=== PATIENT | male | born 1960 | race Caucasian/White ===

== ENCOUNTER 2023-01-03 01:23 | Observation (INO) | payer OTHER, SELFPAY ==
[2023-01-03] VITALS (28 sets, daily range): BP systolic 97–140; BP diastolic 52–89; PULSE 51–74; RESP 11–32; TEMP 36.3–36.6; O2SAT 92–98; BMI 33.8; BMI 34.1
--- NOTE | 2023-01-03 01:24 | ECG_ITS ---
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
--- NOTE | 2023-01-03 01:24 | ED.CHESTPAI1 ---
HPI - Chest Pain General Chief Complaint: Chest Pain Stated Complaint: chest pain Time Seen by Provider: 01/03/23 01:24 History of Present Illness HPI narrative: the patient is presenting with the two hours history of retrosternal chest pain that is not radiating associated with nausea and vomiting and dizziness, the pain was pressure like, he denies any preceding symptoms of cough or fever The pain happened while he was walking at work The patient had a coronary artery disease stenting history eight month ago in [facility] Patient brought to us by the EMS who received 2 doses of nitroglycerin as well as aspirin 324 mg pt already receiving Plavix . pt smokes less than 1 pack of cigarette per day Related Data Home Medications Medication Instructions Recorded Confirmed aspirin 81 mg tablet,delayed 81 mg PO DAILY 01/03/23 01/03/23 release atorvastatin 20 mg tablet 20 mg feeding tube DAILY 01/03/23 01/03/23 buspirone 10 mg tablet 5 mg PO TID 01/03/23 01/03/23 clopidogrel 75 mg tablet 75 mg PO DAILY 01/03/23 01/03/23 cyclobenzaprine 10 mg tablet 10 mg PO Q12H 01/03/23 01/03/23 gabapentin 100 mg capsule 100 mg PO TID 01/03/23 01/03/23 ibuprofen 800 mg tablet 800 mg PO Q8H 01/03/23 01/03/23 isosorbide mononitrate 30 mg 30 mg PO DAILY 01/03/23 01/03/23 tablet,extended release 24 hr metoprolol succinate 25 mg 25 mg PO DAILY 01/03/23 01/03/23 tablet,extended release 24 hr nitroglycerin 0.4 mg sublingual 0.4 mg sublingual PRN chest pain 01/03/23 tablet omeprazole 40 mg capsule,delayed 40 mg PO DAILY 01/03/23 01/03/23 release ranolazine 500 mg tablet,extended 500 mg PO Q12H 01/03/23 01/03/23 release,12 hr Allergies Allergy/AdvReac Type Severity Reaction Status Date / Time lidocaine Allergy Rash Verified 01/03/23 01:30 gabapentin [From Neurontin] AdvReac Nausea Verified 01/03/23 01:30 Review of Systems ROS Status of ROS 10 or more systems reviewed and unremarkable except as noted in history and below PFSH PFSH Social History Smoking status: Current every day smoker Exam Narrative Exam Narrative: Nurses notes and vital signs reviewed and patient is not hypoxic. General: Well-appearing and in no apparent distress. Skin: Warm, dry, no pallor noted. No rash. Head: Normocephalic, atraumatic. Neck: Supple, non-tender. Eye: Pupils are equal, round and EOMI. No scleral icterus. Ears, Nose, Mouth, and Throat: TM are clear, no nasal mucosal hypertrophy. Oral mucosa is moist, no posterior oropharynx erythema, uvula is mid-line Cardiovascular: Regular Rate and Rhythm without murmur, gallop or rub. Respiratory: No accessory muscle use or respiratory distress. Lungs are clear to auscultation, no wheezing, rales or rhonchi Chest Wall: no tenderness Back: No midline thoracic or lumbar vertebral tenderness. No CVA tenderness Musculoskeletal: normal ROM, no calf or popliteal tenderness, no lower extremity edema/swelling GI: Abdomen is soft, non-distended. Normal bowel sounds. No masses appreciated. No tenderness to palpation. No rebound, guarding, or rigidity noted. Neurological: A&O x4. No cranial nerve dysfunction observed. No truncal ataxia. Moves all extremities. Sensation intact. Psychiatric: Cooperative and interactive. Normal mood and affect. Constitutional Vital Signs - 24 hr 01/03/23 01:23 01/03/23 01:49 01/03/23 01:25 Temperature 97.6 F Pulse Rate 65 Pulse Rate [Monitor] 65 Respiratory Rate 16 15 Blood Pressure Blood Pressure [Right Arm] 110/69 Pulse Oximetry 96 96 95 Oxygen Delivery Method Room Air Room Air 01/03/23 01:26 01/03/23 01:27 01/03/23 01:30 Temperature Pulse Rate 67 64 60 Pulse Rate [Monitor] Respiratory Rate 18 18 11 L Blood Pressure 110/69 108/79 Blood Pressure [Right Arm] Pulse Oximetry 96 95 94 L Oxygen Delivery Method 01/03/23 02:00 01/03/23 02:30 01/03/23 02:30 Temperature Pulse Rate 63 59 L 69 Pulse Rate [Monitor] Respiratory Rate 19 18 21 Blood Pressure 121/71 H 118/61 118/61 Blood Pressure [Right Arm] Pulse Oximetry 93 L 95 96 Oxygen Delivery Method 01/03/23 03:00 Temperature Pulse Rate 65 Pulse Rate [Monitor] Respiratory Rate 16 Blood Pressure 129/64 H Blood Pressure [Right Arm] Pulse Oximetry 95 Oxygen Delivery Method Course Vital Signs Vital signs: Vital Signs Temperature 97.6 F 01/03/23 01:23 Pulse Rate 65 01/03/23 01:23 Respiratory Rate 16 01/03/23 01:23 Blood Pressure 110/69 01/03/23 01:23 Pulse Oximetry 96 01/03/23 01:23 Oxygen Delivery Method Room Air 01/03/23 01:23 Temperature 97.6 F 01/03/23 01:23 Pulse Rate 65 01/03/23 03:00 Respiratory Rate 16 01/03/23 03:00 Blood Pressure 129/64 H 01/03/23 03:00 Pulse Oximetry 95 01/03/23 03:00 Oxygen Delivery Method Room Air 01/03/23 01:49 MDM - Chest Pain MDM Narrative Medical decision making narrative: EKG shows sinus rhythm with a heart rate of sixty-six [address] elevation or depression and a repeated EKG still showing similar results CBC and chemistry showed no acute pathology and the patient troponin repeated twice did not show any elevation X-ray chest shows possible edema or bronchitis I spoke with Dr. Blair and he agreed that the patient is high risk and heart score is elevated----HEART score is 5 pt will be admitted for observation pt resolved at the moment pt will be admitted under Dr Contreras and discussed with Dr Bullock Lab Data Labs: Lab Results 01/03/23 01/03/23 Range/Units 01:30 03:04 WBC 9.7 (4.0-11.0) 10^3/uL RBC 5.28 (4.70-6.10) 10^6/uL Hgb 15.2 (14.0-18.0) g/dL Hct 44.4 (42.0-54.0) % MCV 84.1 (80.0-94.0) fL MCH 28.8 (25.9-34.0) pg MCHC 34.2 (29.9-35.2) g/dL RDW 13.4 (11.0-15.0) % Plt Count 293 (150-450) 10^3/uL MPV 9.5 (9.5-13.5) fL Neut % (Auto) 48.0 (43.0-75.0) % Lymph % (Auto) 38.5 (20.5-60.0) % [place] % (Auto) 10.7 (1.7-12.0) % Eos % (Auto) 2.1 (0.9-7.0) % Baso % (Auto) 0.5 (0.2-2.0) % Neut # (Auto) 4.7 (1.4-6.5) 10^3/uL Lymph # (Auto) 3.7 (1.2-3.8) 10^3/uL [place] # (Auto) 1.0 H (0.3-0.8) 10^3/uL Eos # (Auto) 0.2 (0.0-0.7) 10^3/uL Baso # (Auto) 0.1 (0.0-0.1) 10^3/uL Abs Immat Gran (auto) 0.02 (0.00-0.03) 10^3/uL Imm/Tot Granulo (auto) 0.2 (0.0-0.5) % PT 10.2 (9.0-11.6) sec INR 0.96 APTT 24.8 (22.3-36.2) sec Sodium 136 (136-145) mmol/L Potassium 3.9 (3.5-5.1) mmol/L Chloride 102 (98-107) mmol/L Carbon Dioxide 27.6 (21.0-32.0) mmol/L Anion Gap 10.3 BUN 14.0 (7.0-18.0) mg/dL Creatinine 1.07 (0.70-1.30) mg/dL Est GFR ( Amer) >60 (>=60) Est GFR (Non-Af Amer) >60 (>=60) BUN/Creatinine Ratio 13.1 Glucose 115 H (74-106) mg/dL Calcium 8.8 (8.5-10.1) mg/dL Total Bilirubin 0.4 (0.2-1.0) mg/dL AST 22 (15-37) U/L ALT 42 (16-63) U/L Alkaline Phosphatase 129 H (46-116) U/L Troponin I High Sens 6.8 6.5 (4.0-76.1) pg/mL Total Protein 7.3 (6.4-8.2) g/dL Albumin 3.8 (3.4-5.0) g/dL Globulin 3.5 g/dL Albumin/Globulin Ratio 1.1 Discharge Plan Discharge Chief Complaint: Chest Pain Clinical Impression: Unstable angina pectoris, Chest pain Patient Disposition: Admitted as Observation Time of Disposition Decision: 03:57 Condition: Good Additional Instructions: Admitted under Dr Contreras
[2023-01-03 01:40] LABS: Basophils Absolute Auto 0.1 10^3/uL (0.0-0.1); Basophils Percent Auto 0.5 % (0.2-2.0); Eosinophils Absolute Auto 0.2 10^3/uL (0.0-0.7); Eosinophils Percent Auto 2.1 % (0.9-7.0); Hematocrit 44.4 % (42.0-54.0); Hemoglobin 15.2 g/dL (14.0-18.0); Immature Granulocytes Abs Auto 0.02 10^3/uL (0.00-0.03); Immature Granulocytes Pct Auto 0.2 % (0.0-0.5); Lymphocytes Absolute Auto 3.7 10^3/uL (1.2-3.8); Lymphocytes Percent Auto 38.5 % (20.5-60.0); Mean Corpuscular HGB Conc 34.2 g/dL (29.9-35.2); Mean Corpuscular Hemoglobin 28.8 pg (25.9-34.0); Mean Corpuscular Volume 84.1 fL (80.0-94.0); Mean Platelet Volume 9.5 fL (9.5-13.5); Monocytes Percent Auto 10.7 % (1.7-12.0); Neutrophils Absolute Auto 4.7 10^3/uL (1.4-6.5); Platelet Count 293 10^3/uL (150-450); Red Blood Count 5.28 10^6/uL (4.70-6.10); Red Cell Distribution Width 13.4 % (11.0-15.0); White Blood Count 9.7 10^3/uL (4.0-11.0)
--- NOTE | 2023-01-03 01:40 | XR_ITS ---
The [address] [address] Patient Name: FRAN MATA MRN: [id number] date: 1960 Sex: M Assigned Patient Location: ED.MAIN Current Patient Location: ED.MAIN Accession/Order Number: [id number] Exam Date: 01/03/2023 01:40 Report Date: 01/03/2023 02:11 At the request of: CHINEDU HERNANDES Procedure: XR chest 1V EXAM: XR chest 1V HISTORY: CP COMPARISON: None. TECHNIQUE: One view of the chest was obtained. FINDINGS: An electronic loop recorder device overlies the left lung base. The cardiac silhouette is mildly enlarged. Aortic atherosclerotic disease is seen. There is mild interstitial prominence. There is left basilar atelectasis and/or scarring. There is no significant pneumothorax or pleural effusion. No acute osseous abnormality is seen. Surgical clips are seen within the right aspect of the neck. IMPRESSION: 1. Mildly enlarged cardiac silhouette with interstitial prominence that could represent edema and/or bronchitis. Electronically authenticated by: Linda SILVER Date: 01/03/2023 02:11
[2023-01-03 01:57] LABS: Alanine Aminotransferase 42 U/L (16-63); Albumin Globulin Ratio 1.1; Albumin Level 3.8 g/dL (3.4-5.0); Alkaline Phosphatase 129 U/L (46-116); Anion Gap 10.3; Aspartate Amino Transferase 22 U/L (15-37); BUN Creatinine Ratio 13.1; Bilirubin Total 0.4 mg/dL (0.2-1.0); Calcium 8.8 mg/dL (8.5-10.1); Carbon Dioxide 27.6 mmol/L (21.0-32.0); Chloride 102 mmol/L (98-107); Estimated GFR (African America >60 (>=60); Estimated GFR (Non-African Ame >60 (>=60); Globulin 3.5 g/dL; Glucose 115 mg/dL (74-106); Potassium 3.9 mmol/L (3.5-5.1); Sodium 136 mmol/L (136-145); Total Protein 7.3 g/dL (6.4-8.2); Troponin I High Sensitivity 6.8 pg/mL (4.0-76.1)
[2023-01-03 01:58] LABS: INR 0.96; Partial Thromboplastin Time 24.8 sec (22.3-36.2); Prothrombin Time 10.2 sec (9.0-11.6)
[2023-01-03] MEDS: MORPHINE SULFATE 4 MG/ML VIAL IV (02:27)
[2023-01-03] MEDS: ONDANSETRON PF 4 MG/2 ML VIAL IV (02:28)
--- NOTE | 2023-01-03 02:34 | ECG_ITS ---
The 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
[2023-01-03] MEDS: NITROGLYCERIN 0.4 MG TAB.SUBL PO (02:56)
[2023-01-03] MEDS: FAMOTIDINE/PF 20 MG/2 ML VIAL IV (02:57)
[2023-01-03 03:25] LABS: Troponin I High Sensitivity 6.5 pg/mL (4.0-76.1)
--- NOTE | 2023-01-03 05:05 | W.PM.TELEPN ---
Progress Note: Subjective Subjective Interval history: Chest pain HPI: this is a 62 yo male who presents with above complaints. Patient has a hx/o CAD, S/P [facility] Patient endorses two hours history of retrosternal chest pain that is not radiating associated with nausea and vomiting and dizziness, the pain was pressure like, he denies any preceding symptoms of cough or fever The pain happened while he was walking at work The patient had a coronary artery disease stenting history Patient brought to us by the EMS who received 2 doses of nitroglycerin as well as aspirin 324 mg pt already receiving Plavix . pt smokes less than 1 pack of cigarette per day Exam Narrative Exam Narrative: NAD, PERRLA, EOMI, MMM HEart - S1, S!. RRR Pulm - CTA B/L - no pain ABd - S/NT/ND/+BSs EXT - no C/C/Edema Meuro - CN II - XII grossly intakt ECTR - arthriar Constitutional Vital Signs - 24 hr 01/03/23 01:23 01/03/23 01:49 01/03/23 01:25 Temperature 97.6 F Pulse Rate 65 Pulse Rate [Monitor] 65 Respiratory Rate 16 15 Blood Pressure Blood Pressure [Right Arm] 110/69 Pulse Oximetry 96 96 95 Oxygen Delivery Method Room Air Room Air 01/03/23 01:26 01/03/23 01:27 01/03/23 01:30 Temperature Pulse Rate 67 64 60 Pulse Rate [Monitor] Respiratory Rate 18 18 11 L Blood Pressure 110/69 108/79 Blood Pressure [Right Arm] Pulse Oximetry 96 95 94 L Oxygen Delivery Method 01/03/23 02:00 01/03/23 02:30 01/03/23 02:30 Temperature Pulse Rate 63 59 L 69 Pulse Rate [Monitor] Respiratory Rate 19 18 21 Blood Pressure 121/71 H 118/61 118/61 Blood Pressure [Right Arm] Pulse Oximetry 93 L 95 96 Oxygen Delivery Method 01/03/23 03:00 01/03/23 03:00 01/03/23 03:15 Temperature Pulse Rate 65 62 55 L Pulse Rate [Monitor] Respiratory Rate 16 21 21 Blood Pressure 129/64 H 129/64 H 97/71 Blood Pressure [Right Arm] Pulse Oximetry 95 94 L 96 Oxygen Delivery Method 01/03/23 03:30 01/03/23 03:45 01/03/23 04:00 Temperature Pulse Rate 56 L 56 L 60 Pulse Rate [Monitor] Respiratory Rate 15 16 19 Blood Pressure 111/70 98/67 118/89 H Blood Pressure [Right Arm] Pulse Oximetry 92 L 98 Oxygen Delivery Method 01/03/23 04:13 01/03/23 04:17 01/03/23 04:20 Temperature Pulse Rate 56 L 55 L Pulse Rate [Monitor] Respiratory Rate 12 Blood Pressure 120/66 H Blood Pressure [Right Arm] Pulse Oximetry Oxygen Delivery Method 01/03/23 04:30 Temperature Pulse Rate 74 Pulse Rate [Monitor] Respiratory Rate 32 H Blood Pressure Blood Pressure [Right Arm] Pulse Oximetry Oxygen Delivery Method Progress Note: Objective Labs Labs: Short CBC 01/03/23 Range/Units 01:30 WBC 9.7 (4.0-11.0) 10^3/uL Hgb 15.2 (14.0-18.0) g/dL Hct 44.4 (42.0-54.0) % Plt Count 293 (150-450) 10^3/uL BMP 01/03/23 01:30 Sodium 136 Potassium 3.9 Chloride 102 Carbon Dioxide 27.6 BUN 14.0 Creatinine 1.07 Glucose 115 H Calcium 8.8 Liver Function 01/03/23 Range/Units 01:30 Total Bilirubin 0.4 (0.2-1.0) mg/dL AST 22 (15-37) U/L ALT 42 (16-63) U/L Alkaline Phosphatase 129 H (46-116) U/L Albumin 3.8 (3.4-5.0) g/dL Progress Note: A&P Assessment and Plan (1) Unstable angina pectoris: (2) Chest pain: Plan 1. 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 HTN - bp controlled. 3. Dyslipidemia - continue with home dose of statin 4. DVT/GI prophylaxis Telemedicine Attestation Telemedicine Attestation I conducted this encounter from [place][] via secure live, [id number] video conference with the patient, CHARGE TEST-CHARGES located at [facility] with [CP in adult]. Prior to the interview, the risks and benefits of telemedicine were discussed with the patient and verbal consent was obtained.
[2023-01-03 05:32] LABS: Basophils Percent Auto 0.4 % (0.2-2.0); Eosinophils Absolute Auto 0.2 10^3/uL (0.0-0.7); Eosinophils Percent Auto 2.5 % (0.9-7.0); Hematocrit 44.6 % (42.0-54.0); Hemoglobin 15.2 g/dL (14.0-18.0); Immature Granulocytes Abs Auto 0.03 10^3/uL (0.00-0.03); Immature Granulocytes Pct Auto 0.3 % (0.0-0.5); Lymphocytes Absolute Auto 3.7 10^3/uL (1.2-3.8); Mean Corpuscular HGB Conc 34.1 g/dL (29.9-35.2); Mean Corpuscular Hemoglobin 28.9 pg (25.9-34.0); Mean Corpuscular Volume 84.8 fL (80.0-94.0); Mean Platelet Volume 9.4 fL (9.5-13.5); Monocytes Absolute Auto 0.9 10^3/uL (0.3-0.8); Monocytes Percent Auto 9.9 % (1.7-12.0); Neutrophils Absolute Auto 4.1 10^3/uL (1.4-6.5); Neutrophils Percent Auto 45.9 % (43.0-75.0); Platelet Count 277 10^3/uL (150-450); Red Blood Count 5.26 10^6/uL (4.70-6.10); Red Cell Distribution Width 13.4 % (11.0-15.0); White Blood Count 8.9 10^3/uL (4.0-11.0)
[2023-01-03 05:44] LABS: Partial Thromboplastin Time 27.1 sec (22.3-36.2)
[2023-01-03 05:45] LABS: Cholesterol 175 mg/dL (<=200); HDL Cholesterol 35 mg/dL (40-60); Prealbumin 25.2 mg/dL (20.9-45.5); Triglycerides 150 mg/dL (<=150)
[2023-01-03 05:46] LABS: Alanine Aminotransferase 43 U/L (16-63); Albumin Globulin Ratio 1.1; Albumin Level 3.8 g/dL (3.4-5.0); Alkaline Phosphatase 128 U/L (46-116); Anion Gap 11.1; Aspartate Amino Transferase 24 U/L (15-37); BUN Creatinine Ratio 13.6; Bilirubin Total 0.5 mg/dL (0.2-1.0); Calcium 8.8 mg/dL (8.5-10.1); Chloride 101 mmol/L (98-107); Estimated GFR (African America >60 (>=60); Estimated GFR (Non-African Ame >60 (>=60); Globulin 3.4 g/dL; Glucose 152 mg/dL (74-106); Potassium 4.1 mmol/L (3.5-5.1); Sodium 136 mmol/L (136-145); Total Protein 7.2 g/dL (6.4-8.2)
[2023-01-03] MEDS: BUSPIRONE HCL 10 MG TABLET 5 MG PO ×2 (08:59→13:32)
[2023-01-03] MEDS: ASPIRIN 81 MG TABLET.DR PO (09:00)
[2023-01-03] MEDS: ISOSORBIDE MONONITRATE 30 MG TAB.ER.24H PO (09:00)
[2023-01-03] MEDS: ATORVASTATIN CALCIUM 20 MG TABLET PO (09:00)
[2023-01-03] MEDS: GABAPENTIN 100 MG CAPSULE PO ×2 (09:02→13:32)
[2023-01-03] MEDS: RANOLAZINE 500 MG TAB.ER.12H PO (09:02)
[2023-01-03] MEDS: CLOPIDOGREL BISULFATE 75 MG TABLET PO (09:02)
[2023-01-03] MEDS: CYCLOBENZAPRINE HCL 10 MG TABLET PO (09:02)
[2023-01-03] MEDS: METOPROLOL SUCCINATE 25 MG TAB.ER.24H PO (09:02)
[2023-01-03] MEDS: OMEPRAZOLE 40 MG CAPSULE.DR PO (09:03)
--- NOTE | 2023-01-03 09:15 | P.HP_ITS ---
H&P: HPI History of Present Illness Chief complaint: chest pain, UNSTABLE ANGINA PECTORIS Narrative: patient is a 62-year-old male with past medical history of coronary artery disease status post PCI and stent placement approximately eight months ago at [facility]. He also has a history of hyperlipidemia, hypertension, low back pain, GERD. He reports that he follows frequently with Dr. Zheng and had an echo approximately three months ago. Yesterday he was working out [employer] when he developed some shortness of breath and subsequent substernal chest pain nonradiating. He did feel nauseous at the time no vomiting or diarrhea. He says he started with a dry cough, he is a smoker, and his is also suffering from an upper respiratory illness. On chest x-ray findings of cardiomegaly but no acute processes. Pattient has had negative troponins ?3, blood pressure has remained stable and there has been no events on telemetry. He does report some occasional chest pain still but mostly with coughing he denies any dizziness consistent chest pain no radiation of chest pain no weakness no headaches, no fevers. Review of Systems ROS Narrative ROS: a complete review of systems were reviewed with patient and are positive as below or listed in History of Chief Complaint. General: no fever, chills, night sweats Head: no headache, trauma, visual changes, nausea or vomiting Skin: no reported rashes, itching or sores Eyes: no blurriness of vision Ears: no reported hearing loss, vertigo, earache, or tinnitus Throat: no sore throat, hoarseness, swelling of neck, or tongue pain Heart: chest pain Lungs:shortness of breath and dry cough GI: no diarrhea or vomiting/nausea Urinary: no urinary urgency, frequency or pain Neuro: no numbness or tingling HEM: no bleeding issues or bruising ENDO: no thyroid problems Psych: no anxiety or depression PFSH PFSH Social History Smoking status: Current every day smoker Do you think of yourself as: straight/heterosexual Gender Identity: male Meds Home Medications and Allergies Home Medications Medication Instructions Recorded Confirmed Type aspirin 81 mg tablet,delayed 81 mg PO DAILY 01/03/23 01/03/23 History release atorvastatin 20 mg tablet 20 mg feeding tube DAILY 01/03/23 01/03/23 History buspirone 10 mg tablet 5 mg PO TID 01/03/23 01/03/23 History clopidogrel 75 mg tablet 75 mg PO DAILY 01/03/23 01/03/23 History cyclobenzaprine 10 mg tablet 10 mg PO Q12H 01/03/23 01/03/23 History gabapentin 100 mg capsule 100 mg PO TID 01/03/23 01/03/23 History ibuprofen 800 mg tablet 800 mg PO Q8H 01/03/23 01/03/23 History isosorbide mononitrate 30 mg 30 mg PO DAILY 01/03/23 01/03/23 History tablet,extended release 24 hr metoprolol succinate 25 mg 25 mg PO DAILY 01/03/23 01/03/23 History tablet,extended release 24 hr nitroglycerin 0.4 mg sublingual 0.4 mg sublingual PRN chest pain 01/03/23 History tablet omeprazole 40 mg capsule,delayed 40 mg PO DAILY 01/03/23 01/03/23 History release ranolazine 500 mg tablet,extended 500 mg PO Q12H 01/03/23 01/03/23 History release,12 hr Allergies Allergy/AdvReac Type Severity Reaction Status Date / Time lidocaine Allergy Rash Verified 01/03/23 01:30 gabapentin [From Neurontin] AdvReac Nausea Verified 01/03/23 01:30 Exam Narrative Exam Narrative: General: Patient is alert, and oriented to person, place and time with normal affect, proper hygiene Skin: no visible rashes, or ulcers Head: atraumatic, acephalic Eyes: PERRLA, no nystagmus present, conjunctiva clear, no scleral icterus Ears: normal gross auditory acuity Nose: symmetric, no discharge, no maxillary or frontal sinus tenderness Mouth/Throat: no erythema, exudate, or tonsillar enlargement, normal dentition Neck: no masses palpated, normal thyroid, no JVD or audible carotid bruits Heart: Normal rate and rhythm, no murmurs/rubs/gallops Lungs: no audible wheezes, crackles and normal breath sounds all lung combs Abdomen: Normal audible bowel sounds, no distension, No palpable masses, no organomegaly, no rebound/guarding/ or rigidity Musculoskeletal: muscle atrophy noted, ROM is limited due to being in hospital bed, no swelling bilateral lower extremities Vascular: Normal carotid, radial, femoral, posterior tibial, and dorsalis pedis pulses Lymph: no supraclavicular, axillary, or anterior/posterior cervical adenopathy Neuro: CN II-X grossly intact, normal sensation upper and lower extremities Constitutional Vital Signs - 24 hr 01/03/23 01:23 01/03/23 01:49 01/03/23 01:25 Temperature 97.6 F Pulse Rate 65 Pulse Rate [Monitor] 65 Respiratory Rate 16 15 Blood Pressure Blood Pressure [Right Arm] 110/69 Pulse Oximetry 96 96 95 Oxygen Delivery Method Room Air Room Air 01/03/23 01:26 01/03/23 01:27 01/03/23 01:30 Temperature Pulse Rate 67 64 60 Pulse Rate [Monitor] Respiratory Rate 18 18 11 L Blood Pressure 110/69 108/79 Blood Pressure [Right Arm] Pulse Oximetry 96 95 94 L Oxygen Delivery Method 01/03/23 02:00 01/03/23 02:30 01/03/23 02:30 Temperature Pulse Rate 63 59 L 69 Pulse Rate [Monitor] Respiratory Rate 19 18 21 Blood Pressure 121/71 H 118/61 118/61 Blood Pressure [Right Arm] Pulse Oximetry 93 L 95 96 Oxygen Delivery Method 01/03/23 03:00 01/03/23 03:00 01/03/23 03:15 Temperature Pulse Rate 65 62 55 L Pulse Rate [Monitor] Respiratory Rate 16 21 21 Blood Pressure 129/64 H 129/64 H 97/71 Blood Pressure [Right Arm] Pulse Oximetry 95 94 L 96 Oxygen Delivery Method 01/03/23 03:30 01/03/23 03:45 01/03/23 04:00 Temperature Pulse Rate 56 L 56 L 60 Pulse Rate [Monitor] Respiratory Rate 15 16 19 Blood Pressure 111/70 98/67 118/89 H Blood Pressure [Right Arm] Pulse Oximetry 92 L 98 Oxygen Delivery Method 01/03/23 04:13 01/03/23 04:17 01/03/23 04:20 Temperature Pulse Rate 56 L 55 L Pulse Rate [Monitor] Respiratory Rate 12 Blood Pressure 120/66 H Blood Pressure [Right Arm] Pulse Oximetry Oxygen Delivery Method 01/03/23 04:30 01/03/23 04:48 01/03/23 04:48 Temperature 97.4 F L Pulse Rate 74 55 L Pulse Rate [Monitor] 55 L Respiratory Rate 32 H 14 Blood Pressure Blood Pressure [Right Arm] 140/78 H Pulse Oximetry 96 96 Oxygen Delivery Method Room Air Room Air 01/03/23 04:48 01/03/23 05:45 01/03/23 06:00 Temperature 97.8 F Pulse Rate 61 64 Pulse Rate [Monitor] 55 L Respiratory Rate 14 20 Blood Pressure Blood Pressure [Right Arm] 119/70 Pulse Oximetry 93 L Oxygen Delivery Method Room Air 01/03/23 08:09 01/03/23 08:55 01/03/23 09:00 Temperature Pulse Rate 66 61 Pulse Rate [Monitor] Respiratory Rate 14 Blood Pressure Blood Pressure [Right Arm] Pulse Oximetry Oxygen Delivery Method Results Labs Labs: Short CBC 01/03/23 01/03/23 Range/Units 01:30 05:11 WBC 9.7 8.9 (4.0-11.0) 10^3/uL Hgb 15.2 15.2 (14.0-18.0) g/dL Hct 44.4 44.6 (42.0-54.0) % Plt Count 293 277 (150-450) 10^3/uL BMP 01/03/23 01/03/23 01:30 05:11 Sodium 136 136 Potassium 3.9 4.1 Chloride 102 101 Carbon Dioxide 27.6 28.0 BUN 14.0 15.0 Creatinine 1.07 1.10 Glucose 115 H 152 H Calcium 8.8 8.8 Liver Function 01/03/23 01/03/23 Range/Units 01:30 05:11 Total Bilirubin 0.4 0.5 (0.2-1.0) mg/dL AST 22 24 (15-37) U/L ALT 42 43 (16-63) U/L Alkaline Phosphatase 129 H 128 H (46-116) U/L Albumin 3.8 3.8 (3.4-5.0) g/dL Assessment and Plan Assessment and Plan (1) Unstable angina pectoris: Assessment and Plan: serial cardiac enzymes have been within normal limits, patient was placed in observation on telemetry and had no events overnight. No EKG changes. Recent echocardiogram done by personal clinical systems educator so no need for repeat at this time. Patient will continue home medications of Plavix aspirin and a torn the statin and have close outpatient follow-up with his clinical systems educator. Recent PCI int ervention with stent placement approximately eight months ago at [facility]. Patient continues to smoke (2) CAD (coronary atherosclerotic disease): Assessment and Plan: continue Plavix, atorvastatin and aspirin (3) Stented coronary artery: (4) Hypertension: Assessment and Plan: blood pressure has remained stable on metoprolol, isosorbidea nd wi'll continue these (5) GERD (gastroesophageal reflux disease): Assessment and Plan: continue omeprazole (6) Tobacco abuse: Assessment and Plan: no desire to quit at this time (7) Acute bronchitis: Assessment and Plan: will place patient on a Z-Ramiro ?5 days on discharge (8) Chronic low back pain: Assessment and Plan: continue home medications of gabapentin, Flexeril Plan patient is a full code And will be placed in observation status and will be monitored on telemetry patient is not expected to stay more than two midnights Replaced on Lovenox for deep vein thrombosis prophylaxis
[2023-01-03 09:57] LABS: Thyroid Stimulating Hormone 4.856 uIU/mL (0.358-3.740); Troponin I High Sensitivity 7.7 pg/mL (4.0-76.1)
[2023-01-03 09:59] LABS: Estimated Average Glucose 131 mg/dL; Glycohemoglobin A1C 6.2 % (4.5-6.2)
--- NOTE | 2023-01-03 12:40 | CM.NOTE ---
Rounds made with Dr. Contreras. Dr. Contreras discussed diagnostic findings with Miguelangel. Verbalizes understanding. Discharge plan for today.
--- NOTE | 2023-01-03 13:22 | PM.DS1 ---
DS: Providers Provider Date of admission: 01/03/23 04:26 Primary care physician: Non-Staff Physician, Admitting clinician: Sha Briggs Sister Attending physician on admission: Kiera Contreras Consults: 01/03/23 03:46 Consult to Cardiology Routine Consulting Provider: Stefano Blair DS: Diagnosis Discharge Diagnosis (1) Acute bronchitis: Assessment and plan: will place patient on a Z-Ramiro ?5 days on discharge, I think this is the most likely culprit for patient's symptoms (2) Unstable angina pectoris: Assessment and plan: serial cardiac enzymes have been within normal limits, patient was placed in observation on telemetry and had no events overnight. No EKG changes. Recent echocardiogram done by personal manager vehicle so no need for repeat at this time. Patient will continue home medications of Plavix aspirin and a torn the statin and have close outpatient follow-up with his manager vehicle. Recent PCI intervention with stent placement approximately eight months ago at [facility]. Patient continues to smok (3) CAD (coronary atherosclerotic disease): Assessment and plan: continue Plavix, atorvastatin and aspirin (4) Stented coronary artery: (5) Hypertension: Assessment and plan: blood pressure has remained stable on metoprolol, isosorbide and will continue these (6) GERD (gastroesophageal reflux disease): Assessment and plan: continue omeprazole (7) Tobacco abuse: Assessment and plan: no desire to quit at this time (8) Chronic low back pain: Assessment and plan: resume home medications DS: Summary Hospital Course Hospital Course: serial cardiac enzymes have been within normal limits, patient was placed in observation on telemetry and had no events overnight. No EKG changes. Recent echocardiogram done by personal manager vehicle so no need for repeat at this time. Patient will continue home medications of Plavix aspirin and a torn the statin and have close outpatient follow-up with his manager vehicle. Recent PCI intervention with stent placement approximately eight months ago at [facility]. Patient continues to smoke. patient has symptoms of acute bronchitis which is most likely the cause of his symptoms. We'll treat him with five day course of Z-Ramiro and close cardiology follow-up Time Spent with Patient Time attestation: Total time spent providing and/or coordinating discharge services: Quality: Stroke Symptom Onset Unknown: No Exam Narrative Exam Narrative: no changes to examine that were listed in admission H and P dated for today Constitutional Vital Signs - 24 hr 01/03/23 01:23 01/03/23 01:49 01/03/23 01:25 Temperature 97.6 F Pulse Rate 65 Pulse Rate [Monitor] 65 Respiratory Rate 16 15 Blood Pressure Blood Pressure [Right Arm] 110/69 Pulse Oximetry 96 96 95 Oxygen Delivery Method Room Air Room Air 01/03/23 01:26 01/03/23 01:27 01/03/23 01:30 Temperature Pulse Rate 67 64 60 Pulse Rate [Monitor] Respiratory Rate 18 18 11 L Blood Pressure 110/69 108/79 Blood Pressure [Right Arm] Pulse Oximetry 96 95 94 L Oxygen Delivery Method 01/03/23 02:00 01/03/23 02:30 01/03/23 02:30 Temperature Pulse Rate 63 59 L 69 Pulse Rate [Monitor] Respiratory Rate 19 18 21 Blood Pressure 121/71 H 118/61 118/61 Blood Pressure [Right Arm] Pulse Oximetry 93 L 95 96 Oxygen Delivery Method 01/03/23 03:00 01/03/23 03:00 01/03/23 03:15 Temperature Pulse Rate 65 62 55 L Pulse Rate [Monitor] Respiratory Rate 16 21 21 Blood Pressure 129/64 H 129/64 H 97/71 Blood Pressure [Right Arm] Pulse Oximetry 95 94 L 96 Oxygen Delivery Method 01/03/23 03:30 01/03/23 03:45 01/03/23 04:00 Temperature Pulse Rate 56 L 56 L 60 Pulse Rate [Monitor] Respiratory Rate 15 16 19 Blood Pressure 111/70 98/67 118/89 H Blood Pressure [Right Arm] Pulse Oximetry 92 L 98 Oxygen Delivery Method 01/03/23 04:13 01/03/23 04:17 01/03/23 04:20 Temperature Pulse Rate 56 L 55 L Pulse Rate [Monitor] Respiratory Rate 12 Blood Pressure 120/66 H Blood Pressure [Right Arm] Pulse Oximetry Oxygen Delivery Method 01/03/23 04:30 01/03/23 04:48 01/03/23 04:48 Temperature 97.4 F L Pulse Rate 74 55 L Pulse Rate [Monitor] 55 L Respiratory Rate 32 H 14 Blood Pressure Blood Pressure [Right Arm] 140/78 H Pulse Oximetry 96 96 Oxygen Delivery Method Room Air Room Air 01/03/23 04:48 01/03/23 05:45 01/03/23 06:00 Temperature 97.8 F Pulse Rate 61 64 Pulse Rate [Monitor] 55 L Respiratory Rate 14 20 Blood Pressure Blood Pressure [Right Arm] 119/70 Pulse Oximetry 93 L Oxygen Delivery Method Room Air 01/03/23 08:09 01/03/23 08:55 01/03/23 09:00 Temperature Pulse Rate 66 61 Pulse Rate [Monitor] Respiratory Rate 14 Blood Pressure Blood Pressure [Right Arm] Pulse Oximetry Oxygen Delivery Method 01/03/23 09:56 01/03/23 11:46 01/03/23 12:14 Temperature Pulse Rate 54 L 55 L Pulse Rate [Monitor] Respiratory Rate Blood Pressure Blood Pressure [Right Arm] Pulse Oximetry 94 L Oxygen Delivery Method Room Air DS: Data Data Completed and Pending Labs on day of discharge: Labs from last 24 hours 01/03/23 01/03/23 01/03/23 09:25 05:11 03:04 WBC 8.9 RBC 5.26 Hgb 15.2 Hct 44.6 MCV 84.8 MCH 28.9 MCHC 34.1 RDW 13.4 Plt Count 277 MPV 9.4 L Neut % (Auto) 45.9 Lymph % (Auto) 41.0 Bond % (Auto) 9.9 Eos % (Auto) 2.5 Baso % (Auto) 0.4 Neut # (Auto) 4.1 Lymph # (Auto) 3.7 Bond # (Auto) 0.9 H Eos # (Auto) 0.2 Baso # (Auto) 0.0 Abs Immat Gran (auto) 0.03 Imm/Tot Granulo (auto) 0.3 PT INR APTT 27.1 Sodium 136 Potassium 4.1 Chloride 101 Carbon Dioxide 28.0 Anion Gap 11.1 BUN 15.0 Creatinine 1.10 Est GFR ( Amer) >60 Est GFR (Non-Af Amer) >60 BUN/Creatinine Ratio 13.6 Glucose 152 H Estimat Average Glucose 131 Hemoglobin A1c 6.2 Calcium 8.8 Total Bilirubin 0.5 AST 24 ALT 43 Alkaline Phosphatase 128 H Troponin I High Sens 7.7 6.5 Total Protein 7.2 Albumin 3.8 Globulin 3.4 Albumin/Globulin Ratio 1.1 Prealbumin 25.2 Triglycerides 150 Cholesterol 175 LDL Cholesterol, Calc 110.0 VLDL Cholesterol 30.0 HDL Cholesterol 35 L Cholesterol/HDL Ratio 5.0 TSH 4.856 H 01/03/23 01:30 WBC 9.7 RBC 5.28 Hgb 15.2 Hct 44.4 MCV 84.1 MCH 28.8 MCHC 34.2 RDW 13.4 Plt Count 293 MPV 9.5 Neut % (Auto) 48.0 Lymph % (Auto) 38.5 Bond % (Auto) 10.7 Eos % (Auto) 2.1 Baso % (Auto) 0.5 Neut # (Auto) 4.7 Lymph # (Auto) 3.7 Bond # (Auto) 1.0 H Eos # (Auto) 0.2 Baso # (Auto) 0.1 Abs Immat Gran (auto) 0.02 Imm/Tot Granulo (auto) 0.2 PT 10.2 INR 0.96 APTT 24.8 Sodium 136 Potassium 3.9 Chloride 102 Carbon Dioxide 27.6 Anion Gap 10.3 BUN 14.0 Creatinine 1.07 Est GFR ( Amer) >60 Est GFR (Non-Af Amer) >60 BUN/Creatinine Ratio 13.1 Glucose 115 H Estimat Average Glucose Hemoglobin A1c Calcium 8.8 Total Bilirubin 0.4 AST 22 ALT 42 Alkaline Phosphatase 129 H Troponin I High Sens 6.8 Total Protein 7.3 Albumin 3.8 Globulin 3.5 Albumin/Globulin Ratio 1.1 Prealbumin Triglycerides Cholesterol LDL Cholesterol, Calc VLDL Cholesterol HDL Cholesterol Cholesterol/HDL Ratio TSH Discharge Plan Discharge Disposition: Home, Self-Care Condition: Good Discharge Medications: New azithromycin [Zithromax Z-Ramiro] 250 mg tablet See Rx Instructions .ROUTE .COMPLEX Qty: 6 0RF Rx Instructions: For 250 mg dose pack: take 500 mg today (day 1), then 250 mg for 4 days (days 2-5) Continued aspirin 81 mg tablet,delayed release (DR/EC) 81 mg PO DAILY atorvastatin 20 mg tablet 20 mg feeding tube DAILY buspirone 10 mg tablet 5 mg PO TID clopidogrel 75 mg tablet 75 mg PO DAILY cyclobenzaprine 10 mg tablet 10 mg PO Q12H gabapentin 100 mg capsule 100 mg PO TID ibuprofen 800 mg tablet 800 mg PO Q8H isosorbide mononitrate 30 mg tablet extended release 24 hr 30 mg PO DAILY metoprolol succinate 25 mg tablet extended release 24 hr 25 mg PO DAILY nitroglycerin 0.4 mg tablet, sublingual 0.4 mg sublingual PRN (Reason: chest pain) omeprazole 40 mg capsule,delayed release(DR/EC) 40 mg PO DAILY ranolazine 500 mg tablet extended release 12 hr 500 mg PO Q12H Activity: increase activity as tolerated Activity Detail: return to work on 01/05/23 Diet: advance to your usual diet Forms: Portal Instructions Follow Up Appointments: follow up with PCP -Dr Shearer , mondayJanuary 18 at 2:15 [id number] ( was first appoinment avaliable) 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 Anne first available
--- NOTE | 2023-01-03 13:50 | SWNOTE1 ---
Pt's car is at [employer], he does not have any family friends to come get him. His is not feeling well. SW called and set up trips transportation and they will be here around 3:15-3:45. SW notified nursing.
== END 2023-01-03 14:57 | disposition home or self-care (01) ==
LOC: ER 03:58 → MS 04:28
PROVIDERS: Admitting Provider Internal Medicine; Emergency Provider Emergency Medicine; Visit Provider Family Medicine
DX: J20.9 Acute bronchitis, unspecified (principal); I25.110 Atherosclerotic heart disease of native coronary artery with unstable angina pectoris; I10 Essential (primary) hypertension; K21.9 Gastro-esophageal reflux disease without esophagitis; F17.210 Nicotine dependence, cigarettes, uncomplicated; G89.29 Other chronic pain; M54.50 Low back pain, unspecified; Z95.5 Presence of coronary angioplasty implant and graft; E78.5 Hyperlipidemia, unspecified; Z79.82 Long term (current) use of aspirin; Z79.899 Other long term (current) drug therapy; Z79.02 Long term (current) use of antithrombotics/antiplatelets
CPT/HCPCS: 36415; 71045; 80053; 80061; 83036; 84134; 84443; 84484; 85025; 85610; 85730; 93005; 96372; 96374; 96375; 99285; G0378; Q3014

== ENCOUNTER 2023-06-05 23:38 | Emergency (ER) | payer OTHER, SELFPAY ==
[2023-06-05 23:41] VITALS: BP 122/91; PULSE 54; RESP 20; TEMP 36.6; O2SAT 99; BMI 31.2
[2023-06-05 23:43] VITALS: BP 122/91; O2SAT 100
[2023-06-05 23:47] VITALS: PULSE 76; O2SAT 100
--- NOTE | 2023-06-05 23:47 | XR_ITS ---
The [address] [address] Patient Name: FRAN MATA MRN: [id number] date: 1960 Sex: M Assigned Patient Location: ER Current Patient Location: ED.MAIN Accession/Order Number: [id number] Exam Date: 06/05/2023 23:50 Report Date: 06/06/2023 00:14 At the request of: NÉSTOR GUTIÉRREZ Procedure: XR chest 1V EXAM: XR chest 1V HISTORY: SOB, cough COMPARISON: Chest x-ray 01/03/2023 TECHNIQUE: Single frontal view chest x-ray FINDINGS: Moderately enlarged cardiac silhouette. Mild bilateral infrahilar lower lung streaky opacities. No large pleural effusion, pneumothorax, or acute bony abnormality. XR/XR chest 1V IMPRESSION: Moderately enlarged cardiac silhouette. Mild bilateral infrahilar lower lung streaky opacities reflect atelectasis with crowding of pulmonary vessels versus lung infiltrates. Correlate clinically. Electronically authenticated by: KATHY COOPER Date: 06/06/2023 00:14
--- NOTE | 2023-06-05 23:47 | ECG_ITS ---
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: : 1960 Requested By: FRAN ETIENNE Order Number: [id number] Reading MD: FRAN ETIENNE Measurements Intervals [place] Rate: 77 P: 30 TN: 184 QRS: 66 QRSD: 94 T: 39 QT: 370 QTc: 401 Interpretive Statements 1100 Sinus rhythm 2440 Incomplete right bundle branch block 3114 Cannot rule out anterior myocardial infarction, age undetermined 8102 Low QRS voltage in chest leads 9150 abnormal ECG Compared to ECG 01/03/2023 02:34:56 Incomplete right bundle-branch block now present Myocardial infarct finding now present Low QRS voltage now present Indeterminate axis no longer present Electronically Signed On 06-07-2023 5:27:46 EST by FRAN ETIENNE
--- NOTE | 2023-06-05 23:48 | ED_ITS ---
HPI - SOB/Dyspnea General Chief Complaint: Shortness of Breath/Dyspnea Stated Complaint: SOB Time Seen by Provider: 06/05/23 23:42 Source: patient Mode of arrival: Wheelchair History of Present Illness HPI Narrative: 62-year-old male presents for cough and shortness of breath. This started when he was at work forty-five minutes ago. He works at a [employer] company. He hasn't had a fever and he felt well earlier in the day. He started to use inhaler and got some of it inside. Related Data Home Medications Medication Instructions Recorded Confirmed aspirin 81 mg tablet,delayed 81 mg PO DAILY 01/03/23 06/06/23 release clopidogrel 75 mg tablet 75 mg PO DAILY 01/03/23 06/06/23 cyclobenzaprine 10 mg tablet 10 mg PO TID PRN muscle spasm 01/03/23 06/06/23 nitroglycerin 0.4 mg sublingual 0.4 mg sublingual .Q5MIN PRN chest 01/03/23 06/06/23 tablet pain albuterol sulfate 90 mcg/actuation 2 puff inhalation Q6H PRN 06/06/23 06/06/23 aerosol inhaler shortness of breath or wheezing atorvastatin 80 mg tablet 80 mg PO QPM 06/06/23 06/06/23 ezetimibe 10 mg tablet 10 mg PO DAILY 06/06/23 06/06/23 gabapentin 300 mg capsule 300 mg PO BID 06/06/23 06/06/23 metoprolol tartrate 25 mg tablet 25 mg PO BID 06/06/23 06/06/23 pantoprazole 40 mg tablet,delayed 40 mg PO DAILY 06/06/23 06/06/23 release Previous Rx's Medication Instructions Recorded prednisone 10 mg tablet See Rx Instructions .Route 06/06/23 .COMPLEX #30 tabs Allergies Allergy/AdvReac Type Severity Reaction Status Date / Time lidocaine Allergy Rash Verified 01/03/23 01:30 gabapentin [From Neurontin] AdvReac Nausea Verified 01/03/23 01:30 Review of Systems ROS Narrative A ten point review of systems is negative except as noted above. [facility] Medical History (Updated 06/06/23 @ 01:50 by Enrique Pablo MD) CAD (coronary atherosclerotic disease) ?I25.10 - Atherosclerotic heart disease of [place] coronary artery without angina pectoris (ICD-10) Chronic low back pain ?M54.50 - Low back pain, unspecified (ICD-10) ?G89.29 - Other chronic pain (ICD-10) GERD (gastroesophageal reflux disease) ?K21.9 - Gastro-esophageal reflux disease without esophagitis (ICD-10) Hypertension ?I10 - Essential (primary) hypertension (ICD-10) Tobacco abuse ?Z72.0 - Tobacco use (ICD-10) Surgical History (Updated 01/07/23 @ 00:00 by ) Stented coronary artery ?Z95.5 - Presence of coronary angioplasty implant and graft (ICD-10) Social History Smoking status: Current every day smoker Do you think of yourself as: straight/heterosexual Gender Identity: male Exam Narrative Exam Narrative: Nurses note and vital signs reviewed and patient is not hypoxic. General: The patient appears well and in no apparent distress. Patient is resting comfortably on cart. Skin: Warm, dry, no pallor noted. There is no rash noted. Head: Normocephalic, atraumatic Eye: Normal conjunctiva, no drainage Ears, Nose, Mouth, and Throat: oral mucosa is moist. Nares patent. Cardiovascular: Regular Rate and Rhythm Respiratory: Patient is in no distress, no accessory muscle use, lungs are clear to auscultation, no wheezing, rales or rhonchi, good air movement present Back: non-tender GI: soft and nontender Musculoskeletal: The patient has no evidence of calf tenderness, no pitting edema, symmetrical pulses noted bilaterally Neurological: A&O, normal speech Psychiatric: Cooperative Constitutional Vital Signs, click to edit/add: Last Vital Signs Temp 97.9 F 06/05/23 23:41 Pulse 59 L 06/06/23 01:40 Resp 9 L 06/06/23 01:40 BP 137/105 H 06/06/23 01:31 Pulse Ox 95 06/06/23 01:10 O2 Del Method Room Air 06/06/23 00:18 Course Vital Signs Vital signs: Vital Signs Temperature 97.9 F 06/05/23 23:41 Pulse Rate 54 L 06/05/23 23:41 Respiratory Rate 20 06/05/23 23:41 Blood Pressure 122/91 06/05/23 23:41 Pulse Oximetry 99 06/05/23 23:41 Oxygen Delivery Method Room Air 06/05/23 23:41 Temperature 97.9 F 06/05/23 23:41 Pulse Rate 59 L 06/06/23 01:40 Respiratory Rate 9 L 06/06/23 01:40 Blood Pressure 137/105 H 06/06/23 01:31 Pulse Oximetry 95 06/06/23 01:10 Oxygen Delivery Method Room Air 06/06/23 00:18 MDM - SOB/Dyspnea MDM Narrative Medical decision making narrative: the patient's has a negative chest x-ray and is feeling improved after aerosol treatment. He is given oral prednisone and discharged home on oral prednisone. O2 sat is appropriate and his lungs are clear to auscultation. Treatment diagnosis and follow-up were discussed with the patient. Differential Diagnosis Differential diagnosis: Likely acute exacerbation of chronic obstructive airways disease, community acquired pneumonia and other (pneumothorax) Imaging Data Chest x-ray: Radiologist's impression: Procedure: XR chest 1V EXAM: XR chest 1V HISTORY: SOB, cough COMPARISON: Chest x-ray 01/03/2023 TECHNIQUE: Single frontal view chest x-ray FINDINGS: Moderately enlarged cardiac silhouette. Mild bilateral infrahilar lower lung streaky opacities. No large pleural effusion, pneumothorax, or acute bony abnormality. IMPRESSION: Moderately enlarged cardiac silhouette. Mild bilateral infrahilar lower lung streaky opacities reflect atelectasis with crowding of pulmonary vessels versus lung infiltrates. Correlate clinically. Electronically authenticated by: KATHY COOPER Date: 06/06/2023 00:14 Discharge Plan Discharge Chief Complaint: Shortness of Breath/Dyspnea Clinical Impression: COPD exacerbation Patient Disposition: Home, Self-Care Time of Disposition Decision: 01:49 Condition: Good Mode of Transportation: Private Vehicle Prescriptions / Home Meds: New prednisone 10 mg tablet See Rx Instructions .ROUTE .COMPLEX Qty: 30 0RF Rx Instructions: 4 by mouth daily for three days then 3 by mouth daily for three days then 2 by mouth daily for three days then 1 by mouth daily for three days No Action aspirin 81 mg tablet,delayed release (DR/EC) 81 mg PO DAILY clopidogrel 75 mg tablet 75 mg PO DAILY cyclobenzaprine 10 mg tablet 10 mg PO TID PRN (Reason: muscle spasm) nitroglycerin 0.4 mg tablet, sublingual 0.4 mg sublingual .Q5MIN PRN (Reason: chest pain) albuterol sulfate 90 mcg/actuation HFA aerosol inhaler 2 puff INHALATION Q6H PRN (Reason: shortness of breath or wheezing) ezetimibe 10 mg tablet 10 mg PO DAILY gabapentin 300 mg capsule 300 mg PO BID metoprolol tartrate 25 mg tablet 25 mg PO BID pantoprazole 40 mg tablet,delayed release (DR/EC) 40 mg PO DAILY atorvastatin 80 mg tablet 80 mg PO QPM Instructions: COPD (Chronic Obstructive Pulmonary Disease) (ED) Stand Alone Forms: Portal Instructions Referrals: Physician,Non-Staff, MD [Primary Care Provider] - 1 week
[2023-06-05 23:50] VITALS: PULSE 76; RESP 20
[2023-06-06] VITALS (15 sets, daily range): BP systolic 128–139; BP diastolic 70–105; PULSE 59–88; RESP 9–24; O2SAT 93–100
[2023-06-06] MEDS: ALBUTEROL SULFATE 2.5 MG/3 ML VIAL NEB IH (00:16)
[2023-06-06] MEDS: PREDNISONE 20 MG TABLET 40 MG PO (02:02)
== END 2023-06-06 02:08 | disposition home or self-care (01) ==
PROVIDERS: Emergency Provider Emergency Medicine
DX: J44.1 Chronic obstructive pulmonary disease with (acute) exacerbation (principal); I25.10 Atherosclerotic heart disease of native coronary artery without angina pectoris; K21.9 Gastro-esophageal reflux disease without esophagitis; I10 Essential (primary) hypertension; G89.29 Other chronic pain; M54.50 Low back pain, unspecified; F17.210 Nicotine dependence, cigarettes, uncomplicated; Z95.5 Presence of coronary angioplasty implant and graft; Z79.82 Long term (current) use of aspirin; Z79.899 Other long term (current) drug therapy
CPT/HCPCS: 71045; 93005; 94640; 99284

== ENCOUNTER 2023-08-08 23:40 | Emergency (ER) | payer OTHER, SELFPAY ==
[2023-08-08 23:44] VITALS: BP 160/89; PULSE 63; RESP 22; TEMP 36.6; O2SAT 98
[2023-08-08 23:47] VITALS: BP 160/89; O2SAT 96
[2023-08-08 23:50] VITALS: PULSE 63; RESP 18; O2SAT 100
--- OUTSIDE RECORDS SUMMARY | 2023-08-08 23:52 | XMS_ITS | CCD ---
Author Name Unknown Address [address] [place] [address] Organization [facility] Care Team Providers Care Fraud Investigator Name Role Phone Tish Kellogg Unavailable Unavailable Unavailable Unavailable Unavailable Kathy Castillo Unavailable Tish Kellogg Unavailable Unavailable Tish Kellogg Unavailable Kathy Castillo Unavailable Evans Olson Unavailable [phone] EVANS OLSON Unavailable Unavailable SYSTEM, PROVIDER NOT IN Unavailable Unavaila ble KATHY CASTILLO Unavailable Unavailable EtEvans lambert Primary Care Provider TISH KELLOGG Primary Care Unavailable DELMY ORELLANA Attending Unavailable TISH KELLOGG Referring Unavailable TISH KELLOGG Primary Care Unavailable TISH KELLOGG Primary Care Unavailable ETEVANS LAMBERT Primary Care Unavailable ETEVANS LAMBERT Primary Care Unavailable ETEVANS LAMBERT Primary Care Unavailable ETEVANS LAMBERT Primary Care Unavailable ETEVANS LAMBERT Primary Care Unavailable ETEVANS LAMBERT Primary Care Unavailable ETEVANS LAMBERT Primary Care Unavailable ETEVANS LAMBERT Primary Care Unavailable ETEVANS LAMBERT Primary Care Unavailable ETEVANS LAMBERT Primary Care Unavailable ETEVANS LAMBERT Primary Care Unavailable Omar Felder Admitting Unavailable Omar Felder Attending Unavailable Omar Felder Admitting Unavailable Hajjiri, Mohammad Attending Unavailable Mauro, Keyon D Admitting Unavailable Mauro, Keyon D Attending Unavailable Mauro, Keyon D Admitting Unavailable Mauro, Keyon D Attending Unavailable Mauro, Keyon D Admitting Unavailable Mauro, Keyon D Attending Unavailable Mauro, Keyon D Admitting Unavailable Mauro, Keyon D Attending Unavailable Hajjiri, Mohammad Admitting Unavailable Hajjiri, Mohammad Attending Unavailable Hajjiri, Mohammad Admitting Unavailable Hajjiri, Mohammad Attending Unavailable Hajjiri, Mohammad Admitting Unavailable Hajjiri, Mohammad Attending Unavailable Mauro, Keyon D Admitting Unavailable Mauro, Keyon D Attending Unavailable Unavailable Primary Care Provider UnavailEvans Meier Primary Care Provider EtEvans lambert Primary Care Provider EVANS OLSON Primary Care Unavailable CECE ALARCON Attending Unavailable CECE ALARCON Admitting Unavailable EVANS OLSON Primary Care Unavailable CECE ALARCON Attending Unavailable HAJJIRI, MOHAMMAD Attending Unavailable ETEVANS LAMBERT Primary Care Unavailable HAJJIRI, MOHAMMAD Attending Unavailable ETEVANS LAMBERT Primary Care Unavailable HAAnkitJIRI, MOHAMMAD Attending Unavailable ETEVANS LAMBERT Primary Care Unavailable ETEVANS LAMBERT Primary Care Unavailable HAJJIRI, MOHAMMAD Attending Unavailable ETEVANS LAMBERT Primary Care Unavailable HAJJIRI, MOHAMMAD Attending Unavailable ETEVANS LAMBERT Primary Care Unavailable HAJORGERI, MOHAMMAD Attending Unavailable ETEVANS LAMBERT Primary Care Unavailable HAJJIRI, MOHAMMAD Attending Unavailable ETEVANS LAMBERT Primary Care Unavailable HAJJIRI, MOHAMMAD Attending Unavailable HAJJIRI, MOHAMMAD Attending Unavailable ETEVANS LAMBERT Primary Care Unavailable HAJJIRI, MOHAMMAD Attending Unavailable ETEVANS LAMBERT Primary Care Unavailable Unavailable Primary Care Provider UnavailSALLY Barrios Attending Unavailable CASEY NEWSOME Primary Care Unavailable Cyn Shearer Primary Care Physician [phone] Cyn Shearer Unavailable Unavailable Unavailable JOCELYN GARZA Attending Unavailable JOCELYN GARZA Consulting Unavailable JOCELYN GARZA Admitting Unavailable ADE, KHOI Consulting Unavailable Traboulssi, Mourhaf Attending Unavailable Traboulssi, Momichaelf Attending Unavailable Traboulssi, Momichaelf Attending Unavailable Traboulssi, Lashonf Attending Unavailable Wily Diaz Attending Unavailable DiazWily zamora Attending Unavailable Wily Diaz Attending Unavailable Cristian Diazan Referring Unavailable Unavailable Primary Care Provider Derian Leon Attending Unavailable Siddhartha Leija Attending Unavailable Marc Anne Admitting Unavaila Marc Gonzalez Attending Unavaila ble Shearer Cyn Darren Referring Unavailable JAMES, ADRIAN Sloan Referring Unavailable JAMES, ADRIAN Sloan Attending Unavailable JAMES, ADRIAN Sloan Admitting Unavailable STANG, FRANKLIN Christine L Attending Unavailable STANG, FRANKLIN Christine L Admitting Unavailable NONE, XXXX Referring Unavailable Juanita SINGH Attending Unavailable Elvis Watson Attending Unavailable Marc Anne Admitting Unavaila Marc Gonzalez Referring Unavaila Marc Gonzalez Attending Unavaila ble OJUKWU, Mbanefo Admitting Unavailable OJUKWU, Mbanefo Attending Unavailable OJUKWU Mbanefo Referring Unavailable Berta PAL Attending Unavailable Braxton LOMBARDI Admitting Unavailable Traboulssi, Mourhaf Consulting Unavailable Traboulssi, Mourhaf Consulting Unavailable Traboulssi, Mourhaf Consulting Unavailable Traboulssi, Mourhaf Consulting Unavailable Traboulssi, Mourhaf Consulting Unavailable Traboulssi, Mourhaf Consulting Unavailable Traboulssi, Mourhaf Consulting Unavailable Traboulssi, Mourhaf Consulting Unavailable Traboulssi, Mourhaf Consulting Unavailable Berta PAL Attending Unavailable [place], Keyon Consulting Unavailable Roddy Chisholm Admitting Unavailable [place], Keyon Consulting Unavailable [place], Keyon Consulting Unavailable [place], Keyon Consulting Unavailable [place], Keyon Consulting Unavailable [place], Keyon Consulting Unavailable [place], Keyon Consulting Unavailable [place], Keyon Consulting Unavailable [place], Keyon Consulting Unavailable Wily Diaz Consulting Unavailable MD Wily Diaz Consulting Unavailable Diaz, Julien Consulting Unavailable Diaz, Julien Consulting Unavailable Diaz, Julien Consulting Unavailable Diaz, Julien Consulting Unavailable Diaz, Julien Consulting Unavailable Diaz, Julien Consulting Unavailable Diaz, Julien Consulting Unavailable Diaz, Julien Consulting Unavailable Marc Anne Consulting Unavaila Braxton Ellis Attending Unavailable Brxaton LOMBARDI Admitting Unavailable Marc Anne Consulting Unavaila Marc Gonzalez Consulting Unavaila ble [place], Keyon Consulting Unavailable [place], Keyon Consulting Unavailable [place], Keyon Consulting Unavailable [place], Keyon Consulting Unavailable [place], Keyon Consulting Unavailable [place], Keyon Consulting Unavailable [place], Keyon Consulting Unavailable [place], Keyon Consulting Unavailable [place], Keyon Consulting Unavailable [place], Keyon Consulting Unavailable KAE Alaa Admitting Unavailable Berta PAL Attending Unavailable [place], Keyon Consulting Unavailable [place], Keyon Consulting Unavailable [place], Keyon Consulting Unavailable [place], Keyon Consulting Unavailable [place], Keyon Consulting Unavailable [place], Keyon Consulting Unavailable [place], Keyon Consulting Unavailable [place], Keyon Consulting Unavailable Diaz, Julien Consulting Unavailable MD Wily Diaz Consulting Unavailable Diaz, Julien Consulting Unavailable Diaz, Julien Consulting Unavailable Diaz, Julien Consulting Unavailable Diaz, Julien Consulting Unavailable Diaz, Julien Consulting Unavailable Diaz, Julien Consulting Unavailable Diaz, Julien Consulting Unavailable Diaz, Julien Consulting Unavailable Woodrow Murdock S Admitting Unavailable Woodrow Murdock S Attending Unavailable Traboulssi, Mourhaf Consulting Unavailable Traboulssi, Mourhaf Consulting Unavailable Traboulssi, Mourhaf Consulting Unavailable Traboulssi, Mourhaf Consulting Unavailable Traboulssi, Mourhaf Consulting Unavailable Traboulssi, Mourhaf Consulting Unavailable Traboulssi, Mourhaf Consulting Unavailable Traboulssi, Mourhaf Consulting Unavailable Traboulssi, Mourhaf Consulting Unavailable Oliver CORONADO Consulting Unavailable Prince FREEDMAN Admitting Unavailable Ni COLEMAN Attending Unavailable Oliver CORONADO Consulting Unavailable Oliver CORONADO Consulting Unavailable Elvis Watson Attending Unavailable Kasey Christian Attending Unavailable Kasey Christian Attending Unavailable Javier ORONA Attending Unavailable Clarice Espinoza Attending Unavailable Derian Rider Attending Unavailable Allergies Allergy Classification Reported Allergen(s) Allergy Type Date of Onset Reaction(s) Facility (20 sources) OTHER; Translations: [OTHER] Propensity to adverse reactions [facility] Work Phone: (20 sources) gabapentin; Translations: [gabapentin] Drug Allergy Respiratory distress [facility] (20 sources) pregabalin; Translations: [pregabalin] Drug Allergy Tongue swelling, Swelling [facility] (20 sources) zonisamide; Translations: [zonisamide] Drug Allergy Tongue swelling, Swelling [facility] (14 sources) Bee/Wasp/Ant venom; Translations: [Bee Stings] Drug allergy Swelling (morphologic abnormality) [facility] (4 sources) Honey bee venom Propensity to adverse reactions to drug 3 Swelling [facility] Work Phone: (4 sources) Pregabalin Propensity to adverse reactions to drug 3 [facility] (4 sources) Zonisamide Propensity to adverse reactions to drug 3 [facility] Medications Current Medications Medication Drug Class(es) Dates Sig (Normalized) Sig (Original) acetaminophen 500 mg oral tablet (1 source) Start: 02-12-2023 acetaminophen (TYLENOL) tablet acetaminophen 325 mg / HYDROcodone bitartrate 5 mg oral tablet (1 source) Opioid Agonist Start: 12-31-2021 [place] 325 mg-5 mg oral tablet 1 tab(s), Oral, q6hr for pain, 12 tab(s), Refill(s) 0 Start Date: 12/31/21 Status: Ordered acetaminophen 325 mg / oxyCODONE hydrochloride 5 mg oral tablet (3 sources) Opioid Agonist Start: 11-22-2022 take 1 tablet by mouth every eight hours as needed oxyCODONE-acetamino phen (PERCOCET) 5-325 mg per tablet Take 1 Tablet by mouth every 8 hours as needed. 0 11/23/2022 Active Start: 11-22-2022 oxyCODONE-acet aminophen (Percocet) 5-325 mg per tablet Take by mouth. 0 11/22/2022 Active Albuterol (Eqv-Proventil HFA) 90 mcg/inh inhalation aerosol (3 sources) Start: 04-16-2023 take 2 puff(s) by inhalation every six hours as needed for wheezing Albuterol (Eqv-Proventil HFA) 90 mcg/inh inhalation aerosol = 2 puff(s), Inhalation, q6hr, PRN Shortness of breath or wheezing, # 18 gm, Refills(s) 0, Pharmacy: [facility] #[id number], 165.1, cm, 04/14/23 16:10:00 EDT, Height/Length Dosing, 89.5, kg, 04/14/23 16:10:00 EDT, Weight Dosing Start Date: 04/16/23 Status: Ordered apixaban 5 mg oral tablet (5 sources) Factor Xa Inhibitor Start: 04-14-2023 take 1 tablet by mouth twice daily Eliquis 5 mg oral tablet 5 mg = 1 tab(s), BID, Refills(s) 0 Start Date: 04/14/23 Status: Ordered Start: 02-17-2023 take 1 tablet by janell th twice daily Apixaban (Eliquis) 5 MG tablet Take 1 Tablet by mouth 2 times daily. 180 Tablet 3 02/17/2023 Active aspirin 81 mg delayed release oral tablet (20 sources) Nonsteroidal Anti-inflammatory Drug Start: 08-23-2019 take 1 tablet by mouth once daily aspirin 81 mg chewable tablet CHEW AND SWALLOW 1 TABLET BY MOUTH EVERY DAY 90 tablet 10 08/23/2019 Active Start: 12-19-2018 aspirin 81 mg chewable tablet Chew and Swallow 1 (one) tablet (81 mg total) daily . 90 tablet 1 01/07/2019 Active Start: 07-26-2018 take 1 tablet by janell th once daily aspirin 81 mg chewable tablet CHEW AND SWALLOW (1) TABLET BY MOUTH ONCE DAILY 30 tablet 10 07/26/2018 Active Start: 10-05-2012 take 1 tablet by janell th once daily aspirin 81 mg Oral EC Tab 81 mg = 1 tab(s), Oral, Daily, # 90 tab(s), Refills(s) 3, Pharmacy: [facility], 165, cm, 12/20/22 9:05:00 EDT, Height/Length Dosing, 90.7, kg, 12/20/22 9:05:00 EDT, Weight Dosing Start Date: 12/20/22 Status: Ordered Start: 11-07-2009 take 81 mg by mouth once daily aspirin 81 mg, Oral, Daily, Refills(s) 0 Start Date: 11/07/09 Status: Ordered atorvastatin 20 mg oral tablet (20 sources) HMG-CoA Reductase Inhibitor Start: 08-24-2022 take 1 tablet by mouth once daily atorvastatin 20 mg Tab 20 mg = 1 tab(s), Oral, Daily, # 30 tab(s), Refills(s) 0, Pharmacy: [facility] #[id number], 171, cm, 08/23/22 10:20:00 EST, Height/Length Dosing, 86, kg, 08/23/22 10:20:00 EST, Weight Dosing Start Date: 08/24/22 Status: Ordered Start: 07-07-2022 take 80 mg by mouth once daily 80 mg, Oral, DAILY, First dose on 02/12/23 at 1400, Until Discontinued Start: 07-07-2022 End: 10-20-2017 take 1 tablet by mouth at bedtime atorvastatin 80 mg Tab 80 mg = 1 tab(s), Oral, Bedtime, # 30 tab(s), Refills(s) 0, Pharmacy: [facility] #[id number], 165.1, cm, 07/06/22 8:14:00 EST, Height/Length Dosing, 89.1, kg, 07/06/22 8:14:00 EST, Weight Dosing Start Date: 07/07/22 Status: Ordered take 1 tablet by janell once daily atorvastatin (LIPITOR) 80 mg tablet Take 80 mg by mouth daily. 0 Active azithromycin 250 mg oral tablet (1 source) Macrolide Antimicrobial Start: 01-03-2023 azithromycin (ZITHROMAX) 250 MG tablet TK 2 TS PO ON DAY 1, THEN TK 1 T PO D FOR 4 DAYS 0 01/03/2023 Active blood pressure cuff (1 source) Start: 02-10-2021 blood pressure cuff blood pressure cuff, Print Requisition, Supply Start Date: 02/10/21 Status: Ordered busPIRone hydrochloride 10 mg oral tablet (3 sources) Start: 10-06-2022 End: 11-05-2022 take 5 mg by mouth three times daily busPIRone 10 mg Tab 5 mg = 0.5 tab(s), Oral, TID, X 30 day(s), # 45 tab(s), Refills(s) 0, Pharmacy: [facility] #[id number], 165, cm, 10/04/22 5:36:00 EDT, Height/Length Dosing, 87, kg, 10/04/22 5:36:00 EDT, Weight Dosing Start Date: 10/06/22 Stop Date: 11/05/22 Status: Ordered clopidogrel 75 mg oral tablet (20 sources) [id number] Platelet Inhibitor Start: 12-20-2022 take 1 tablet by mouth once daily clopidogrel 75 mg Tab 75 mg = 1 tab(s), Oral, Daily, # 90 tab(s), Refills(s) 3, Pharmacy: [facility], 165, cm, 12/20/22 9:05:00 EDT, Height/Length Dosing, 90.7, kg, 12/20/22 9:05:00 EDT, Weight Dosing Start Date: 12/20/22 Status: Ordered Start: 01-28-2021 take 1 tablet by janell th once daily clopidogrel 75 mg Tab 75 mg = 1 tab(s), Oral, Daily, Refills(s) 0 Start Date: 01/28/21 Status: Ordered Start: 08-23-2019 take 1 tablet by janell th once daily clopidogreL (PLAVIX) 75 mg tablet TAKE (1) TABLET BY MOUTH DAILY 90 tablet 10 08/23/2019 Active Start: 09-12-2017 End: 02-05-2019 take 1 tablet by mouth once daily clopidogrel (PLAVIX) 75 mg tablet Take 1 (one) tablet (75 mg total) by mouth daily . 90 tablet 1 01/07/2019 Active cyclobenzaprine hydrochloride 10 mg oral tablet (20 sources) Muscle Relaxant Start: 04-14-2023 take 1 tablet by mouth three times daily cyclobenzaprine 10 mg Tab 10 mg = 1 tab(s), Oral, TID, Refills(s) 0 Start Date: 04/14/23 Status: Ordered Start: 07-06-2022 End: 02-20-2023 cyclobenzaprine (FLEXERIL) 1 0 MG tablet Take by mouth. 0 07/06/2022 02/20/2023 Active 1 ml enoxaparin sodium 100 mg/ml prefilled syringe (1 source) Low Molecular Weight Heparin Start: 02-13-2023 enoxaparin (LOVENOX) 100 MG/ML injection 90 mg ezetimibe 10 mg oral tablet (20 sources) Dietary Cholesterol Absorption Inhibitor Start: 04-14-2023 take 1 tablet by mouth once daily ezetimibe 10 mg Tab 10 mg = 1 tab(s), Oral, Daily, Refills(s) 0 Start Date: 04/14/23 Status: Ordered End: 02-05-2019 take 4 tablets by mouth once daily ezetimibe (ZETIA) 10 mg tablet Take 40 mg by mouth daily . 0 02/05/2019 Discontinued fenofibrate 54 mg oral tablet (20 sources) Peroxisome Proliferator Receptor alpha Agonist Start: 08-23-2019 take 1 tablet by mouth once daily at mealtime fenofibrate (TRICOR) 54 MG tablet TAKE (1) TABLET BY MOUTH DAILY WITH FOOD 90 tablet 10 08/23/2019 Active Start: 12-19-2018 take 1 tablet by janell th once daily at mealtime fenofibrate (TRICOR) 54 MG tablet Take 1 (one) tablet (54 mg total) by mouth daily Give with food . 90 tablet 1 01/07/2019 Active Start: 07-26-2018 take 1 tablet by janell th once daily fenofibrate (TRICOR) 54 MG tablet TAKE (1) TABLET BY MOUTH ONCE DAILY 30 tablet 10 07/26/2018 Active Start: 11-15-2017 fenofibrate (T RICOR) 54 MG tablet Start: 09-12-2017 End: 10-20-2017 take 1 tablet by mouth once daily at mealtime fenofibrate (TRICOR) 54 MG tablet Take 1 (one) tablet (54 mg total) by mouth daily Give with food. 90 tablet 1 09/12/2017 10/20/2017 Discontinued take 1 tablet by janell th once daily at mealtime fenofibrate (TRICOR) 54 MG tablet Take 54 mg by mouth daily Give with food . Active gabapentin 300 mg oral capsule (9 sources) Anti-epileptic Agent Start: 04-14-2023 gabapenti n 300 mg Cap 300 mg = 1 cap(s), Refills(s) 0 Start Date: 04/14/23 Status: Ordered Start: 02-12-2023 take 300 mg by mouth twice daily 300 mg, Oral, 2 TIMES DAILY, First dose on 02/12/23 at 1400, Until Discontinued Start: 12-07-2022 take 1 capsule by [facility] three times daily gabapentin (NEURONTIN) 100 MG capsule Take 100 mg by mouth 3 times daily. 0 12/07/2022 Active take 1 capsule by mo [facility] three times daily gabapentin (NEURONTIN) 300 MG capsule Take 300 mg by mouth 3 times daily. 0 Active 24 hr isosorbide mononitrate 30 mg extended release oral tablet (17 sources) Nitrate Vasodilator Start: 09-25-2022 take 1 tablet by mouth once daily in the morning isosorbide mononitrate 30 mg ER Tab 30 mg = 1 tab(s), Oral, qAM, # 30 tab(s), Refills(s) 0, Pharmacy: [facility] #[id number], 165, cm, 12/20/22 9:05:00 EDT, Height/Length Dosing, 90.7, kg, 12/20/22 9:05:00 EDT, Weight Dosing Start Date: 12/20/22 Status: Ordered lidocaine 0.05 mg/mg medicated patch (5 sources) Antiarrhythmic, Amide Local Anesthetic Start: 02-12-2023 lidocaine (LIDODERM) 5 % patch Start: 12-31-2021 lidocaine (LID ODERM) 5 % patch Apply topically. 0 12/31/2021 Active Start: 06-02-2020 End: 07-02-2020 apply 1 dose transdermal route once daily, then apply 1 dose transdermal route every twelve hours lidocaine (LIDODERM) 5 % patch Place 1 (one) patch on the skin daily Remove & Discard patch within 12 hours or as directed by MD . 30 patch 0 06/02/2020 07/02/2020 Active melatonin 3 mg oral tablet (1 source) Start: 02-16-2023 melatonin tabl et 24 hr metoprolol succinate 25 mg extended release oral tablet (20 sources) beta-Adrenergic María Elena Start: 12-20-2022 take 1 tablet by mouth once daily metoprolol 25 mg ER Tab 25 mg = 1 tab(s), Oral, Daily, # 90 tab(s), Refills(s) 3, Pharmacy: [facility], 165, cm, 12/20/22 9:05:00 EDT, Height/Length Dosing, 90.7, kg, 12/20/22 9:05:00 EDT, Weight Dosing Start Date: 12/20/22 Status: Ordered Start: 08-24-2022 End: 09-24-2022 take 25 mg by mouth once daily 25 mg, Oral, DAILY, Fir st dose on 02/12/23 at 1400, Until Discontinued Metoprolol Succi artemio 25 MG CS24 Take by mouth daily. 0 Active {14 (24 HR Nicotine 0.292 MG/HR Transdermal Patch) / 14 (24 HR Nicotine 0.583 MG/HR Transdermal Patch) / 28 (24 HR Nicotine 0.875 MG/HR Transdermal Patch) } Pack (15 sources) Cholinergic Nicotinic Agonist Start: 04-16-2023 nicotine 21 mg-14 mg -7 mg transdermal film, extended release See Instructions, 1 kit(s), Refill(s) 0, 1 patch(es) TransDermal Daily, [facility] #[id number], 165.1, cm, 04/14/23 16:10:00 EDT, Height/Length Dosing, 89.5, kg, 04/14/23 16:10:00 EDT, Weight Dosing Start Date: 04/16/23 Status: Ordered Start: 02-12-2023 nicotine (AUNDREA DERM CQ) 21 mg/24HR patch Start: 07-07-2022 nicotine (AUNDREA DERM CQ) 14 mg/24HR patch Place on the skin. 0 07/07/2022 Active Start: 07-07-2022 nicotine 14 mg /24 hr Transderm ER Film 1 patch(es), TransDermal, Daily, 30 EA, Refill(s) 0, [facility] #[id number], 165.1, cm, 07/06/22 8:14:00 EST, Height/Length Dosing, 89.1, kg, 07/06/22 8:14:00 EST, Weight Dosing Start Date: 07/07/22 Status: Ordered nitroglycerin 0.4 mg sublingual tablet (20 sources) Nitrate Vasodilator Start: 08-24-2022 nitroglyce rin 0.4 mg sublingual Tab 0.4 mg = 1 tab(s), SubLingual, q5min, PRN for chest pain, If chest pain not relieved after 3 doses, seek immediate medical attention, # 100 tab(s), Refills(s) 0, Pharmacy: [facility] #[id number], 171, cm, 08/23/22 10:20:00 EST, Height/Length Dosing, 86, kg, 08/23/22 10:20:00 EST, Weight Dosing Start Date: 08/24/22 Status: Ordered omeprazole 40 mg delayed release oral capsule (20 sources) Proton Pump Inhibitor Start: 12-20-2022 omeprazole (PRILOSEC ) 40 MG capsule Start: 01-28-2021 take 40 mg by mouth once daily omeprazole 40 mg, Oral, Daily, Refills(s) 0 Start Date: 01/28/21 Status: Ordered Start: 10-05-2012 take 1 capsule by mo ut twice daily before mealtime omeprazole (PRILOSEC) 40 MG capsule TAKE 1 (ONE) CAPSULE (40 MG TOTAL) BY MOUTH 2 (TWO) TIMES A DAY BEFORE MEALS . 180 capsule 10 04/25/2019 Active take 1 capsule by mo uth once daily Omeprazole 40 MG Oral Capsule Delayed Release TAKE 1 CAPSULE Daily Quantity: 90 Refills: 3 Ordered: 06-Sep-2022 DO Active take 1 capsule by mo uth once daily omeprazole (PRILOSEC) 20 MG capsule Take 20 mg by mouth daily . 0 Active take 1 capsule by mo uth twice daily omeprazole (PRILOSEC) 20 MG capsule Take 20 mg by mouth 2 (two) times a day. Active 2 ml ondansetron 2 mg/ml injection (1 source) Serotonin-3 Receptor Antagonist Start: 02-12-2023 ondansetron (ZOFRAN) 4 MG/2ML injection oxyCODONE hydrochloride 5 mg oral tablet (2 sources) Opioid Agonist Start: 02-12-2023 oxyCODONE immediate release tablet pantoprazole 40 mg delayed release oral tablet (18 sources) Proton Pump Inhibitor Start: 10-06-2022 take 1 tablet by mouth once daily Pantoprazole [address] Tab 40 mg = 1 tab(s), Oral, Daily, # 90 tab(s), Refills(s) 5, Pharmacy: [facility] #[id number], 165, cm, 01/18/23 10:51:00 EDT, Height/Length Dosing, 91.9, kg, 01/18/23 10:51:00 EDT, Weight Dosing Start Date: 01/18/23 Status: Ordered take 1 tablet by mouth twice messi ly pantoprazole (PROTONIX) 40 MG tablet Take 40 mg by mouth 2 times daily. 0 Active pravastatin sodium 20 mg oral tablet (20 sources) HMG-CoA Reductase Inhibitor Start: 08-10-2022 take 1 tablet by mouth once daily pravastatin 20 mg Tab 20 mg = 1 tab(s), Oral, Daily, Refills(s) 0 Start Date: 08/10/22 Status: Ordered Start: 01-28-2021 take 1 tablet by janell th once daily pravastatin 20 mg Tab 20 mg = 1 tab(s), Oral, Daily, Refills(s) 0 Start Date: 01/28/21 Status: Ordered Start: 06-15-2018 take 1 tablet by janell th once daily pravastatin (PRAVACHOL) 80 MG tablet Take 1 (one) tablet (80 mg total) by mouth daily . 90 tablet 1 06/15/2018 Active Start: 03-15-2018 take 1 tablet by janell th once daily pravastatin (PRAVACHOL) 80 MG tablet Take 1 (one) tablet (80 mg total) by mouth daily. 90 tablet 1 03/15/2018 Active Start: 12-12-2017 take 1 tablet by janell th once daily pravastatin (PRAVACHOL) 80 MG tablet Take 1 (one) tablet (80 mg total) by mouth daily. 90 tablet 1 12/12/2017 Active Start: 10-05-2012 take 1 tablet by janell th once daily pravastatin (PRAVACHOL) 40 MG tablet TAKE ONE (1) TABLET BY MOUTH EVERY DAY 90 tablet 10 07/11/2019 Active predniSONE 50 mg oral tablet (1 source) Start: 06-07-2023 End: 06-12-2023 take 1 tablet by mouth once daily predniSONE 50 mg Tab 50 mg = 1 tab(s), Oral, Daily, X 5 day(s), # 5 tab(s), Refills(s) 0, Pharmacy: [facility] #[id number], 165.1, cm, 06/07/23 12:41:00 EST, Height/Length Dosing, 91.5, kg, 06/07/23 12:41:00 EST, Weight Dosing Start Date: 06/07/23 Stop Date: 06/12/23 Status: Ordered 12 hr ranolazine 500 mg extended release oral tablet (18 sources) Anti-angin al Start: 12-20-2022 take 1 tablet by mouth every twelve hours ranolazine (Ranexa) 500 MG 12 hour tablet Take 500 mg by mouth. 0 12/20/2022 Active Start: 12-20-2022 take 1 tablet by janell twice daily Ranexa 500 mg Tab-ER 500 mg = 1 tab(s), Oral, BID, # 60 tab(s), Refills(s) 0, Pharmacy: [facility] #[id number], 165, cm, 12/20/22 9:05:00 EDT, Height/Length Dosing, 90.7, kg, 12/20/22 9:05:00 EDT, Weight Dosing Start Date: 12/20/22 Status: Ordered Start: 09-28-2022 take 2 tablets by mo [facility] every twelve hours ranolazine (RANEXA) 500 MG 12 hour tablet Take 1,000 mg by mouth. 0 09/28/2022 Active Start: 09-28-2022 take 1 tablet by janell twice daily Ranexa 1000 mg oral tablet, extended release 1,000 mg = 1 tab(s), Oral, BID, # 60 tab(s), Refills(s) 0, Pharmacy: [facility] #[id number], 165.1, cm, 09/28/22 16:41:00 EDT, Height/Length Dosing, 87, kg, 09/28/22 16:41:00 EDT, Weight Dosing Start Date: 09/28/22 Status: Ordered simethicone 80 mg chewable tablet (1 source) Start: 02-12-2023 simethicone (G -X) 80 MG chewable tablet varenicline (5 sources) Partial Cholinergic Nicotinic Agonist VARENICLINE TARTRATE ORAL Take by mouth. 0 Active Chantix TABS KEYSHA E DIRECTED PER PACKAGE INSTRUCTIONS. Quantity: 0 Refills: 0 Ordered: 06-Sep-2022 DO Active Ventolin HFA 90 mcg/inh Aerosol-Adpt (1 source) Start: 06-07-2023 take 1 puff(s) by inhalation every six hours for wheezing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 Interpretive Data: 1 5 days - 4 weeks 1 - 5 months 6 -11 months 1 5 years 6 10 years 11 -17 years Mean: 11.2 (9.5 12.6) Mean: 11.0 (9.7 12.8) Mean: 11.0 (9.8 13.0) Mean: 11.3 (9.9 13.4) Mean: 11.7 (10.0 14.6) Mean: 11.8 (10.0 - 14.1) Pediatric Reference ranges were obtained from a study by [employer]. prepared from 1437 samples obtained at 7 different centers using the same coagulation reagent and instrumentation as [facility]. Currently there are no coagulation studies available worldwide for children to 14 days, and no normal ranges. Consent for Treatmenton 05-18 Consent for Treatment [id number]#1 .00TIFF Normal [facility] Discharge Instructionson Discharge Instructions [id number]# 1.00TIFF Normal [facility] ED Clinical Summaryon 2022 ED Clinical Summary Normal [facility] ED Note-Physicianon 06-07-20 23 ED Note-Physician Normal [facility] Comment on above: Result Comment: Elec tronically Signed By: Morgan Tamez PA-C\.br\Date and Time Signed: 06/07/23 14:46 EST\.br\Electronically Co-Signed By: Kaesy Christian M.D..br\Date and Time Co-Signed: 06/07/23 15:52 EST ED Patient Education Noteon 06-07-2023 ED Patient Education Note Normal [facility] ED Patient Summaryon 023 ED Patient Summary Normal [facility] Event Monitoron 06-07-2023 Event Monitor Normal [facility] Comment on above: Result Comment: Elec tronically Signed By: IVONNE REBOLLEDO, Oliver Pham\.br\Date and Time Signed: 06/07/23 13:31 EST HEMATOLOGYOrdered By: SYSTEM SYSTEM on 06-07-2023 Basophils/100 WBC (Bld) 0.6 % Normal 0.0 - 2.0 % [facility] HemeAutoSS Basophils/Leukocytes Auto (Bld) [Pure # fraction] 0.1 E9/L Normal 0.0 - 0.2 E9/L [facility] HemeAutoSS Eosinophils/100 WBC (Bld) 0.7 % Normal 0.0 - 8.0 % [facility] HemeAutoSS Eosinophils/Leukocytes Auto (Bld) [Pure # fraction] 0.1 E9/L Normal 0.0 - 0.5 E9/L [facility] HemeAutoSS Lymphocytes/100 WBC (Bld) 28.4 % Normal 14.0 - 50.0 % [facility] HemeAutoSS Lymphocytes/Leukocytes Auto (Bld) [Pure # fraction] 3.7 E9/L Normal 1.0 - 4.0 E9/L [facility] HemeAutoSS Monocytes/100 WBC (Bld) 7.4 % Normal 4.0 - 14.0 % [facility] HemeAutoSS Monocytes/Leukocytes Auto (Bld) [Pure # fraction] 1.0 E9/L Normal 0.2 - 1.0 E9/L [facility] HemeAutoSS Neutrophils/100 WBC (Bld) 62.9 % Normal 36.0 - 75.0 % [facility] HemeAutoSS Neutrophils/Leukocytes Auto (Bld) [Pure # fraction] 8.1 E9/L High 2.0 - 7.5 E9/L [facility] HemeAutoSS HEMATOLOGYOrdered By: Jose Gastelum on 06-07-2023 Erythrocyte distribution width (RBC) [Ratio] 14.5 % High 10.9 - 14.2 % [facility] HemeAutoSS Hematocrit (Bld) [Volume fraction] 43.0 % Normal 37.7 - 49.0 % [facility] HemeAutoSS Hemoglobin (Bld) [Mass/Vol] 14.7 g/dL Normal 13.5 - 17.5 gm/dL [facility] HemeAutoSS MCH (RBC) [Entitic mass] 28.5 pg Normal 27.0 - 34.0 pg [facility] HemeAutoSS MCHC (RBC) [Mass/Vol] 34.2 g/dL Normal 31.4 - 36.0 gm/dL [facility] HemeAutoSS MCV (RBC) [Entitic vol] 83.5 fL Normal 80.0 - 100.0 fL [facility] HemeAutoSS Platelet mean volume (Bld) [Entitic vol] 7.7 fL Normal 6.4 - 10.8 fL [facility] HemeAutoSS Platelets (Bld) [#/Vol] 266.0 E9/L Normal 150. 0 - 500.0 E9/L [facility] HemeAutoSS RBC (Bld) [#/Vol] 5.1 E12/L Normal 4.3 - 5.9 E12/L [facility] HemeAutoSS WBC corrected for nucl RBC Auto (Bld) [#/Vol] 12.9 E9/L High 4.0 - 11.0 E9/L [facility] HemeAutoSS Monitor Recordon 06-07-2023 Monitor Record [id number]# 1.00TIFF Normal [facility] PT & PTTon 06-07-2023 aPTT Coag (PPP) [Time] 32.2 second(s) Normal 25.1-36.[address] [facility] Comment on above: Order Comment: XRAY currently in Pt's room taking images. Will check back momentarily, [id number] 06/07/2023 12:55:28 EST Result Comment: Para meter 15 days - 4 weeks 1 - 5 months 6 - 11 months 1 - 5 years 6 - 10 years 11 - 17 years PTT Mean: 35.4 (27.6-45.6) Mean: 33.5 (24.8-40.7) Mean: 32.4 (25.1-40.7) Mean: 31.6 (24.0-39.2) Mean: 31.6 (26.9-38.7) Mean: 31.0 (24.6-38.4) Pediatric Reference ranges were obtained from a study by Ronn Boucher et al. prepared from 1437 samples obtained at 7 different centers using the same coagulation reagent and instrumentation as [facility]. Currently there are no coagulation studies available worldwide for children to 14 days, and no normal ranges. Heparin therapeutic range (represented by Anti-Factor Xa activity of 0.2 - 0.4 U/mL) corresponds to PTT of 56.6 - 109.0 sec. Performed By: #### 2 754076, 6464131, 1138764, 98283350, 41632535, 18006405, 80509448 ####[facility] [address] [place] [address] INR Coag (PPP) [Relative time] 1.2 {INR} Invalid Interpretation Code [facility] Comment on above: Order Comment: XRAY currently in Pt's room taking images. Will check back momentarily, [id number] 06/07/2023 12:55:28 EST Result Comment: INR results are specifically intended to assess patients stabilized on long-term Anticoagulation therapy suggested INR?s ?Less Intensive Anticoagulation? 2.0 ? 3.0Conventional Range 3.0 ? 4.5 Performed By: #### 2 659195, 8555255, 1346170, 28878187, 08108597, 60648825, 35233398 ####[facility] [address] [place] [address] PT Coag (PPP) [Time] 14.0 second(s) High 9.4-12.[address] [facility] Comment on above: Order Comment: XRAY currently in Pt's room taking images. Will check back momentarily, [id number] 06/07/2023 12:55:28 EST Result Comment: 15 d ays - 4 weeks 1 - 5 months 6 -11 months 1 ? 5 years 6 ? 10 years 11 -17 years Mean: 11.2 (9.5 ? 12.6) Mean: 11.0 (9.7 ? 12.8) Mean: 11.0 (9.8 ? 13.0) Mean: 11.3 (9.9 ? 13.4) Mean: 11.7 (10.0 ? 14.6) Mean: 11.8 (10.0 - 14.1) Pediatric Reference ranges were obtained from a study by Ronn Boucher et al. prepared from 1437 samples obtained at 7 different centers using the same coagulation reagent and instrumentation as [facility]. Currently there are no coagulation studies available worldwide for children to 14 days, and no normal ranges. Performed By: #### 2 411185, 8227357, 8284958, 45921237, 60170484, 53232060, 02715934 ####[facility] [address] [place] [address] Prescriptions/Work Noteson 1 08-07-2022 Prescriptions/Work Notes [id number]# 1.00TIFF Normal [facility] Troponin 0 Hr.on 06-07-2023 Troponin I.cardiac [Mass/Vol] 13.10 pg/mL Low 15.90-38.[address] [facility] Comment on above: Order Comment: XRAY currently in Pt's room taking images. Will check back momentarily, [id number] 06/07/2023 12:55:28 EST Result Comment: The 95% CI (Confidence Interval) PPV (Positive Predictive Value) for myocardial infarction in females is 38 pg/mL, in males 51 pg/mL. The results should be used in conjunction with clinical conditions of myocardial infarction.(Access High Sensitivity Troponin I Instructions For Use, [employer], February 2018) Performed By: #### 2 206911, 7511409, 3348205, 13337709, 96615682, 76660579, 23538637 ####[facility] [address] [place] [address] XR Chest Single Viewon 06-07 XR Chest Single View Normal [facility] eGFRon 06-07-2023 GFR/1.73 sq M.predicted among non-blacks MDRD (S/P/Bld) [Vol rate/Area] 101 mL/min/1.73 m2 Normal >=[address] [facility] Comment on above: Order Comment: Order added by Discern Expert. Result Comment: Travel Director andrea kidney disease could be indicated at eGFR's of less than 60 mL/min/1.73m2. Kidney failure is indicated at less than 15 mL/min/1.73m2. Performed By: #### 2 759798, 8426964, 3041045, 62025106, 06047429, 17536406, 94178449 ####[facility] [address] [place] [address] Discharge Instructionson Discharge Instructions [id number]#1 .00TIFF Normal [facility] ED Note-Physicianon 05-06-20 ED Note-Physician Normal [facility] Comment on above: Result Comment: Elec tronically Signed By: Andi Payne PA-C\.br\Date and Time Signed: 05/05/23 20:46 EDT\.br\Electronically Co-Signed By: Kasey Christian M.D.\.br\Date and Time Co-Signed: 05/06/23 19:03 EDT Prescriptions/Work Noteson 1 Prescriptions/Work Notes [id number]#1 .00TIFF Normal [facility] Auto Diffon 05-05-2023 Basophils/100 WBC (Bld) 1.3 % Normal 0.0-2.0 [facility] Comment on above: Order Comment: Order Added by Discern Expert. Performed By: #### 2 237529, 58559567, 29768116, 28899638, 7581096, 0672198 ####[facility] [address] [place] [address] Basophils/Leukocytes Auto (Bld) [Pure # fraction] 0.1 E9/L Normal 0.0-0.[address] [facility] Comment on above: Order Comment: Order Added by Discern Expert. Performed By: #### 2 494199, 49172781, 24024993, 26303066, 8096530, 7745693 ####[facility] [address] [place] [address] Eosinophils/100 WBC (Bld) 2.6 % Normal 0.0-8.[address] [facility] Comment on above: Order Comment: Order Added by Discern Expert. Performed By: #### 2 253473, 75348186, 61131632, 98771585, 8592791, 5262540 ####[facility] [address] [place] [address] Eosinophils/Leukocytes Auto (Bld) [Pure # fraction] 0.2 E9/L Normal 0.0-0.[address] [facility] Comment on above: Order Comment: Order Added by Discern Expert. Performed By: #### 2 931449, 43484867, 37124939, 75472374, 2726349, 4589968 ####[facility] [address] [place] [address] Lymphocytes/100 WBC (Bld) 51.7 % High 14.0-50.[address] [facility] Comment on above: Order Comment: Order Added by Discern Expert. Performed By: #### 2 956090, 82577411, 56336368, 90941536, 5676622, 1398554 ####[address] [place] [address] Lymphocytes/Leukocytes Auto (Bld) [Pure # fraction] 4.9 E9/L High 1.0-4.[address] [facility] Comment on above: Order Comment: Order Added by Discern Expert. Performed By: #### 2 886929, 89138562, 74488024, 16490477, 8446225, 6794124 ####[address] [address] Monocytes/100 WBC (Bld) 11.0 % Normal 4.0-14.0 [facility] Comment on above: Order Comment: Order Added by Discern Expert. Performed By: #### 2 443202, 37813184, 76017462, 31042216, 3728913, 7483162 ####[address] [place] [address] Monocytes/Leukocytes Auto (Bld) [Pure # fraction] 1.0 E9/L Normal 0.2-1.[address] [facility] Comment on above: Order Comment: Order Added by Discern Expert. Performed By: #### 2 783338, 57305376, 79223297, 35932298, 8765127, 5308060 ####[address] [place] [address] Neutrophils/100 WBC (Bld) 33.4 % Low 36.0-75.[address] [facility] Comment on above: Order Comment: Order Added by Discern Expert. Performed By: #### 2 892574, 22678119, 01254423, 21030224, 4801165, 6676601 ####[facility] [address] [place] [address] Neutrophils/Leukocytes Auto (Bld) [Pure # fraction] 3.2 E9/L Normal 2.0-7.[address] [facility] Comment on above: Order Comment: Order Added by Discern Expert. Performed By: #### 2 958875, 42417249, 55636280, 12623937, 1412031, 1626397 ####[facility] [address] [place] [address] BMPon 05-05-2023 Creatinine [Mass/Vol] 0.9 mg/dL Normal 0.5-1.3 [facility] Comment on above: Performed By: #### 2 404588, 72760500, 01545336, 71448244, 2709359, 1505418 ####[facility] [address] [place] [address] Urea nitrogen [Mass/Vol] 19 mg/dL Normal 5-[address] [facility] Comment on above: Performed By: #### 2 537753, 70733634, 23560333, 53320507, 6669543, 3422419 ####[facility] [address] [place] [address] Urea nitrogen/Creatinine [Mass ratio] 21 No Units High - [facility] Comment on above: Performed By: #### 2 989127, 83519370, 23516807, 82990046, 5754145, 3353869 ####[facility] [address] [place] [address] Anion gap [Moles/Vol] 8 mmol/L Normal 6-16 [facility] Comment on above: Performed By: #### 2 437103, 01375285, 03969153, 57391423, 2514711, 0436635 ####[facility] [address] [place] [address] Calcium [Mass/Vol] 9.2 mg/dL Normal 8.9-11.[address] [facility] Comment on above: Performed By: #### 2 545121, 78900917, 02707077, 75177277, 2814739, 2002818 ####[facility] [address] [place] [address] Chloride [Moles/Vol] 105 mmol/L Normal 101-111 [facility] Comment on above: Performed By: #### 2 114720, 26510876, 76752261, 80342807, 3683316, 0542423 ####[facility] [address] [place] [address] CO2 [Moles/Vol] 26 mmol/L Normal 21-31 [facility] Comment on above: Performed By: #### 2 603861, 41497165, 66958337, 90563732, 8385279, 7457298 ####[facility] [address] [place] [address] Glucose [Mass/Vol] 145 mg/dL Normal 55-[address] [facility] Comment on above: Result Comment: If t his glucose result represents a fasting glucose, interpretation should refer to the following reference range: 55-99 mg/dL Performed By: #### 2 445234, 78034992, 09161335, 37928247, 7862570, 7667801 ####[facility] [address] [place] [address] Potassium [Moles/Vol] 3.9 mmol/L Normal 3.5-5.3 [facility] Comment on above: Performed By: #### 2 817527, 35133286, 73779867, 71299175, 9180511, 8237248 ####[facility] [address] [place] [address] Sodium [Moles/Vol] 135 mmol/L Normal 135-[address] [facility] Comment on above: Performed By: #### 2 067447, 64024062, 74771131, 72306971, 1188594, 5399808 ####[facility] [address] [place] [address] CBC w/ Auto Diffon 3 Erythrocyte distribution width (RBC) [Ratio] 14.7 % High 10.9-14.[address] [facility] Comment on above: Performed By: #### 2 773944, 19506933, 87468345, 13212128, 9190204, 1151039 ####[facility] [address] [place] [address] Hematocrit (Bld) [Volume fraction] 42.3 % Normal 37.7-49.[address] [facility] Comment on above: Performed By: #### 2 318539, 22676348, 61240497, 92516836, 6962095, 3864829 ####[facility] [address] [place] [address] Hemoglobin (Bld) [Mass/Vol] 14.5 g/dL Normal 13.5-17.[address] [facility] Comment on above: Performed By: #### 2 170624, 56830746, 07204675, 13845999, 2935285, 7031047 ####[facility] [address] [place] [address] MCH (RBC) [Entitic mass] 28.9 pg Normal 27.0-34.[address] [facility] Comment on above: Performed By: #### 2 739420, 10204830, 13129130, 52053004, 6571238, 8361524 ####[facility] [address] [place] [address] MCHC (RBC) [Mass/Vol] 34.2 g/dL Normal 31.4-36.0 [facility] Comment on above: Performed By: #### 2 805712, 67574442, 88251880, 38436689, 8214633, 2348279 ####[facility] [address] [place] [address] MCV (RBC) [Entitic vol] 84.7 fL Normal 80.0-100.0 [facility] Comment on above: Performed By: #### 2 577346, 39379485, 06664041, 13165842, 1133274, 6998688 ####[facility] [address] [place] [address] Platelet mean volume (Bld) [Entitic vol] 7.6 fL Normal 6.4-10.[address] [facility] Comment on above: Performed By: #### 2 980811, 89935976, 75232855, 18671609, 5313328, 3177234 ####[facility] [address] [place] [address] Platelets (Bld) [#/Vol] 295.0 E9/L Normal 150.0-500.[address] [facility] Comment on above: Performed By: #### 2 151852, 89408152, 11508780, 41281593, 5532614, 4464636 ####[facility] [address] [place] [address] RBC (Bld) [#/Vol] 5.0 E12/L Normal 4.3-5.[address] [facility] Comment on above: Performed By: #### 2 292159, 33112657, 15956174, 38996773, 7008463, 4332668 ####[facility] [address] [place] [address] WBC corrected for nucl RBC Auto (Bld) [#/Vol] 9.5 E9/L Normal 4.0-11.0 [facility] Comment on above: Performed By: #### 2 096624, 12222856, 09550373, 04630256, 5813067, 5179921 ####[facility] [address] [place] [address] CHEMISTRYOrdered By: SYSTEM SYSTEM on 05-05-2023 Troponin I.cardiac [Mass/Vol] 4.90 pg/mL Low 15.90 - 38.40 pg/mL [facility] Remisol Comment on above: Interpretive Data: T he 95% CI (Confidence Interval) PPV (Positive Predictive Value) for myocardial infarction in females is 38 pg/mL, in males 51 pg/mL. The results should be used in conjunction with clinical conditions of myocardial infarction. (Access High Sensitivity Troponin I Instructions For Use, [employer], February 2018) Anion gap [Moles/Vol] 8 mmol/L Normal 6 - 16 mEq/L [facility] Remisol Calcium [Mass/Vol] 9.2 mg/dL Normal 8.9 - 11. 1 mg/dL [facility] Remisol Chloride [Moles/Vol] 105 mmol/L Normal 101 - 1 11 mmol/L [facility] Remisol CO2 [Moles/Vol] 26 mmol/L Normal 21 - 31 mmol/L [facility] Remisol Creatinine [Mass/Vol] 0.9 mg/dL Normal 0.5 - 1.3 mg/dL [facility] Remisol GFR/1.73 sq M.predicted among non-blacks MDRD (S/P/Bld) [Vol rate/Area] 97 mL/min/1.73 m2 Normal >=59mL/min/ 1.73 m2 [facility] Chem S Comment on above: Interpretive Data: C hronic kidney disease could be indicated at eGFR's of less than 60 mL/min/1.73m2. Kidney failure is indicated at less than 15 mL/min/1.73m2. Glucose [Mass/Vol] 145 mg/dL Normal 55 - 199 mg/dL [facility] Remisol Comment on above: Interpretive Data: I f this glucose result represents a fasting glucose, interpretation should refer to the following reference range: 55-99 mg/dL Potassium [Moles/Vol] 3.9 mmol/L Normal 3.5 - 5.3 mmol/L [facility] Remisol Sodium [Moles/Vol] 135 mmol/L Normal 135 - 145 mmol/L [facility] Remisol Troponin I.cardiac [Mass/Vol] 4.70 pg/mL Low 15.90 - 38.40 pg/mL [facility] Remisol Comment on above: Interpretive Data: T he 95% CI (Confidence Interval) PPV (Positive Predictive Value) for myocardial infarction in females is 38 pg/mL, in males 51 pg/mL. The results should be used in conjunction with clinical conditions of myocardial infarction. (Access High Sensitivity Troponin I Instructions For Use, [employer], February 2018) Urea nitrogen [Mass/Vol] 19 mg/dL Normal 5 - 21 mg/dL [facility] Remisol Urea nitrogen/Creatinine [Mass ratio] 21 mg/mg High 10 - 20 [facility] Remisol COAGULATIONOrdered By: Allyson Nicole on 05-05-2023 aPTT Coag (PPP) [Time] 34.5 s Normal 25.1 - 36.5 second(s) [facility] Auto Coag Comment on above: Interpretive Data: P arameter 15 days - 4 weeks 1 - 5 months 6 - 11 months 1 - 5 years 6 - 10 years 11 - 17 years PTT Mean: 35.4 (27.6-45.6) Mean: 33.5 (24.8-40.7) Mean: 32.4 (25.1-40.7) Mean: 31.6 (24.0-39.2) Mean: 31.6 (26.9-38.7) Mean: 31.0 (24.6-38.4) Pediatric Reference ranges were obtained from a study by Ronn Boucher et al. prepared from 1437 samples obtained at 7 different centers using the same coagulation reagent and instrumentation as [facility]. Currently there are no coagulation studies available worldwide for children to 14 days, and no normal ranges. Heparin therapeutic range (represented by Anti-Factor Xa activity of 0.2 - 0.4 U/mL) corresponds to PTT of 56.6 - 109.0 sec. INR Coag (PPP) [Relative time] 1.2 {INR} Invalid Interpretation Code [facility] Auto Coag Comment on above: Interpretive Data: I NR results are specifically intended to assess patients stabilized on long-term Anticoagulation therapy suggested INR s Less Intensive Anticoagulation 2.0 3.0 Conventional Range 3.0 4.5 PT Coag (PPP) [Time] 13.3 s High 9.4 - 1 2.5 second(s) [facility] Auto Coag Comment on above: Interpretive Data: 1 5 days - 4 weeks 1 - 5 months 6 -11 months 1-5 years 6-10 years 11 -17 years Mean: 11.2 (9.5-12.6) Mean: 11.0 (9.7-12.8) Mean: 11.0 (9.8-13.0) Mean: 11.3 (9.9-13.4) Mean: 11.7 (10.0-14.6) Mean: 11.8 (10.0 - 14.1) Pediatric Reference ranges were obtained from a study by Ronn Boucher et al. prepared from 1437 samples obtained at 7 different centers using the same coagulation reagent and instrumentation as [facility]. Currently there are no coagulation studies available worldwide for children to 14 days, and no normal ranges. Consent for Treatmenton 04-17 Consent for Treatment [id number]#1 .00TIFF Normal [facility] ED Clinical Summaryon 2022 ED Clinical Summary Normal [facility]son [facility] ED Patient Education Noteon 05-05-2023 ED Patient Education Note Normal [facility] ED Patient Summaryon 023 ED Patient Summary Normal [facility] HEMATOLOGYOrdered By: SYSTEM SYSTEM on 05-05-2023 Basophils/100 WBC (Bld) 1.3 % Normal 0.0 - 2.0 % [facility] Basophils/Leukocytes Auto (Bld) [Pure # fraction] 0.1 E9/L Normal 0.0 - 0.2 E9/L [facility] Eosinophils/100 WBC (Bld) 2.6 % Normal 0.0 - 8.0 % [facility] Eosinophils/Leukocytes Auto (Bld) [Pure # fraction] 0.2 E9/L Normal 0.0 - 0.5 E9/L [facility] Lymphocytes/100 WBC (Bld) 51.7 % High 14.0 - 50.0 % [facility] Lymphocytes/Leukocytes Auto (Bld) [Pure # fraction] 4.9 E9/L High 1.0 - 4.0 E9/L [facility] Monocytes/100 WBC (Bld) 11.0 % Normal 4.0 - 14.0 % [facility] Monocytes/Leukocytes Auto (Bld) [Pure # fraction] 1.0 E9/L Normal 0.2 - 1.0 E9/L [facility] Neutrophils/100 WBC (Bld) 33.4 % Low 36.0 - 75.0 % [facility] Neutrophils/Leukocytes Auto (Bld) [Pure # fraction] 3.2 E9/L Normal 2.0 - 7.5 E9/L [facility] HEMATOLOGYOrdered By: Yesy Brice on 05-05-2023 Erythrocyte distribution width (RBC) [Ratio] 14.7 % High 10.9 - 14.2 % [facility] Hematocrit (Bld) [Volume fraction] 42.3 % Normal 37.7 - 49.0 % [facility] Hemoglobin (Bld) [Mass/Vol] 14.5 g/dL Normal 13.5 - 17.5 gm/dL [facility] MCH (RBC) [Entitic mass] 28.9 pg Normal 27.0 - 34.0 pg [facility] MCHC (RBC) [Mass/Vol] 34.2 g/dL Normal 31.4 - 36.0 gm/dL [facility] MCV (RBC) [Entitic vol] 84.7 fL Normal 80.0 - 100.0 fL [facility] Platelet mean volume (Bld) [Entitic vol] 7.6 fL Normal 6.4 - 10.8 fL [facility] Platelets (Bld) [#/Vol] 295.0 E9/L Normal 150. 0 - 500.0 E9/L [facility] RBC (Bld) [#/Vol] 5.0 E12/L Normal 4.3 - 5.9 E12/L [facility] WBC corrected for nucl RBC Auto (Bld) [#/Vol] 9.5 E9/L Normal 4.0 - 11.0 E9/L [facility] HemeAutoSS Insurance Correspondenceon Insurance Correspondence [id number]# 1.00TIFF Normal [facility] Monitor Recordon 05-05-2023 Monitor Record [id number]# 1.00TIFF Normal [facility] Monitor Record [id number]# 1.00TIFF Normal [facility] PT & PTTon 05-05-2023 aPTT Coag (PPP) [Time] 34.5 second(s) Normal 25.1-36.[address] [facility] Comment on above: Result Comment: Para meter 15 days - 4 weeks 1 - 5 months 6 - 11 months 1 - 5 years 6 - 10 years 11 - 17 years PTT Mean: 35.4 (27.6-45.6) Mean: 33.5 (24.8-40.7) Mean: 32.4 (25.1-40.7) Mean: 31.6 (24.0-39.2) Mean: 31.6 (26.9-38.7) Mean: 31.0 (24.6-38.4) Pediatric Reference ranges were obtained from a study by Ronn Boucher et al. prepared from 1437 samples obtained at 7 different centers using the same coagulation reagent and instrumentation as [facility]. Currently there are no coagulation studies available worldwide for children to 14 days, and no normal ranges. Heparin therapeutic range (represented by Anti-Factor Xa activity of 0.2 - 0.4 U/mL) corresponds to PTT of 56.6 - 109.0 sec. Performed By: #### 2 [id number], [id number], [id number], 72088839, 8070053, [id number] ####[facility] [address] [place] [address] INR Coag (PPP) [Relative time] 1.2 {INR} Invalid Interpretation Code [facility] Comment on above: Result Comment: INR results are specifically intended to assess patients stabilized on long-term Anticoagulation therapy suggested INR?s ?Less Intensive Anticoagulation? 2.0 ? 3.0Conventional Range 3.0 ? 4.5 Performed By: #### 2 836101, [id number], 25602221, 93477916, 9168653, 6153229 ####[facility] [address] [place] [address] PT Coag (PPP) [Time] 13.3 second(s) High 9.4-12.[address] [facility] Comment on above: Result Comment: 15 d ays - 4 weeks 1 - 5 months 6 -11 months 1-5 years 6-10 years 11 -17 years Mean: 11.2 (9.5-12.6) Mean: 11.0 (9.7-12.8) Mean: 11.0 (9.8-13.0) Mean: 11.3 (9.9-13.4) Mean: 11.7 (10.0-14.6) Mean: 11.8 (10.0 - 14.1) Pediatric Reference ranges were obtained from a study by Ronn Boucher et al. prepared from 1437 samples obtained at 7 different centers using the same coagulation reagent and instrumentation as [facility]. Currently there are no coagulation studies available worldwide for children to 14 days, and no normal ranges. Performed By: #### 2 913656, [id number], 45169998, 58196477, 3912801, 2747643 ####[facility] [address] [place] [address] Troponin 0 Hr.on 05-05-2023 Troponin I.cardiac [Mass/Vol] 4.70 pg/mL Low 15.90-38.[address] [facility] Comment on above: Result Comment: The 95% CI (Confidence Interval) PPV (Positive Predictive Value) for myocardial infarction in females is 38 pg/mL, in males 51 pg/mL. The results should be used in conjunction with clinical conditions of myocardial infarction.([employer] High Sensitivity Troponin I Instructions For Use, [employer], February 2018) Performed By: #### 2 730720, 85935905, 21537736, 44115707, 4405484, 5252215 ####[facility] [address] [place] [address] Troponin 3 Hr.on 05-05-2023 Troponin I.cardiac [Mass/Vol] 4.90 pg/mL Low 15.90-38.[address] [facility] Comment on above: Result Comment: The 95% CI (Confidence Interval) PPV (Positive Predictive Value) for myocardial infarction in females is 38 pg/mL, in males 51 pg/mL. The results should be used in conjunction with clinical conditions of myocardial infarction.(Access High Sensitivity Troponin I Instructions For Use, [employer], February 2018) Performed By: #### 1 [id number] ####[facility] [address] [place] [address] XR Chest Single Viewon 05-05 XR Chest Single View Normal [facility] eGFRon 05-05-2023 GFR/1.73 sq M.predicted among non-blacks MDRD (S/P/Bld) [Vol rate/Area] 97 mL/min/1.73 m2 Normal >=[address] [facility] Comment on above: Order Comment: Order added by Discern Expert. Result Comment: Travel Director andrea kidney disease could be indicated at eGFR's of less than 60 mL/min/1.73m2. Kidney failure is indicated at less than 15 mL/min/1.73m2. Performed By: #### 2 889478, 81320496, 10645524, 28113855, 7577554, 4915133 ####[facility] [address] [place] [address] Consent for Treatmenton 04-16 Consent for Treatment [id number]#1 .00TIFF Normal [facility] Discharge Documentationon Discharge Documentation [id number]# 1.00CD:[address] [facility] Inpatient Clinical Summaryon 04-16-2023 Inpatient Clinical Summary Normal [facility] Inpatient Patient Summaryon 04-16-2023 Inpatient Patient Summary Normal [facility] Inpatient Patient Summary Normal [facility] Monitor Recordon 04-16-2023 Monitor Record [id number]# 1.00CD:[address] [facility] Progress Note-Physicianon Progress Note-Physician Normal [facility] Comment on above: Result Comment: Elec tronically Signed By: Oliver CORONADO MD\.br\Date and Time Signed: 04/16/23 09:04 EDT Progress Note-Physician Normal [facility] Comment on above: Result Comment: Elec tronically Signed By: Mckayla WOODALL\.br\Date and Time Signed: 04/15/23 09:40 EDT\.br\Electronically Co-Signed By: Prince FREEDMAN MD\.br\Date and Time Co-Signed: 04/16/23 07:02 EDT BMPon 04-15-2023 Anion gap [Moles/Vol] 10 mmol/L Normal 6-16 [facility] Comment on above: Performed By: #### 2 696009, 96782212, 16086508, [id number] ####[facility] [address] [facility] [place] [address] Calcium [Mass/Vol] 8.8 mg/dL Low 8.9-11.[address] [facility] Comment on above: Performed By: #### 2 913021, 84920043, 94124343, 819048350 ####[facility] [address] [place] [address] Chloride [Moles/Vol] 108 mmol/L Normal 101-111 [facility] Comment on above: Performed By: #### 2 877432, 27466895, 02829598, 592875012 ####[facility] [address] [facility] [place] [address] CO2 [Moles/Vol] 24 mmol/L Normal 21-31 [facility] Comment on above: Performed By: #### 2 446157, 19514290, 89279744, 062622862 ####[facility] [address] [facility] [place] [address] Creatinine [Mass/Vol] 0.9 mg/dL Normal 0.5-1.3 [facility] Comment on above: Performed By: #### 2 977517, 53822370, 39382602, 500212520 ####[facility] [address] [place] [address] Glucose [Mass/Vol] 135 mg/dL Normal 55-[address] [facility] Comment on above: Result Comment: If t his glucose result represents a fasting glucose, interpretation should refer to the following reference range: 55-99 mg/dL Performed By: #### 2 839053, 76712691, 62964856, 041381386 ####[facility] [address] [facility] [place] [address] Potassium [Moles/Vol] 4.1 mmol/L Normal 3.5-5.3 [facility] Comment on above: Performed By: #### 2 201330, 40404121, 44315552, 246631142 ####[facility] [address] [place] [address] Sodium [Moles/Vol] 138 mmol/L Normal 135-[address] [facility] Comment on above: Performed By: #### 2 403223, 56704576, 15103787, 643694346 ####[facility] [address] [place] [address] Urea nitrogen [Mass/Vol] 15 mg/dL Normal 5-[address] [facility] Comment on above: Performed By: #### 2 298502, 59529112, 50940487, 039980211 ####[address] [place] [address] Urea nitrogen/Creatinine [Mass ratio] 17 No Units Normal 10-[address] [facility] Comment on above: Performed By: #### 2 698110, 23990083, 56332128, 908298009 ####[address] [address] COVID-19 (MC)on 04-15-2023 Performing Instrument FT Domo [address] [facility] Comment on above: Performed By: #### 1 [id number], [id number] ####[address] [place] [address] SARS-CoV-2 (COVID-19) RNA OXANA+probe Ql (Resp) Not detected Normal Not Detected [facility] Comment on above: Result Comment: This test result should be correlated with clinical presentations and medical history by a healthcare provider to determine its clinical significance.This assay was performed by a reverse transcriptase real-time polymerase chain reaction (rt PCR) method on the [employer] system. This test has been authorized only for the detection of nucleic acid from SARS-CoV-2, not for any other viruses or pathogens. This test has not been FDA cleared or approved. This test has been authorized by FDA under an Emergency Use Authorization (EUA). This test is only authorized for the duration of time the declaration on that circumstances exist justifying the authorization emergency use of in vitro diagnostic tests for detection and/or diagnosis of COVID-19 infection under section 564 (b) (1) of the Act, 21 U.S.C. 360 bbb-3 (b) (1), unless authorization is terminated or revoked sooner. Performed By: #### 1 [id number], [id number] ####[facility] [address] [place] [address] SARS-CoV-2 (COVID-19) RNA OXANA+probe Ql (Unsp spec) Pass Normal Pass [facility] Comment on above: Performed By: #### 1 [id number], [id number] ####[facility] [address] [place] [address] Specimen source Nom (Unsp spec) Nasal Normal [facility] Comment on above: Performed By: #### 1 [id number], [id number] ####[facility] [address] [place] [address] CTA Cheston 04-15-2023 CTA Chest Normal [facility] Consultation Noteon 04-15-20 Consultation Note Normal [facility] Comment on above: Result Comment: Elec tronically Signed By: IVONNE REBOLLEDO, Oliver Pham\.br\Date and Time Signed: 04/15/23 10:30 EDT Interdisciplinary Note - Kendrick e Manageron 04-15-2023 Interdisciplinary Note - Night Clerk Auditor Normal [facility] Comment on above: Result Comment: Elec tronically Signed By: Gordo DIAZ, Jyotsna\.br\Date and Time Signed: 04/15/23 14:22 EDT Interdisciplinary Note - Maurisio n 04-15-2023 Interdisciplinary Note - OT 04/15/23: Critical D-Dimer and hold eval today. Will attempt again tomorrow. Normal [facility] Interdisciplinary Note - PTo n 04-15-2023 Interdisciplinary Note - PT Pt is independent with bed mobility, transfers and amb without devices- no LOB No PT needs- safe for DC once medically stable Normal [facility] Lipid Panelon 04-15-2023 Cholesterol [Mass/Vol] 142 mg/dL Normal 120-200 [facility] Comment on above: Performed By: #### 2 083418 ####[facility] [address] [place] [address] Cholesterol in HDL [Mass/Vol] 31 mg/dL Invalid Interpretation Code [facility] Comment on above: Result Comment: HDL > or equal to 60 mg/dL: Low cardiovascular riskHDL < 40 mg/dL : High cardiovascular risk Performed By: #### 2 418853 ####[facility] [address] [place] [address] Cholesterol in LDL [Mass/Vol] 95 mg/dL Normal <=[address] [facility] Comment on above: Performed By: #### 2 768163 ####[facility] [address] [place] [address] Cholesterol in VLDL [Mass/Vol] 14 mg/dL Normal 7-[address] [facility] Comment on above: Performed By: #### 2 930837 ####[facility] [address] [place] [address] Triglyceride [Mass/Vol] 70 mg/dL Normal <=149 [facility] Comment on above: Performed By: #### 2 580461 ####[facility] [address] [facility] [place] [address] Monitor Recordon 04-15-2023 Monitor Record [id number]# 1.00CD:[address] [facility] Monitor Record [id number]# 1.00CD:[address] [facility] Progress Note-Nurseon 2022 Progress Note-Nurse This nurse [facility] but it did not go through. 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 Normal [facility] Respiratory Panel by PCRon 0 04-15-2023 Adenovirus DNA OXANA+non-probe Ql (Nph) Not detected Normal [facility] Comment on above: Result Comment: Test ing was performed using nucleic acid amplification including Influenza A, Influenza A H1, Influenza A H3, Influenza B, RSV A, RSV B, Adenovirus, Human Metapneumovirus, Parainfluenza 1,2,3, and 4, Rhinovirus, Bordetella parapertussis/bronchiseptica, Bordetella holmesii, and Bordetella pertussis. Performed By: #### 1 [id number], [id number] ####[facility] [address] [facility] [place] [address] B. parapertussis DNA OXANA+probe Ql (Upper resp) Not detected Normal Not Detected [facility] Comment on above: Performed By: #### 1 [id number], [id number] ####[address] [facility] [place] [address] B. pertussis DNA OXANA+probe Ql (Upper resp) Not detected Normal Not Detected [facility] Comment on above: Performed By: #### 1 [id number], [id number] ####[address] [facility] [place] [address] FLUAV H1 RNA OXANA+non-probe Ql (Nph) Not detected Normal [facility] Comment on above: Performed By: #### 1 [id number], [id number] ####[address] [facility] [place] [address] FLUAV H3 RNA OXANA+non-probe Ql (Nph) Not detected Normal [facility] Comment on above: Performed By: #### 1 [id number], [id number] ####[address] [facility] [place] [address] FLUAV RNA OXANA+non-probe Ql (Nph) Not detected Normal [facility] Comment on above: Performed By: #### 1 765291355, [id number] ####[facility] [address] [facility] [place] [address] FLUBV RNA OXANA+non-probe Ql (Nph) Not detected Normal [facility] Comment on above: Performed By: #### 1 775773058, [id number] ####[facility] [address] [facility] [place] [address] Human Metapneumovirus Not detected Normal [facility] Comment on above: Result Comment: This test result should be correlated with clinical presentations and medical history by a healthcare provider to determine its clinical significance. Performed By: #### 1 [id number], [id number] ####[address] [facility] [place] [address] Parainfluenza virus 1 RNA OXANA+non-probe Ql (Nph) Not detected Normal [facility] Comment on above: Performed By: #### 1 [id number], [id number] ####[address] [facility] [place] [address] Parainfluenza virus 2 RNA OXANA+non-probe Ql (Nph) Not detected Normal [facility] Comment on above: Performed By: #### 1 370453943, [id number] ####[address] [place] [address] Parainfluenza virus 3 RNA OXANA+non-probe Ql (Nph) Not detected Normal [facility] Comment on above: Performed By: #### 1 839959703, [id number] ####[address] [facility] [place] [address] Parainfluenza virus 4 RNA OXANA+non-probe Ql (Nph) Not detected Normal [facility] Comment on above: Performed By: #### 1 [id number], [id number] ####[address] [facility] [place] [address] Resp Panel Intrl QC Pass Normal [facility] Comment on above: Performed By: #### 1 [id number], [id number] ####[address] [facility] [place] [address] Rhinovirus+Enterovirus RNA OXANA+non-probe Ql (Nph) Not detected Normal [facility] Comment on above: Performed By: #### 1 [id number], [id number] ####[facility] [address] [facility] [place] [address] RSV RNA OXANA+non-probe Ql (Nph) Not detected Normal [facility] Comment on above: Performed By: #### 1 338572699, [id number] ####[facility] [address] [place] [address] TSH With T4fr Reflexon 04-15 TSH Qn 2.12 m[IU]/L Normal 0.34-5.[address] [facility] Comment on above: Performed By: #### 2 047240, 69219773, 45363378, 121006122 ####[facility] [address] [place] [address] Troponin 6 Hr.on 04-15-2023 Troponin I.cardiac [Mass/Vol] 4.20 pg/mL Low 15.90-38.[address] [facility] Comment on above: Result Comment: The 95% CI (Confidence Interval) PPV (Positive Predictive Value) for myocardial infarction in females is 38 pg/mL, in males 51 pg/mL. The results should be used in conjunction with clinical conditions of myocardial infarction.([employer] High Sensitivity Troponin I Instructions For Use, [employer], February 2018) Performed By: #### 1 [id number] ####[facility] [address] [place] [address] Troponin 9 Hr.on 04-15-2023 Troponin I.cardiac [Mass/Vol] 4.20 pg/mL Low 15.90-38.[address] [facility] Comment on above: Result Comment: The 95% CI (Confidence Interval) PPV (Positive Predictive Value) for myocardial infarction in females is 38 pg/mL, in males 51 pg/mL. The results should be used in conjunction with clinical conditions of myocardial infarction.([employer] High Sensitivity Troponin I Instructions For Use, [employer], February 2018) Performed By: #### 1 [id number] ####[address] [place] [address] U Drug Screenon 04-15-2023 Barbiturates Screen Ql (U) Positive Abnormal Negative [facility] Comment on above: Result Comment: Crit ical Result verified by repeat analysis\No confirmation requested by Physican\Unconfirmed by alternate method\Critical Result UD_BARB:POS Called to JAMIL BAEZ AT 3S by JESSICA BUTTERFIELD And Read Back For Confirmation at: 04/15/2023 12:19:07Negative Cutoff: <200 ng/mL Performed By: #### 2 [id number] ####[facility] [address] [place] [address] Tetrahydrocannabinol Screen method >50 ng/mL Ql (U) Positive Abnormal Negative [facility] Comment on above: Result Comment: Crit ical Result verified by repeat analysis\No confirmation requested by Physican\Unconfirmed by alternate method\Critical Result UD_THC:POS Called to JAMIL BAEZ AT 3S by JESSICA BUTTERFIELD And Read Back For Confirmation at: 04/15/2023 12:19:07Negative Cutoff: <50 ng/mL Performed By: #### 2 439556 ####[facility] [address] [place] [address] Amphetamines Screen method >1000 ng/mL Ql (U) Negative Normal Negative [facility] Comment on above: Result Comment: Nega tive Cutoff: <1000 ng/mL Performed By: #### 2 260598 ####[address] [place] [address] Benzodiazepines Ql (U) Negative Normal Negative [facility] Comment on above: Result Comment: Nega tive Cutoff: <200 ng/mL Performed By: #### 2 565040 ####[address] [place] [address] Cocaine Ql (U) Negative Normal Negative [facility] Comment on above: Result Comment: Nega tive Cutoff: <300 ng/mL Performed By: #### 2 749481 ####[facility] [address] [place] [address] Opiates Screen Ql (U) Negative Normal Negative [facility] Comment on above: Result Comment: Nega tive Cutoff: <300 ng/mL Performed By: #### 2 469540 ####[address] [place] [address] Phencyclidine Screen method >25 ng/mL Ql (U) Negative Normal Negative [facility] Comment on above: Result Comment: Nega tive Cutoff: <25 ng/mLThese drug screen results are to be used for medical (i.e., treatment) purposes only. Unconfirmed drug screening results must not be used for non-medical purposes (e.g., employment testing, legal testing). Performed By: #### 2 130566 ####[facility] [address] [place] [address] UA With Cult Reflexon 2022 Bilirubin Ql (U) Negative Normal Negative [facility] Comment on above: Performed By: #### 1 [id number] ####[address] [address] Clarity (U) CLEAR Normal Clear [facility] Comment on above: Performed By: #### 1 [id number] ####[address] [address] Color (U) STRAW Abnormal Yellow [facility] Comment on above: Performed By: #### 1 [id number] ####[address] [address] Epithelial cells.squamous LM.HPF (Urine sed) [#/Area] 0-2 Normal 0-2 [facility] Comment on above: Performed By: #### 1 [id number] ####[address] [address] Glucose Test strip (U) [Mass/Vol] Negative Normal Negative [facility] Comment on above: Performed By: #### 1 [id number] ####[address] [address] Hemoglobin Ql (U) Negative Normal Negative [facility] Comment on above: Performed By: #### 1 [id number] ####[address] [place] [address] Ketones (U) [Mass/Vol] Negative Normal Negative Fi [facility] Comment on above: Performed By: #### 1 [id number] ####[address] [place] [address] Orlinda.plasma/Orlinda. RBC (Bld) [Mass ratio] 0-3 Normal 0-3 [facility] Comment on above: Performed By: #### 1 [id number] ####[address] [address] Nitrite Ql (U) Negative Normal Negative [facility] Comment on above: Performed By: #### 1 7923680 ####[address] [address] pH (U) 6.0 [pH] Invalid Interpretation Code 5.0-9.[address] [facility] Comment on above: Performed By: #### 1 7735191 ####[address] [address] Protein (U) [Mass/Vol] Negative Normal Negative [facility] Comment on above: Performed By: #### 1 0592359 ####[address] [address] Specific gravity (U) [Rel density] <=1.005 Invalid Interpretation Code 1.005-1.[address] [facility] Comment on above: Performed By: #### 1 6363872 ####[address] [address] Type of Urine collection method Clean Catch Normal [facility] Comment on above: Performed By: #### 1 5593971 ####[address] [address] Urobilinogen Qn (U) 1.0 {Emily'U}/dL Normal 0.0-1.[address] [facility] Comment on above: Performed By: #### 1 4061035 ####[address] [address] WBC Auto Ql (U) Negative Normal Negative [facility] Comment on above: Performed By: #### 1 3304789 ####[address] [address] WBC LM.HPF (Urine sed) [#/Area] 0-5 Normal 0-[address] [facility] Comment on above: Performed By: #### 1 7206743 ####[address] [address] Vitamin D 25 Hydroxyon 04-15 25-hydroxyvitamin D3 [Mass/Vol] 27.5 ng/mL Low 30.0-100.[address] [facility] Comment on above: Result Comment: Vit trent D deficiency has been defined as a level of serum 25-OH vitamin D less than 20 ng/mL (1,2) by the [place] of [employer] and an Endocrine Society practice guideline. The Endocrine Society further defined vitamin D insufficiency as a level between 21 and 29 ng/mL (2). 1. IOM ([place] of [employer]). 2010. Dietary reference intakes for calcium and D. [place]: The National Academies Press. 2. Lili MF, Paulette NC, Dominique MORIN, et al. Evaluation, treatment, and prevention of vitamin D deficiency: an Endocrine Society clinical practice guideline. JCEM. 2010; 96 (7):1911-30. Performed By: #### 2 125608, 95320369, 56407160, [id number] ####[facility] [address] [place] [address] eGFRon 04-15-2023 GFR/1.73 sq M.predicted among non-blacks MDRD (S/P/Bld) [Vol rate/Area] 97 mL/min/1.73 m2 Normal >=[address] [facility] Comment on above: Order Comment: Order added by Discern Expert. Result Comment: Travel Director andrea kidney disease could be indicated at eGFR's of less than 60 mL/min/1.73m2. Kidney failure is indicated at less than 15 mL/min/1.73m2. Performed By: #### 2 819496, 85219125, 02366146, [id number] ####[facility] [address] [place] [address] Auto Diffon 04-14-2023 Basophils/100 WBC (Bld) 0.9 % Normal 0.0-2.0 [facility] Comment on above: Order Comment: Order Added by Discern Expert. Performed By: #### 1 7941446, 4513596, 87410954, 9859488, 9195141, 24408052, 7264151, 2046793, 1170356, 2698254 ####[facility] [address] [place] [address] Basophils/Leukocytes Auto (Bld) [Pure # fraction] 0.1 E9/L Normal 0.0-0.[address] [facility] Comment on above: Order Comment: Order Added by Discern Expert. Performed By: #### 1 2194054, 8350544, 99055219, 9934544, 6301759, 07024756, 4205368, 2045235, 6878105, 6403701 ####[facility] [address] [place] [address] Eosinophils/100 WBC (Bld) 2.6 % Normal 0.0-8.[address] [facility] Comment on above: Order Comment: Order Added by Discern Expert. Performed By: #### 1 8075714, 8806288, 41816731, 6180519, 5497261, 86915585, 5225361, 2598658, 8342276, 7097861 ####[address] [place] [address] Eosinophils/Leukocytes Auto (Bld) [Pure # fraction] 0.3 E9/L Normal 0.0-0.[address] [facility] Comment on above: Order Comment: Order Added by Discern Expert. Performed By: #### 1 6868978, 4222159, 39848369, 0761251, 5392108, 68360000, 4329512, 5225334, 4922497, 5216214 ####[facility] [address] [place] [address] Lymphocytes/100 WBC (Bld) 32.9 % Normal 14.0-50.[address] [facility] Comment on above: Order Comment: Order Added by Discern Expert. Performed By: #### 1 1697096, 9370759, 99415942, 2184227, 4839806, 07015821, 8044542, 5981566, 7532639, 3475096 ####[facility] [address] [place] [address] Lymphocytes/Leukocytes Auto (Bld) [Pure # fraction] 3.2 E9/L Normal 1.0-4.[address] [facility] Comment on above: Order Comment: Order Added by Discern Expert. Performed By: #### 1 9060553, 2222159, 82257559, 4548647, 2006020, 33109231, 3173645, 0554862, 8866771, 3324198 ####[facility] [address] [place] [address] Monocytes/100 WBC (Bld) 8.6 % Normal 4.0-14.0 [facility] Comment on above: Order Comment: Order Added by Discern Expert. Performed By: #### 1 3362914, 5284464, 35943408, 8774647, 2737864, 79316943, 4251030, 8447738, 1693658, 1772074 ####[address] [address] Monocytes/Leukocytes Auto (Bld) [Pure # fraction] 0.9 E9/L Normal 0.2-1.[address] [facility] Comment on above: Order Comment: Order Added by Mekhi Expert. Performed By: #### 1 9749366, 8033502, 36781852, 6040095, 9403052, 59914530, 2820747, 6201932, 0246211, 6287936 ####[facility] [address] [place] [address] Neutrophils/100 WBC (Bld) 55.0 % Normal 36.0-75.[address] [facility] Comment on above: Order Comment: Order Added by Discern Expert. Performed By: #### 1 8581501, 2308827, 17327228, 2466625, 7797250, 50638959, 2497387, 1929926, 8627546, 2791453 ####[address] [place] [address] Neutrophils/Leukocytes Auto (Bld) [Pure # fraction] 5.4 E9/L Normal 2.0-7.[address] [facility] Comment on above: Order Comment: Order Added by Discern Expert. Performed By: #### 1 9018607, 3386373, 99108568, 3921934, 0104194, 51325156, 1177990, 6932713, 2503904, 4544962 ####[facility] [address] [place] [address] BMPon 04-14-2023 Creatinine [Mass/Vol] 0.9 mg/dL Normal 0.5-1.3 [facility] Comment on above: Performed By: #### 1 7447919, 3754720, 04271631, 8076608, 9938364, 29263205, 6294189, 0917699, 7037125, 4998444 ####[facility] [address] [place] [address] Urea nitrogen [Mass/Vol] 11 mg/dL Normal 5-[address] [facility] Comment on above: Performed By: #### 1 1049050, 6336343, 47260652, 9331964, 2074631, 38357084, 3279206, 6520162, 2243935, 4094092 ####[facility] [address] [place] [address] Urea nitrogen/Creatinine [Mass ratio] 12 No Units Normal 10-[address] [facility] Comment on above: Performed By: #### 1 2831834, 1837280, 26664521, 6074386, 3502534, 13033473, 4830909, 8204278, 5218563, 1267849 ####[facility] [address] [place] [address] Anion gap [Moles/Vol] 10 mmol/L Normal 6-16 [facility] Comment on above: Performed By: #### 1 3727123, 1324628, 44053032, 1603065, 8224332, 68183833, 9241657, 3044987, 8594763, 9680161 ####[facility] [address] [place] [address] Calcium [Mass/Vol] 9.2 mg/dL Normal 8.9-11.[address] [facility] Comment on above: Performed By: #### 1 4845493, 6759861, 40673239, 3400086, 7948943, 87618180, 8105446, 8355375, 3413400, 3071233 ####[facility] [address] [place] [address] Chloride [Moles/Vol] 111 mmol/L Normal 101-111 [facility] Comment on above: Performed By: #### 1 6910353, 6130062, 31321235, 4994528, 9248138, 55867506, 6815404, 6517374, 6331450, 6848816 ####[facility] [address] [place] [address] CO2 [Moles/Vol] 22 mmol/L Normal 21-31 [facility] Comment on above: Performed By: #### 1 9961966, 0144909, 18618071, 6290473, 8224287, 40297920, 8097821, 3400725, 1461768, 1794679 ####[facility] [address] [place] [address] Glucose [Mass/Vol] 133 mg/dL Normal 55-[address] [facility] Comment on above: Result Comment: If t his glucose result represents a fasting glucose, interpretation should refer to the following reference range: 55-99 mg/dL Performed By: #### 1 1432316, 5894947, 24329932, 2565230, 1355027, 32572373, 1867927, 3104841, 2378287, 6099250 ####[facility] [address] [place] [address] Potassium [Moles/Vol] 4.1 mmol/L Normal 3.5-5.3 [facility] Comment on above: Performed By: #### 1 3422935, 3240219, 65560861, 0413461, 3054087, 40033310, 9422279, 9274591, 2541848, 2847527 ####[facility] [address] [place] [address] Sodium [Moles/Vol] 139 mmol/L Normal 135-[address] [facility] Comment on above: Performed By: #### 1 4021305, 0660120, 26143590, 0894069, 6917848, 72860658, 1325052, 8565577, 3423795, 0091491 ####[facility] [address] [place] [address] CBC w/ Auto Diffon Erythrocyte distribution width (RBC) [Ratio] 14.5 % High 10.9-14.[address] [facility] Comment on above: Performed By: #### 1 6151058, 5848475, 78742392, 6494914, 6394337, 83242049, 2052650, 3738157, 0669903, 7639680 ####[address] [place] [address] Hematocrit (Bld) [Volume fraction] 42.1 % Normal 37.7-49.[address] [facility] Comment on above: Performed By: #### 1 9961870, 6949802, 97173233, 0571158, 3387043, 14188932, 9772816, 7984476, 9596874, 8705525 ####[address] [place] [address] Hemoglobin (Bld) [Mass/Vol] 14.6 g/dL Normal 13.5-17.[address] [facility] Comment on above: Performed By: #### 1 3843199, 9101726, 14964868, 0324735, 9618750, 30574310, 7387127, 8856731, 1194984, 2613098 ####[facility] [address] [place] [address] MCH (RBC) [Entitic mass] 29.3 pg Normal 27.0-34.[address] [facility] Comment on above: Performed By: #### 1 0220181, 2387366, 03922074, 2486069, 6805326, 84565804, 4355712, 2188958, 1631604, 8971242 ####[address] [address] MCHC (RBC) [Mass/Vol] 34.7 g/dL Normal 31.4-36.0 [facility] Comment on above: Performed By: #### 1 3092097, 3610580, 17328467, 4089644, 5369150, 40278960, 2683909, 3114708, 8688656, 4466893 ####[facility] [address] [place] [address] MCV (RBC) [Entitic vol] 84.4 fL Normal 80.0-100.0 [facility] Comment on above: Performed By: #### 1 8544033, 8890398, 83285482, 7418290, 0320120, 39571802, 1260853, 2250809, 1631069, 8952815 ####[facility] [address] [place] [address] Platelet mean volume (Bld) [Entitic vol] 7.4 fL Normal 6.4-10.[address] [facility] Comment on above: Performed By: #### 1 8571549, 8795643, 94636200, 0236307, 1672081, 72585089, 8832984, 1037728, 4041960, 9561989 ####[facility] [address] [place] [address] Platelets (Bld) [#/Vol] 297.0 E9/L Normal 150.0-500.[address] [facility] Comment on above: Performed By: #### 1 2780871, 8797598, 13425533, 6420498, 7136059, 66794644, 0567048, 5959384, 0376850, 4502333 ####[facility] [address] [place] [address] RBC (Bld) [#/Vol] 5.0 E12/L Normal 4.3-5.[address] [facility] Comment on above: Performed By: #### 1 2217775, 0381746, 18290592, 1057286, 2197982, 71017820, 9213822, 3981906, 1309296, 5821856 ####[facility] [address] [place] [address] WBC corrected for nucl RBC Auto (Bld) [#/Vol] 9.9 E9/L Normal 4.0-11.0 [facility] Comment on above: Performed By: #### 1 9907667, 3492040, 96921114, 0779521, 0304708, 17757127, 4629530, 4697441, 4304678, 1055589 ####[facility] [address] [place] [address] CT Head or Brain w/o Contras ton 04-14-2023 CT Head or Brain w/o Contrast Normal [facility] Consent for Treatmenton 03-18 Consent for Treatment [id number]#1 .00CD:[address] [facility] D-Dimeron 04-14-2023 Fibrin D-dimer FEU (PPP) [Mass/Vol] 670 [id number] Abnormal 215-[address] [facility] Comment on above: Result Comment: Resu lts Called To Morgan BELLA By DOTTIE And Read Back For Confirmation On 04/14/2023 18:54:48 EDTResults Verified By Repeat AnalysisThis assay is intended for use as an aid in the diagnosis of DVT or PE. These conditions cannot be excluded with certainty solely on the basis of a D-dimer concentration being within the reference rangeThis D-Dimer assay may be used in conjunction with a non-high clinical pretest probability assessment to exclude deep-vein thrombosis(DVT). For exclusion of venous thrombosis or pulmonary embolism the analyte D-Dimer should not be used as an aid in patients with:Therapeutic dose anticoagulant therapy for >24 hoursFibrinolytic therapy within previous 7 daysTrauma or surgery within previous 4 weeksDisseminated malignaciesAortic aneurysmSepsis, severe infections, pneumonia, severe skin infectionsLiver cirrhosisPregnancy Performed By: #### 1 3828557, 8377975, 27342998, 4815916, 2729345, 11161970, 6730676, 6260086, 2723257, 8724773 ####[facility] [address] [place] [address] ED Clinical Summaryon 2022 ED Clinical Summary Normal [facility] ED Note-Physicianon 04-14-20 ED Note-Physician Normal [facility] Comment on above: Result Comment: Elec tronically Signed By: Morgan Tamez PA-C\.br\Date and Time Signed: 04/14/23 17:23 EDT\.br\Electronically Co-Signed By: Kasey Christian M.D.\.br\Date and Time Co-Signed: 04/14/23 18:41 EDT ED Patient Education Noteon 04-14-2023 ED Patient Education Note Normal [facility] ED Patient Summaryon 023 ED Patient Summary Normal [facility] Folateon 04-14-2023 Folate [Mass/Vol] 9.4 ng/mL Normal >=6.[address] [facility] Comment on above: Performed By: #### 1 3870561, 1878451, 68671155, 1347194, 5611813, 37123511, 9263977, 6937564, 8261237, 7813951 ####[facility] [address] [place] [address] Influenza A&B Agon Influenzae A Ag Negative Normal Negative [facility] Comment on above: Performed By: #### 1 2152714, [id number] ####[facility] [address] [place] [address] Influenzae B Ag Negative Normal Negative [facility] Comment on above: Result Comment: Test sensitivity and specificity vary for age group, specimen type, antigen types, and prevalence of disease. Test results must be evaluated in conjunction with other clinical data available to the physician. Individuals who received nasally administered Influenza A vaccine may have positive test results up to 3 days after vaccination. Performed By: #### 1 3905481, [id number] ####[facility] [address] [place] [address] MRI Brain w/o Contraston MRI Brain w/o Contrast Normal Fi [facility] Monitor Recordon 04-14-2023 Monitor Record [id number]# 1.00CD:[address] [facility] PT & PTTon 04-14-2023 aPTT Coag (PPP) [Time] 30.9 second(s) Normal 25.1-36.[address] [facility] Comment on above: Result Comment: Para meter 15 days - 4 weeks 1 - 5 months 6 - 11 months 1 - 5 years 6 - 10 years 11 - 17 years PTT Mean: 35.4 (27.6-45.6) Mean: 33.5 (24.8-40.7) Mean: 32.4 (25.1-40.7) Mean: 31.6 (24.0-39.2) Mean: 31.6 (26.9-38.7) Mean: 31.0 (24.6-38.4) Pediatric Reference ranges were obtained from a study by Ronn Boucher et al. prepared from 1437 samples obtained at 7 different centers using the same coagulation reagent and instrumentation as [facility]. Currently there are no coagulation studies available worldwide for children to 14 days, and no normal ranges. Heparin therapeutic range (represented by Anti-Factor Xa activity of 0.2 - 0.4 U/mL) corresponds to PTT of 56.6 - 109.0 sec. Performed By: #### 1 6128193, 1436717, 61392713, 4044329, 1470552, 17531993, 3516810, 6905077, 8454761, 6913628 ####[facility] [address] [place] [address] INR Coag (PPP) [Relative time] 1.4 {INR} Invalid Interpretation Code [facility] Comment on above: Result Comment: INR results are specifically intended to assess patients stabilized on long-term Anticoagulation therapy suggested INR?s ?Less Intensive Anticoagulation? 2.0 ? 3.0Conventional Range 3.0 ? 4.5 Performed By: #### 1 7746262, 6615444, 73031997, 7933602, 4136318, 01492911, 7395582, 3830259, 5361028, 4281960 ####[address] [place] [address] PT Coag (PPP) [Time] 15.2 second(s) High 9.4-12.[address] [facility] Comment on above: Result Comment: 15 d ays - 4 weeks 1 - 5 months 6 -11 months 1 ? 5 years 6 ? 10 years 11 -17 years Mean: 11.2 (9.5 ? 12.6) Mean: 11.0 (9.7 ? 12.8) Mean: 11.0 (9.8 ? 13.0) Mean: 11.3 (9.9 ? 13.4) Mean: 11.7 (10.0 ? 14.6) Mean: 11.8 (10.0 - 14.1) Pediatric Reference ranges were obtained from a study by [employer] al. prepared from 1437 samples obtained at 7 different centers using the same coagulation reagent and instrumentation as [facility]. Currently there are no coagulation studies available worldwide for children to 14 days, and no normal ranges. Performed By: #### 1 7207078, 7239275, 54885627, 7967198, 4539651, 93248657, 6442476, 1233398, 4641350, 1583041 ####[address] [address] Progress Note-Nurseon 2022 Progress Note-Nurse Normal [facility] RAD - MRI Screening Formon 0 04-14-2023 RAD - MRI Screening Form [id number] #1.00CD:[address] [facility] Rapid COVID Antigen ([facility])on 04-14-2023 Rapid COV Int NEG Ctl Pass Normal [facility] Comment on above: Performed By: #### 1 0316799, [id number] ####[address] [address] Rapid COV Int POS Ctl Pass Normal [facility] Comment on above: Performed By: #### 1 5312497, [id number] ####[address] [address] SARS-CoV+SARS-CoV-2 (COVID-19) Ag IA.rapid Ql (Resp) Not detected Normal Not Detected [facility] Comment on above: Result Comment: The [employer]? System for Rapid Detection of SARS-CoV-2 is a chromatographic digital immunoassay intended for the direct and qualitative detection of SARS-CoV-2 nucleocapsid antigens in nasal swabs from individuals who are suspected of COVID-19 by their healthcare provider within the first five days of the onset of symptoms. Negative results should be treated as presumptive, do not rule out SARS-CoV-2 infection and should not be used as the sole basis for treatment or patient management decisions, including infection control decisions. Negative results should be considered in the context of a patient?s recent exposures, history and the presence of clinical signs and symptoms consistent with COVID-19, and confirmed with a molecular assay, if necessary, for patient management. For in vitro diagnostic use. In the [facility], only for use under an Emergency Use Authorization. In the [place], this test has not been FDA cleared or approved; this test has been authorized by FDA under an EUA for use by authorized laboratories; use by laboratories certified under the CLIA, 42 U.S.C. ?263a, that meet requirements to perform moderate, high, or waived complexity tests and at the Point of Care (POC), i.e., in patient care settings operating under a CLIA Certificate of Waiver, Certificate of Compliance, or Certificate of Accreditation.This test has been authorized only for the detection of proteins from SARS-CoV-2, not for any other viruses or pathogens; and, in the [facility], this test is only authorized for the duration of the declaration that circumstances exist justifying the authorization of emergency use of in vitro diagnostics for detection and/or diagnosis of the virus that causes COVID-19 under Section 564(b)(1) of the Act, 21 U.S.C. ? 360bbb-3(b)(1), unless the authorization is terminated or revoked sooner. Performed By: #### 1 2071085, [id number] ####[facility] [address] [place] [address] TSHon 04-14-2023 TSH Qn 3.88 m[IU]/L Normal 0.34-5.[address] [facility] Comment on above: Performed By: #### 1 1381889, 4279954, 51128611, 8547775, 5206592, 98943615, 4591735, 5150964, 4352823, 2783405 ####[facility] [address] [place] [address] Troponin 0 Hr.on 04-14-2023 Troponin I.cardiac [Mass/Vol] 3.90 pg/mL Low 15.90-38.[address] [facility] Comment on above: Result Comment: The 95% CI (Confidence Interval) PPV (Positive Predictive Value) for myocardial infarction in females is 38 pg/mL, in males 51 pg/mL. The results should be used in conjunction with clinical conditions of myocardial infarction.([employer] High Sensitivity Troponin I Instructions For Use, [employer], February 2018) Performed By: #### 1 3150315, 3488135, 89510524, 5034662, 0755792, 74432939, 9163459, 5230181, 7216528, 3714880 ####[facility] [address] [place], [place] [address] Troponin 3 Hr.on 04-14-2023 Troponin I.cardiac [Mass/Vol] 3.50 pg/mL Low 15.90-38.[address] [facility] Comment on above: Result Comment: The 95% CI (Confidence Interval) PPV (Positive Predictive Value) for myocardial infarction in females is 38 pg/mL, in males 51 pg/mL. The results should be used in conjunction with clinical conditions of myocardial infarction.([employer] High Sensitivity Troponin I Instructions For Use, [employer], February 2018) Performed By: #### 1 [id number] ####[facility] [address] [place] [address] Vit B12on 04-14-2023 Cobalamin (Vitamin B12) [Mass/Vol] 494 pg/mL Normal 50-[address] [facility] Comment on above: Performed By: #### 1 [id number], 6116956, 38602790, 9900795, 8100254, 37264754, 5718878, 1460227, 1027178, 9209290 ####[facility] [address] [place] [address] XR Chest Single Viewon 04-14 XR Chest Single View Normal [facility] eGFRon 04-14-2023 GFR/1.73 sq M.predicted among non-blacks MDRD (S/P/Bld) [Vol rate/Area] 97 mL/min/1.73 m2 Normal >=[address] [facility] Comment on above: Order Comment: Order added by Discern Expert. Result Comment: Travel Director andrea kidney disease could be indicated at eGFR's of less than 60 mL/min/1.73m2. Kidney failure is indicated at less than 15 mL/min/1.73m2. Performed By: #### 1 [id number], 5916988, 10281702, 9746954, 0741777, 06890824, 9504747, 5227886, 4760605, 3114138 ####[facility] [address] [place] [address] Discharge Instructionson Discharge Instructions [id number]# 1.00CD:[address] [facility] ED Clinical Summaryon 2022 ED Clinical Summary Normal [facility] ED Note-Nursingon 03-17-2023 ED Note-Nursing pt given d/c instructions and educated on importance of follow up. pt verbalized understanding of instructions and readiness for d/c. pt walked self ambulatory to waiting room in stable condition to wait for his ride Normal [facility] ED Note-Physicianon 03-17-20 ED Note-Physician Normal [facility] Comment on above: Result Comment: Elec tronically Signed By: Valery Jones PA-C\.br\Date and Time Signed: 03/16/23 23:28 EDT\.br\Electronically Co-Signed By: Derian Rider DO\.br\Date and Time Co-Signed: 03/17/23 21:57 EDT ED Patient Education Noteon 03-17-2023 ED Patient Education Note Normal [facility] ED Patient Summaryon 023 ED Patient Summary Normal [facility] Monitor Recordon 03-17-2023 Monitor Record [id number]# 1.00CD:[address] [facility] Prescriptions/Work Noteson 0 03-17-2023 Prescriptions/Work Notes [id number]# 1.00CD:[address] [facility] Troponin 3 Hr.on 03-17-2023 Troponin I.cardiac [Mass/Vol] 3.90 pg/mL Low 15.90-38.[address] [facility] Comment on above: Result Comment: The 95% CI (Confidence Interval) PPV (Positive Predictive Value) for myocardial infarction in females is 38 pg/mL, in males 51 pg/mL. The results should be used in conjunction with clinical conditions of myocardial infarction.([employer] High Sensitivity Troponin I Instructions For Use, [employer], February 2018) Performed By: #### 1 [id number] ####[facility] [address] [place] [address] XR Chest Single Viewon 03-17 XR Chest Single View Normal [facility] Auto Diffon 03-16-2023 Basophils/100 WBC (Bld) 0.5 % Normal 0.0-2.0 [facility] Comment on above: Order Comment: Order Added by Discern Expert. Performed By: #### 2 273442, 6917669, 02789401, 7634517, 53433811, 20977176 ####[facility] [address] [place] [address] Basophils/Leukocytes Auto (Bld) [Pure # fraction] 0.1 E9/L Normal 0.0-0.[address] [facility] Comment on above: Order Comment: Order Added by Discern Expert. Performed By: #### 2 870500, 1019800, 50770722, 6563131, 70997704, 06264038 ####[facility] [address] [place] [address] Eosinophils/100 WBC (Bld) 1.2 % Normal 0.0-8.[address] [facility] Comment on above: Order Comment: Order Added by Discern Expert. Performed By: #### 2 999321, 1125869, 64190613, 7970076, 12487608, 61038524 ####[address] [place] [address] Eosinophils/Leukocytes Auto (Bld) [Pure # fraction] 0.2 E9/L Normal 0.0-0.[address] [facility] Comment on above: Order Comment: Order Added by Discern Expert. Performed By: #### 2 656502, 0633258, 87209576, 8748202, 85869369, 85718651 ####[address] [address] Lymphocytes/100 WBC (Bld) 29.1 % Normal 14.0-50.[address] [facility] Comment on above: Order Comment: Order Added by Discern Expert. Performed By: #### 2 203477, 3257439, 94707862, 1283257, 19200991, 54915462 ####[address] [address] Lymphocytes/Leukocytes Auto (Bld) [Pure # fraction] 3.7 E9/L Normal 1.0-4.[address] [facility] Comment on above: Order Comment: Order Added by Discern Expert. Performed By: #### 2 163822, 4451712, 42249144, 0978587, 71795578, 85718906 ####[address] [place] [address] Monocytes/100 WBC (Bld) 8.1 % Normal 4.0-14.0 [facility] Comment on above: Order Comment: Order Added by Discern Expert. Performed By: #### 2 407169, 7496767, 32986937, 7933890, 31352498, 70591931 ####[address] [place] [address] Monocytes/Leukocytes Auto (Bld) [Pure # fraction] 1.0 E9/L Normal 0.2-1.[address] [facility] Comment on above: Order Comment: Order Added by Discern Expert. Performed By: #### 2 521899, 6045809, 18518885, 4737609, 97856915, 80214649 ####[facility] [address] [place] [address] Neutrophils/100 WBC (Bld) 61.1 % Normal 36.0-75.[address] [facility] Comment on above: Order Comment: Order Added by Discern Expert. Performed By: #### 2 498089, 3843447, 35221248, 8341616, 06450879, 34625370 ####[facility] [address] [place] [address] Neutrophils/Leukocytes Auto (Bld) [Pure # fraction] 7.7 E9/L High 2.0-7.[address] [facility] Comment on above: Order Comment: Order Added by Discern Expert. Performed By: #### 2 377457, 2412425, 01167590, 2213530, 61059715, 89736436 ####[facility] [address] [place] [address] BMPon 03-16-2023 Creatinine [Mass/Vol] 1.1 mg/dL Normal 0.5-1.3 [facility] Comment on above: Performed By: #### 2 397399, 9150707, 41697658, 8418797, 84568612, 71330110 ####[facility] [address] [place] [address] Urea nitrogen [Mass/Vol] 19 mg/dL Normal 5-[address] [facility] Comment on above: Performed By: #### 2 460999, 2559966, 03147494, 6238098, 20310629, 09897186 ####[facility] [address] [place] [address] Urea nitrogen/Creatinine [Mass ratio] 17 No Units Normal 10-[address] [facility] Comment on above: Performed By: #### 2 907789, 8016879, 92244363, 7055993, 28815476, 33739187 ####[facility] [address] [place] [address] Anion gap [Moles/Vol] 10 mmol/L Normal 6-16 [facility] Comment on above: Performed By: #### 2 328767, 3169504, 77331756, 6189017, 03300474, 19641664 ####[facility] [address] [place] [address] Calcium [Mass/Vol] 9.0 mg/dL Normal 8.9-11.[address] [facility] Comment on above: Performed By: #### 2 090173, 8242079, 70121218, 6257026, 98612337, 83597330 ####[facility] [address] [place] [address] Chloride [Moles/Vol] 107 mmol/L Normal 101-111 [facility] Comment on above: Performed By: #### 2 392542, 2296949, 83851784, 8744258, 00324284, 08094745 ####[facility] [address] [facility] [place] [address] CO2 [Moles/Vol] 26 mmol/L Normal 21-31 [facility] Comment on above: Performed By: #### 2 645976, 2014881, 21808167, 4129343, 99268198, 73001308 ####[facility] [address] [place] [address] Glucose [Mass/Vol] 122 mg/dL Normal 55-[address] [facility] Comment on above: Result Comment: If t his glucose result represents a fasting glucose, interpretation should refer to the following reference range: 55-99 mg/dL Performed By: #### 2 762946, 6099151, 76808266, 1291017, 84906280, 62923224 ####[facility] [address] [place] [address] Potassium [Moles/Vol] 3.8 mmol/L Normal 3.5-5.3 [facility] Comment on above: Performed By: #### 2 940950, 9227674, 41436064, 8637744, 29054854, 93034811 ####[facility] [address] [place] [address] Sodium [Moles/Vol] 139 mmol/L Normal 135-[address] [facility] Comment on above: Performed By: #### 2 753558, 3371530, 97320757, 0295882, 49601911, 76393786 ####[facility] [address] [place] [address] CBC w/ Auto Diffon 3 Erythrocyte distribution width (RBC) [Ratio] 13.9 % Normal 10.9-14.[address] [facility] Comment on above: Performed By: #### 2 454774, 9153057, 97814120, 1077073, 13218996, 78607214 ####[facility] [address] [place] [address] Hematocrit (Bld) [Volume fraction] 43.2 % Normal 37.7-49.[address] [facility] Comment on above: Performed By: #### 2 447315, 0323517, 40723821, 2893618, 03195260, 53295834 ####[facility] [address] [place] [address] Hemoglobin (Bld) [Mass/Vol] 14.9 g/dL Normal 13.5-17.[address] [facility] Comment on above: Performed By: #### 2 313308, 5974161, 87864319, 8079179, 23425737, 83078137 ####[facility] [address] [place] [address] MCH (RBC) [Entitic mass] 28.9 pg Normal 27.0-34.[address] [facility] Comment on above: Performed By: #### 2 600808, 3216581, 98486910, 2301871, 30477630, 77695997 ####[facility] [address] [place] [address] MCHC (RBC) [Mass/Vol] 34.6 g/dL Normal 31.4-36.0 [facility] Comment on above: Performed By: #### 2 158648, 6843799, 78315711, 4592383, 16042799, 63901635 ####[address] [place] [address] MCV (RBC) [Entitic vol] 83.6 fL Normal 80.0-100.0 [facility] Comment on above: Performed By: #### 2 770634, 5064319, 52089147, 0594100, 10343113, 02042246 ####[address] [address] Platelet mean volume (Bld) [Entitic vol] 8.7 fL Normal 6.4-10.[address] [facility] Comment on above: Performed By: #### 2 144564, 5104611, 93908105, 2264574, 95947492, 80107972 ####[address] [address] Platelets (Bld) [#/Vol] 254.0 E9/L Normal 150.0-500.[address] [facility] Comment on above: Performed By: #### 2 455657, 0412081, 74281348, 9444247, 42620356, 31748654 ####[address] [address] RBC (Bld) [#/Vol] 5.2 E12/L Normal 4.3-5.[address] [facility] Comment on above: Performed By: #### 2 112645, 4657698, 14082927, 5343856, 02097864, 07195554 ####[address] [place] [address] WBC corrected for nucl RBC Auto (Bld) [#/Vol] 12.6 E9/L High 4.0-11.0 [facility] Comment on above: Performed By: #### 2 230068, 4733538, 16813780, 2960783, 65176904, 81435006 ####[address] [place] [address] CHEMISTRYOrdered By: SYSTEM SYSTEM on 03-16-2023 Troponin I.cardiac [Mass/Vol] 3.90 pg/mL Low 15.90 - 38.40 pg/mL [facility] Anion gap [Moles/Vol] 10 mmol/L Normal 6 - 16 mEq/L [facility] Calcium [Mass/Vol] 9.0 mg/dL Normal 8.9 - 11. 1 mg/dL [facility] Chloride [Moles/Vol] 107 mmol/L Normal 101 - 1 11 mmol/L [facility] CO2 [Moles/Vol] 26 mmol/L Normal 21 - 31 mmol/L [facility] Creatinine [Mass/Vol] 1.1 mg/dL Normal 0.5 - 1.3 mg/dL [facility] GFR/1.73 sq M.predicted among non-blacks MDRD (S/P/Bld) [Vol rate/Area] 76 mL/min/1.73 m2 Normal >=59mL/min/ 1.73 m2 [facility] Chem S Glucose [Mass/Vol] 122 mg/dL Normal 55 - 199 mg/dL [facility] Potassium [Moles/Vol] 3.8 mmol/L Normal 3.5 - 5.3 mmol/L [facility] Sodium [Moles/Vol] 139 mmol/L Normal 135 - 145 mmol/L [facility] Troponin I.cardiac [Mass/Vol] 4.40 pg/mL Low 15.90 - 38.40 pg/mL [facility] Urea nitrogen [Mass/Vol] 19 mg/dL Normal 5 - 21 mg/dL [facility] Urea nitrogen/Creatinine [Mass ratio] 17 mg/mg Normal 10 - 20 [facility] COAGULATIONOrdered By: Bessy Carrizales on 03-16-2023 aPTT Coag (PPP) [Time] 28.8 s Normal 25.1 - 36.5 second(s) [facility] Auto Coag INR Coag (PPP) [Relative time] 1.0 {INR} Invalid Interpretation Code [facility] Auto Coag PT Coag (PPP) [Time] 11.3 s Normal 9.4 - 1 2.5 second(s) [facility] Auto Coag Consent for Treatmenton 02-16 Consent for Treatment [id number]#1. 00CD:[address] [facility] ED Note-Nursingon 03-16-2023 ED Note-Nursing Normal [facility] HEMATOLOGYOrdered By: SYSTEM SYSTEM on 03-16-2023 Basophils/100 WBC (Bld) 0.5 % Normal 0.0 - 2.0 % [facility] HemeAutoSS Basophils/Leukocytes Auto (Bld) [Pure # fraction] 0.1 E9/L Normal 0.0 - 0.2 E9/L [facility] HemeAutoSS Eosinophils/100 WBC (Bld) 1.2 % Normal 0.0 - 8.0 % [facility] HemeAutoSS Eosinophils/Leukocytes Auto (Bld) [Pure # fraction] 0.2 E9/L Normal 0.0 - 0.5 E9/L [facility] HemeAutoSS Lymphocytes/100 WBC (Bld) 29.1 % Normal 14.0 - 50.0 % [facility] HemeAutoSS Lymphocytes/Leukocytes Auto (Bld) [Pure # fraction] 3.7 E9/L Normal 1.0 - 4.0 E9/L [facility] HemeAutoSS Monocytes/100 WBC (Bld) 8.1 % Normal 4.0 - 14.0 % [facility] HemeAutoSS Monocytes/Leukocytes Auto (Bld) [Pure # fraction] 1.0 E9/L Normal 0.2 - 1.0 E9/L [facility] HemeAutoSS Neutrophils/100 WBC (Bld) 61.1 % Normal 36.0 - 75.0 % [facility] HemeAutoSS Neutrophils/Leukocytes Auto (Bld) [Pure # fraction] 7.7 E9/L High 2.0 - 7.5 E9/L [facility] HemeAutoSS HEMATOLOGYOrdered By: Gianna Lan on 03-16-2023 Erythrocyte distribution width (RBC) [Ratio] 13.9 % Normal 10.9 - 14.2 % [facility] HemeAutoSS Hematocrit (Bld) [Volume fraction] 43.2 % Normal 37.7 - 49.0 % [facility] HemeAutoSS Hemoglobin (Bld) [Mass/Vol] 14.9 g/dL Normal 13.5 - 17.5 gm/dL [facility] HemeAutoSS MCH (RBC) [Entitic mass] 28.9 pg Normal 27.0 - 34.0 pg [facility] HemeAutoSS MCHC (RBC) [Mass/Vol] 34.6 g/dL Normal 31.4 - 36.0 gm/dL [facility] HemeAutoSS MCV (RBC) [Entitic vol] 83.6 fL Normal 80.0 - 100.0 fL [facility] HemeAutoSS Platelet mean volume (Bld) [Entitic vol] 8.7 fL Normal 6.4 - 10.8 fL [facility] HemeAutoSS Platelets (Bld) [#/Vol] 254.0 E9/L Normal 150. 0 - 500.0 E9/L [facility] HemeAutoSS RBC (Bld) [#/Vol] 5.2 E12/L Normal 4.3 - 5.9 E12/L [facility] HemeAutoSS WBC corrected for nucl RBC Auto (Bld) [#/Vol] 12.6 E9/L High 4.0 - 11.0 E9/L [facility] HemeAutoSS PT & PTTon 03-16-2023 aPTT Coag (PPP) [Time] 28.8 second(s) Normal 25.1-36.[address] [facility] Comment on above: Result Comment: Para meter 15 days - 4 weeks 1 - 5 months 6 - 11 months 1 - 5 years 6 - 10 years 11 - 17 years PTT Mean: 35.4 (27.6-45.6) Mean: 33.5 (24.8-40.7) Mean: 32.4 (25.1-40.7) Mean: 31.6 (24.0-39.2) Mean: 31.6 (26.9-38.7) Mean: 31.0 (24.6-38.4) Pediatric Reference ranges were obtained from a study by Ronn Boucher et al. prepared from 1437 samples obtained at 7 different centers using the same coagulation reagent and instrumentation as [facility]. Currently there are no coagulation studies available worldwide for children to 14 days, and no normal ranges. Heparin therapeutic range (represented by Anti-Factor Xa activity of 0.2 - 0.4 U/mL) corresponds to PTT of 56.6 - 109.0 sec. Performed By: #### 2 220758, 9132317, 15364205, 5115332, 51331516, 36802074 ####[facility] [address] [place] [address] INR Coag (PPP) [Relative time] 1.0 {INR} Invalid Interpretation Code [facility] Comment on above: Result Comment: INR results are specifically intended to assess patients stabilized on long-term Anticoagulation therapy suggested INR?s ?Less Intensive Anticoagulation? 2.0 ? 3.0Conventional Range 3.0 ? 4.5 Performed By: #### 2 412511, 7747329, 34487232, 3469099, 15965382, 61996223 ####[facility] [address] [place] [address] PT Coag (PPP) [Time] 11.3 second(s) Normal 9.4-12.[address] [facility] Comment on above: Result Comment: 15 d ays - 4 weeks 1 - 5 months 6 -11 months 1-5 years 6-10 years 11 -17 years Mean: 11.2 (9.5-12.6) Mean: 11.0 (9.7-12.8) Mean: 11.0 (9.8-13.0) Mean: 11.3 (9.9-13.4) Mean: 11.7 (10.0-14.6) Mean: 11.8 (10.0 - 14.1) Pediatric Reference ranges were obtained from a study by Ronn Boucher et al. prepared from 1437 samples obtained at 7 different centers using the same coagulation reagent and instrumentation as [facility]. Currently there are no coagulation studies available worldwide for children to 14 days, and no normal ranges. Performed By: #### 2 456129, 5122103, 85494094, 1656707, 26724694, 98776521 ####[facility] [address] [place] [address] Pre-Arrival Noteon Pre-Arrival Note Normal [facility] Troponin 0 Hr.on 03-16-2023 Troponin I.cardiac [Mass/Vol] 4.40 pg/mL Low 15.90-38.[address] [facility] Comment on above: Result Comment: The 95% CI (Confidence Interval) PPV (Positive Predictive Value) for myocardial infarction in females is 38 pg/mL, in males 51 pg/mL. The results should be used in conjunction with clinical conditions of myocardial infarction.([employer] High Sensitivity Troponin I Instructions For Use, Mariaelena [place], February 2018) Performed By: #### 2 961778, 9374027, 21624819, 6889943, 42796829, 82508866 ####[facility] [address] [place] [address] eGFRon 03-16-2023 GFR/1.73 sq M.predicted among non-blacks MDRD (S/P/Bld) [Vol rate/Area] 76 mL/min/1.73 m2 Normal >=[address] [facility] Comment on above: Order Comment: Order added by Discern Expert. Result Comment: Travel Director andrea kidney disease could be indicated at eGFR's of less than 60 mL/min/1.73m2. Kidney failure is indicated at less than 15 mL/min/1.73m2. Performed By: #### 2 500383, 4688691, 94924313, 5820075, 06268670, 95228254 ####[facility] [address] [place] [address] B TYPE NATRIURETIC PEPTIDEon 02-15-2023 Interpretation and review of laboratory results Normal [facility] Natriuretic peptide B (Bld) [Mass/Vol] 88.0 pg/mL NINF - 100.0 pg/mL [facility] Basic metabolic 2000 panelon 02-15-2023 Anion gap [Moles/Vol] 11 mmol/L 10 - 20 Met [facility] Calcium [Mass/Vol] 8.3 mg/dL Low 8.4 - 10. 4 mg/dL [facility] Chloride [Moles/Vol] 105 mmol/L 97 - 11 1 mmol/L [facility] CO2 [Moles/Vol] 26 mmol/L 21 - 30 mmol/L [facility] Creatinine [Mass/Vol] 0.96 mg/dL 0.80 - 1.30 mg/dL [facility] GFR/1.73 sq M.predicted MDRD (S/P/Bld) [Vol rate/Area] 90 mL/min/{1.73_m2} - PINF [facility] Comment on above: 2020 CKD EPI Equatio n using Creatinine without Race Comment: Estimated glomerular filtration rate (eGFR) is calculated without a race coefficient. Values should be interpreted in the context of the patient's full clinical presentation. Reference: 1. Chuy C, Ernie M, Dinorah ROBINS, et al.. A Unifying Approach for GFR Estimation: Recommendations of the NKF-ASN Task Force on Reassessing the Inclusion of Race in Diagnosing Kidney Disease. [place] Journal of Kidney Diseases 2021;79(2):268-88.e1. 2. N Engl J Med 1 Vol. 385 Issue 19 Pages 6018-9130 Glucose [Mass/Vol] 115 mg/dL 80 - 116 mg/dL [facility] Interpretation and review of laboratory results Abnormal [facility] Potassium [Moles/Vol] 4.5 mmol/L 3.3 - 5.3 mmol/L [facility] Sodium [Moles/Vol] 137 mmol/L 135 - 148 mmol/L [facility] Urea nitrogen [Mass/Vol] 15 mg/dL 8 - 22 mg/dL [facility] CBC WITH DIFFERENTIALon 08-0 Basophils (Bld) [#/Vol] 0.05 10*3/uL 0.00 - 0.20 K/uL [facility] Basophils/100 WBC (Bld) 0.6 % NINF - 1.9 % [facility] Eosinophils (Bld) [#/Vol] 0.16 10*3/uL 0.00 - 0.70 K/uL [facility] Eosinophils/100 WBC (Bld) 1.8 % 0.1 - 4.0 % [facility] Erythrocyte distribution width (RBC) [Ratio] 13.8 % 11.5 - 14.5 % [facility] Hematocrit (Bld) [Volume fraction] 36.1 % Low 41.0 - 53.0 % [facility] Hemoglobin (Bld) [Mass/Vol] 12.2 g/dL Low 13.9 - 16.3 g/dL [facility] Interpretation and review of laboratory results Abnormal [facility] Lymphocytes (Bld) [#/Vol] 2.60 10*3/uL 1.00 - 4.80 K/uL [facility] Lymphocytes/100 WBC (Bld) 28.1 % 24.0 - 44.0 % [facility] MCH (RBC) [Entitic mass] 28.8 pg 26.0 - 34.0 pg [facility] MCHC (RBC) [Mass/Vol] 33.7 g/dL 32.0 - 35.9 g/dL [facility] MCV (RBC) [Entitic vol] 86 fL 80 - 100 fL [facility] Monocyte distribution width Auto (Bld) [Entitic vol] [facility] Monocytes (Bld) [#/Vol] 0.88 10*3/uL 0.20 - 1.00 K/uL [facility] Monocytes/100 WBC (Bld) 9.5 % 2.0 - 11.0 % [facility] Neutrophils (Bld) [#/Vol] 5.56 10*3/uL 1.50 - 8.00 K/uL [facility] Neutrophils/100 WBC (Bld) 60.1 % 31.0 - 76.0 % [facility] Platelet mean volume (Bld) [Entitic vol] 7.7 fL 7.5 - 11.2 fL [facility] Platelets (Bld) [#/Vol] 273 10*3/uL 150 - 400 K/uL [facility] RBC (Bld) [#/Vol] 4.22 10*6/uL Low [facility] WBC (Bld) [#/Vol] 9.2 10*3/uL 4.5 - 11.5 K/uL [facility] EKG 12 LEAD - PERFORMon 08-0 Diagnosis Sinus bradycardia Incomplete right bundle branch block Borderline When compared with ECG of 13-FEB-2023 02:26, [place] interval has decreased Confirmed by MOLLY GAINES ([id number]) on 02/15/2023 10:39:01 AM [facility] P wave Atrium by EKG 54 BPM [facility] P wave axis 19 degrees [facility] P-R Interval 176 ms [facility] Q-T interval 442 ms [facility] Q-T interval corrected 419 ms [facility] QRS axis -11 degrees [facility] QRS duration 104 ms [facility] T wave axis 27 degrees [facility] Diagnosis Sinus bradycardia Nonspecific T wave abnormality When compared with ECG of 15-FEB-2023 06:42, (unconfirmed) No significant change was found Confirmed by Daniel MURRAY KATHLEEN ([id number]) on 02/15/2023 9:34:25 AM [facility] P wave At[facility] by EKG 57 BPM [facility] P wave axis 19 degrees [facility] P-R Interval 182 ms [facility] Q-T interval 448 ms [facility] Q-T interval corrected 436 ms [facility] QRS axis -6 degrees [facility] QRS duration 102 ms [facility] T wave axis 29 degrees [facility] HIGH SENSITIVITY TROPONIN Io n 02-15-2023 Troponin I.cardiac DL <= 0.01 ng/mL [Mass/Vol] 8 ng/L NINF - 15 ng/L [facility] Troponin I.cardiac DL <= 0.0 1 ng/mL [Mass/Vol]on 02-15-2023 Interpretation and review of laboratory results Normal [facility] High Sensitivity Cardiac Troponin I (hsTnI) assay has replaced the conventional troponin assay at [facility]. All results are reported in whole numbers representing ng/L. Repeat test times for ruling out acute coronary syndrome (ACS) are every 2 hours instead of every 6-8 hours. [id number] conventional troponin (I-stat) will remain available in the [facility] ED results obtained by different labs or methods are not comparable. Elevated troponin can result from acute myocardial infarction (coronary etiology) or myocardial injury (non-coronary etiology) always consider both. For ruling out acute coronary syndrome (ACS), lab values are always used in conjunction with clinical risk assessment (e.g., HEART score). Interpreting initial value in ruling out ACS Less than 5 ng/L below lower limit of quantification essentially rules out ACS if chest pain began more than 3 hours prior to test and assessed risk is low 5 - 49 ng/L indeterminate consider repeat value in 2 hours depending on risk assessment 50 ng/L or greater concern for ACS or myocardial injury Interpreting repeated values in ruling out ACS. Always compare to initial value obtained: Increase of less than 5 ng/L essentially rules out ACS if chest pain began more than 3 hours prior to initial test and assessed risk is low Increase of 5 - 19 ng/L indeterminate consider another repeat value in 2 hours depending on risk assessment Increase of 20 ng/L or greater Concern for ACS or myocardial injury Any absolute value of 50 ng/L or greater concern for ACS or myocardial injury Intermediate hsTnI values DO NOT mandate admission to a cardiology or telemetry unit. They need to be interpreted within the clinical context using provider judgement. When using hsTnI to calculate the HEART score, use the 99 % Upper Reference Limit of 15 ng/L as the normal limit (i.e. <=15 ng/L = 0 points, 16-45 ng/L = 1 points, >45 ng/L = 2 points). [facility] XR Chest Single viewon 02-15 EXAMINATION: XR CHES T AP OR PA 1 VIEW 02/15/2023 06:56 AM CLINICAL HISTORY: Chest pain ASSOCIATED DIAGNOSIS: Chest pain ORDERING PROVIDER: ANDRAE MORENO TECHNOLOGISTS NOTE: COMPARISON: CTA CHEST PULMONARY EMBOLISM W/ CTA 02/13/2023, 11:45 AM FINDINGS: Limitations: Limited clinical history regarding patient's medical status limits image interpretation and learning. Lines, tubes, and devices: Anterior chest lane loop monitor projects over the left lower mid lung zone. Lungs and pleura: Again there is some thickening in the minor fissure as well as some streaks of atelectasis bilaterally. Azygos lobe Cardiomediastinal silhouette: Cardiac silhouette appears at least upper limits of normal in size. Musculoskeletal: Limited visualization. IMPRESSION: Streaks of atelectasis. Some thickening in the minor fissure which may represent some residual fluid. MACRO: None RADIOLOGY Faraz Mccoy MD - 02/15/2023 EXAMINATION: XR CHEST AP OR PA 1 VIEW 02/15/2023 06:56 AM CLINICAL HISTORY: Chest pain ASSOCIATED DIAGNOSIS: Chest pain ORDERING PROVIDER: ANDRAE MORENO TECHNOLOGISTS NOTE: COMPARISON: CTA CHEST PULMONARY EMBOLISM W/ CTA 02/13/2023, 11:45 AM FINDINGS: Limitations: Limited clinical history regarding patient's medical status limits image interpretation and learning. Lines, tubes, and devices: Anterior chest lane loop monitor projects over the left lower mid lung zone. Lungs and pleura: Again there is some thickening in the minor fissure as well as some streaks of atelectasis bilaterally. Azygos lobe Cardiomediastinal silhouette: Cardiac silhouette appears at least upper limits of normal in size. Musculoskeletal: Limited visualization. IMPRESSION: Streaks of atelectasis. Some thickening in the minor fissure which may represent some residual fluid. MACRO: None [facility] Radiology Study observation (narrative) [facility] XR Chest Single viewOrdered By: Faraz Mccoy on 02-15-2023 [facility] Work Phone: Basic metabolic 2000 panelon 02-14-2023 Anion gap [Moles/Vol] 11 mmol/L 10 - 20 [facility] Calcium [Mass/Vol] 8.5 mg/dL 8.4 - 10. 4 mg/dL [facility] Chloride [Moles/Vol] 104 mmol/L 97 - 11 1 mmol/L [facility] CO2 [Moles/Vol] 25 mmol/L 21 - 30 mmol/L [facility] Creatinine [Mass/Vol] 0.90 mg/dL 0.80 - 1.30 mg/dL [facility] GFR/1.73 sq M.predicted MDRD (S/P/Bld) [Vol rate/Area] 97 mL/min/{1.73_m2} - PINF [facility] Comment on above: 2020 CKD EPI Equatio n using Creatinine without Race Comment: Estimated glomerular filtration rate (eGFR) is calculated without a race coefficient. Values should be interpreted in the context of the patient's full clinical presentation. Reference: 1. Chuy C, Ernie M, Dinorah DC, et al.. A Unifying Approach for GFR Estimation: Recommendations of the NKF-ASN Task Force on Reassessing the Inclusion of Race in Diagnosing Kidney Disease. [place] Journal of Kidney Diseases 202;79(2):268-88.e1. 2. N Engl J Med 2020 Vol. 385 Issue 19 Pages 8122-6225 Glucose [Mass/Vol] 111 mg/dL 80 - 116 mg/dL [facility] Potassium [Moles/Vol] 4.3 mmol/L 3.3 - 5.3 mmol/L [facility] Sodium [Moles/Vol] 136 mmol/L 135 - 148 mmol/L [facility] Urea nitrogen [Mass/Vol] 12 mg/dL 8 - 22 mg/dL [facility] CBC WITH DIFFERENTIALon Basophils (Bld) [#/Vol] 0.07 10*3/uL 0.00 - 0.20 K/uL [facility] Basophils/100 WBC (Bld) 0.7 % NINF - 1.9 % [facility] Eosinophils (Bld) [#/Vol] 0.18 10*3/uL 0.00 - 0.70 K/uL [facility] Eosinophils/100 WBC (Bld) 1.7 % 0.1 - 4.0 % [facility] Erythrocyte distribution width (RBC) [Ratio] 13.8 % 11.5 - 14.5 % [facility] Hematocrit (Bld) [Volume fraction] 37.8 % Low 41.0 - 53.0 % [facility] Hemoglobin (Bld) [Mass/Vol] 12.9 g/dL Low 13.9 - 16.3 g/dL [facility] Interpretation and review of laboratory results Abnormal [facility] Lymphocytes (Bld) [#/Vol] 3.54 10*3/uL 1.00 - 4.80 K/uL [facility] Lymphocytes/100 WBC (Bld) 33.5 % 24.0 - 44.0 % [facility] MCH (RBC) [Entitic mass] 28.9 pg 26.0 - 34.0 pg [facility] MCHC (RBC) [Mass/Vol] 34.1 g/dL 32.0 - 35.9 g/dL [facility] MCV (RBC) [Entitic vol] 85 fL 80 - 100 fL [facility] Monocyte distribution width Auto (Bld) [Entitic vol] [facility] Monocytes (Bld) [#/Vol] 1.13 10*3/uL High 0.20 - 1.00 K/uL [facility] Monocytes/100 WBC (Bld) 10.7 % 2.0 - 11.0 % [facility] Neutrophils (Bld) [#/Vol] 5.65 10*3/uL 1.50 - 8.00 K/uL [facility] Neutrophils/100 WBC (Bld) 53.4 % 31.0 - 76.0 % [facility] Platelet mean volume (Bld) [Entitic vol] 7.8 fL 7.5 - 11.2 fL [facility] Platelets (Bld) [#/Vol] 274 10*3/uL 150 - 400 K/uL [facility] RBC (Bld) [#/Vol] 4.45 10*6/uL Low [facility] WBC (Bld) [#/Vol] 10.6 10*3/uL 4.5 - 11.5 K/uL [facility] HIGH SENSITIVITY TROPONIN Io n 02-14-2023 Troponin I.cardiac DL <= 0.01 ng/mL [Mass/Vol] ng/L NINF - 15 ng/L [facility] Lipid 1996 panelon 3 Cholesterol [Mass/Vol] 128 mg/dL NINF - 200 mg/dL [facility] Cholesterol in HDL [Mass/Vol] 30 mg/dL Low 44 - PINF mg/dL [facility] Cholesterol in LDL [Mass/Vol] 76 mg/dL NINF - 111 mg/dL [facility] Cholesterol in LDL/Cholesterol in HDL [Mass ratio] 2.53 {ratio} NINF - 3.57 [facility] Cholesterol non HDL [Mass/Vol] 98 mg/dL NINF - 130 mg/dL [facility] Cholesterol.total/Carolann sterol in HDL [Mass ratio] 4.27 {ratio} NINF - 5.00 [facility] Interpretation and review of laboratory results Abnormal [facility] Triglyceride [Mass/Vol] 172 mg/dL High NINF - 151 mg/dL [facility] MAGNESIUMon 02-14-2023 Magnesium [Mass/Vol] 2.0 mg/dL 1.6 - 2 .8 mg/dL [facility] No Panel Informationon 02-14 Interpretation and review of laboratory results Normal [facility] Troponin I.cardiac DL <= 0.0 1 ng/mL [Mass/Vol]on 02-14-2023 Interpretation and review of laboratory results Normal [facility] High Sensitivity Cardiac Troponin I (hsTnI) assay has replaced the conventional troponin assay at [facility]. All results are reported in whole numbers representing ng/L. Repeat test times for ruling out acute coronary syndrome (ACS) are every 2 hours instead of every 6-8 hours. [id number] conventional troponin (I-stat) will remain available in the [facility] [place] [facility] results obtained by different labs or methods are not comparable. Elevated troponin can result from acute myocardial infarction (coronary etiology) or myocardial injury (non-coronary etiology) always consider both. For ruling out acute coronary syndrome (ACS), lab values are always used in conjunction with clinical risk assessment (e.g., HEART score). Interpreting initial value in ruling out ACS Less than 5 ng/L below lower limit of quantification essentially rules out ACS if chest pain began more than 3 hours prior to test and assessed risk is low 5 - 49 ng/L indeterminate consider repeat value in 2 hours depending on risk assessment 50 ng/L or greater concern for ACS or myocardial injury Interpreting repeated values in ruling out ACS. Always compare to initial value obtained: Increase of less than 5 ng/L essentially rules out ACS if chest pain began more than 3 hours prior to initial test and assessed risk is low Increase of 5 - 19 ng/L indeterminate consider another repeat value in 2 hours depending on risk assessment Increase of 20 ng/L or greater Concern for ACS or myocardial injury Any absolute value of 50 ng/L or greater concern for ACS or myocardial injury Intermediate hsTnI values DO NOT mandate admission to a cardiology or telemetry unit. They need to be interpreted within the clinical context using provider judgement. When using hsTnI to calculate the HEART score, use the 99 % Upper Reference Limit of 15 ng/L as the normal limit (i.e. <=15 ng/L = 0 points, 16-45 ng/L = 1 points, >45 ng/L = 2 points). [facility] Basic metabolic 2000 panelOr dered By: Edith Negro on 02-13-2023 Anion gap [Moles/Vol] 11 mmol/L 10 - 20 [facility] Calcium [Mass/Vol] 8.4 mg/dL 8.4 - 10. 4 mg/dL [facility] Chloride [Moles/Vol] 104 mmol/L 97 - 11 1 mmol/L [facility] CO2 [Moles/Vol] 24 mmol/L 21 - 30 mmol/L [facility] Creatinine [Mass/Vol] 0.83 mg/dL 0.80 - 1.30 mg/dL [facility] GFR/1.73 sq M.predicted MDRD (S/P/Bld) [Vol rate/Area] 100 mL/min/{1.73_m2} [facility] Comment on above: 2020 CKD EPI Equatio n using Creatinine without Race Comment: Estimated glomerular filtration rate (eGFR) is calculated without a race coefficient. Values should be interpreted in the context of the patient's full clinical presentation. Reference: 1. Chuy Sloan, Ernie M, Dinorah ROBINS, et al.. A Unifying Approach for GFR Estimation: Recommendations of the NKF-ASN Task Force on Reassessing the Inclusion of Race in Diagnosing Kidney Disease. [place] Journal of Kidney Diseases 2021;79(2):268-88.e1. 2. N Engl J Med 2020 Vol. 385 Issue 19 Pages 6506-3437 Glucose [Mass/Vol] 164 mg/dL High 80 - 116 mg/dL [facility] Interpretation and review of laboratory results Abnormal [facility] Potassium [Moles/Vol] 4.0 mmol/L 3.3 - 5.3 mmol/L [facility] Sodium [Moles/Vol] 135 mmol/L 135 - 148 mmol/L [facility] Urea nitrogen [Mass/Vol] 16 mg/dL 8 - 22 mg/dL [facility] CBC panel Auto (Bld)on 02-13 Erythrocyte distribution width (RBC) [Ratio] 13.6 % 11.5 - 14.5 % [facility] Hematocrit (Bld) [Volume fraction] 39.0 % Low 41.0 - 53.0 % [facility] Hemoglobin (Bld) [Mass/Vol] 13.1 g/dL Low 13.9 - 16.3 g/dL [facility] Interpretation and review of laboratory results Abnormal [facility] MCH (RBC) [Entitic mass] 29.0 pg 26.0 - 34.0 pg [facility] MCHC (RBC) [Mass/Vol] 33.7 g/dL 32.0 - 35.9 g/dL [facility] MCV (RBC) [Entitic vol] 86 fL 80 - 100 fL [facility] Platelet mean volume (Bld) [Entitic vol] 7.6 fL 7.5 - 11.2 fL [facility] Platelets (Bld) [#/Vol] 239 10*3/uL 150 - 400 K/uL [facility] RBC (Bld) [#/Vol] 4.52 10*6/uL [facility] WBC (Bld) [#/Vol] 13.6 10*3/uL High 4.5 - 11.5 K/uL [facility] CT Abdomen and Pelvis W cont rast Nancy 02-13-2023 CT DLP 833.91 (mGy.cm) [facility],PreMonitori n g ,Monitoring,PE,ABD PEL WITH,ABD PEL WITH,ABD PEL WITH [facility] CTDI VOL 0.03 (mGy),0.77 (mGy),0.77 (mGy),4.11 (mGy),7.95 (mGy),10.09 (mGy),6.80 (mGy) [facility] PHANTOM TYPE IEC Body Dosimetry Phantom,IEC Body Dosimetry Phantom,IEC Body Dosimetry Phantom,IEC Body Dosimetry Phantom,IEC Body Dosimetry Phantom,IEC Body Dosimetry Phantom,IEC Body Dosimetry Phantom [facility] EXAMINATION: CT ABDOMEN/PELVIS W/ CONTRAST 02/13/2023 11:42 AM CLINICAL HISTORY: f/u on perirenal hematoma ([facility] CT with 1 cm band decreased attenuation post upper pole right kidney) ASSOCIATED DIAGNOSIS: f/u on perirenal hematoma ([facility] CT with 1 cm band decreased attenuation post upper pole right kidney) ORDERING PROVIDER: SEN JOHNS TECHNOLOGISTS NOTE: One bolus of 100 cc omni 350 for both scans COMPARISON: None TECHNIQUE: Contiguous axial images were obtained through the abdomen and pelvis from the level of the diaphragmatic domes through the pubic symphysis following bolus administration of intravenous contrast. MPR sagittal and coronal reconstructions were obtained from the axial data. Before infusion of intravenous contrast, radiology personnel investigated the possibility of an allergic history and of any history of reaction to iodinated contrast material. Contrast Protocol: Omnipaque 350 [>or =100lb] 100 ml [<100 lb] 1 ml per 1 lb. INTRA-PROCEDURE MEDS: iohexol (OMNIPAQUE) 350 MG/ML injection 100 mL Route: Intravenous Push iohexol (OMNIPAQUE) 300 MG/ML injection 30 mL Route: Oral FINDINGS: Included images of the lower thorax: Please refer to the CT PE findings for further details. Hepatobiliary: Unremarkable liver without biliary dilation. Pancreas: Unremarkable Spleen: Unremarkable Adrenal Glands: Unremarkable Kidneys, ureters, and bladder: Wispy stranding is seen along the superolateral aspect of the right kidney with a measuring Hounsfield unit of 1 and along the posterior inferior aspect of the left kidney with a measuring Hounsfield unit of -5. This perinephric stranding could be related to sequela of chronic medical renal disease. Superimposed acute infectious/inflammato ry process is also in the differential diagnosis. This can be further evaluated with lab values and urine analysis. Otherwise, no CT evidence of retroperitoneal or perirenal hematoma. Nonobstructive stone in the midpole of the right kidney measuring 5 mm. No evidence of retroperitoneal lymphadenopathy. The bladder appears unremarkable. 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 The dissection is extending up to the mid SMA, best seen on the axial imaging. (Series 5, Image 53). Mild calcified plaque is seen in the infrarenal abdominal aorta and aortoiliac branches. GI tract: No evidence of obstruction. The appendix is within normal limits. Mild left hemicolonic diverticula. Extensive amount of stool burden. Peritoneum and retroperitoneum: No free fluid or free air. Lymph Nodes: No abdominal or pelvic lymphadenopathy. Prostate and seminal vesicles: Unremarkable Visualized musculoskeletal structures: No acute fracture or destructive osseous lesion. IMPRESSION: 1. 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 This is better evaluated on the axial imaging. 2. No CT evidence of abdominal aortic aneurysm or dissection. 3. Wispy stranding along the superolateral aspect of the right kidney and posterior inferior aspect of the left kidney. These are probably related to perinephric stranding, probably represents chronic medical renal disease. Superimposed acute infectious/inflammato ry process is difficult to evaluate in this study. If indicated, this can be further evaluated with lab values and urine analysis. 4. Mild left hemicolonic diverticula. Nonobstructive right nephrolithiasis. MACRO: None RADIOLOGY Naomi Villa MD - 02/13/2023 EXAMINATION: CT ABDOMEN/PELVIS W/ CONTRAST 02/13/2023 11:42 AM CLINICAL HISTORY: f/u on perirenal hematoma ([facility] CT with 1 cm band decreased attenuation post upper pole right kidney) ASSOCIATED DIAGNOSIS: f/u on perirenal hematoma ([facility] CT with 1 cm band decreased attenuation post upper pole right kidney) ORDERING PROVIDER: SEN JOHNS TECHNOLOGISTS NOTE: One bolus of 100 cc omni 350 for both scans COMPARISON: None TECHNIQUE: Contiguous axial images were obtained through the abdomen and pelvis from the level of the diaphragmatic domes through the pubic symphysis following bolus administration of intravenous contrast. MPR sagittal and coronal reconstructions were obtained from the axial data. Before infusion of intravenous contrast, radiology personnel investigated the possibility of an allergic history and of any history of reaction to iodinated contrast material. Contrast Protocol: Omnipaque 350 [>or =100lb] 100 ml [<100 lb] 1 ml per 1 lb. INTRA-PROCEDURE MEDS: iohexol (OMNIPAQUE) 350 MG/ML injection 100 mL Route: Intravenous Push iohexol (OMNIPAQUE) 300 MG/ML injection 30 mL Route: Oral FINDINGS: Included images of the lower thorax: Please refer to the CT PE findings for further details. Hepatobiliary: Unremarkable liver without biliary dilation. Pancreas: Unremarkable Spleen: Unremarkable Adrenal Glands: Unremarkable Kidneys, ureters, and bladder: Wispy stranding is seen along the superolateral aspect of the right kidney with a measuring Hounsfield unit of 1 and along the posterior inferior aspect of the left kidney with a measuring Hounsfield unit of -5. This perinephric stranding could be related to sequela of chronic medical renal disease. Superimposed acute infectious/inflammato ry process is also in the differential diagnosis. This can be further evaluated with lab values and urine analysis. Otherwise, no CT evidence of retroperitoneal or perirenal hematoma. Nonobstructive stone in the midpole of the right kidney measuring 5 mm. No evidence of retroperitoneal lymphadenopathy. The bladder appears unremarkable. 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 The dissection is extending up to the mid SMA, best seen on the axial imaging. (Series 5, Image 53). Mild calcified plaque is seen in the infrarenal abdominal aorta and aortoiliac branches. GI tract: No evidence of obstruction. The appendix is within normal limits. Mild left hemicolonic diverticula. Extensive amount of stool burden. Peritoneum and retroperitoneum: No free fluid or free air. Lymph Nodes: No abdominal or pelvic lymphadenopathy. Prostate and seminal vesicles: Unremarkable Visualized musculoskeletal structures: No acute fracture or destructive osseous lesion. IMPRESSION: 1. 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 This is better evaluated on the axial imaging. 2. No CT evidence of abdominal aortic aneurysm or dissection. 3. Wispy stranding along the superolateral aspect of the right kidney and posterior inferior aspect of the left kidney. These are probably related to perinephric stranding, probably represents chronic medical renal disease. Superimposed acute infectious/inflammato ry process is difficult to evaluate in this study. If indicated, this can be further evaluated with lab values and urine analysis. 4. Mild left hemicolonic diverticula. Nonobstructive right nephrolithiasis. MACRO: None [facility] CTA Pulmonary arteries for p ulmonary embolus W contrast IVOrdered By: Naomi Villa on 02-13-2023 CT DLP 833.91 (mGy.cm) [facility] Work Phone: CT Series Topogram,PreMonitori n g ,Monitoring,PE,ABD PEL WITH,ABD PEL WITH,ABD PEL WITH [facility] Work Phone: CTDI VOL 0.03 (mGy),0.77 (mGy),0.77 (mGy),4.11 (mGy),7.95 (mGy),10.09 (mGy),6.80 (mGy) [facility] Work Phone: PHANTOM TYPE IEC Body Dosimetry Phantom,IEC Body Dosimetry Phantom,IEC Body Dosimetry Phantom,IEC Body Dosimetry Phantom,IEC Body Dosimetry Phantom,IEC Body Dosimetry Phantom,IEC Body Dosimetry Phantom [facility] Work Phone: [facility] Work Phone: CTA Pulmonary arteries for p ulmonary embolus W contrast Nancy 02-13-2023 EXAMINATION: CTA CHEST PULMONARY EMBOLISM W/ CTA 02/13/2023 11:42 AM CLINICAL HISTORY: Pulmonary embolism suspected; pleuritic chest pain ASSOCIATED DIAGNOSIS: Pulmonary embolism suspected pleuritic chest pain ORDERING PROVIDER: SEN JOHNS TECHNOLOGISTS NOTE: One bolus of 100 cc omni 350 for both scans COMPARISON: None TECHNIQUE: Axial images of the chest were obtained from above the lung apices through the level of the adrenal glands during the bolus administration of intravenous contrast. Multiplanar and 3D maximum intensity projection reformulation's were created from the raw CT data which were interpreted in conjunction with the axial images to render the findings listed below. Before infusion of intravenous contrast, radiology personnel investigated the possibility of an allergic history and of any history of reaction to iodinated contrast material. Contrast Protocol: Omnipaque 350 [>or =100lb] 100 ml [<100 lb] 1 ml per 1 lb. INTRA-PROCEDURE MEDS: iohexol (OMNIPAQUE) 350 MG/ML injection 100 mL Route: Intravenous Push FINDINGS: Exam Quality: Overall exam quality is poor. Pulmonary arterial enhancement is suboptimal, the breath hold is adequate, and there are significant artifacts impacting image quality. Pulmonary Arteries: Although the study is suboptimal to evaluate for pulmonary embolism, there is acute subocclusive filling defect in the right lower lobe, left lower lobe segmental pulmonary arteries (Series 1, Image 163) . There is no associated right heart strain. The main pulmonary artery is within normal limits. Cardiovasculature: Trace pericardial effusion anteriorly. Mediastinum/Pericardi um: Reflux of contrast in the distal esophagus is suggestive of reflux esophagitis. Suspect a small hiatal hernia. There is a loop recorder device overlying the left anterior chest wall. Pleura: Small right, trace left-sided pleural effusion. Central Airways: Widely patent. Bronchial wall thickening is seen in the bilateral lower lobes. Lungs: Focal areas of patchy consolidative opacities are seen in the inferior lingular segment, right lower lobe. There is also superimposed subpleural groundglass opacities in the bilateral lower lobes. Patchy consolidative opacity in the posterior segment of the right upper lobe is also. Background emphysema. Incidental findings of azygous fissure. Nodules: 6 mm flat nodule along the minor fissure is suggestive of an intrapulmonary lymph node (Series 1, Image 147). No other suspicious pulmonary nodule is evident within the limitation of the study. Lymph Nodes: There is a few shotty mediastinal and hilar lymph nodes. The sales representative leather goods right hilar lymph node measures 13 x 13 mm. The index infracarinal lymph node measures 12 x 9 mm. The index left hilar lymph node measures 12 x 12 mm. These are likely reactive in nature. Visualized musculoskeletal structures: No acute fracture or destructive osseous lesion is identified. Included images of the upper abdomen: Unremarkable IMPRESSION: 1. Acute subocclusive pulmonary emboli in the bilateral lower lobe segmental pulmonary arteries. No associated right heart strain. 2. Small right, trace left-sided pleural effusion. 3. Multifocal areas of patchy consolidative opacities superimposed with subpleural groundglass opacities. Differential diagnoses include atelectasis versus multifocal pneumonia and less likely to be pulmonary infarct. 4. Shotty mediastinal and hilar lymph nodes, likely reactive in nature. MACRO: Notification of the critical finding of acute pulmonary embolism was initiated at 12:40 PM EDT on 02/13/2023. Naomi Villa successfully contacted SEN JOHNS at 12:40 PM EDT on 02/13/2023, via telephone, who acknowledged the critical finding with read back verification. (-CF-) RADIOLOGY Naomi Villa MD - 02/13/2023 EXAMINATION: CTA CHEST PULMONARY EMBOLISM W/ CTA 02/13/2023 11:42 AM CLINICAL HISTORY: Pulmonary embolism suspected; pleuritic chest pain ASSOCIATED DIAGNOSIS: Pulmonary embolism suspected pleuritic chest pain ORDERING PROVIDER: SEN JOHNS TECHNOLOGISTS NOTE: One bolus of 100 cc omni 350 for both scans COMPARISON: None TECHNIQUE: Axial images of the chest were obtained from above the lung apices through the level of the adrenal glands during the bolus administration of intravenous contrast. Multiplanar and 3D maximum intensity projection reformulation's were created from the raw CT data which were interpreted in conjunction with the axial images to render the findings listed below. Before infusion of intravenous contrast, radiology personnel investigated the possibility of an allergic history and of any history of reaction to iodinated contrast material. Contrast Protocol: Omnipaque 350 [>or =100lb] 100 ml [<100 lb] 1 ml per 1 lb. INTRA-PROCEDURE MEDS: iohexol (OMNIPAQUE) 350 MG/ML injection 100 mL Route: Intravenous Push FINDINGS: Exam Quality: Overall exam quality is poor. Pulmonary arterial enhancement is suboptimal, the breath hold is adequate, and there are significant artifacts impacting image quality. Pulmonary Arteries: Although the study is suboptimal to evaluate for pulmonary embolism, there is acute subocclusive filling defect in the right lower lobe, left lower lobe segmental pulmonary arteries (Series 1, Image 163) . There is no associated right heart strain. The main pulmonary artery is within normal limits. Cardiovasculature: Trace pericardial effusion anteriorly. Mediastinum/Pericardi um: Reflux of contrast in the distal esophagus is suggestive of reflux esophagitis. Suspect a small hiatal hernia. There is a loop recorder device overlying the left anterior chest wall. Pleura: Small right, trace left-sided pleural effusion. Central Airways: Widely patent. Bronchial wall thickening is seen in the bilateral lower lobes. Lungs: Focal areas of patchy consolidative opacities are seen in the inferior lingular segment, right lower lobe. There is also superimposed subpleural groundglass opacities in the bilateral lower lobes. Patchy consolidative opacity in the posterior segment of the right upper lobe is also. Background emphysema. Incidental findings of azygous fissure. Nodules: 6 mm flat nodule along the minor fissure is suggestive of an intrapulmonary lymph node (Series 1, Image 147). No other suspicious pulmonary nodule is evident within the limitation of the study. Lymph Nodes: There is a few shotty mediastinal and hilar lymph nodes. The sales representative leather goods right hilar lymph node measures 13 x 13 mm. The index infracarinal lymph node measures 12 x 9 mm. The index left hilar lymph node measures 12 x 12 mm. These are likely reactive in nature. Visualized musculoskeletal structures: No acute fracture or destructive osseous lesion is identified. Included images of the upper abdomen: Unremarkable IMPRESSION: 1. Acute subocclusive pulmonary emboli in the bilateral lower lobe segmental pulmonary arteries. No associated right heart strain. 2. Small right, trace left-sided pleural effusion. 3. Multifocal areas of patchy consolidative opacities superimposed with subpleural groundglass opacities. Differential diagnoses include atelectasis versus multifocal pneumonia and less likely to be pulmonary infarct. 4. Shotty mediastinal and hilar lymph nodes, likely reactive in nature. MACRO: Notification of the critical finding of acute pulmonary embolism was initiated at 12:40 PM EDT on 02/13/2023. Naomi Villa successfully contacted SEN JOHNS at 12:40 PM EDT on 02/13/2023, via telephone, who acknowledged the critical finding with read back verification. (-CF-) [facility] Diabetes tracking panelOrder ed By: Smita Hinojosa on 02-13-2023 Average glucose Estimated from glycated hemoglobin (Bld) [Mass/Vol] 126 mg/dL [facility] HbA1c (Bld) [Mass fraction] 6.0 % High 4.0 - 5.6 % [facility] Interpretation and review of laboratory results Abnormal [facility] EKG 12 LEAD - PERFORMon 01-16 Diagnosis Sinus rhythm with 1s t degree A-V block Incomplete right bundle branch block Borderline No previous ECGs available Confirmed by MOLLY GAINES ([id number]) on 02/13/2023 3:53:26 PM [facility] P wave Atrium by EKG 63 BPM Metr [facility] P wave axis 9 degrees [facility] P-R Interval 212 ms [facility] Q-T interval 412 ms [facility] Q-T interval corrected 421 ms [facility] 0 degrees [facility] QRS duration 106 ms [facility] T wave axis 14 degrees [facility] Diagnosis Sinus rhythm with 1s t degree A-V block Incomplete right bundle branch block Nonspecific T wave abnormality When compared with ECG of 13-FEB-2023 02:26, (unconfirmed) No significant change was found Confirmed by Daniel MURRAY KATHLEEN ([id number]) on 02/13/2023 11:27:35 AM [facility] P wave At[facility] by EKG 60 BPM Metr [facility]al P wave axis 16 degrees [facility] P-R Interval 214 ms [facility] Q-T interval 418 ms [facility] Q-T interval corrected 418 ms [facility] QRS axis -3 degrees [facility] QRS duration 106 ms [facility] T wave axis 15 degrees [facility] HIV 1 and 2 Ab and HIV 1 p24 Ag panel IAon 02-13-2023 HIV 1+2 Ab+HIV1 p24 Ag IA Ql Non-Reactive Non-Reactiv e [facility] Comment on above: No laboratory eviden ce for HIV Infection. Negative result does not rule out acute HIV infection. If acute HIV infection is suspected, recommend ordering an HIV-1 RNA quanitification test. Interpretation and review of laboratory results Normal [facility] HIV Information: [facility] Rev. code 3701.243(E): This information has been disclosed to you from confidential records protected from disclosure by state law. You shall make no further disclosure of this information without the specific, written, and informed release of the individual to whom it pertains, or as otherwise permitted by state law. A general authorization for the release of medical or other information is not sufficient for the purpose of the release of HIV test results or diagnoses. [facility] No Panel Informationon 02-13 Radiology Study observation (narrative) [facility] URINALYSIS WITH REFLEX CULTU RE PERFORMABLEOrdered By: Delaney Mccloud on 02-13-2023 Appearance (U) Clear Clear [facility] Bilirubin Ql (U) Negative Negative [facility] Color (U) Yellow Colorless [facility] Glucose Auto test strip (U) [Mass/Vol] 70 mg/dL Abnormal Negative [facility] Hemoglobin Ql (U) Negative Negative [facility] Interpretation and review of laboratory results Abnormal [facility] Ketones Ql (U) Negative Negative mg/dL [facility] Leukocyte esterase Test strip Ql (U) Negative Negative [facility] Nitrite Ql (U) Negative Negative [facility] pH (U) 6.0 [pH] 5.0 - 8.0 [facility] Protein (U) [Mass/Vol] 20 mg/dL Negative [facility] Specific gravity (U) [Rel density] 1.015 NINF - 1.030 [facility] Urobilinogen Qn (U) 2.0 mg/dL Abnormal Negative [facility] A negative leukocyte esterase AND negative nitrite test or absence of pyuria (urine WBC count <= 5-10) make a UTI (urinary tract infection) very unlikely in a non-neutropenic adult (<=5% likelihood in many studies). A positive leukocyte esterase, nitrite and/or pyuria is a nonspecific result. This can be seen in conditions other than a UTI e.g. asymptomatic bacteriuria, gynecologic infections, sexually transmitted infections, and noninfectious conditions (positive predictive value for UTI around 50%) [facility] Basic metabolic 2000 panelon 02-12-2023 Anion gap [Moles/Vol] 15 mmol/L 10 - 20 Met [facility] Calcium [Mass/Vol] 8.3 mg/dL Low 8.4 - 10. 4 mg/dL [facility] Chloride [Moles/Vol] 104 mmol/L 97 - 11 1 mmol/L [facility] CO2 [Moles/Vol] 21 mmol/L 21 - 30 mmol/L [facility] Creatinine [Mass/Vol] 0.91 mg/dL 0.80 - 1.30 mg/dL [facility] GFR/1.73 sq M.predicted MDRD (S/P/Bld) [Vol rate/Area] 96 mL/min/{1.73_m2} - [facility] Comment on above: 2020 CKD EPI Equatio n using Creatinine without Race Comment: Estimated glomerular filtration rate (eGFR) is calculated without a race coefficient. Values should be interpreted in the context of the patient's full clinical presentation. Reference: 1. Chuy Sloan, Ernie M, Dinorah DC, et al.. A Unifying Approach for GFR Estimation: Recommendations of the NKF-ASN Task Force on Reassessing the Inclusion of Race in Diagnosing Kidney Disease. Vietnamese Journal of Kidney Diseases 202;79(2):268-88.e1. 2. N Engl J Med 1 Vol. 385 Issue 19 Pages 7547-8915 Glucose [Mass/Vol] 139 mg/dL High 80 - 116 mg/dL [facility] Interpretation and review of laboratory results Abnormal [facility] Potassium [Moles/Vol] 5.8 mmol/L High 3.3 - 5.3 mmol/L [facility] Comment on above: Hemolysis present Sodium [Moles/Vol] 134 mmol/L Low 135 - 148 mmol/L [facility] Urea nitrogen [Mass/Vol] 15 mg/dL 8 - 22 mg/dL [facility] CBC panel Auto (Bld)on 02-12 Erythrocyte distribution width (RBC) [Ratio] 13.4 % 11.5 - 14.5 % [facility] Hematocrit (Bld) [Volume fraction] 38.6 % Low 41.0 - 53.0 % [facility] Hemoglobin (Bld) [Mass/Vol] 12.9 g/dL Low 13.9 - 16.3 g/dL [facility] Interpretation and review of laboratory results Abnormal [facility] MCH (RBC) [Entitic mass] 28.6 pg 26.0 - 34.0 pg [facility] MCHC (RBC) [Mass/Vol] 33.5 g/dL 32.0 - 35.9 g/dL [facility] MCV (RBC) [Entitic vol] 86 fL 80 - 100 fL [facility] Platelet mean volume (Bld) [Entitic vol] 7.8 fL 7.5 - 11.2 fL [facility] Platelets (Bld) [#/Vol] 233 10*3/uL 150 - 400 K/uL [facility] RBC (Bld) [#/Vol] 4.51 10*6/uL [facility] WBC (Bld) [#/Vol] 12.5 10*3/uL High 4.5 - 11.5 K/uL [facility] ED Clinical Summaryon 2022 ED Clinical Summary Normal [facility] ED Note-Physicianon 02-13-20 ED Note-Physician Normal [facility] Comment on above: Result Comment: Elec tronically Signed By: Gino Sanchez, Kasey Lawrence.br\Date and Time Signed: 02/12/23 12:03 EDT ED Patient Education Noteon 02-12-2023 ED Patient Education Note Normal [facility] ED Patient Summaryon 023 ED Patient Summary Normal [facility] HEMATOLOGYOrdered By: Salvatore Childress on 02-12-2023 Hematocrit (Bld) [Volume fraction] 39.9 % Normal 37.7 - 49.0 % [facility] HemeAutoSS Hemoglobin (Bld) [Mass/Vol] 13.8 g/dL Normal 13.5 - 17.5 gm/dL [facility] HemeAutoSS HEPATIC FUNCTION PANELon Albumin [Mass/Vol] 3.9 g/dL 3.4 - 5.1 g/dL [facility] ALP [Catalytic activity/Vol] 117 U/L [facility] ALT [Catalytic activity/Vol] 21 U/L [facility] AST [Catalytic activity/Vol] 36 U/L [facility] Comment on above: Hemolysis present Bilirubin [Mass/Vol] 0.9 mg/dL 0.1 - 1 .5 mg/dL [facility] Bilirubin.direct [Mass/Vol] 0.10 mg/dL 0.10 - 0.30 mg/dL [facility] Interpretation and review of laboratory results Normal [facility] Protein [Mass/Vol] 6.2 g/dL 5.7 - 8.1 g/dL [facility] Hct & Hgbon 02-12-2023 Hematocrit (Bld) [Volume fraction] 39.9 % Normal 37.7-49.[address] [facility] Comment on above: Performed By: #### 1 [id number] ####[facility] [address] [place] [address] Hemoglobin (Bld) [Mass/Vol] 13.8 g/dL Normal 13.5-17.[address] [facility] Comment on above: Performed By: #### 1 [id number] ####[facility] [address] [place] [address] No Panel Informationon 02-12 [facility] Progress Note-Nurseon 2022 Progress Note-Nurse Pt assessment the same as yesterday Normal [facility] Transfer Documentson 023 Transfer Documents [id number] 1.00CD:[address] [facility] Auto DiffOrdered By: SYSTEM SYSTEM on 02-11-2023 Basophils/100 WBC (Bld) 0.5 % Normal 0.0-2.0 F [facility] Comment on above: Order Comment: Order Added by Discern Expert. Performed By: #### 2 225898, 9127632, 48430536, 9870338, 8106314, 9067679 ####[address] [address] Basophils/Leukocytes Auto (Bld) [Pure # fraction] 0.1 E9/L Normal 0.0-0.2 [facility]eAutoSS Comment on above: Order Comment: Order Added by Discern Expert. Performed By: #### 2 514423, 0829171, 21911397, 7818967, 5502450, 8558649 ####[address] [address] Eosinophils/100 WBC (Bld) 1.0 % Normal 0.0-8.0 [facility] HemeAutoSS Comment on above: Order Comment: Order Added by Discern Expert. Performed By: #### 2 515504, 3355369, 49296954, 8117448, 5326372, 7378485 ####[address] [address] Eosinophils/Leukocytes Auto (Bld) [Pure # fraction] 0.1 E9/L Normal 0.0-0.5 [facility] Comment on above: Order Comment: Order Added by Discern Expert. Performed By: #### 2 047198, 5088411, 94022787, 6018954, 4390612, 2620500 ####[address] [address] Lymphocytes/100 WBC (Bld) 26.4 % Normal 14.0-50.0 [facility]eAuto[facility] Comment on above: Order Comment: Order Added by Discern Expert. Performed By: #### 2 428394, 5981286, 77209386, 9289068, 7556506, 5145961 ####[place] [address] [address] Lymphocytes/Leukocytes Auto (Bld) [Pure # fraction] 3.4 E9/L Normal 1.0-4.0 FT HemeAutoSS Comment on above: Order Comment: Order Added by Discern Expert. Performed By: #### 2 875109, 8351775, 16309396, 6323086, 3739495, 9337824 ####[place] [address] [address] Monocytes/100 WBC (Bld) 8.5 % Normal 4.0-14.0 [facility]eAuto[facility] Comment on above: Order Comment: Order Added by Discern Expert. Performed By: #### 2 187551, 6056802, 41848062, 9435443, 4012916, 8939388 ####[address] [address] Monocytes/Leukocytes Auto (Bld) [Pure # fraction] 1.1 E9/L High 0.2-1.0 FT HemeAutoSS Comment on above: Order Comment: Order Added by Discern Expert. Performed By: #### 2 168630, 0139663, 22932142, 3887875, 3736284, 7143536 ####[address] [address] Neutrophils/100 WBC (Bld) 63.6 % Normal 36.0-75.0 [facility] HemeAutoSS Comment on above: Order Comment: Order Added by Discern Expert. Performed By: #### 2 155026, 5248007, 12205914, 8807043, 2487525, 2690341 ####[address] [address] Neutrophils/Leukocytes Auto (Bld) [Pure # fraction] 8.3 E9/L High 2.0-7.5 [facility] HemeAutoSS Comment on above: Order Comment: Order Added by Discern Expert. Performed By: #### 2 465824, 8025872, 31965951, 2821035, 2966543, 2245810 ####[address] [place] [address] BMPOrdered By: SYSTEM SYSTEM on 02-11-2023 Creatinine [Mass/Vol] 0.9 mg/dL Normal 0.5-1.3 [facility] C Remisol Comment on above: Performed By: #### 2 331892, 6655967, 11337997, 9261524, 0850941, 9305578 ####[facility] [address] [place] [address] Urea nitrogen [Mass/Vol] 18 mg/dL Normal 5-21 [facility] Rem[facility] Comment on above: Performed By: #### 2 782878, 3073286, 53801951, 8934022, 8505940, 9013929 ####[address] [address] Anion gap [Moles/Vol] 14 mmol/L Normal 6-16 [facility] Rem[facility] Comment on above: Performed By: #### 2 260550, 8541837, 15208619, 1129129, 8431509, 7596872 ####[address] [address] Calcium [Mass/Vol] 8.8 mg/dL Low 8.9-11.1 [facility] R emisol Comment on above: Performed By: #### 2 156192, 7401796, 98696409, 2528094, 0172593, 6802099 ####[address] [address] Chloride [Moles/Vol] 105 mmol/L Normal 101-111 [facility] Rem[facility] Comment on above: Performed By: #### 2 150410, 9359845, 32063172, 4383813, 7230972, 9419177 ####[address] [address] CO2 [Moles/Vol] 22 mmol/L Normal 21-31 FT Niko steven Comment on above: Performed By: #### 2 367050, 8043739, 26800405, 6960497, 9340352, 3914918 ####[address] [place] [address] Glucose [Mass/Vol] 160 mg/dL Normal 55-199 [facility] R emisol Comment on above: Result Comment: If t his glucose result represents a fasting glucose, interpretation should refer to the following reference range: 55-99 mg/dL Performed By: #### 2 910767, 0727997, 90530353, 9277439, 4366252, 0833278 ####[facility] [address] [place] [address] Potassium [Moles/Vol] 3.8 mmol/L Normal 3.5-5.3 [facility] C Remisol Comment on above: Performed By: #### 2 794622, 3463864, 02413467, 0924530, 7612426, 7751569 ####[facility] [address] [place] [address] Sodium [Moles/Vol] 137 mmol/L Normal 135-145 [facility] R emisol Comment on above: Performed By: #### 2 982569, 7991444, 96260066, 5370150, 3646549, 9387185 ####[facility] [address] [place] [address] BMPon 02-11-2023 Urea nitrogen/Creatinine [Mass ratio] 20 No Units Normal 10-[address] [facility] Comment on above: Performed By: #### 2 565505, 4937530, 66923770, 1884434, 4882123, 3208499 ####[facility] [address] [place] [address] CBC w/ Auto DiffOrdered By: Yesy Brice on 02-11-2023 Erythrocyte distribution width (RBC) [Ratio] 13.8 % Normal 10.9-14.2 [facility] HemeAutoSS Comment on above: Performed By: #### 2 751944, 9722190, 27023865, 3654520, 5151114, 7112513 ####[facility] [address] [place] [address] Hematocrit (Bld) [Volume fraction] 42.3 % Normal 37.7-49.0 [facility] HemeAutoSS Comment on above: Performed By: #### 2 571163, 9217934, 89136578, 3250784, 2888733, 2876749 ####[place] [address] [address] Hemoglobin (Bld) [Mass/Vol] 14.4 g/dL Normal 13.5-17.5 [facility] HemeAutoSS Comment on above: Performed By: #### 2 936290, 2797604, 60193233, 7456441, 2974404, 6842541 ####[place] [address] [address] MCH (RBC) [Entitic mass] 28.7 pg Normal 27.0-34.0 [facility] HemeAutoSS Comment on above: Performed By: #### 2 988952, 7258124, 40236817, 5400630, 9737574, 5112053 ####[place] [address] [address] MCHC (RBC) [Mass/Vol] 34.0 g/dL Normal 31.4-36.0 [facility] HemeAutoSS Comment on above: Performed By: #### 2 090324, 8428044, 70478121, 4390792, 1084886, 3391155 ####[place] [address] [address] MCV (RBC) [Entitic vol] 84.4 fL Normal 80.0-100.0 F [facility]Auto[facility] Comment on above: Performed By: #### 2 463914, 6008279, 53611945, 7338197, 6000762, 0651063 ####[place] [address] [address] Platelet mean volume (Bld) [Entitic vol] 8.1 fL Normal 6.4-10.8 [facility] HemeAutoSS Comment on above: Performed By: #### 2 322039, 1801112, 49605023, 1436012, 9467827, 9230233 ####[place] [address] [address] Platelets (Bld) [#/Vol] 283.0 E9/L Normal 150.0-500.0 [facility]Auto[facility] Comment on above: Performed By: #### 2 465127, 1108738, 65109878, 5363464, 7877613, 4158676 ####[facility] [address] [place] [address] RBC (Bld) [#/Vol] 5.0 E12/L Normal 4.3-5.9 [facility]Auto[facility] Comment on above: Performed By: #### 2 427706, 7919575, 46918491, 2371747, 9223952, 5084914 ####[facility] [address] [place] [address] WBC corrected for nucl RBC Auto (Bld) [#/Vol] 13.1 E9/L High 4.0-11.0 [facility] Comment on above: Performed By: #### 2 644943, 2884084, 98284430, 6370259, 2085114, 9009406 ####[facility] [address] [place] [address] CHEMISTRYOrdered By: SYSTEM SYSTEM on 02-11-2023 Albumin/Globulin [Mass ratio] 1.4 {ratio} Normal 1.1 - 2.2 [facility] Remisol ALP [Catalytic activity/Vol] 108 [iU]/d High 21 - 98 Int._Unit/L [facility] Remisol ALT No additional P-5'-P [Catalytic activity/Vol] 29 [iU]/d Normal 6 - 46 Int._Unit/L [facility] Remisol AST [Catalytic activity/Vol] 24 [iU]/d Normal 5 - 43 Int._Unit/L [facility] Remisol Bilirubin.indirect [Mass or moles/Vol] Unable to Calculate mg/dL Invalid Interpretation Code 0.1 - 0.9 mg/dL [facility] Remisol Urea nitrogen/Creatinine [Mass ratio] 20 mg/mg Normal 10 - [address] [facility] [address] Abdomen/Pelvis w/o Contra ston 02-11-2023 CT Abdomen/Pelvis w/o Contrast Normal [facility] Consent for Treatmenton 01-15 Consent for Treatment [id number] .[id number]:[address] [facility] HEMATOLOGYOrdered By: Yesy Brice on 02-11-2023 Hematocrit (Bld) [Volume fraction] 39.5 % Normal 37.7 - 49.0 % [facility] HemeAutoSS Hemoglobin (Bld) [Mass/Vol] 13.5 g/dL Normal 13.5 - 17.5 gm/dL [facility] HemeAutoSS Hct & Hgbon 02-11-2023 Hematocrit (Bld) [Volume fraction] 39.5 % Normal 37.7-49.[address] [facility] Comment on above: Performed By: #### 1 [id number] ####[facility] [address] [place] [address] Hemoglobin (Bld) [Mass/Vol] 13.5 g/dL Normal 13.5-17.[address] [facility] Comment on above: Performed By: #### 1 5689330 ####[facility] [address] [place] [address] Hep Func Panelon 02-11-2023 Bilirubin.indirect [Mass or moles/Vol] UTC Abnormal 0.1-0.[address] [facility] Comment on above: Result Comment: Resu lt verified by Discern Rule. Performed result UTC (Unable to Calculate) was sent as an Alpha code due the inability to calculate a valid numeric value. Performed By: #### 2 111729, 3716243, 13712685, 2216639, 0253907, 1261368 ####[facility] [address] [place] [address] Albumin/Globulin (S) [Mass conc ratio] 1.4 Normal 1.1-2.[address] [facility] Comment on above: Performed By: #### 2 736958, 0385744, 76538182, 7390402, 1775149, 2099192 ####[facility] [address] [place] [address] ALP [Catalytic activity/Vol] 108 Int._Unit/L High - [facility] Comment on above: Performed By: #### 2 207644, 6212023, 16026858, 2759151, 4625235, 0023165 ####[facility] [address] [place] [address] ALT No additional P-5'-P [Catalytic activity/Vol] 29 Int._Unit/L Normal 6-[address] [facility] Comment on above: Performed By: #### 2 278955, 0361550, 92269822, 0651572, 6598052, 3988325 ####[address] [place] [address] AST [Catalytic activity/Vol] 24 Int._Unit/L Normal 5-[address] [facility] Comment on above: Performed By: #### 2 874783, 9149085, 00366259, 7177267, 6120064, 7059243 ####[address] [address] Hep Func PanelOrdered By: [employer]maker [employer] SYSTEM on 02-11-2023 Albumin [Mass/Vol] 4.0 g/dL Normal 3.3-5.0 FT R emisol Comment on above: Performed By: #### 2 615767, 9601624, 15654440, 1380644, 6255113, 9761963 ####[address] [place] [address] Bilirubin [Mass/Vol] 0.7 mg/dL Normal 0.0-1.1 [facility] Comment on above: Performed By: #### 2 770377, 7346143, 54630979, 2765344, 2991655, 5685989 ####[facility] [address] [place] [address] Globulin (S) [Mass/Vol] 2.9 g/dL Normal 1.4-4.0 [facility] Comment on above: Performed By: #### 2 561056, 7775241, 35060142, 0209453, 8714526, 9192880 ####[address] [place] [address] Protein [Mass/Vol] 6.9 g/dL Normal 6.0-7.8 [facility] R emisol Comment on above: Performed By: #### 2 518360, 1972722, 39121283, 6826543, 1689142, 8384723 ####[facility] [address] [place] [address] Bilirubin.direct [Mass/Vol] mg/dL Normal 0.1-0.4 [facility] Remisol Comment on above: Performed By: #### 2 748134, 7475680, 61650217, 8132150, 8303355, 6089042 ####[facility] [address] [place] [address] Lipase LevelOrdered By: SYST EM SYSTEM on 02-11-2023 Lipase [Catalytic activity/Vol] 31 U/L Normal 13-58 [facility] Remisol Comment on above: Performed By: #### 2 478543, 9237955, 35263868, 5794597, 2469392, 7814830 ####[address] [address] UA With Cult Reflexon 2022 Bilirubin Ql (U) Negative Normal Negative [facility] Comment on above: Performed By: #### 1 8410259 ####[address] [address] Clarity (U) CLEAR Normal Clear [facility] Comment on above: Performed By: #### 1 5431397 ####[address] [address] Color (U) YELLOW Normal Yellow [facility] Comment on above: Performed By: #### 1 6893438 ####[address] [address] Epithelial cells.squamous LM.HPF (Urine sed) [#/Area] 0-2 Normal 0-2 [facility] Comment on above: Performed By: #### 1 8422923 ####[address] [address] Glucose Test strip (U) [Mass/Vol] TRACE Abnormal Negative [facility] Comment on above: Performed By: #### 1 9710058 ####[facility] [address] [place] [address] Hemoglobin Ql (U) Negative Normal Negative [facility] Comment on above: Performed By: #### 1 0082736 ####[address] [place] [address] Ketones (U) [Mass/Vol] Negative Normal Negative [facility] Comment on above: Performed By: #### 1 5267221 ####[address] [address] Orlinda.plasma/[place]. RBC (Bld) [Mass ratio] 0-3 Normal 0-3 [facility] Comment on above: Performed By: #### 1 2353249 ####[address] [address] Mucus Ql (Urine sed) 2+ Normal [facility] Comment on above: Performed By: #### 1 8494129 ####[address] [place] [address] Nitrite Ql (U) Negative Normal Negative [facility] Comment on above: Performed By: #### 1 2437711 ####[address] [address] pH (U) 5.5 [pH] Invalid Interpretation Code 5.0-9.[address] [facility] Comment on above: Performed By: #### 1 9269387 ####[address] [place] [address] Protein (U) [Mass/Vol] Negative Normal Negative [facility] Comment on above: Performed By: #### 1 7623075 ####[address] [address] Specific gravity (U) [Rel density] 1.025 Invalid Interpretation Code 1.005-1.[address] [facility] Comment on above: Performed By: #### 1 7404661 ####[address] [place] [address] Type of Urine collection method Clean Catch Normal [facility] Comment on above: Performed By: #### 1 7915101 ####[address] [address] Urobilinogen Qn (U) 1.0 {Emily'U}/dL Normal 0.0-1.[address] [facility] Comment on above: Performed By: #### 1 0572512 ####[address] [address] WBC Auto Ql (U) Negative Normal Negative [facility] Comment on above: Performed By: #### 1 7292217 ####[address] [address] WBC LM.HPF (Urine sed) [#/Area] 0-5 Normal 0-[address] [facility] Comment on above: Performed By: #### 1 9420987 ####[address] [address] URINALYSISOrdered By: Marlene Solorzano on 02-11-2023 Bilirubin Ql (U) Negative (02/11/23 7:30 PM) Normal Negative [facility] UA Auto SS Clarity (U) Clear (02/11/23 7:30 PM) Normal Clear [facility] UA Auto SS Color (U) Yellow (02/11/23 7:30 PM) Normal Yellow [facility] UA Auto SS Epithelial cells.squamous LM.HPF (Urine sed) [#/Area] 0-2 /HPF Normal 0-2/HPF [facility] UA Aut o SS Glucose Test strip (U) [Mass/Vol] Trace *ABN* (02/11/23 7:30 PM) Invalid Interpretation Code Negative [facility] UA Auto SS Hemoglobin Ql (U) Negative (02/11/23 7:30 PM) Normal Negative [facility] UA Auto SS Ketones (U) [Mass/Vol] Negative (02/11/23 7:30 PM) Normal Negative [facility] UA Auto SS Orlinda.plasma/[place]. RBC (Bld) [Mass ratio] 0-3 /HPF Normal 0-3/HPF [facility] UA A uto SS Mucus Ql (Urine sed) 2+ (02/11/23 7:30 PM) Normal [facility] UA Auto SS Nitrite Ql (U) Negative (02/11/23 7:30 PM) Normal Negative FT UA Auto SS pH (U) 5.5 *NA* (02/11/23 7:30 PM) Invalid Interpretation Code 5.0 - 9.0 [facility] UA Auto SS Protein (U) [Mass/Vol] Negative (02/11/23 7:30 PM) Normal Negative [facility] UA Auto SS Specific gravity (U) [Rel density] 1.025 *NA* (02/11/23 7:30 PM) Invalid Interpretation Code 1.005 - 1.030 [facility] UA Auto SS UA Spec Desc Clean Catch (02/11/23 7:30 PM) Normal [facility] UA Auto SS Urobilinogen Qn (U) 1.4441758 {Emily'U}/dL Normal 0.0 - 1.0 EU/dL [facility] UA Auto SS WBC Auto Ql (U) Negative (02/11/23 7:30 PM) Normal Negative [facility] UA Auto SS WBC LM.HPF (Urine sed) [#/Area] 0-5 /HPF Normal 0-5/HPF [facility] UA Auto SS eGFROrdered By: SYSTEM [employer]STE [employer] on 02-11-2023 GFR/1.73 sq M.predicted among non-blacks MDRD (S/P/Bld) [Vol rate/Area] 97 mL/min/1.73 m2 Normal >=59 [facility] Chem S Comment on above: Order Comment: Order added by Discern Expert. Result Comment: Travel Director andrea kidney disease could be indicated at eGFR's of less than 60 mL/min/1.73m2. Kidney failure is indicated at less than 15 mL/min/1.73m2. Performed By: #### 2 403457, 7888368, 01953139, 7331279, 0556878, 9101036 ####[facility] [address] [place] [address] Gastroenterology Office/Clin ic Noteon 01-21-2023 Gastroenterology Office/Clinic Note Normal [facility] Comment on above: Result Comment: Elec tronically Signed By: Melvi Andrade\.br\Date and Time Signed: 01/18/23 12:20 EDT\.br\Electronically Co-Signed By: Melvi Andrade\.br\Date and Time Co-Signed: 01/20/23 12:29 EDT\.br\Electronically Co-Signed By: Juanita SINGH MD\.br\Date and Time Co-Signed: 01/21/23 12:41 EDT Heart and Vascular Office/Cl inic Noteon 12-21-2022 Heart and Vascular Office/Clinic Note Normal [facility] Comment on above: Result Comment: Elec tronically Signed By: Christine RANGEL CNP\.br\Date and Time Signed: 12/21/22 12:52 EDT Ambulatory Visit Summaryon 0 12-20-2022 Ambulatory Visit Summary [facility] Consent for Treatmenton Consent for Treatment [id number]#1 .00CD:127 [facility] Patient Education - Texton 12-20-2022 Patient Education - Text [facility] Physician Orderon 12-20-2022 Physician Order [id number]#1 .00CD:127 [facility] NM Myocardial Spect Rest/Str ess 1 Dayon 11-28-2022 NM Myocardial Spect Rest/Stress 1 Day [facility] Discharge Instructionson Discharge Instructions [id number]#1 .00CD:127 Normal [facility] LE Arterial Duplex Limite d Righton 11-23-2022 US LE Arterial Duplex Limited Right [facility] Consent for Treatmenton Consent for Treatment [id number]#1 .00CD:127 [facility] ED Clinical Summaryon 2022 ED Clinical Summary Normal [facility] ED Note-Physicianon 11-23-19 ED Note-Physician [facility] Comment on above: Result Comment: Elec tronically Signed By: Elvis Watson DO\.br\Date and Time Signed: 11/22/22 21:50 EDT ED Patient Education Noteon 11-22-2022 ED Patient Education Note Normal [facility] ED Patient Summaryon 023 ED Patient Summary Normal [facility] Coding Summary.on 11-18-2022 Coding Summary. Normal [facility] Coding Summary. Normal [facility] Consent for Procedure/Surger yon 11-16-2022 Consent for Procedure/Surgery [id number]# 1.00CD:[address] [facility] Cardiovascular Reporton Cardiovascular Report [id number]# 1.00CD:127 [facility] Consent for Treatmenton Consent for Treatment [id number]#1 .00CD:127 [facility] Inpatient Clinical Summaryon 11-15-2022 Inpatient Clinical Summary Normal [facility] Inpatient Patient Summaryon 11-15-2022 Inpatient Patient Summary Normal [facility] Operative Reporton Operative Report Normal [facility] Comment on above: Result Comment: Elec tronically Signed By: Marc Anne MD\.br\Date and Time Signed: 11/15/22 08:40 EDT Patient Education - Texton 0 11-15-2022 Patient Education - Text [facility] Progress Note-Physicianon Progress Note-Physician [facility] Comment on above: Result Comment: Elec tronically Signed By: Marc Anne MD\.br\Date and Time Signed: 11/15/22 08:01 EDT EMS Documentationon 11-15-19 EMS Documentation [facility] Outside Recordson 11-14-2022 Outside Records [id number]# 1.00CD:127 [facility] Outside Records [id number]# 1.00CD:127 [facility] Physician Orderon 11-11-2022 Physician Order [id number]# 1.00CD:127 [facility] Heart and Vascular Office/Cl inic Noteon 11-05-2022 Heart and Vascular Office/Clinic Note [facility] Comment on above: Result Comment: Elec tronically Signed By: Omid REBOLLEDO, Marc Fowler\.br\Date and Time Signed: 11/05/22 21:38 EDT\.br\Electronically Co-Signed By: Audrey Arboleda\.br\Date and Time Co-Signed: 11/03/22 17:18 EDT Pre-Certification Formon Pre-Certification Form [id number]#1 .00CD:127 [facility] Consent for Treatmenton 10-16 Consent for Treatment [id number]#1 .00CD:127 [facility] Consenton 10-28-2022 Consent [id number]#1 .00CD:127 [facility] Referrals Officeon Referrals Office [id number]# 1.00CD:127 [facility] Registrationon 10-28-2022 Registration [id number]# 1.00CD:127 [facility] Coding Summary.on 10-25-2022 Coding Summary. Normal [facility] EMS Documentationon 10-25-19 EMS Documentation [facility] Insurance Correspondenceon 0 10-24-2022 Insurance Correspondence [id number]# 1.00CD:127 [facility] Auto Diffon 10-22-2022 Basophils/100 WBC (Bld) 1.3 % Normal 0.0-2.0 [facility] Comment on above: Order Comment: Order Added by Discern Expert. Performed By: #### 2 090855, 4667974, 98137861, 88607210, 19101668, 1900091 ####[address] [address] Basophils/Leukocytes Auto (Bld) [Pure # fraction] 0.1 E9/L Normal 0.0-0.[address] [facility] Comment on above: Order Comment: Order Added by Discern Expert. Performed By: #### 2 017388, 9317455, 73099413, 05540728, 13683857, 9006262 ####[address] [address] Eosinophils/100 WBC (Bld) 2.7 % Normal 0.0-8.[address] [facility] Comment on above: Order Comment: Order Added by Discern Expert. Performed By: #### 2 055528, 1295182, 89420319, 08636338, 17921880, 0623755 ####[address] [address] Eosinophils/Leukocytes Auto (Bld) [Pure # fraction] 0.2 E9/L Normal 0.0-0.[address] [facility] Comment on above: Order Comment: Order Added by Discern Expert. Performed By: #### 2 647902, 9948710, 21222964, 19286340, 11700736, 5973474 ####[address] [address] Lymphocytes/100 WBC (Bld) 40.3 % Normal 14.0-50.[address] [facility] Comment on above: Order Comment: Order Added by Discern Expert. Performed By: #### 2 649928, 6126625, 44237390, 94155298, 86669652, 5441833 ####[address] [address] Lymphocytes/Leukocytes Auto (Bld) [Pure # fraction] 3.6 E9/L Normal 1.0-4.[address] [facility] Comment on above: Order Comment: Order Added by Discern Expert. Performed By: #### 2 183413, 3762830, 68567063, 54747616, 27991941, 7574386 ####[address] [place] [address] Monocytes/100 WBC (Bld) 11.2 % Normal 4.0-14.0 [facility] Comment on above: Order Comment: Order Added by Discern Expert. Performed By: #### 2 667837, 2242147, 57774332, 89052223, 68835440, 0344478 ####[address] [place] [address] Monocytes/Leukocytes Auto (Bld) [Pure # fraction] 1.0 E9/L Normal 0.2-1.[address] [facility] Comment on above: Order Comment: Order Added by Discern Expert. Performed By: #### 2 927564, 6548839, 59584286, 01422452, 17670772, 1391881 ####[address] [address] Neutrophils/100 WBC (Bld) 44.5 % Normal 36.0-75.[address] [facility] Comment on above: Order Comment: Order Added by Discern Expert. Performed By: #### 2 768971, 7113594, 60380115, 57362159, 64889628, 2050312 ####[address] [address] Neutrophils/Leukocytes Auto (Bld) [Pure # fraction] 4.0 E9/L Normal 2.0-7.[address] [facility] Comment on above: Order Comment: Order Added by Discern Expert. Performed By: #### 2 381982, 6920887, 70549921, 88327083, 47416586, 0670088 ####[address] [address] BMPon 10-22-2022 Anion gap [Moles/Vol] 13 mmol/L Normal 6-16 [facility] Comment on above: Performed By: #### 2 254588, 3392839, 69032643, 85168594, 03871785, 9570448 ####[facility] [address] [place] [address] Calcium [Mass/Vol] 8.5 mg/dL Low 8.9-11.[address] [facility] Comment on above: Performed By: #### 2 169808, 4710433, 46888490, 63143645, 90408747, 0880223 ####[facility] [address] [place] [address] Chloride [Moles/Vol] 105 mmol/L Normal 101-111 [facility] Comment on above: Performed By: #### 2 062509, 9292573, 84109451, 53657074, 95804334, 9598304 ####[facility] [address] [facility] [place] [address] CO2 [Moles/Vol] 22 mmol/L Normal 21-31 [facility] Comment on above: Performed By: #### 2 266230, 4592166, 14168677, 84626545, 03240004, 9048840 ####[facility] [address] [facility] [place] [address] Glucose [Mass/Vol] 138 mg/dL Normal 55-[address] [facility] Comment on above: Result Comment: If t his glucose result represents a fasting glucose, interpretation should refer to the following reference range: 55-99 mg/dL Performed By: #### 2 283661, 2710519, 31685675, 07721650, 79556399, 3013943 ####[facility] [address] [place] [address] Potassium [Moles/Vol] 3.9 mmol/L Normal 3.5-5.3 [facility] Comment on above: Performed By: #### 2 346294, 8047327, 06370683, 16770378, 84986634, 9920498 ####[facility] [address] [place] [address] Sodium [Moles/Vol] 136 mmol/L Normal 135-[address] [facility] Comment on above: Performed By: #### 2 618941, 7066576, 37816901, 85988075, 57401238, 1726911 ####[facility] [address] [place] [address] Creatinine [Mass/Vol] 1.0 mg/dL Normal 0.5-1.3 [facility] Comment on above: Performed By: #### 2 768345, 9672542, 46790899, 85860802, 82656468, 7874928 ####[facility] [address] [place] [address] Urea nitrogen [Mass/Vol] 17 mg/dL Normal 5-[address] [facility] Comment on above: Performed By: #### 2 251848, 4709282, 44389471, 20052767, 32320544, 2900141 ####[facility] [address] [place] [address] Urea nitrogen/Creatinine [Mass ratio] 17 No Units Normal 10-[address] [facility] Comment on above: Performed By: #### 2 409079, 6849894, 74117468, 65696383, 23667715, 3709342 ####[address] [address] CBC w/ Auto Diffon 3 Erythrocyte distribution width (RBC) [Ratio] 13.8 % Normal 10.9-14.[address] [facility] Comment on above: Performed By: #### 2 506075, 8670085, 81612210, 94783294, 35714786, 9908179 ####[facility] [address] [place] [address] Hematocrit (Bld) [Volume fraction] 40.9 % Normal 37.7-49.[address] [facility] Comment on above: Performed By: #### 2 248395, 2153518, 90335495, 88859118, 48357332, 2223678 ####[address] [place] [address] Hemoglobin (Bld) [Mass/Vol] 13.8 g/dL Normal 13.5-17.[address] [facility] Comment on above: Performed By: #### 2 558859, 3085179, 65343420, 36905262, 73825227, 8527021 ####[facility] [address] [place] [address] MCH (RBC) [Entitic mass] 28.1 pg Normal 27.0-34.[address] [facility] Comment on above: Performed By: #### 2 505354, 7778391, 88290401, 31793038, 05550586, 4593357 ####[facility] [address] [place] [address] MCHC (RBC) [Mass/Vol] 33.6 g/dL Normal 31.4-36.0 [facility] Comment on above: Performed By: #### 2 872084, 3270953, 06847484, 04358642, 85503383, 8027958 ####[address] [address] MCV (RBC) [Entitic vol] 83.6 fL Normal 80.0-100.0 [facility] Comment on above: Performed By: #### 2 005372, 2244822, 00437002, 29511765, 43486442, 7089865 ####[address] [address] Platelet mean volume (Bld) [Entitic vol] 7.6 fL Normal 6.4-10.[address] [facility] Comment on above: Performed By: #### 2 395285, 7917990, 83362333, 00779934, 95662259, 0517051 ####[address] [place] [address] Platelets (Bld) [#/Vol] 267.0 E9/L Normal 150.0-500.[address] [facility] Comment on above: Performed By: #### 2 520561, 5330079, 21060949, 23706331, 83413691, 0589890 ####[facility] [address] [place] [address] RBC (Bld) [#/Vol] 4.9 E12/L Normal 4.3-5.[address] [facility] Comment on above: Performed By: #### 2 935586, 8888426, 67160298, 23865307, 21254974, 9949317 ####[facility] [address] [place] [address] WBC corrected for nucl RBC Auto (Bld) [#/Vol] 9.0 E9/L Normal 4.0-11.0 [facility] Comment on above: Performed By: #### 2 077924, 2845393, 31031853, 47882284, 66647494, 1484055 ####[facility] [address] [place] [address] CHEMISTRYOrdered By: SYSTEM SYSTEM on 10-22-2022 Troponin I.cardiac [Mass/Vol] 4.70 pg/mL Low 15.90 - 38.40 pg/mL [facility] Remisol Consent for Treatmenton Consent for Treatment [id number]#1 .00CD:[address] [facility] Discharge Instructionson Discharge Instructions [id number]# 1.00CD:[address] [facility] ED Clinical Summaryon 2022 ED Clinical Summary Normal [facility] ED Note-Physicianon 10-23-19 ED Note-Physician Normal [facility] Comment on above: Result Comment: Elec tronically Signed By: Elvis Watson DO\.br\Date and Time Signed: 10/22/22 01:49 EDT ED Patient Education Noteon 10-22-2022 ED Patient Education Note Normal [facility] ED Patient Summaryon 023 ED Patient Summary Normal [facility] EMS Documentationon 10-23-19 EMS Documentation Normal [facility] PT & PTTon 10-22-2022 aPTT Coag (PPP) [Time] 27.7 second(s) Normal 25.1-36.[address] [facility] Comment on above: Result Comment: Para meter 15 days - 4 weeks 1 - 5 months 6 - 11 months 1 - 5 years 6 - 10 years 11 - 17 years PTT Mean: 35.4 (27.6-45.6) Mean: 33.5 (24.8-40.7) Mean: 32.4 (25.1-40.7) Mean: 31.6 (24.0-39.2) Mean: 31.6 (26.9-38.7) Mean: 31.0 (24.6-38.4) Pediatric Reference ranges were obtained from a study by [employer]. prepared from 1437 samples obtained at 7 different centers using the same coagulation reagent and instrumentation as [facility]. Currently there are no coagulation studies available worldwide for children to 14 days, and no normal ranges. Heparin therapeutic range (represented by Anti-Factor Xa activity of 0.2 - 0.4 U/mL) corresponds to PTT of 56.6 - 109.0 sec. Performed By: #### 2 209896, 6159511, 84418500, 27511785, 74766483, 4563080 ####[facility] [address] [place] [address] INR Coag (PPP) [Relative time] 1.0 {INR} Invalid Interpretation Code [facility] Comment on above: Result Comment: INR results are specifically intended to assess patients stabilized on long-term Anticoagulation therapy suggested INR?s ?Less Intensive Anticoagulation? 2.0 ? 3.0Conventional Range 3.0 ? 4.5 Performed By: #### 2 035679, 4693304, 52342789, 27902070, 04794095, 5531025 ####[facility] [address] [place] [address] PT Coag (PPP) [Time] 11.3 second(s) Normal 9.4-12.[address] [facility] Comment on above: Result Comment: 15 d ays - 4 weeks 1 - 5 months 6 -11 months 1 ? 5 years 6 ? 10 years 11 -17 years Mean: 11.2 (9.5 ? 12.6) Mean: 11.0 (9.7 ? 12.8) Mean: 11.0 (9.8 ? 13.0) Mean: 11.3 (9.9 ? 13.4) Mean: 11.7 (10.0 ? 14.6) Mean: 11.8 (10.0 - 14.1) Pediatric Reference ranges were obtained from a study by Ronn Boucher et al. prepared from 1437 samples obtained at 7 different centers using the same coagulation reagent and instrumentation as [facility]. Currently there are no coagulation studies available worldwide for children to 14 days, and no normal ranges. Performed By: #### 2 536109, 8424316, 38605695, 63113017, 77380568, 5085098 ####[facility] [address] [place] [address] Troponin 0 Hr.on 10-22-2022 Troponin I.cardiac [Mass/Vol] 4.80 pg/mL Low 15.90-38.[address] [facility] Comment on above: Result Comment: The 95% CI (Confidence Interval) PPV (Positive Predictive Value) for myocardial infarction in females is 38 pg/mL, in males 51 pg/mL. The results should be used in conjunction with clinical conditions of myocardial infarction.(Access High Sensitivity Troponin I Instructions For Use, [employer], February 2018) Performed By: #### 2 841474, 8558787, 04864859, 04490645, 74390934, 4707541 ####[facility] [address] [place] [address] Troponin 3 Hr.on 10-22-2022 Troponin I.cardiac [Mass/Vol] 4.70 pg/mL Low 15.90-38.[address] [facility] [facility] [facility] Comment on above: Result Comment: The 95% CI (Confidence Interval) PPV (Positive Predictive Value) for myocardial infarction in females is 38 pg/mL, in males 51 pg/mL. The results should be used in conjunction with clinical conditions of myocardial infarction.(Access High Sensitivity Troponin I Instructions For Use, [employer], February 2018) Performed By: #### 1 [id number] ####[facility] [address] [place] [address] XR Chest Single Viewon 10-22 XR Chest Single View Normal [facility] eGFRon 10-22-2022 GFR/1.73 sq M.predicted among blacks MDRD (S/P/Bld) [Vol rate/Area] mL/min/{1.73_m2} Normal >=[address] [facility] Comment on above: Order Comment: Order added by Discern Expert. Result Comment: eGFR is race adjusted. AA=. Performed By: #### 2 046936, 0434917, [id number], 50425469, 52896331, 0550626 ####[facility] [address] [place] [address] GFR/1.73 sq M.predicted among non-blacks MDRD (S/P/Bld) [Vol rate/Area] mL/min/{1.73_m2} Normal >=[address] [facility] Comment on above: Order Comment: Order added by Discern Expert. Result Comment: Travel Director andrea kidney disease could be indicated at eGFR's of less than 60 mL/min/1.73m2. Kidney failure is indicated at less than 15 mL/min/1.73m2. Performed By: #### 2 765954, 4001519, 86220538, 76595134, 97110018, 7878508 ####[facility] [address] [place] [address] CHEMISTRYOrdered By: SYSTEM SYSTEM on 10-21-2022 Anion gap [Moles/Vol] 13 mmol/L Normal 6 - 16 mEq/L [facility] Calcium [Mass/Vol] 8.5 mg/dL Low 8.9 - 11. 1 mg/dL [facility] Chloride [Moles/Vol] 105 mmol/L Normal 101 - 1 11 mmol/L [facility] CO2 [Moles/Vol] 22 mmol/L Normal 21 - 31 mmol/L [facility] Creatinine [Mass/Vol] 1.0 mg/dL Normal 0.5 - 1.3 mg/dL [facility] GFR/1.73 sq M.predicted among blacks MDRD (S/P/Bld) [Vol rate/Area] mL/min/1.73 m2 Normal >=59mL/min/ 1.73 m2 [facility] Chem S GFR/1.73 sq M.predicted among non-blacks MDRD (S/P/Bld) [Vol rate/Area] mL/min/1.73 m2 Normal >=59mL/min/ 1.73 m2 [facility] Chem S Glucose [Mass/Vol] 138 mg/dL Normal 55 - 199 mg/dL [facility] Potassium [Moles/Vol] 3.9 mmol/L Normal 3.5 - 5.3 mmol/L [facility] Sodium [Moles/Vol] 136 mmol/L Normal 135 - 145 mmol/L [facility] Troponin I.cardiac [Mass/Vol] 4.80 pg/mL Low 15.90 - 38.40 pg/mL [facility] Urea nitrogen [Mass/Vol] 17 mg/dL Normal 5 - 21 mg/dL [facility] Urea nitrogen/Creatinine [Mass ratio] 17 mg/mg Normal 10 - 20 [facility] COAGULATIONOrdered By: Rell Dumont on 10-21-2022 aPTT Coag (PPP) [Time] 27.7 s Normal 25.1 - 36.5 second(s) [facility] Auto Coag INR Coag (PPP) [Relative time] 1.0 {INR} Invalid Interpretation Code [facility] Auto Coag PT Coag (PPP) [Time] 11.3 s Normal 9.4 - 1 2.5 second(s) [facility] Auto Coag HEMATOLOGYOrdered By: SYSTEM SYSTEM on 10-21-2022 Basophils/100 WBC (Bld) 1.3 % Normal 0.0 - 2.0 % [facility] HemeAutoSS Basophils/Leukocytes Auto (Bld) [Pure # fraction] 0.1 E9/L Normal 0.0 - 0.2 E9/L [facility] HemeAutoSS Eosinophils/100 WBC (Bld) 2.7 % Normal 0.0 - 8.0 % [facility] HemeAutoSS Eosinophils/Leukocytes Auto (Bld) [Pure # fraction] 0.2 E9/L Normal 0.0 - 0.5 E9/L [facility] HemeAutoSS Lymphocytes/100 WBC (Bld) 40.3 % Normal 14.0 - 50.0 % [facility] HemeAutoSS Lymphocytes/Leukocytes Auto (Bld) [Pure # fraction] 3.6 E9/L Normal 1.0 - 4.0 E9/L [facility] HemeAutoSS Monocytes/100 WBC (Bld) 11.2 % Normal 4.0 - 14.0 % [facility] HemeAutoSS Monocytes/Leukocytes Auto (Bld) [Pure # fraction] 1.0 E9/L Normal 0.2 - 1.0 E9/L [facility] HemeAutoSS Neutrophils/100 WBC (Bld) 44.5 % Normal 36.0 - 75.0 % [facility] HemeAutoSS Neutrophils/Leukocytes Auto (Bld) [Pure # fraction] 4.0 E9/L Normal 2.0 - 7.5 E9/L [facility] HemeAutoSS HEMATOLOGYOrdered By: Salvatore Childress on 10-21-2022 Erythrocyte distribution width (RBC) [Ratio] 13.8 % Normal 10.9 - 14.2 % [facility] HemeAutoSS Hematocrit (Bld) [Volume fraction] 40.9 % Normal 37.7 - 49.0 % [facility] HemeAutoSS Hemoglobin (Bld) [Mass/Vol] 13.8 g/dL Normal 13.5 - 17.5 gm/dL [facility] HemeAutoSS MCH (RBC) [Entitic mass] 28.1 pg Normal 27.0 - 34.0 pg [facility] HemeAutoSS MCHC (RBC) [Mass/Vol] 33.6 g/dL Normal 31.4 - 36.0 gm/dL [facility] HemeAutoSS MCV (RBC) [Entitic vol] 83.6 fL Normal 80.0 - 100.0 fL [facility] HemeAutoSS Platelet mean volume (Bld) [Entitic vol] 7.6 fL Normal 6.4 - 10.8 fL [facility] HemeAutoSS Platelets (Bld) [#/Vol] 267.0 E9/L Normal 150. 0 - 500.0 E9/L [facility] HemeAutoSS RBC (Bld) [#/Vol] 4.9 E12/L Normal 4.3 - 5.9 E12/L [facility] HemeAutoSS WBC corrected for nucl RBC Auto (Bld) [#/Vol] 9.0 E9/L Normal 4.0 - 11.0 E9/L [facility] HemeAutoSS EMS Documentationon 10-19-19 EMS Documentation Normal [facility] Pre-Certification Formon 03- 27-2023 Pre-Certification Form [id number]#1. 00CD:[address] [facility] Coding Summary.on 10-07-2022 Coding Summary. Normal [facility] Discharge Instructionson Discharge Instructions [id number]# 1.00CD:[address] [facility] EMS Documentationon 10-08-19 EMS Documentation Normal [facility] Stress EKG Tracingson 2022 Stress EKG Tracings [id number]#1 .00CD:[address] [facility] CHEMISTRYOrdered By: SYSTEM SYSTEM on 10-06-2022 Anion gap [Moles/Vol] 10 mmol/L Normal 6 - 16 mEq/L [facility] Chloride [Moles/Vol] 105 mmol/L Normal 101 - 1 11 mmol/L [facility] Remisol CO2 [Moles/Vol] 25 mmol/L Normal 21 - 31 mmol/L [facility] Potassium [Moles/Vol] 4.3 mmol/L Normal 3.5 - 5.3 mmol/L [facility] Remisol Sodium [Moles/Vol] 136 mmol/L Normal 135 - 145 mmol/L [facility] TSH Qn 1.49 m[IU]/L Normal 0.34 - 5.60 mcIU/mL [facility] Discharge Note-Nursingon Discharge Note-Nursing Normal [facility] EMS Documentationon 10-07-19 EMS Documentation Normal [facility] Inpatient Clinical Summaryon 10-06-2022 Inpatient Clinical Summary Normal [facility] Inpatient Patient Summaryon 10-06-2022 Inpatient Patient Summary Normal [facility] Lyteson 10-06-2022 Anion gap [Moles/Vol] 10 mmol/L Normal 6-16 [facility] Comment on above: Performed By: #### 2 997502, 2923997 ####[facility] [address] [place] [address] Chloride [Moles/Vol] 105 mmol/L Normal 101-111 [facility] Comment on above: Performed By: #### 2 743335, 7565291 ####[facility] [address] [place] [address] CO2 [Moles/Vol] 25 mmol/L Normal 21-31 [facility] Comment on above: Performed By: #### 2 821091, 1424462 ####[facility] [address] [place] [address] Potassium [Moles/Vol] 4.3 mmol/L Normal 3.5-5.3 [facility] Comment on above: Performed By: #### 2 056937, 6351812 ####[facility] [address] [place] [address] Sodium [Moles/Vol] 136 mmol/L Normal 135-[address] [facility] Comment on above: Performed By: #### 2 139877, 1457686 ####[facility] [address] [place] [address] Monitor Recordon 10-06-2022 Monitor Record [id number]#1 .00CD:[address] [facility] Monitor Record [id number]#1 .00CD:[address] [facility] No Panel Informationon 10-06 Normal -[facility] DO Work Phone: Progress Note-Physicianon Progress Note-Physician Normal [facility] Comment on above: Result Comment: Elec tronically Signed By: Emily REBOLLEDO, Wily\.br\Date and Time Signed: 10/06/22 14:34 EDT TSHon 10-06-2022 TSH Qn 1.49 m[IU]/L Normal 0.34-5.[address] [facility] Comment on above: Performed By: #### 2 357079, 1243347 ####[facility] [address] [place] [address] UA With Cult Reflexon 2022 Bilirubin Ql (U) Negative Normal Negative [facility] Comment on above: Performed By: #### 1 1358001 ####[facility] [address] [place] [address] Clarity (U) CLEAR Normal Clear [facility] Comment on above: Performed By: #### 1 1828358 ####[facility] [address] [place] [address] Color (U) YELLOW Normal Yellow [facility] Comment on above: Performed By: #### 1 2315297 ####[facility] [address] [facility] [place] [address] Epithelial cells.squamous LM.HPF (Urine sed) [#/Area] 0-2 Normal 0-2 [facility] Comment on above: Performed By: #### 1 5135471 ####[facility] [address] [place] [address] Glucose Test strip (U) [Mass/Vol] Negative Normal Negative [facility] Comment on above: Performed By: #### 1 8249462 ####[facility] [address] [facility] [place] [address] Hemoglobin Ql (U) Negative Normal Negative [facility] Comment on above: Performed By: #### 1 0415269 ####[facility] [address] [place] [address] Ketones (U) [Mass/Vol] Negative Normal Negative Fi [facility] Comment on above: Performed By: #### 1 8370460 ####[facility] [address] [place] [address] Orlinda.plasma/Orlinda. RBC (Bld) [Mass ratio] 0-3 Normal 0-3 [facility] Comment on above: Performed By: #### 1 9260715 ####[facility] [address] [facility] [place] [address] Nitrite Ql (U) Negative Normal Negative [facility] Comment on above: Performed By: #### 1 1446452 ####[facility] [address] [place] [address] pH (U) 6.5 [pH] Invalid Interpretation Code 5.0-9.[address] [facility] Comment on above: Performed By: #### 1 9353646 ####[address] [address] Protein (U) [Mass/Vol] Negative Normal Negative [facility] Comment on above: Performed By: #### 1 5767685 ####[address] [address] Specific gravity (U) [Rel density] 1.015 Invalid Interpretation Code 1.005-1.[address] [facility] Comment on above: Performed By: #### 1 9600197 ####[place] [address] Type of Urine collection method Clean Catch Normal [facility] Comment on above: Performed By: #### 1 9421223 ####[address] [address] Urobilinogen Qn (U) 0.2 {Emily'U}/dL Normal 0.0-1.[address] [facility] Comment on above: Performed By: #### 1 5932335 ####[address] [address] WBC Auto Ql (U) Negative Normal Negative [facility] Comment on above: Performed By: #### 1 0125405 ####[address] [address] WBC LM.HPF (Urine sed) [#/Area] 0-5 Normal 0-[address] [facility] Comment on above: Performed By: #### 1 1450294 ####[address] [address] URINALYSISOrdered By: Elva Calvillo on 10-06-2022 Bilirubin Ql (U) Negative (10/06/22 2:52 PM) Normal Negative [facility] UA Auto SS Clarity (U) Clear (10/06/22 2:52 PM) Normal Clear [facility] UA Auto SS Color (U) Yellow (10/06/22 2:52 PM) Normal Yellow [facility] UA Auto SS Epithelial cells.squamous LM.HPF (Urine sed) [#/Area] 0-2 /HPF Normal 0-2/HPF [facility] UA Aut o SS Glucose Test strip (U) [Mass/Vol] Negative (10/06/22 2:52 PM) Normal Negative [facility] UA Auto SS Hemoglobin Ql (U) Negative (10/06/22 2:52 PM) Normal Negative [facility] UA Auto SS Ketones (U) [Mass/Vol] Negative (10/06/22 2:52 PM) Normal Negative [facility] UA Auto SS Orlinda.plasma/Orlinda. RBC (Bld) [Mass ratio] 0-3 /HPF Normal 0-3/HPF [facility] UA A uto SS Nitrite Ql (U) Negative (10/06/22 2:52 PM) Normal Negative [facility] UA Auto SS pH (U) 6.5 *NA* (10/06/22 2:52 PM) Invalid Interpretation Code 5.0 - 9.0 [facility] UA Auto SS Protein (U) [Mass/Vol] Negative (10/06/22 2:52 PM) Normal Negative [facility] UA Auto SS Specific gravity (U) [Rel density] 1.015 *NA* (10/06/22 2:52 PM) Invalid Interpretation Code 1.005 - 1.030 [facility] UA Auto SS UA Spec Desc Clean Catch (10/06/22 2:52 PM) Normal [facility] UA Auto SS Urobilinogen Qn (U) 0.3480782 {Emily'U}/dL Normal 0.0 - 1.0 EU/dL [facility] UA Auto SS WBC Auto Ql (U) Negative (10/06/22 2:52 PM) Normal Negative [facility] UA Auto SS WBC LM.HPF (Urine sed) [#/Area] 0-5 /HPF Normal 0-5/HPF [facility] UA Auto SS CTA Cheston 10-05-2022 CTA Chest Normal [facility] Consultation Noteon 10-06-19 Consultation Note Normal [facility] Comment on above: Result Comment: Elec tronically Signed By: Emily REBOLLEDO, Wily\.br\Date and Time Signed: 10/05/22 15:32 EDT Consultation Note Normal [facility] Comment on above: Result Comment: Elec tronically Signed By: Lester DIAZ, Nataliya Saldivar\.br\Date and Time Signed: 10/05/22 07:20 EDT\.br\Electronically Co-Signed By: Mohamud Ramirez DO\.br\Date and Time Co-Signed: 10/05/22 10:05 EDT EMS Documentationon 10-06-19 EMS Documentation Normal [facility] Echo Transthoracic Completeo n 10-05-2022 Echo Transthoracic Complete Normal [facility] Insurance Correspondenceon 0 10-05-2022 Insurance Correspondence [id number] .00CD:[address] [facility] Interdisciplinary Note - Kendrick e Manageron 10-05-2022 Interdisciplinary Note - Night Clerk Auditor Normal [facility] Comment on above: Result Comment: Elec tronically Signed By: Yesy Masters\.br\Date and Time Signed: 10/05/22 09:11 EDT Monitor Recordon 10-05-2022 Monitor Record [id number]#1 .00CD:[address] [facility] Monitor Record [id number]#1 .00CD:[address] [facility] Progress Note-Physicianon Progress Note-Physician Normal [facility] Comment on above: Result Comment: Elec tronically Signed By: Arielle HILLMAN\.br\Date and Time Signed: 10/05/22 14:42 EDT\.br\Electronically Co-Signed By: Phan REBOLLEDO, Roddy\.br\Date and Time Co-Signed: 10/05/22 19:44 EDT Auto Diffon 10-04-2022 Basophils/100 WBC (Bld) 0.6 % Normal 0.0-2.0 [facility] Comment on above: Order Comment: Order Added by Discern Expert. Performed By: #### 2 283732, 5033180, 2307302, 27619650, 36859716, 26878082 ####[facility] [address] [place] [address] Basophils/Leukocytes Auto (Bld) [Pure # fraction] 0.1 E9/L Normal 0.0-0.[address] [facility] Comment on above: Order Comment: Order Added by Discern Expert. Performed By: #### 2 563424, 2048003, 8384055, 85788636, 65270672, 65169691 ####[facility] [address] [place] [address] Eosinophils/100 WBC (Bld) 2.3 % Normal 0.0-8.[address] [facility] Comment on above: Order Comment: Order Added by Discern Expert. Performed By: #### 2 348886, 3889501, 5600342, 99393945, 49964440, 34095943 ####[place] [address] [place] [address] Eosinophils/Leukocytes Auto (Bld) [Pure # fraction] 0.2 E9/L Normal 0.0-0.[address] [facility] Comment on above: Order Comment: Order Added by Discern Expert. Performed By: #### 2 748365, 7680526, 3171384, 97015418, 27215281, 59907304 ####[place] [place] [address] Lymphocytes/100 WBC (Bld) 29.0 % Normal 14.0-50.[address] [facility] Comment on above: Order Comment: Order Added by Discern Expert. Performed By: #### 2 392651, 2868974, 4941137, 37941212, 33300724, 83548776 ####[place] [address] [place] [address] Lymphocytes/Leukocytes Auto (Bld) [Pure # fraction] 2.7 E9/L Normal 1.0-4.[address] [facility] Comment on above: Order Comment: Order Added by Mekhi Expert. Performed By: #### 2 491496, 2226493, 6494328, 23755955, 31200443, 92151789 ####[place] [place] [address] Monocytes/100 WBC (Bld) 11.0 % Normal 4.0-14.0 [facility] Comment on above: Order Comment: Order Added by Discern Expert. Performed By: #### 2 125646, 0079381, 9744569, 84761767, 48448515, 40873081 ####[facility] [address] [place] [address] Monocytes/Leukocytes Auto (Bld) [Pure # fraction] 1.0 E9/L Normal 0.2-1.[address] [facility] Comment on above: Order Comment: Order Added by Discern Expert. Performed By: #### 2 904717, 1536627, 0924945, 88849397, 04950863, 95721720 ####[facility] [address] [place] [address] Neutrophils/100 WBC (Bld) 57.1 % Normal 36.0-75.[address] [facility] Comment on above: Order Comment: Order Added by Discern Expert. Performed By: #### 2 243984, 3275452, 3064284, 03469283, 15553273, 62640492 ####[facility] [address] [place] [address] Neutrophils/Leukocytes Auto (Bld) [Pure # fraction] 5.2 E9/L Normal 2.0-7.[address] [facility] Comment on above: Order Comment: Order Added by Discern Expert. Performed By: #### 2 266569, 2803118, 9874185, 40336351, 51022007, 87999863 ####[facility] [address] [place] [address] BMPon 10-04-2022 Creatinine [Mass/Vol] 1.0 mg/dL Normal 0.5-1.3 [facility] Comment on above: Performed By: #### 2 370446, 6835341, 6982659, 60767010, 98982948, 65084220 ####[facility] [address] [place] [address] Urea nitrogen [Mass/Vol] 19 mg/dL Normal 5-[address] [facility] Comment on above: Performed By: #### 2 876377, 4268050, 4608380, 48860090, 88045599, 28675316 ####[facility] [address] [place] [address] Urea nitrogen/Creatinine [Mass ratio] 19 No Units Normal 10-[address] [facility] Comment on above: Performed By: #### 2 409512, 6674285, 0924577, 11188954, 68251681, 29394399 ####[facility] [address] [place] [address] Anion gap [Moles/Vol] 9 mmol/L Normal 6-16 [facility] Comment on above: Performed By: #### 2 553221, 9365550, 2328081, 09410025, 27440915, 06377682 ####[facility] [address] [place] [address] Calcium [Mass/Vol] 8.6 mg/dL Low 8.9-11.[address] [facility] Comment on above: Performed By: #### 2 414935, 7943994, 1522633, 19589624, 66975097, 34688794 ####[facility] [address] [place] [address] Chloride [Moles/Vol] 105 mmol/L Normal 101-111 [facility] Comment on above: Performed By: #### 2 465247, 7385988, 0450863, 20606635, 24909621, 66326218 ####[facility] [address] [place] [address] CO2 [Moles/Vol] 26 mmol/L Normal 21-31 [facility] Comment on above: Performed By: #### 2 810384, 5868193, 9880723, 83517523, 37060994, 26778952 ####[facility] [address] [place] [address] Glucose [Mass/Vol] 115 mg/dL Normal 55-[address] [facility] Comment on above: Result Comment: If t his glucose result represents a fasting glucose, interpretation should refer to the following reference range: 55-99 mg/dL Performed By: #### 2 248642, 6725505, 3464851, 34565395, 52740947, 82564547 ####[facility] [address] [place] [address] Potassium [Moles/Vol] 3.9 mmol/L Normal 3.5-5.3 [facility] Comment on above: Performed By: #### 2 726080, 1992818, 8123242, 87102572, 62605605, 67556571 ####[place] [place] [address] Sodium [Moles/Vol] 136 mmol/L Normal 135-[address] [facility] Comment on above: Performed By: #### 2 040648, 3079768, 5778988, 34553701, 26698900, 81080470 ####[address] [address] CBC w/ Auto Diffon 3 Erythrocyte distribution width (RBC) [Ratio] 14.0 % Normal 10.9-14.[address] [facility] Comment on above: Performed By: #### 2 135723, 9979647, 9363221, 72025124, 47482879, 35829340 ####[place] [place] [address] Hematocrit (Bld) [Volume fraction] 42.1 % Normal 37.7-49.[address] [facility] Comment on above: Performed By: #### 2 904171, 7085817, 2885137, 43878677, 96588907, 79543668 ####[facility] [address] [place] [address] Hemoglobin (Bld) [Mass/Vol] 14.3 g/dL Normal 13.5-17.[address] [facility] Comment on above: Performed By: #### 2 523323, 1958297, 6810844, 08743561, 52087623, 39815562 ####[facility] [address] [place] [address] MCH (RBC) [Entitic mass] 28.2 pg Normal 27.0-34.[address] [facility] Comment on above: Performed By: #### 2 771782, 4234639, 5954951, 17144762, 96105815, 00189433 ####[facility] [address] [place] [address] MCHC (RBC) [Mass/Vol] 33.9 g/dL Normal 31.4-36.0 [facility] Comment on above: Performed By: #### 2 985815, 9197384, 7793756, 25867378, 12772089, 45161564 ####[place] [place] [address] MCV (RBC) [Entitic vol] 83.1 fL Normal 80.0-100.0 [facility] Comment on above: Performed By: #### 2 759494, 3511335, 9059144, 69091902, 12844603, 11990124 ####[facility] [address] [place] [address] Platelet mean volume (Bld) [Entitic vol] 7.4 fL Normal 6.4-10.[address] [facility] Comment on above: Performed By: #### 2 786371, 2251628, 5637364, 01198462, 44325739, 18564538 ####[facility] [address] [place] [address] Platelets (Bld) [#/Vol] 294.0 E9/L Normal 150.0-500.[address] [facility] Comment on above: Performed By: #### 2 190817, 9552536, 7759966, 84264739, 32661976, 29539410 ####[facility] [address] [place] [address] RBC (Bld) [#/Vol] 5.1 E12/L Normal 4.3-5.[address] [facility] Comment on above: Performed By: #### 2 079015, 6110634, 5878058, 26126872, 87435832, 35853867 ####[facility] [address] [place] [address] WBC corrected for nucl RBC Auto (Bld) [#/Vol] 9.2 E9/L Normal 4.0-11.0 [facility] Comment on above: Performed By: #### 2 561782, 5338125, 3609015, 49064353, 01226473, 82751179 ####[facility] [address] [place] [address] CHEMISTRYOrdered By: SYSTEM SYSTEM on 10-04-2022 Troponin I.cardiac [Mass/Vol] 4.80 pg/mL Low 15.90 - 38.40 pg/mL [facility] Troponin I.cardiac [Mass/Vol] 4.60 pg/mL Low 15.90 - 38.40 pg/mL [facility] Remisol Troponin I.cardiac [Mass/Vol] 5.10 pg/mL Low 15.90 - 38.40 pg/mL [facility] Remisol Anion gap [Moles/Vol] 9 mmol/L Normal 6 - 16 mEq/L [facility] Remisol Calcium [Mass/Vol] 8.6 mg/dL Low 8.9 - 11. 1 mg/dL [facility] Remisol Chloride [Moles/Vol] 105 mmol/L Normal 101 - 1 11 mmol/L [facility] CO2 [Moles/Vol] 26 mmol/L Normal 21 - 31 mmol/L [facility] Creatinine [Mass/Vol] 1.0 mg/dL Normal 0.5 - 1.3 mg/dL [facility] GFR/1.73 sq M.predicted among blacks MDRD (S/P/Bld) [Vol rate/Area] mL/min/1.73 m2 Normal >=59mL/min/ 1.73 m2 [facility] Chem S GFR/1.73 sq M.predicted among non-blacks MDRD (S/P/Bld) [Vol rate/Area] mL/min/1.73 m2 Normal >=59mL/min/ 1.73 m2 [facility] Chem S Glucose [Mass/Vol] 115 mg/dL Normal 55 - 199 mg/dL [facility] Potassium [Moles/Vol] 3.9 mmol/L Normal 3.5 - 5.3 mmol/L [facility] Sodium [Moles/Vol] 136 mmol/L Normal 135 - 145 mmol/L [facility] Urea nitrogen [Mass/Vol] 19 mg/dL Normal 5 - 21 mg/dL [facility] Urea nitrogen/Creatinine [Mass ratio] 19 mg/mg Normal 10 - 20 [facility] COAGULATIONOrdered By: Shruthi Finley on 10-04-2022 aPTT Coag (PPP) [Time] 29.7 s Normal 25.1 - 36.5 second(s) [facility] Auto Coag INR Coag (PPP) [Relative time] 1.0 {INR} Invalid Interpretation Code [facility] Auto Coag PT Coag (PPP) [Time] 11.0 s Normal 9.4 - 1 2.5 second(s) [facility] Auto Coag CT HEAD WO CONon 10-04-2022 CT HEAD WO CON EXAMINATION: CT HEAD WO CON HISTORY: Headache COMPARISON: 05/15/2017 TECHNIQUE: CT examination of the head without IV contrast. Dose reduction techniques were achieved by using automated exposure control and/or adjustment of mA and/or kV according to patient size and/or use of iterative reconstruction technique. FINDINGS: No acute intracranial hemorrhage. No acute loss of fournier/white differentiation. There are a few chronic areas of encephalomalacia in the frontal lobes bilaterally, right parietal lobe and the right occipital lobe. A small chronic lacunar infarctions present in the right basal ganglia. The ventricles and sulci are normal in appearance. The osseous structures are unremarkable. No soft tissue abnormality identified. The paranasal sinuses and mastoid air cells are clear. IMPRESSION: 1. No acute intracranial abnormality. 2. Small multifocal chronic areas of infarction. Electronically authenticated by: KHOI BOOKER Date: 2022-10-04 08:23 Normal [facility] Consent for Treatmenton 09-15 Consent for Treatment [id number]# 1.00CD:[address] [facility] ED Clinical Summaryon 2022 ED Clinical Summary Normal [facility] ED Note-Physicianon 10-05-19 23 ED Note-Physician Normal [facility] Comment on above: Result Comment: Elec tronically Signed By: Jocelyn Garza DO\.milena\Date and Time Signed: 10/04/22 10:27 EDT ED Patient Education Noteon 10-04-2022 ED Patient Education Note Normal [facility] ED Patient Summaryon 023 ED Patient Summary Normal [facility] Education Videoon inexio Education Video Yes Patient Avoiding Infections in the Hospital Normal [facility] HEMATOLOGYOrdered By: SYSTEM SYSTEM on 10-04-2022 Basophils/100 WBC (Bld) 0.6 % Normal 0.0 - 2.0 % [facility]eAutoSS Basophils/Leukocytes Auto (Bld) [Pure # fraction] 0.1 E9/L Normal 0.0 - 0.2 E9/L [facility]eAutoSS Eosinophils/100 WBC (Bld) 2.3 % Normal 0.0 - 8.0 % [facility]eAutoSS Eosinophils/Leukocytes Auto (Bld) [Pure # fraction] 0.2 E9/L Normal 0.0 - 0.5 E9/L [facility]eAutoSS Lymphocytes/100 WBC (Bld) 29.0 % Normal 14.0 - 50.0 % [facility]eAutoSS Lymphocytes/Leukocytes Auto (Bld) [Pure # fraction] 2.7 E9/L Normal 1.0 - 4.0 E9/L [facility]eAutoSS Monocytes/100 WBC (Bld) 11.0 % Normal 4.0 - 14.0 % [facility]eAutoSS Monocytes/Leukocytes Auto (Bld) [Pure # fraction] 1.0 E9/L Normal 0.2 - 1.0 E9/L [facility]eAutoSS Neutrophils/100 WBC (Bld) 57.1 % Normal 36.0 - 75.0 % [facility]eAutoSS Neutrophils/Leukocytes Auto (Bld) [Pure # fraction] 5.2 E9/L Normal 2.0 - 7.5 E9/L [facility] HEMATOLOGYOrdered By: Salvatore Childress on 10-04-2022 Erythrocyte distribution width (RBC) [Ratio] 14.0 % Normal 10.9 - 14.2 % [facility]eAuto[facility] Hematocrit (Bld) [Volume fraction] 42.1 % Normal 37.7 - 49.0 % [facility]eAuto[facility] Hemoglobin (Bld) [Mass/Vol] 14.3 g/dL Normal 13.5 - 17.5 gm/dL [facility]eAuto[facility] MCH (RBC) [Entitic mass] 28.2 pg Normal 27.0 - 34.0 pg [facility]Auto[facility] MCHC (RBC) [Mass/Vol] 33.9 g/dL Normal 31.4 - 36.0 gm/dL [facility]eAuto[facility] MCV (RBC) [Entitic vol] 83.1 fL Normal 80.0 - 100.0 fL [facility]eAuto[facility] Platelet mean volume (Bld) [Entitic vol] 7.4 fL Normal 6.4 - 10.8 fL [facility]eAutoSS Platelets (Bld) [#/Vol] 294.0 E9/L Normal 150. 0 - 500.0 E9/L [facility]Auto[facility] RBC (Bld) [#/Vol] 5.1 E12/L Normal 4.3 - 5.9 E12/L [facility] WBC corrected for nucl RBC Auto (Bld) [#/Vol] 9.2 E9/L Normal 4.0 - 11.0 E9/L [facility] Interdisciplinary Note - Soc ial Workeron 10-04-2022 Interdisciplinary Note - Museum Preparator Normal [facility] MRI Brain w/o Contraston MRI Brain w/o Contrast Normal [facility] Monitor Recordon 10-04-2022 Monitor Record [id number]#1 .00CD:[address] [facility] Monitor Record [id number]# 1.00CD:[address] [facility] Monitor Record [id number]# 1.00CD:[address] [facility] Monitor Record [id number]# 1.00CD:[address] [facility] Monitor Record [id number]# 1.00CD:[address] [facility] PT & PTTon 10-04-2022 aPTT Coag (PPP) [Time] 29.7 second(s) Normal 25.1-36.[address] [facility] Comment on above: Result Comment: Para meter 15 days - 4 weeks 1 - 5 months 6 - 11 months 1 - 5 years 6 - 10 years 11 - 17 years PTT Mean: 35.4 (27.6-45.6) Mean: 33.5 (24.8-40.7) Mean: 32.4 (25.1-40.7) Mean: 31.6 (24.0-39.2) Mean: 31.6 (26.9-38.7) Mean: 31.0 (24.6-38.4) Pediatric Reference ranges were obtained from a study by [employer]. prepared from 1437 samples obtained at 7 different centers using the same coagulation reagent and instrumentation as [facility]. Currently there are no coagulation studies available worldwide for children to 14 days, and no normal ranges. Heparin therapeutic range (represented by Anti-Factor Xa activity of 0.2 - 0.4 U/mL) corresponds to PTT of 56.6 - 109.0 sec. Performed By: #### 2 613920, 3748741, 1753673, 00466473, 78625299, 71202212 ####[facility] [address] [place] [address] INR Coag (PPP) [Relative time] 1.0 {INR} Invalid Interpretation Code [facility] Comment on above: Result Comment: INR results are specifically intended to assess patients stabilized on long-term Anticoagulation therapy suggested INR?s ?Less Intensive Anticoagulation? 2.0 ? 3.0Conventional Range 3.0 ? 4.5 Performed By: #### 2 203805, 0020281, 3194545, 25168261, 76406542, 35220432 ####[facility] [address] [place] [address] PT Coag (PPP) [Time] 11.0 second(s) Normal 9.4-12.[address] [facility] Comment on above: Result Comment: 15 d ays - 4 weeks 1 - 5 months 6 -11 months 1-5 years 6-10 years 11 -17 years Mean: 11.2 (9.5-12.6) Mean: 11.0 (9.7-12.8) Mean: 11.0 (9.8-13.0) Mean: 11.3 (9.9-13.4) Mean: 11.7 (10.0-14.6) Mean: 11.8 (10.0 - 14.1) Pediatric Reference ranges were obtained from a study by Ronn Boucher et al. prepared from 1437 samples obtained at 7 different centers using the same coagulation reagent and instrumentation as [facility]. Currently there are no coagulation studies available worldwide for children to 14 days, and no normal ranges. Performed By: #### 2 279578, 5064021, 9873569, 14700238, 21939632, 37460947 ####[facility] [address] [place] [address] Pre-Arrival Noteon Pre-Arrival Note Normal [facility] Progress Note-Nurseon 2022 Progress Note-Nurse patient taken by EMS to CT at [place] at this time Normal [facility] RAD - MRI Screening Formon 0 10-04-2022 RAD - MRI Screening Form [id number]# 1.00CD:[address] [facility] RAD - Preliminary Cat Scan R eporton 10-04-2022 RAD - Preliminary Cat Scan Report [id number]# 1.00CD:[address] [facility] Troponin 0 Hr.on 10-04-2022 Troponin I.cardiac [Mass/Vol] 5.10 pg/mL Low 15.90-38.[address] [facility] Comment on above: Result Comment: The 95% CI (Confidence Interval) PPV (Positive Predictive Value) for myocardial infarction in females is 38 pg/mL, in males 51 pg/mL. The results should be used in conjunction with clinical conditions of myocardial infarction.(Access High Sensitivity Troponin I Instructions For Use, Mariaelena Elizabeth, February 2018) Performed By: #### 2 470905, 8472710, 5038791, 03914339, 18314520, 61245522 ####[facility] [address] [place] [address] Troponin 3 Hr.on 10-04-2022 Troponin I.cardiac [Mass/Vol] 5.10 pg/mL Low 15.90-38.[address] [facility] Comment on above: Order Comment: pt is in sed[place] for ct Result Comment: The 95% CI (Confidence Interval) PPV (Positive Predictive Value) for myocardial infarction in females is 38 pg/mL, in males 51 pg/mL. The results should be used in conjunction with clinical conditions of myocardial infarction.(Access High Sensitivity Troponin I Instructions For Use, [employer], February 2018) Performed By: #### 1 [id number] ####[facility] [address] [place] [address] Troponin 6 Hr.on 10-04-2022 Troponin I.cardiac [Mass/Vol] 4.60 pg/mL Low 15.90-38.[address] [facility] Comment on above: Result Comment: The 95% CI (Confidence Interval) PPV (Positive Predictive Value) for myocardial infarction in females is 38 pg/mL, in males 51 pg/mL. The results should be used in conjunction with clinical conditions of myocardial infarction.(Access High Sensitivity Troponin I Instructions For Use, [employer], February 2018) Performed By: #### 1 [id number] ####[facility] [address] [place] [address] Troponin 9 Hr.on 10-04-2022 Troponin I.cardiac [Mass/Vol] 4.80 pg/mL Low 15.90-38.[address] [facility] Comment on above: Result Comment: The 95% CI (Confidence Interval) PPV (Positive Predictive Value) for myocardial infarction in females is 38 pg/mL, in males 51 pg/mL. The results should be used in conjunction with clinical conditions of myocardial infarction.(Access High Sensitivity Troponin I Instructions For Use, [employer], February 2018) Performed By: #### 1 [id number] ####[facility] [address] [place] [address] XR Chest Single Viewon 10-04 XR Chest Single View Normal [facility] eGFRon 10-04-2022 GFR/1.73 sq M.predicted among blacks MDRD (S/P/Bld) [Vol rate/Area] mL/min/{1.73_m2} Normal >=[address] [facility] Comment on above: Order Comment: Order added by Discern Expert. Result Comment: eGFR is race adjusted. AA=. Performed By: #### 2 321308, 2549732, 3047158, 82980432, 29392389, 10454070 ####[facility] [address] [place] [address] GFR/1.73 sq M.predicted among non-blacks MDRD (S/P/Bld) [Vol rate/Area] mL/min/{1.73_m2} Normal >=[address] [facility] Comment on above: Order Comment: Order added by Discern Expert. Result Comment: Travel Director andrea kidney disease could be indicated at eGFR's of less than 60 mL/min/1.73m2. Kidney failure is indicated at less than 15 mL/min/1.73m2. Performed By: #### 2 123075, 8237525, 7359413, 66958779, 79738343, 77634058 ####[facility] [address] [place] [address] Coding Summary.on 09-30-2022 Coding Summary. Normal [facility] Discharge Instructionson Discharge Instructions [id number]# 1.00CD:[address] [facility] ED Note-Physicianon 09-30-19 ED Note-Physician [facility] Comment on above: Result Comment: Elec tronically Signed By: Derian Rider DO\.br\Date and Time Signed: 09/28/22 22:03 EDT Prescriptions/Work Noteson 0 09-29-2022 Prescriptions/Work Notes [id number]# 1.00CD:127 [facility] Auto Diffon 09-28-2022 Basophils/100 WBC (Bld) 0.6 % Normal 0.0-2.0 [facility] Comment on above: Order Comment: Order Added by Discern Expert. Performed By: #### 2 174927, 6336164, 13660215, 3517594, 86232008, 81186280 ####[address] [place] [address] Basophils/Leukocytes Auto (Bld) [Pure # fraction] 0.1 E9/L Normal 0.0-0.[address] [facility] Comment on above: Order Comment: Order Added by Discern Expert. Performed By: #### 2 521637, 8470917, 38363093, 6247881, 30469111, 67582718 ####[address] [place] [address] Eosinophils/100 WBC (Bld) 1.2 % Normal 0.0-8.[address] [facility] Comment on above: Order Comment: Order Added by Mekhi Expert. Performed By: #### 2 569096, 9354543, 17747960, 0219846, 84617613, 48522722 ####[address] [address] Eosinophils/Leukocytes Auto (Bld) [Pure # fraction] 0.1 E9/L Normal 0.0-0.[address] [facility] Comment on above: Order Comment: Order Added by Mekhi Expert. Performed By: #### 2 226785, 8118184, 14330063, 2647010, 44874442, 90709727 ####[address] [address] Lymphocytes/100 WBC (Bld) 26.9 % Normal 14.0-50.[address] [facility] Comment on above: Order Comment: Order Added by Mekhi Expert. Performed By: #### 2 337512, 5806430, 91379282, 2831734, 10702320, 46480206 ####[address] [place] [address] Lymphocytes/Leukocytes Auto (Bld) [Pure # fraction] 3.2 E9/L Normal 1.0-4.[address] [facility] Comment on above: Order Comment: Order Added by Discern Expert. Performed By: #### 2 499002, 8319763, 60365699, 1972510, 66846334, 23236542 ####[facility] [address] [place] [address] Monocytes/100 WBC (Bld) 11.2 % Normal 4.0-14.0 [facility] Comment on above: Order Comment: Order Added by Discern Expert. Performed By: #### 2 396121, 4091632, 78630454, 2052302, 40727768, 26447728 ####[facility] [address] [place] [address] Monocytes/Leukocytes Auto (Bld) [Pure # fraction] 1.3 E9/L High 0.2-1.[address] [facility] Comment on above: Order Comment: Order Added by Mekhi Expert. Performed By: #### 2 851476, 0481726, 82004728, 6119073, 21498116, 57662737 ####[facility] [address] [place] [address] Neutrophils/100 WBC (Bld) 60.1 % Normal 36.0-75.[address] [facility] Comment on above: Order Comment: Order Added by Mekhi Expert. Performed By: #### 2 719878, 8700318, 74530060, 4128948, 70848171, 21387966 ####[address] [place] [address] Neutrophils/Leukocytes Auto (Bld) [Pure # fraction] 7.1 E9/L Normal 2.0-7.[address] [facility] Comment on above: Order Comment: Order Added by Mekhi Expert. Performed By: #### 2 569195, 2341162, 72305585, 2378255, 93379648, 81825925 ####[facility] [address] [place] [address] BMPon 09-28-2022 Creatinine [Mass/Vol] 0.9 mg/dL Normal 0.5-1.3 [facility] Comment on above: Performed By: #### 2 692098, 1039309, 09973255, 6002507, 24724682, 19659675 ####[facility] [address] [place] [address] Urea nitrogen [Mass/Vol] 16 mg/dL Normal 5-[address] [facility] Comment on above: Performed By: #### 2 942413, 0789588, 42055951, 4190652, 47483670, 85624338 ####[facility] [address] [place] [address] Urea nitrogen/Creatinine [Mass ratio] 18 No Units Normal 10-[address] [facility] Comment on above: Performed By: #### 2 042297, 8298385, 79769878, 4156962, 05850429, 69253849 ####[facility] [address] [place] [address] Anion gap [Moles/Vol] 12 mmol/L Normal 6-16 [facility] Comment on above: Performed By: #### 2 168650, 6252155, 44912213, 1182339, 53737008, 82196950 ####[facility] [address] [place] [address] Calcium [Mass/Vol] 9.2 mg/dL Normal 8.9-11.[address] [facility] Comment on above: Performed By: #### 2 451646, 7042019, 28517890, 4008098, 15343617, 82164489 ####[facility] [address] [place] [address] Chloride [Moles/Vol] 101 mmol/L Normal 101-111 [facility] Comment on above: Performed By: #### 2 790369, 2670185, 76662545, 4611113, 40163337, 29602445 ####[facility] [address] [place] [address] CO2 [Moles/Vol] 25 mmol/L Normal 21-31 [facility] Comment on above: Performed By: #### 2 094354, 8916012, 31572958, 0623404, 36357803, 01754543 ####[facility] [address] [place] [address] Glucose [Mass/Vol] 119 mg/dL Normal 55-[address] [facility] Comment on above: Result Comment: If t his glucose result represents a fasting glucose, interpretation should refer to the following reference range: 55-99 mg/dL Performed By: #### 2 744751, 6606692, 19015147, 1388650, 57906731, 88972990 ####[facility] [address] [place] [address] Potassium [Moles/Vol] 4.1 mmol/L Normal 3.5-5.3 [facility] Comment on above: Performed By: #### 2 945892, 4597725, 71450211, 2285426, 45809452, 20761478 ####[facility] [address] [place] [address] Sodium [Moles/Vol] 134 mmol/L Low 135-[address] [facility] Comment on above: Performed By: #### 2 164284, 2207688, 93495852, 8840413, 59615880, 72564775 ####[facility] [address] [place] [address] CBC w/ Auto Diffon Erythrocyte distribution width (RBC) [Ratio] 13.9 % Normal 10.9-14.[address] [facility] Comment on above: Performed By: #### 2 278486, 2499728, 43345399, 2068595, 45452891, 50265773 ####[address] [place] [address] Hematocrit (Bld) [Volume fraction] 41.1 % Normal 37.7-49.[address] [facility] Comment on above: Performed By: #### 2 302776, 2682942, 28615474, 8537058, 92894940, 43376504 ####[facility] [address] [place] [address] Hemoglobin (Bld) [Mass/Vol] 13.7 g/dL Normal 13.5-17.[address] [facility] Comment on above: Performed By: #### 2 786819, 2201166, 72038850, 7530614, 78511862, 73991266 ####[address] [address] MCH (RBC) [Entitic mass] 28.1 pg Normal 27.0-34.[address] [facility] Comment on above: Performed By: #### 2 686730, 6756946, 67903572, 8452310, 34678339, 61734288 ####[address] MCHC (RBC) [Mass/Vol] 33.3 g/dL Normal 31.4-36.0 [facility] Comment on above: Performed By: #### 2 372650, 3607591, 04339894, 7943773, 85139071, 48726881 ####[address] [address] MCV (RBC) [Entitic vol] 84.2 fL Normal 80.0-100.0 [facility] Comment on above: Performed By: #### 2 449946, 7472728, 29074776, 7257785, 64919301, 26798843 ####[address] [address] Platelet mean volume (Bld) [Entitic vol] 7.5 fL Normal 6.4-10.[address] [facility] Comment on above: Performed By: #### 2 759119, 1174171, 79918310, 9753630, 67887318, 86214869 ####[address] [address] Platelets (Bld) [#/Vol] 283.0 E9/L Normal 150.0-500.[address] [facility] Comment on above: Performed By: #### 2 784925, 6466305, 07835676, 1920130, 04272590, 38333961 ####[facility] [address] [place] [address] RBC (Bld) [#/Vol] 4.9 E12/L Normal 4.3-5.[address] [facility] Comment on above: Performed By: #### 2 881147, 8291018, 72495221, 7617108, 96212773, 53538736 ####[facility] [address] [place] [address] WBC corrected for nucl RBC Auto (Bld) [#/Vol] 11.8 E9/L High 4.0-11.0 [facility] Comment on above: Performed By: #### 2 217810, 4988115, 16140940, 1537547, 19253680, 04517834 ####[facility] [address] [place] [address] CHEMISTRYOrdered By: SYSTEM SYSTEM on 09-28-2022 Anion gap [Moles/Vol] 12 mmol/L Normal 6 - 16 mEq/L [facility] Remisol Calcium [Mass/Vol] 9.2 mg/dL Normal 8.9 - 11. 1 mg/dL [facility] Chloride [Moles/Vol] 101 mmol/L Normal 101 - 1 11 mmol/L [facility] CO2 [Moles/Vol] 25 mmol/L Normal 21 - 31 mmol/L [facility] Creatinine [Mass/Vol] 0.9 mg/dL Normal 0.5 - 1.3 mg/dL [facility] Remisol GFR/1.73 sq M.predicted among blacks MDRD (S/P/Bld) [Vol rate/Area] mL/min/1.73 m2 Normal >=59mL/min/ 1.73 m2 [facility] Chem S GFR/1.73 sq M.predicted among non-blacks MDRD (S/P/Bld) [Vol rate/Area] mL/min/1.73 m2 Normal >=59mL/min/ 1.73 m2 [facility] Chem S Glucose [Mass/Vol] 119 mg/dL Normal 55 - 199 mg/dL [facility] Potassium [Moles/Vol] 4.1 mmol/L Normal 3.5 - 5.3 mmol/L [facility] Sodium [Moles/Vol] 134 mmol/L Low 135 - 145 mmol/L [facility] Troponin I.cardiac [Mass/Vol] 5.50 pg/mL Low 15.90 - 38.40 pg/mL [facility] Urea nitrogen [Mass/Vol] 16 mg/dL Normal 5 - 21 mg/dL [facility] Urea nitrogen/Creatinine [Mass ratio] 18 mg/mg Normal 10 - 20 [facility] COAGULATIONOrdered By: Trena Calvillo on 09-28-2022 aPTT Coag (PPP) [Time] 28.6 s Normal 25.1 - 36.5 second(s) [facility] Auto Coag INR Coag (PPP) [Relative time] 1.0 {INR} Invalid Interpretation Code [facility] Auto Coag PT Coag (PPP) [Time] 11.2 s Normal 9.4 - 1 2.5 second(s) [facility] Auto Coag Consent for Treatmenton 09-14 Consent for Treatment [id number]#1 .00CD:[address] [facility] ED Clinical Summaryon 2022 ED Clinical Summary Normal [facility] ED Patient Education Noteon 09-28-2022 ED Patient Education Note Normal [facility] ED Patient Summaryon 023 ED Patient Summary Normal [facility] HEMATOLOGYOrdered By: SYSTEM SYSTEM on 09-28-2022 Basophils/100 WBC (Bld) 0.6 % Normal 0.0 - 2.0 % [facility]eAutoSS Basophils/Leukocytes Auto (Bld) [Pure # fraction] 0.1 E9/L Normal 0.0 - 0.2 E9/L [facility]eAuto[facility] Eosinophils/100 WBC (Bld) 1.2 % Normal 0.0 - 8.0 % [facility]eAutoSS Eosinophils/Leukocytes Auto (Bld) [Pure # fraction] 0.1 E9/L Normal 0.0 - 0.5 E9/L [facility]eAuto[facility] Lymphocytes/100 WBC (Bld) 26.9 % Normal 14.0 - 50.0 % [facility]eAutoSS Lymphocytes/Leukocytes Auto (Bld) [Pure # fraction] 3.2 E9/L Normal 1.0 - 4.0 E9/L [facility]eAutoSS Monocytes/100 WBC (Bld) 11.2 % Normal 4.0 - 14.0 % [facility]eAutoSS Monocytes/Leukocytes Auto (Bld) [Pure # fraction] 1.3 E9/L High 0.2 - 1.0 E9/L [facility]Auto[facility] Neutrophils/100 WBC (Bld) 60.1 % Normal 36.0 - 75.0 % [facility]eAutoSS Neutrophils/Leukocytes Auto (Bld) [Pure # fraction] 7.1 E9/L Normal 2.0 - 7.5 E9/L [facility] HEMATOLOGYOrdered By: Gianna Lan on 09-28-2022 Erythrocyte distribution width (RBC) [Ratio] 13.9 % Normal 10.9 - 14.2 % [facility] HemeAutoSS Hematocrit (Bld) [Volume fraction] 41.1 % Normal 37.7 - 49.0 % [facility]eAutoSS Hemoglobin (Bld) [Mass/Vol] 13.7 g/dL Normal 13.5 - 17.5 gm/dL [facility] MCH (RBC) [Entitic mass] 28.1 pg Normal 27.0 - 34.0 pg [facility] MCHC (RBC) [Mass/Vol] 33.3 g/dL Normal 31.4 - 36.0 gm/dL [facility] MCV (RBC) [Entitic vol] 84.2 fL Normal 80.0 - 100.0 fL [facility] Platelet mean volume (Bld) [Entitic vol] 7.5 fL Normal 6.4 - 10.8 fL [facility] Platelets (Bld) [#/Vol] 283.0 E9/L Normal 150. 0 - 500.0 E9/L [facility] RBC (Bld) [#/Vol] 4.9 E12/L Normal 4.3 - 5.9 E12/L [facility] WBC corrected for nucl RBC Auto (Bld) [#/Vol] 11.8 E9/L High 4.0 - 11.0 E9/L [facility] PT & PTTon 09-28-2022 aPTT Coag (PPP) [Time] 28.6 second(s) Normal 25.1-36.[address] [facility] Comment on above: Result Comment: Para meter 15 days - 4 weeks 1 - 5 months 6 - 11 months 1 - 5 years 6 - 10 years 11 - 17 years PTT Mean: 35.4 (27.6-45.6) Mean: 33.5 (24.8-40.7) Mean: 32.4 (25.1-40.7) Mean: 31.6 (24.0-39.2) Mean: 31.6 (26.9-38.7) Mean: 31.0 (24.6-38.4) Pediatric Reference ranges were obtained from a study by Ronn Boucher et al. prepared from 1437 samples obtained at 7 different centers using the same coagulation reagent and instrumentation as [facility]. Currently there are no coagulation studies available worldwide for children to 14 days, and no normal ranges. Heparin therapeutic range (represented by Anti-Factor Xa activity of 0.2 - 0.4 U/mL) corresponds to PTT of 56.6 - 109.0 sec. Performed By: #### 2 486998, 1478159, 17935115, 4701475, 87687461, 78176169 ####[facility] [address] [place] [address] INR Coag (PPP) [Relative time] 1.0 {INR} Invalid Interpretation Code [facility] Comment on above: Result Comment: INR results are specifically intended to assess patients stabilized on long-term Anticoagulation therapy suggested INR?s ?Less Intensive Anticoagulation? 2.0 ? 3.0Conventional Range 3.0 ? 4.5 Performed By: #### 2 905466, 5692386, 96818736, 4559344, 53640023, 89568707 ####[facility] [address] [place] [address] PT Coag (PPP) [Time] 11.2 second(s) Normal 9.4-12.[address] [facility] Comment on above: Result Comment: 15 d ays - 4 weeks 1 - 5 months 6 -11 months 1-5 years 6-10 years 11 -17 years Mean: 11.2 (9.5-12.6) Mean: 11.0 (9.7-12.8) Mean: 11.0 (9.8-13.0) Mean: 11.3 (9.9-13.4) Mean: 11.7 (10.0-14.6) Mean: 11.8 (10.0 - 14.1) Pediatric Reference ranges were obtained from a study by Ronn Boucher et al. prepared from 1437 samples obtained at 7 different centers using the same coagulation reagent and instrumentation as [facility]. Currently there are no coagulation studies available worldwide for children to 14 days, and no normal ranges. Performed By: #### 2 163838, 3596836, 95921042, 7502327, 32229335, 75488442 ####[facility] [address] [place] [address] Troponin 0 Hr.on 09-28-2022 Troponin I.cardiac [Mass/Vol] 5.50 pg/mL Low 15.90-38.[address] [facility] Comment on above: Result Comment: The 95% CI (Confidence Interval) PPV (Positive Predictive Value) for myocardial infarction in females is 38 pg/mL, in males 51 pg/mL. The results should be used in conjunction with clinical conditions of myocardial infarction.(Access High Sensitivity Troponin I Instructions For Use, Mariaelena CoolaData, February 2018) Performed By: #### 2 147326, 1323075, 79554057, 7402852, 64911180, 74616983 ####[facility] [address] [place] [address] XR Chest Single Viewon 09-28 XR Chest Single View Normal [facility] eGFRon 09-28-2022 GFR/1.73 sq M.predicted among blacks MDRD (S/P/Bld) [Vol rate/Area] mL/min/{1.73_m2} Normal >=[address] [facility] Comment on above: Order Comment: Order added by Discern Expert. Result Comment: eGFR is race adjusted. AA=. Performed By: #### 2 829923, 0924714, 57721409, 4635316, 16757272, 98433740 ####[facility] [address] [place] [address] GFR/1.73 sq M.predicted among non-blacks MDRD (S/P/Bld) [Vol rate/Area] mL/min/{1.73_m2} Normal >=[address] [facility] Comment on above: Order Comment: Order added by Discern Expert. Result Comment: Travel Director andrea kidney disease could be indicated at eGFR's of less than 60 mL/min/1.73m2. Kidney failure is indicated at less than 15 mL/min/1.73m2. Performed By: #### 2 838515, 0330285, 11947599, 4006051, 42970035, 91607820 ####[facility] [address] [place] [address] Interdisciplinary Note - Soc ial Workeron 09-27-2022 Interdisciplinary Note - Museum Preparator This SW made a tc to patient and spoke to him about upcoming insurance changes. SW informed him of the need to contact S prior to 10/15/2022 to ensure they he has continued coverage due to changes in the Medicaid programs. Normal [facility] Coding Summary.on 09-26-2022 Coding Summary. Normal [facility] Discharge Instructionson Discharge Instructions [id number]# 1.00CD:[address] [facility] EMS Documentationon 09-27-19 EMS Documentation Normal [facility] EMS Documentation Normal [facility] CHEMISTRYOrdered By: SYSTEM SYSTEM on 09-25-2022 Cholesterol [Mass/Vol] 120 mg/dL Normal 120 - 200 mg/dL [facility] Cholesterol in HDL [Mass/Vol] 34 mg/dL Invalid Interpretation Code [facility] Cholesterol in LDL [Mass/Vol] 65 mg/dL Normal <=129mg/dL [facility] Cholesterol in VLDL [Mass/Vol] 26 mg/dL Normal 7 - 40 mg/dL [facility] Triglyceride [Mass/Vol] 131 mg/dL Normal <=149mg/dL [facility] Inpatient Patient Summaryon 09-25-2022 Inpatient Patient Summary Normal [facility] Interdisciplinary Note - Kendrick e Manageron 09-25-2022 Interdisciplinary Note - Night Clerk Auditor Normal [facility] Comment on above: Result Comment: Elec tronically Signed By: Yesy Masters\Date and Time Signed: 09/25/22 12:25 EDT Lipid Panelon 09-25-2022 Cholesterol [Mass/Vol] 120 mg/dL Normal 120-200 Fi [facility] Comment on above: Performed By: #### 2 312270 ####[facility] [address] [place] [address] Cholesterol in HDL [Mass/Vol] 34 mg/dL Invalid Interpretation Code [facility] Comment on above: Result Comment: HDL > or equal to 60 mg/dL: Low cardiovascular riskHDL < 40 mg/dL : High cardiovascular risk Performed By: #### 2 894451 ####[facility] [address] [place] [address] Cholesterol in LDL [Mass/Vol] 65 mg/dL Normal <=[address] [facility] Comment on above: Performed By: #### 2 733350 ####[facility] [address] [place] [address] Cholesterol in VLDL [Mass/Vol] 26 mg/dL Normal 7-[address] [facility] Comment on above: Performed By: #### 2 547794 ####[facility] [address] [place] [address] Triglyceride [Mass/Vol] 131 mg/dL Normal <=149 [facility] Comment on above: Performed By: #### 2 016577 ####[facility] [address] [place] [address] Monitor Recordon 09-25-2022 Monitor Record [id number]#1 .00CD:[address] [facility] Auto Diffon 09-24-2022 Basophils/100 WBC (Bld) 0.4 % Normal 0.0-2.0 [facility] Comment on above: Order Comment: Order Added by Discern Expert. Performed By: #### 2 928491, 5982302, 94382997, 8567013, 29203457, 1613134, 5959738, 61541939 ####[address] [place] [address] Basophils/Leukocytes Auto (Bld) [Pure # fraction] 0.0 E9/L Normal 0.0-0.[address] [facility] Comment on above: Order Comment: Order Added by Discern Expert. Performed By: #### 2 282574, 1276073, 00178320, 8696644, 56322606, 3983870, 8167262, 70689797 ####[address] [place] [address] Eosinophils/100 WBC (Bld) 1.9 % Normal 0.0-8.[address] [facility] Comment on above: Order Comment: Order Added by Discern Expert. Performed By: #### 2 802281, 9356256, 08712339, 6576636, 40351439, 7090504, 6013988, 43557441 ####[address] [address] Eosinophils/Leukocytes Auto (Bld) [Pure # fraction] 0.2 E9/L Normal 0.0-0.[address] [facility] Comment on above: Order Comment: Order Added by Discern Expert. Performed By: #### 2 037939, 7188192, 77552852, 9355940, 01614757, 2299064, 5560127, 30690253 ####[address] [place] [address] Lymphocytes/100 WBC (Bld) 32.7 % Normal 14.0-50.[address] [facility] Comment on above: Order Comment: Order Added by Discern Expert. Performed By: #### 2 108462, 8672728, 27728987, 7665013, 82363463, 0865677, 6727077, 88489371 ####[address] [place] [address] Lymphocytes/Leukocytes Auto (Bld) [Pure # fraction] 2.9 E9/L Normal 1.0-4.[address] [facility] Comment on above: Order Comment: Order Added by Discern Expert. Performed By: #### 2 282921, 5310613, 71901386, 8283498, 40458415, 8460503, 6062776, 03310130 ####[address] [place] [address] Monocytes/100 WBC (Bld) 9.0 % Normal 4.0-14.0 [facility] Comment on above: Order Comment: Order Added by Discern Expert. Performed By: #### 2 384141, 9490073, 40160866, 9628018, 28893614, 0219109, 7474191, 40527434 ####[address] [place] [address] Monocytes/Leukocytes Auto (Bld) [Pure # fraction] 0.8 E9/L Normal 0.2-1.[address] [facility] Comment on above: Order Comment: Order Added by Mekhi Expert. Performed By: #### 2 560184, 4446978, 62833996, 0478697, 03253052, 6352064, 7303828, 49004644 ####[address] [place] [address] Neutrophils/100 WBC (Bld) 56.0 % Normal 36.0-75.[address] [facility] Comment on above: Order Comment: Order Added by Mekhi Expert. Performed By: #### 2 096270, 8458666, 58616753, 2135083, 90446223, 2718537, 3206616, 89524976 ####[facility] [address] [place] [address] Neutrophils/Leukocytes Auto (Bld) [Pure # fraction] 4.9 E9/L Normal 2.0-7.[address] [facility] Comment on above: Order Comment: Order Added by Mekhi Expert. Performed By: #### 2 760519, 6661124, 82618408, 4499336, 67897280, 6501083, 9932351, 22205833 ####[address] [place] [address] BMPon 09-24-2022 Creatinine [Mass/Vol] 1.0 mg/dL Normal 0.5-1.3 [facility] Comment on above: Performed By: #### 2 554730, 3542790, 73337359, 2011494, 77001714, 9063022, 5498480, 97613612 ####[facility] [address] [place] [address] Urea nitrogen [Mass/Vol] 10 mg/dL Normal 5-[address] [facility] Comment on above: Performed By: #### 2 467033, 8179857, 22772528, 0739100, 35029024, 3442499, 1610313, 71906993 ####[facility] [address] [place] [address] Urea nitrogen/Creatinine [Mass ratio] 10 No Units Normal 10-[address] [facility] Comment on above: Performed By: #### 2 322051, 1580747, 29554490, 5065468, 41807570, 0671701, 4252875, 51219765 ####[facility] [address] [place] [address] Anion gap [Moles/Vol] 11 mmol/L Normal 6-16 [facility] Comment on above: Performed By: #### 2 234120, 9497133, 85341333, 2342258, 41911117, 6097483, 4687464, 44716800 ####[facility] [address] [place] [address] Calcium [Mass/Vol] 8.8 mg/dL Low 8.9-11.[address] [facility] Comment on above: Performed By: #### 2 107686, 4388688, 18622500, 9750150, 27020927, 2318630, 0967556, 69645640 ####[facility] [address] [place] [address] Chloride [Moles/Vol] 103 mmol/L Normal 101-111 [facility] Comment on above: Performed By: #### 2 382329, 5580656, 95861730, 2603000, 33177113, 0422557, 4264892, 78304778 ####[facility] [address] [place] [address] CO2 [Moles/Vol] 27 mmol/L Normal 21-31 [facility] Comment on above: Performed By: #### 2 693953, 8562359, 12366648, 6139830, 55701228, 0114691, 0964474, 11840985 ####[facility] [address] [place] [address] Glucose [Mass/Vol] 148 mg/dL Normal 55-[address] [facility] Comment on above: Result Comment: If t his glucose result represents a fasting glucose, interpretation should refer to the following reference range: 55-99 mg/dL Performed By: #### 2 364919, 0086402, 33936271, 8058102, 98510413, 8729219, 1376694, 90593286 ####[facility] [address] [place] [address] Potassium [Moles/Vol] 4.0 mmol/L Normal 3.5-5.3 [facility] Comment on above: Performed By: #### 2 240057, 6476829, 69142334, 9786873, 79065817, 4408088, 9182543, 28021738 ####[facility] [address] [place] [address] Sodium [Moles/Vol] 137 mmol/L Normal 135-[address] [facility] Comment on above: Performed By: #### 2 547179, 7775206, 35236113, 5294234, 63808039, 1649665, 1196988, 29963405 ####[facility] [address] [place] [address] CBC w/ Auto Diffon 3 Erythrocyte distribution width (RBC) [Ratio] 13.9 % Normal 10.9-14.[address] [facility] Comment on above: Performed By: #### 2 514348, 2976155, 17925354, 5698115, 69698284, 4046857, 1448083, 05970352 ####[facility] [address] [place] [address] Hematocrit (Bld) [Volume fraction] 44.3 % Normal 37.7-49.[address] [facility] Comment on above: Performed By: #### 2 578621, 5189735, 07907498, 4641848, 45080583, 8231013, 3804101, 82431856 ####[facility] [address] [place] [address] Hemoglobin (Bld) [Mass/Vol] 15.4 g/dL Normal 13.5-17.[address] [facility] Comment on above: Performed By: #### 2 189432, 8912672, 59146683, 6369073, 86564822, 0334322, 4126771, 14299091 ####[facility] [address] [place] [address] MCH (RBC) [Entitic mass] 28.4 pg Normal 27.0-34.[address] [facility] Comment on above: Performed By: #### 2 877911, 5264987, 02250367, 0164642, 92008352, 6523952, 3970564, 21154931 ####[facility] [address] [place] [address] MCHC (RBC) [Mass/Vol] 34.7 g/dL Normal 31.4-36.0 [facility] Comment on above: Performed By: #### 2 204713, 9141804, 22850860, 6491306, 73889065, 3010597, 8371326, 68655243 ####[address] [place] [address] MCV (RBC) [Entitic vol] 81.9 fL Normal 80.0-100.0 [facility] Comment on above: Performed By: #### 2 354463, 5005289, 40772967, 0363579, 31094374, 7710766, 9998935, 52295348 ####[facility] [address] [place] [address] Platelet mean volume (Bld) [Entitic vol] 7.8 fL Normal 6.4-10.[address] [facility] Comment on above: Performed By: #### 2 715353, 5119668, 58615105, 5236876, 13965695, 4667593, 6018582, 66850742 ####[address] [place] [address] Platelets (Bld) [#/Vol] 304.0 E9/L Normal 150.0-500.[address] [facility] Comment on above: Performed By: #### 2 621466, 3363955, 44647993, 0299299, 46374069, 0055546, 4084830, 84763013 ####[address] [address] RBC (Bld) [#/Vol] 5.4 E12/L Normal 4.3-5.[address] [facility] Comment on above: Performed By: #### 2 366825, 1405966, 73748937, 0456563, 86374722, 5517242, 5671441, 94282289 ####[address] [address] WBC corrected for nucl RBC Auto (Bld) [#/Vol] 8.8 E9/L Normal 4.0-11.0 [facility] Comment on above: Performed By: #### 2 477365, 5353363, 28229169, 1171505, 88335012, 1013042, 5316060, 17683293 ####[address] [address] CHEMISTRYOrdered By: SYSTEM SYSTEM on 09-24-2022 Troponin I.cardiac [Mass/Vol] 5.20 pg/mL Low 15.90 - 38.40 pg/mL [facility] Remisol Troponin I.cardiac [Mass/Vol] 4.60 pg/mL Low 15.90 - 38.40 pg/mL [facility] Troponin I.cardiac [Mass/Vol] 5.70 pg/mL Low 15.90 - 38.40 pg/mL [facility] Albumin [Mass/Vol] 4.1 g/dL Normal 3.3 - 5.0 gm/dL [facility] Albumin/Globulin [Mass ratio] 1.5 {ratio} Normal 1.1 - 2.2 [facility] ALP [Catalytic activity/Vol] 88 [iU]/d Normal 21 - 98 Int._Unit/L [facility] ALT No additional P-5'-P [Catalytic activity/Vol] 28 [iU]/d Normal 6 - 46 Int._Unit/L [facility] Anion gap [Moles/Vol] 11 mmol/L Normal 6 - 16 mEq/L [facility] AST [Catalytic activity/Vol] 26 [iU]/d Normal 5 - 43 Int._Unit/L [facility] Bilirubin [Mass/Vol] 0.4 mg/dL Normal 0.0 - 1 .1 mg/dL [facility] Bilirubin.direct [Mass/Vol] mg/dL Normal 0.1 - 0.4 mg/dL [facility] Bilirubin.indirect [Mass or moles/Vol] Unable to Calculate mg/dL Invalid Interpretation Code 0.1 - 0.9 mg/dL [facility] Calcium [Mass/Vol] 8.8 mg/dL Low 8.9 - 11. 1 mg/dL [facility] Chloride [Moles/Vol] 103 mmol/L Normal 101 - 1 11 mmol/L [facility] CO2 [Moles/Vol] 27 mmol/L Normal 21 - 31 mmol/L [facility] Creatinine [Mass/Vol] 1.0 mg/dL Normal 0.5 - 1.3 mg/dL [facility] GFR/1.73 sq M.predicted among blacks MDRD (S/P/Bld) [Vol rate/Area] mL/min/1.73 m2 Normal >=59mL/min/ 1.73 m2 FT Chem S GFR/1.73 sq M.predicted among non-blacks MDRD (S/P/Bld) [Vol rate/Area] mL/min/1.73 m2 Normal >=59mL/min/ 1.73 m2 [facility] Chem S Globulin (S) [Mass/Vol] 2.8 g/dL Normal 1.4 - 4.0 gm/dL [facility] Remisol Glucose [Mass/Vol] 148 mg/dL Normal 55 - 199 mg/dL [facility] Remisol Magnesium [Mass/Vol] 1.9 mg/dL Normal 1.3 - 2 .4 mg/dL [facility] Remisol Potassium [Moles/Vol] 4.0 mmol/L Normal 3.5 - 5.3 mmol/L [facility] Remisol Protein [Mass/Vol] 6.9 g/dL Normal 6.0 - 7.8 gm/dL [facility] Remisol Sodium [Moles/Vol] 137 mmol/L Normal 135 - 145 mmol/L [facility] Remisol Urea nitrogen [Mass/Vol] 10 mg/dL Normal 5 - 21 mg/dL [facility] Remisol Urea nitrogen/Creatinine [Mass ratio] 10 mg/mg Normal 10 - 20 [facility] Remisol CHEMISTRYOrdered By: Lab ROP User on 09-24-2022 Glucose [Mass/Vol] 131 mg/dL High 55 - 99 mg/dL [facility] POC Subsection Comment on above: Result Comment: Akbar HALL POC Device SN [id number] Invalid Interpretation Code [facility] POC Subsection POC User ID [id number] Invalid Interpretation Code [facility] POC Subsection POC Username CHARLOTTE ARTHUR Invalid Interpretation Code [facility] POC Subsection COAGULATIONOrdered By: Salvatore Childress on 09-24-2022 aPTT Coag (PPP) [Time] 30.2 s Normal 25.1 - 36.5 second(s) [facility] Auto Coag INR Coag (PPP) [Relative time] 1.0 {INR} Invalid Interpretation Code [facility] Auto Coag PT Coag (PPP) [Time] 10.9 s Normal 9.4 - 1 2.5 second(s) [facility] Auto Coag Capillary Glucose POCon 09-14 Glucose [Mass/Vol] 131 mg/dL High 55-[address] [facility] Comment on above: Result Comment: Akbar HALL Performed By: #### 2 [id number] ####[facility] [address] [place] [address] Consent for Treatmenton 09-14 Consent for Treatment [id number]#1 .00CD:[address] [facility] Consultation Noteon 09-25-19 Consultation Note Normal [facility] Comment on above: Result Comment: Elec tronically Signed By: Yeni Lux MD\.br\Date and Time Signed: 09/24/22 14:24 EST ED Clinical Summaryon 2022 ED Clinical Summary Normal [facility] ED Note-Nursingon 09-24-2022 ED Note-Nursing Squad has given half liter NSS - ED Doc informed, will hold the fluid for now Normal [facility] ED Note-Physicianon 09-25-19 ED Note-Physician Normal [facility] Comment on above: Result Comment: Elec tronically Signed By: Clarice Espinoza DO\.br\Date and Time Signed: 09/24/22 06:16 EST ED Patient Education Noteon 09-24-2022 ED Patient Education Note Normal [facility] ED Patient Summaryon 023 ED Patient Summary Normal [facility] EMS Documentationon 09-25-19 EMS Documentation [id number]# 1.00CD:[address] [facility] HEMATOLOGYOrdered By: SYSTEM SYSTEM on 09-24-2022 Basophils/100 WBC (Bld) 0.4 % Normal 0.0 - 2.0 % [facility] Basophils/Leukocytes Auto (Bld) [Pure # fraction] 0.0 E9/L Normal 0.0 - 0.2 E9/L [facility] Eosinophils/100 WBC (Bld) 1.9 % Normal 0.0 - 8.0 % [facility] Eosinophils/Leukocytes Auto (Bld) [Pure # fraction] 0.2 E9/L Normal 0.0 - 0.5 E9/L [facility] Lymphocytes/100 WBC (Bld) 32.7 % Normal 14.0 - 50.0 % [facility] Lymphocytes/Leukocytes Auto (Bld) [Pure # fraction] 2.9 E9/L Normal 1.0 - 4.0 E9/L [facility] Monocytes/100 WBC (Bld) 9.0 % Normal 4.0 - 14.0 % [facility] Monocytes/Leukocytes Auto (Bld) [Pure # fraction] 0.8 E9/L Normal 0.2 - 1.0 E9/L [facility] Neutrophils/100 WBC (Bld) 56.0 % Normal 36.0 - 75.0 % [facility] Neutrophils/Leukocytes Auto (Bld) [Pure # fraction] 4.9 E9/L Normal 2.0 - 7.5 E9/L [facility] HEMATOLOGYOrdered By: Salvatore Childress on 09-24-2022 Erythrocyte distribution width (RBC) [Ratio] 13.9 % Normal 10.9 - 14.2 % [facility]SS Hematocrit (Bld) [Volume fraction] 44.3 % Normal 37.7 - 49.0 % [facility] Hemoglobin (Bld) [Mass/Vol] 15.4 g/dL Normal 13.5 - 17.5 gm/dL [facility] MCH (RBC) [Entitic mass] 28.4 pg Normal 27.0 - 34.0 pg [facility] MCHC (RBC) [Mass/Vol] 34.7 g/dL Normal 31.4 - 36.0 gm/dL [facility] MCV (RBC) [Entitic vol] 81.9 fL Normal 80.0 - 100.0 fL [facility] Platelet mean volume (Bld) [Entitic vol] 7.8 fL Normal 6.4 - 10.8 fL [facility] Platelets (Bld) [#/Vol] 304.0 E9/L Normal 150. 0 - 500.0 E9/L [facility] RBC (Bld) [#/Vol] 5.4 E12/L Normal 4.3 - 5.9 E12/L [facility] WBC corrected for nucl RBC Auto (Bld) [#/Vol] 8.8 E9/L Normal 4.0 - 11.0 E9/L [facility]eAuto[facility] Hep Func Panelon 09-24-2022 Bilirubin.indirect [Mass or moles/Vol] UTC Abnormal 0.1-0.[address] [facility] Comment on above: Result Comment: Resu lt verified by Discern Rule. Performed result UTC (Unable to Calculate) was sent as an Alpha code due the inability to calculate a valid numeric value. Performed By: #### 2 828256, 2462860, 39849818, 8317408, 53823469, 6832031, 1512769, 16221808 ####[facility] [address] [place] [address] Albumin [Mass/Vol] 4.1 g/dL Normal 3.3-5.[address] [facility] Comment on above: Performed By: #### 2 440370, 2452410, 61946653, 4060219, 68718132, 8831037, 2556201, [id number] ####[address] [place] [address] Albumin/Globulin (S) [Mass conc ratio] 1.5 Normal 1.1-2.[address] [facility] Comment on above: Performed By: #### 2 720095, 7353835, 19820817, 1163242, 48350301, 7096428, 3034932, 41976988 ####[facility] [address] [place] [address] ALP [Catalytic activity/Vol] 88 Int._Unit/L Normal 21-[address] [facility] Comment on above: Performed By: #### 2 680161, 4742002, 24106942, 7965781, 79296397, 6543084, 4432395, 31304028 ####[facility] [address] [place] [address] ALT No additional P-5'-P [Catalytic activity/Vol] 28 Int._Unit/L Normal 6-[address] [facility] Comment on above: Performed By: #### 2 015430, 5530162, 74758745, 9028095, 39173564, 2586821, 0212207, 42406576 ####[facility] [address] [place] [address] AST [Catalytic activity/Vol] 26 Int._Unit/L Normal 5-[address] [facility] Comment on above: Performed By: #### 2 855021, 5072221, 02089841, 4001826, 02750825, 8566338, 4145702, 88899443 ####[facility] [address] [place] [address] Bilirubin [Mass/Vol] 0.4 mg/dL Normal 0.0-1.1 Fish er [facility] Comment on above: Performed By: #### 2 060212, 9305076, 11471525, 9592851, 35023455, 0702107, 6077890, 10471561 ####[facility] [address] [place] [address] Bilirubin.direct [Mass/Vol] mg/dL Normal 0.1-0.[address] [facility] Comment on above: Performed By: #### 2 799189, 7413802, 95830300, 6599243, 72916190, 5612213, 1145139, 07759185 ####[address] [address] Globulin (S) [Mass/Vol] 2.8 g/dL Normal 1.4-4.0 [facility] Comment on above: Performed By: #### 2 598078, 2403713, 29431972, 1518181, 15292567, 2750248, 9355885, 66191650 ####[address] [place] [address] Protein [Mass/Vol] 6.9 g/dL Normal 6.0-7.[address] [facility] Comment on above: Performed By: #### 2 140768, 0130201, 58951205, 5519856, 85747027, 6817112, 6133435, 69477469 ####[address] [place] [address] Insurance Correspondence Off iceon 09-24-2022 Insurance Correspondence Office [id number]# 1.00CD:[address] [facility] Magnesiumon 09-24-2022 Magnesium [Mass/Vol] 1.9 mg/dL Normal 1.3-2.4 [facility] Comment on above: Performed By: #### 2 305628, 1184186, 35043478, 7170841, 17381486, 2333669, 4183276, 05439808 ####[facility] [address] [place] [address] Monitor Recordon 09-24-2022 Monitor Record [id number]#1 .00CD:[address] [facility] Monitor Record [id number]#1 .00CD:[address] [facility] Monitor Record [id number]# 1.00CD:[address] [facility] PT & PTTon 09-24-2022 aPTT Coag (PPP) [Time] 30.2 second(s) Normal 25.1-36.[address] [facility] Comment on above: Result Comment: Para meter 15 days - 4 weeks 1 - 5 months 6 - 11 months 1 - 5 years 6 - 10 years 11 - 17 years PTT Mean: 35.4 (27.6-45.6) Mean: 33.5 (24.8-40.7) Mean: 32.4 (25.1-40.7) Mean: 31.6 (24.0-39.2) Mean: 31.6 (26.9-38.7) Mean: 31.0 (24.6-38.4) Pediatric Reference ranges were obtained from a study by Ronn Boucher et al. prepared from 1437 samples obtained at 7 different centers using the same coagulation reagent and instrumentation as [facility]. Currently there are no coagulation studies available worldwide for children to 14 days, and no normal ranges. Heparin therapeutic range (represented by Anti-Factor Xa activity of 0.2 - 0.4 U/mL) corresponds to PTT of 56.6 - 109.0 sec. Performed By: #### 2 865428, 9726988, 52061272, 2930472, 52478234, 0166817, 6140886, 44061474 ####[facility] [address] [place] [address] INR Coag (PPP) [Relative time] 1.0 {INR} Invalid Interpretation Code [facility] Comment on above: Result Comment: INR results are specifically intended to assess patients stabilized on long-term Anticoagulation therapy suggested INR?s ?Less Intensive Anticoagulation? 2.0 ? 3.0Conventional Range 3.0 ? 4.5 Performed By: #### 2 707641, 9828226, 87663927, 0961395, 21446888, 4338195, 7322188, 26607614 ####[facility] [address] [place] [address] PT Coag (PPP) [Time] 10.9 second(s) Normal 9.4-12.[address] [facility] Comment on above: Result Comment: 15 d ays - 4 weeks 1 - 5 months 6 -11 months 1-5 years 6-10 years 11 -17 years Mean: 11.2 (9.5-12.6) Mean: 11.0 (9.7-12.8) Mean: 11.0 (9.8-13.0) Mean: 11.3 (9.9-13.4) Mean: 11.7 (10.0-14.6) Mean: 11.8 (10.0 - 14.1) Pediatric Reference ranges were obtained from a study by Ronn Boucher et al. prepared from 1437 samples obtained at 7 different centers using the same coagulation reagent and instrumentation as [facility]. Currently there are no coagulation studies available worldwide for children to 14 days, and no normal ranges. Performed By: #### 2 365118, 5777988, 85753839, 6198400, 54035039, 9268384, 4031316, 05596272 ####[facility] [address] [place] [address] Troponin 0 Hr.on 09-24-2022 Troponin I.cardiac [Mass/Vol] 5.60 pg/mL Low 15.90-38.[address] [facility] Comment on above: Result Comment: The 95% CI (Confidence Interval) PPV (Positive Predictive Value) for myocardial infarction in females is 38 pg/mL, in males 51 pg/mL. The results should be used in conjunction with clinical conditions of myocardial infarction.(Access High Sensitivity Troponin I Instructions For Use, Impossible SoftwareFebruary 2018) Performed By: #### 2 815980, 2036569, 25515385, 8918367, 61491976, 7969256, 3337097, 94951183 ####[facility] [address] [place] [address] Troponin 3 Hr.on 09-24-2022 Troponin I.cardiac [Mass/Vol] 5.70 pg/mL Low 15.90-38.[address] [facility] Comment on above: Result Comment: The 95% CI (Confidence Interval) PPV (Positive Predictive Value) for myocardial infarction in females is 38 pg/mL, in males 51 pg/mL. The results should be used in conjunction with clinical conditions of myocardial infarction.(Access High Sensitivity Troponin I Instructions For Use, [employer], February 2018) Performed By: #### 1 1597182 ####[facility] [address] [place] [address] Troponin 6 Hr.on 09-24-2022 Troponin I.cardiac [Mass/Vol] 4.60 pg/mL Low 15.90-38.[address] [facility] Comment on above: Result Comment: The 95% CI (Confidence Interval) PPV (Positive Predictive Value) for myocardial infarction in females is 38 pg/mL, in males 51 pg/mL. The results should be used in conjunction with clinical conditions of myocardial infarction.(Access High Sensitivity Troponin I Instructions For Use, Impossible SoftwareFebruary 2018) Performed By: #### 1 2665595 ####[facility] [address] [place] [address] Troponin 9 Hr.on 09-24-2022 Troponin I.cardiac [Mass/Vol] 5.20 pg/mL Low 15.90-38.[address] [facility] Comment on above: Result Comment: The 95% CI (Confidence Interval) PPV (Positive Predictive Value) for myocardial infarction in females is 38 pg/mL, in males 51 pg/mL. The results should be used in conjunction with clinical conditions of myocardial infarction.(Access High Sensitivity Troponin I Instructions For Use, Impossible SoftwareFebruary 2018) Performed By: #### 1 [id number] ####[facility] [address] [place] [address] XR Chest Single Viewon 09-24 XR Chest Single View Normal [facility] eGFRon 09-24-2022 GFR/1.73 sq M.predicted among blacks MDRD (S/P/Bld) [Vol rate/Area] mL/min/{1.73_m2} Normal >=[address] [facility] Comment on above: Order Comment: Order added by Discern Expert. Result Comment: eGFR is race adjusted. AA=. Performed By: #### 2 763219, 5806254, 98541462, 5961450, 32965448, 5344447, 7037564, 58093993 ####[facility] [address] [place] [address] GFR/1.73 sq M.predicted among non-blacks MDRD (S/P/Bld) [Vol rate/Area] mL/min/{1.73_m2} Normal >=[address] [facility] Comment on above: Order Comment: Order added by Discern Expert. Result Comment: Travel Director andrea kidney disease could be indicated at eGFR's of less than 60 mL/min/1.73m2. Kidney failure is indicated at less than 15 mL/min/1.73m2. Performed By: #### 2 984900, 0250134, 90464053, 9651239, 68723630, 2174905, 7022263, 02075382 ####[facility] [place] [address] Pre-Certification Formon Pre-Certification Form [id number]#1 .00CD:[address] [facility] NM Myocardial Spect Part 2on 09-19-2022 NM Myocardial Spect Part [address] [facility] EMS Documentationon 09-12-19 23 EMS Documentation Normal [facility] Pre-Certification Formon Pre-Certification Form [id number]#1 .00CD:[address] [facility] Stress EKG Tracingson 2022 Stress EKG Tracings [id number]# 1.00CD:[address] [facility] Office Visit (Cardiology)on 09-06-2022 Follow-up visit Diagnoses/Problems Assessed S/P PTCA (percutaneous transluminal coronary angioplasty) (V45.82) (Z98.61) LAD August 2022 [facility] Encounter for postoperative carotid endarterectomy surveillance (V58.73) (Z48.812) Dyslipidemia (272.4) (E78.5) CAD (coronary artery disease) (414.00) (I25.10) TIA (transient ischemic attack) (435.9) (G45.9) Current smoker (305.1) (F17.200) 6-7 cigs daily Class 1 obesity with body mass index (BMI) of 32.0 to 32.9 in adult (278.00,V85.32) (E66.9,Z68.32) Orders CAD (coronary artery disease) Renew: Aspirin EC 81 MG Oral Tablet Delayed Release; TAKE 1 TABLET DAILY Renew: Metoprolol Succinate ER 25 MG Oral Tablet Extended Release 24 Hour; TAKE 1 TABLET DAILY CAD (coronary artery disease), Dyslipidemia Renew: Atorvastatin Calcium 20 MG Oral Tablet; TAKE 1 TABLET DAILY ALT - Alanine Aminotransferase, Serum; Status:Active - Retrospective Authorization; Requested for:05Dec2022; AST; Status:Active - Retrospective Authorization; Requested for:05Dec2022; Lipid Panel; Status:Active - Retrospective Authorization; Requested for:05Dec2022; CAD (coronary artery disease), S/P PTCA (percutaneous transluminal coronary angioplasty) Renew: Clopidogrel Bisulfate 75 MG Oral Tablet (Plavix); TAKE 1 TABLET DAILY Basic Metabolic Panel; Status:Active - Retrospective Authorization; Requested for:05Dec2022; Complete Blood Count; Status:Active - Retrospective Authorization; Requested for:05Dec2022; Class 1 obesity with body mass index (BMI) of 32.0 to 32.9 in adult Healthy Weight Tips; Status:Complete - Retrospective Authorization; Done: 06Sep2022 Some eating tips that can help you lose weight.; Status:Complete - Retrospective Authorization; Done: 06Sep2022 SocHx: Current smoker You need to stop smoking. Though it is not easy, more than half of all adult smokers have quit. We encourage you to write down all the reasons you should quit smoking and set a quit date for yourself. Ask us how we can help. You may also call 0-370-NDFB-NOW for free resources and assistance.; Status:Complete - Retrospective Authorization; Done: [id number] Tobacco Use Screening; Status:Complete; Done: [id number] Patient Instructions Please bring all medicines, vitamins, and herbal supplements with you when you come to the office. Prescriptions will not be filled unless you are compliant with your follow up appointments or have a follow up appointment scheduled as per instruction of your physician. Refills should be requested at the time of your visit. Lab-3 months Same medications. Follow up in 4 months Chief Complaint FRAN MEANS is being seen for follow-up of a hospitalization for. 61-year-old white male who was recently admitted to [facility] for chest pain. I saw the patient in consultation and underwent Lexiscan perfusion study which was abnormal and subsequently had readmission before his invasive work-up for recurrent chest pain. He was then taken to the cardiac catheterization lab and was found to have 95% proximal anterior descending artery stenosis requiring placement of a stent. His ejection fraction was normal. Patient is nondiabetic but has long time history of tobacco abuse. He is trying to quit smoking by going on [facility]. He had remote history of right carotid endarterectomy surgery in [place]. He does not have COPD or diabetes and he has no hypertension. 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 He is back to work. He has followed with neurology for cerebrovascular disease with Dr. Washington. The patient reported symptoms of atypical chest pain which I do not believe is ischemic in nature. He does have nitroglycerin sublingual to be used as needed and education how to use the medicine was provided today. Apart from obesity his physical examination was unremarkable. His medical therapy was reviewed with him and the recent events were discussed at length with the patient. Assessment/recommenda tions: 1?single-vessel coronary disease involving the anterior descending artery status post PCI August 2022 at [facility] with drug-eluting stent. He will remain on dual antiplatelet therapy for at least 1 year. Aggressive risk factors modification was discussed with the patient with emphasis on tobacco cessation and control of hyperlipidemia. 2?tobacco abuse, was educated on the need for tobacco cessation and fortunately he is not utilizing Chantix. 3?hyperlipidemia, we will continue atorvastatin follow lipid profile with goal LDL less than 70 mg/dL 4?carotid disease status post right carotid endarterectomy surgery in the remote past. No indication of recurrent disease. Vascular protection measures were discussed with the patient. 5?obesity, encouraged the patient to stay physically active and try to lose weight. Active Problems Problems Current smoker (305.1) (F17.200) 6-7 cigs daily Surgical History Problems History of Cardiac catheterization History of Cardiac catheterization with sten (more content not included)... Normal [employer] Tobacco Screening.on 023 Adult depression screening assessment No [facility] [employer] 600 DO Work Phone: Fall risk assessment a) No falls within the last year [facility] [employer] 600 DO Work Phone: Tobacco use status [facility] a) Yes [facility] [employer] 600 DO Work Phone: Tobacco Screening. Yes [facility] [employer] 600 DO Work Phone: Coding Summary.on 08-31-2022 Coding Summary. Normal [facility] Coding Summary.on 08-30-2022 Coding Summary. Normal [facility] Coding Summary. Normal [facility] EMS Documentationon 08-30-19 EMS Documentation Normal [facility] Discharge Instructionson Discharge Instructions [id number]# 1.00CD:[address] [facility] ED Clinical Summaryon 2022 ED Clinical Summary Normal [facility] ED Note-Physicianon 08-29-19 ED Note-Physician Normal [facility] Comment on above: Result Comment: Elec tronically Signed By: Clarice Espinoza DO\Date and Time Signed: 08/29/22 01:10 EST ED Patient Education Noteon 08-29-2022 ED Patient Education Note Normal [facility] ED Patient Summaryon 023 ED Patient Summary Normal [facility] Troponin 3 Hr.on 08-29-2022 Troponin I.cardiac [Mass/Vol] 11.30 pg/mL Low 15.90-38.[address] [facility] Comment on above: Result Comment: The 95% CI (Confidence Interval) PPV (Positive Predictive Value) for myocardial infarction in females is 38 pg/mL, in males 51 pg/mL. The results should be used in conjunction with clinical conditions of myocardial infarction.(Access High Sensitivity Troponin I Instructions For Use, [employer], February 2018) Performed By: #### 1 [id number] ####[facility] [address] [place] [address] XR Chest Single Viewon 08-29 XR Chest Single View Normal [facility] Auto Diffon 08-28-2022 Basophils/100 WBC (Bld) 1.3 % Normal 0.0-2.0 [facility] Comment on above: Order Comment: Order Added by Discern Expert. Performed By: #### 2 421032, 8522986, 42004985, 3277137, 4998386, 70215411, 35961249, 79510160 ####[facility] [address] [place] [address] Basophils/Leukocytes Auto (Bld) [Pure # fraction] 0.2 E9/L Normal 0.0-0.[address] [facility] Comment on above: Order Comment: Order Added by Discern Expert. Performed By: #### 2 428417, 5165405, 33122885, 8758539, 2226580, 61164655, 04274678, 28873191 ####[facility] [address] [place] [address] Eosinophils/100 WBC (Bld) 2.1 % Normal 0.0-8.[address] [facility] Comment on above: Order Comment: Order Added by Discern Expert. Performed By: #### 2 049692, 6574255, 70059640, 8227081, 2093663, 88558463, 30427827, 47273312 ####[facility] [address] [place] [address] Eosinophils/Leukocytes Auto (Bld) [Pure # fraction] 0.2 E9/L Normal 0.0-0.[address] [facility] Comment on above: Order Comment: Order Added by Discern Expert. Performed By: #### 2 657617, 1101195, 19845156, 9453605, 5690265, 04840789, 54812171, 13385814 ####[facility] [address] [place] [address] Lymphocytes/100 WBC (Bld) 35.5 % Normal 14.0-50.[address] [facility] Comment on above: Order Comment: Order Added by Discern Expert. Performed By: #### 2 825283, 8841297, 39473551, 1778227, 4764010, 56567919, 30870993, 58100508 ####[address] [place] [address] Lymphocytes/Leukocytes Auto (Bld) [Pure # fraction] 4.1 E9/L High 1.0-4.[address] [facility] Comment on above: Order Comment: Order Added by Discern Expert. Performed By: #### 2 961069, 2730198, 10244842, 7991722, 6490482, 68433244, 13078405, 17770382 ####[facility] [address] [place] [address] Monocytes/100 WBC (Bld) 8.5 % Normal 4.0-14.0 [facility] Comment on above: Order Comment: Order Added by Discern Expert. Performed By: #### 2 558072, 9171616, 94244030, 2936725, 1614945, 05511093, 52962858, 65212072 ####[address] [place] [address] Monocytes/Leukocytes Auto (Bld) [Pure # fraction] 1.0 E9/L Normal 0.2-1.[address] [facility] Comment on above: Order Comment: Order Added by Discern Expert. Performed By: #### 2 455735, 6915304, 14611285, 8384483, 5068460, 07231709, 27468535, 56428448 ####[facility] [address] [place] [address] Neutrophils/100 WBC (Bld) 52.6 % Normal 36.0-75.[address] [facility] Comment on above: Order Comment: Order Added by Discern Expert. Performed By: #### 2 425705, 5783532, 42792929, 8947433, 9677837, 78173831, 79873617, 60044342 ####[facility] [address] [place] [address] Neutrophils/Leukocytes Auto (Bld) [Pure # fraction] 6.1 E9/L Normal 2.0-7.[address] [facility] Comment on above: Order Comment: Order Added by Discern Expert. Performed By: #### 2 985024, 2333661, 26034438, 3650922, 8051934, 84138141, 90520354, 76513533 ####[facility] [address] [place] [address] BMPon 08-28-2022 Creatinine [Mass/Vol] 1.2 mg/dL Normal 0.5-1.3 [facility] Comment on above: Performed By: #### 2 233579, 9254550, 75913949, 8968616, 5784555, 69455083, 35374240, 44178311 ####[facility] [address] [place] [address] Urea nitrogen [Mass/Vol] 16 mg/dL Normal 5-[address] [facility] Comment on above: Performed By: #### 2 363266, 9342421, 77812948, 4664190, 9129008, 61878722, 38414023, 71097788 ####[facility] [address] [place] [address] Urea nitrogen/Creatinine [Mass ratio] 13 No Units Normal 10-[address] [facility] Comment on above: Performed By: #### 2 510912, 9326419, 26740345, 6611797, 6006986, 26130408, 27354524, 78417317 ####[facility] [address] [place] [address] Anion gap [Moles/Vol] 12 mmol/L Normal 6-16 [facility] Comment on above: Performed By: #### 2 115548, 7461935, 24460841, 6192003, 2522083, 11394646, 58853508, 85157847 ####[facility] [address] [place] [address] Calcium [Mass/Vol] 8.6 mg/dL Low 8.9-11.[address] [facility] Comment on above: Performed By: #### 2 632112, 7488149, 61283003, 9473720, 6445754, 67688026, 95643575, 78130730 ####[facility] [address] [place] [address] Chloride [Moles/Vol] 104 mmol/L Normal 101-111 [facility] Comment on above: Performed By: #### 2 296085, 9455347, 54721116, 7796941, 3876053, 78500669, 61447275, 69557368 ####[facility] [address] [place] [address] CO2 [Moles/Vol] 24 mmol/L Normal 21-31 [facility] Comment on above: Performed By: #### 2 450067, 4963647, 90181996, 5143788, 1379098, 40201638, 20098116, 81453606 ####[facility] [address] [place] [address] Glucose [Mass/Vol] 131 mg/dL Normal 55-[address] [facility] Comment on above: Result Comment: If t his glucose result represents a fasting glucose, interpretation should refer to the following reference range: 55-99 mg/dL Performed By: #### 2 668241, 4383114, 86623939, 9163842, 3110818, 09536132, 83745530, 46505655 ####[facility] [address] [place] [address] Potassium [Moles/Vol] 3.9 mmol/L Normal 3.5-5.3 [facility] Comment on above: Performed By: #### 2 730796, 3480584, 83370113, 5105793, 4534072, 50076004, 02829847, 32290907 ####[address] [place] [address] Sodium [Moles/Vol] 136 mmol/L Normal 135-[address] [facility] Comment on above: Performed By: #### 2 172217, 1488873, 31955937, 4690277, 4056577, 52248060, 55435258, 80136059 ####[address] [place] [address] BNPon 08-28-2022 Int Ctr BNP Pass Normal [facility] Comment on above: Performed By: #### 2 707188, 7507610, 30529978, 7744043, 5782282, 13656256, 63210576, 30236010 ####[address] [place] [address] Natriuretic peptide B (Bld) [Mass/Vol] 15 pg/mL Normal 5-[address] [facility] Comment on above: Performed By: #### 2 944965, 0250895, 26416055, 8877438, 5365126, 78823920, 55262396, 22861918 ####[facility] [address] [place] [address] CBC w/ Auto Diffon 3 Erythrocyte distribution width (RBC) [Ratio] 13.5 % Normal 10.9-14.[address] [facility] Comment on above: Performed By: #### 2 379225, 3926040, 76728392, 0822703, 1655671, 87906406, 25245493, 67874745 ####[address] [place] [address] Hematocrit (Bld) [Volume fraction] 42.3 % Normal 37.7-49.[address] [facility] Comment on above: Performed By: #### 2 546699, 9175632, 50273456, 0892522, 1315903, 09473183, 55836898, 47290560 ####[facility] [address] [place] [address] Hemoglobin (Bld) [Mass/Vol] 14.5 g/dL Normal 13.5-17.[address] [facility] Comment on above: Performed By: #### 2 713731, 0085582, 28644953, 8432997, 0099840, 44364647, 52806830, 03287418 ####[address] [address] MCH (RBC) [Entitic mass] 28.3 pg Normal 27.0-34.[address] [facility] Comment on above: Performed By: #### 2 068312, 5001391, 85757243, 8109495, 8842202, 12887118, 32995140, 67844084 ####[address] [address] MCHC (RBC) [Mass/Vol] 34.2 g/dL Normal 31.4-36.0 [facility] Comment on above: Performed By: #### 2 320662, 5191809, 98751614, 2221498, 4252861, 20307042, 89000849, 27036672 ####[address] [place] [address] MCV (RBC) [Entitic vol] 82.8 fL Normal 80.0-100.0 [facility] Comment on above: Performed By: #### 2 512499, 3881395, 60313132, 3523809, 0010152, 90138269, 65852575, 37844019 ####[address] [place] [address] Platelet mean volume (Bld) [Entitic vol] 8.0 fL Normal 6.4-10.[address] [facility] Comment on above: Performed By: #### 2 975810, 8448577, 56048901, 1357068, 3899057, 76906164, 26310559, 14158367 ####[facility] [address] [place] [address] Platelets (Bld) [#/Vol] 290.0 E9/L Normal 150.0-500.[address] [facility] Comment on above: Performed By: #### 2 401279, 0400234, 48527893, 4182808, 6029136, 49603829, 57224083, 44820198 ####[facility] [address] [place] [address] RBC (Bld) [#/Vol] 5.1 E12/L Normal 4.3-5.[address] [facility] Comment on above: Performed By: #### 2 988113, 0160123, 20173059, 2383840, 6446759, 17075983, 97659696, 48700228 ####[facility] [address] [place] [address] WBC corrected for nucl RBC Auto (Bld) [#/Vol] 11.7 E9/L High 4.0-11.0 [facility] Comment on above: Performed By: #### 2 324470, 6268383, 60374945, 9207039, 5664520, 76317777, 41045918, 51019546 ####[facility] [address] [place] [address] CHEMISTRYOrdered By: SYSTEM SYSTEM on 08-28-2022 Troponin I.cardiac [Mass/Vol] 11.30 pg/mL Low 15.90 - 38.40 pg/mL [facility] Albumin [Mass/Vol] 3.9 g/dL Normal 3.3 - 5.0 gm/dL [facility] Albumin/Globulin [Mass ratio] 1.4 {ratio} Normal 1.1 - 2.2 [facility] ALP [Catalytic activity/Vol] 78 [iU]/d Normal 21 - 98 Int._Unit/L [facility] ALT No additional P-5'-P [Catalytic activity/Vol] 31 [iU]/d Normal 6 - 46 Int._Unit/L [facility] Anion gap [Moles/Vol] 12 mmol/L Normal 6 - 16 mEq/L [facility] AST [Catalytic activity/Vol] 24 [iU]/d Normal 5 - 43 Int._Unit/L [facility] Bilirubin [Mass/Vol] 0.4 mg/dL Normal 0.0 - 1 .1 mg/dL [facility] Bilirubin.direct [Mass/Vol] 0.1 mg/dL Normal 0.1 - 0.4 mg/dL [facility] Bilirubin.indirect [Mass or moles/Vol] 0.3 mg/dL Normal 0.1 - 0.9 mg/dL [facility] Calcium [Mass/Vol] 8.6 mg/dL Low 8.9 - 11. 1 mg/dL [facility] Chloride [Moles/Vol] 104 mmol/L Normal 101 - 1 11 mmol/L [facility] CO2 [Moles/Vol] 24 mmol/L Normal 21 - 31 mmol/L [facility] Creatinine [Mass/Vol] 1.2 mg/dL Normal 0.5 - 1.3 mg/dL [facility] GFR/1.73 sq M.predicted among blacks MDRD (S/P/Bld) [Vol rate/Area] mL/min/1.73 m2 Normal >=59mL/min/ 1.73 m2 [facility] Chem S GFR/1.73 sq M.predicted among non-blacks MDRD (S/P/Bld) [Vol rate/Area] mL/min/1.73 m2 Normal >=59mL/min/ 1.73 m2 [facility] Chem S Globulin (S) [Mass/Vol] 2.8 g/dL Normal 1.4 - 4.0 gm/dL [facility] Glucose [Mass/Vol] 131 mg/dL Normal 55 - 199 mg/dL [facility] Potassium [Moles/Vol] 3.9 mmol/L Normal 3.5 - 5.3 mmol/L [facility] Protein [Mass/Vol] 6.7 g/dL Normal 6.0 - 7.8 gm/dL [facility] Sodium [Moles/Vol] 136 mmol/L Normal 135 - 145 mmol/L [facility] Troponin I.cardiac [Mass/Vol] 13.70 pg/mL Low 15.90 - 38.40 pg/mL [facility] Urea nitrogen [Mass/Vol] 16 mg/dL Normal 5 - 21 mg/dL [facility] Urea nitrogen/Creatinine [Mass ratio] 13 mg/mg Normal 10 - 20 [facility] CHEMISTRYOrdered By: Salvatore cisneros on 08-28-2022 Natriuretic peptide B (Bld) [Mass/Vol] 15 pg/mL Normal 5 - 80 pg/mL [facility] HemeManSS COAGULATIONOrdered By: Mireille Garcia on 08-28-2022 aPTT Coag (PPP) [Time] 18.0 s Low 25.1 - 36.5 second(s) [facility] Auto Coag INR Coag (PPP) [Relative time] 1.0 {INR} Invalid Interpretation Code [facility] Auto Coag PT Coag (PPP) [Time] 10.8 s Normal 9.4 - 1 2.5 second(s) [facility] Auto Coag HEMATOLOGYOrdered By: SYSTEM SYSTEM on 08-28-2022 Basophils/100 WBC (Bld) 1.3 % Normal 0.0 - 2.0 % [facility] Basophils/Leukocytes Auto (Bld) [Pure # fraction] 0.2 E9/L Normal 0.0 - 0.2 E9/L [facility] Eosinophils/100 WBC (Bld) 2.1 % Normal 0.0 - 8.0 % [facility] Eosinophils/Leukocytes Auto (Bld) [Pure # fraction] 0.2 E9/L Normal 0.0 - 0.5 E9/L [facility] Lymphocytes/100 WBC (Bld) 35.5 % Normal 14.0 - 50.0 % [facility] Lymphocytes/Leukocytes Auto (Bld) [Pure # fraction] 4.1 E9/L High 1.0 - 4.0 E9/L [facility] Monocytes/100 WBC (Bld) 8.5 % Normal 4.0 - 14.0 % [facility] Monocytes/Leukocytes Auto (Bld) [Pure # fraction] 1.0 E9/L Normal 0.2 - 1.0 E9/L [facility] Neutrophils/100 WBC (Bld) 52.6 % Normal 36.0 - 75.0 % [facility] Neutrophils/Leukocytes Auto (Bld) [Pure # fraction] 6.1 E9/L Normal 2.0 - 7.5 E9/L [facility] HEMATOLOGYOrdered By: Salvtaore Childress on 08-28-2022 Erythrocyte distribution width (RBC) [Ratio] 13.5 % Normal 10.9 - 14.2 % [facility] Hematocrit (Bld) [Volume fraction] 42.3 % Normal 37.7 - 49.0 % [facility] Hemoglobin (Bld) [Mass/Vol] 14.5 g/dL Normal 13.5 - 17.5 gm/dL [facility] MCH (RBC) [Entitic mass] 28.3 pg Normal 27.0 - 34.0 pg [facility] MCHC (RBC) [Mass/Vol] 34.2 g/dL Normal 31.4 - 36.0 gm/dL [facility] MCV (RBC) [Entitic vol] 82.8 fL Normal 80.0 - 100.0 fL [facility] Platelet mean volume (Bld) [Entitic vol] 8.0 fL Normal 6.4 - 10.8 fL [facility] Platelets (Bld) [#/Vol] 290.0 E9/L Normal 150. 0 - 500.0 E9/L [facility] RBC (Bld) [#/Vol] 5.1 E12/L Normal 4.3 - 5.9 E12/L [facility] WBC corrected for nucl RBC Auto (Bld) [#/Vol] 11.7 E9/L High 4.0 - 11.0 E9/L [facility]eAuto[facility] Hep Func Panelon 08-28-2022 Albumin [Mass/Vol] 3.9 g/dL Normal 3.3-5.[address] [facility] Comment on above: Performed By: #### 2 404994, 2416260, 57912742, 6335429, 4937584, 59450487, 13669129, 37114701 ####[address] [place] [address] Albumin/Globulin (S) [Mass conc ratio] 1.4 Normal 1.1-2.[address] [facility] Comment on above: Performed By: #### 2 265602, 9054398, 36332097, 9697287, 6563981, 97181511, 00435077, 65895245 ####[facility] [address] [place] [address] ALP [Catalytic activity/Vol] 78 Int._Unit/L Normal 21-[address] [facility] Comment on above: Performed By: #### 2 943330, 9509692, 95072375, 5163321, 5071635, 19659326, 92776467, 76375783 ####[address] [address] ALT No additional P-5'-P [Catalytic activity/Vol] 31 Int._Unit/L Normal 6-[address] [facility] Comment on above: Performed By: #### 2 652920, 9920196, 77363063, 8437126, 7136905, 59324859, 49456702, 69976347 ####[facility] [address] [place] [address] AST [Catalytic activity/Vol] 24 Int._Unit/L Normal 5-[address] [facility] Comment on above: Performed By: #### 2 717467, 8822612, 04456165, 6594782, 8708952, 57087718, 91232284, 02861822 ####[facility] [address] [place] [address] Bilirubin [Mass/Vol] 0.4 mg/dL Normal 0.0-1.1 [facility] Comment on above: Performed By: #### 2 036729, 1004273, 53802022, 1500008, 2447735, 55118454, 73644435, 71190692 ####[facility] [address] [place] [address] Bilirubin.direct [Mass/Vol] 0.1 mg/dL Normal 0.1-0.[address] [facility] Comment on above: Performed By: #### 2 408826, 1535036, 00268956, 8894294, 8538193, 80982554, 37485243, 70161467 ####[facility] [address] [place] [address] Bilirubin.indirect [Mass or moles/Vol] 0.3 mg/dL Normal 0.1-0.[address] [facility] Comment on above: Performed By: #### 2 039274, 3313790, 58100168, 3538222, 8647439, 02191096, 11426457, 02631414 ####[facility] [address] [place] [address] Globulin (S) [Mass/Vol] 2.8 g/dL Normal 1.4-4.0 [facility] Comment on above: Performed By: #### 2 306931, 0907581, 80132368, 9608264, 8712027, 20868298, 45946678, 32049463 ####[facility] [address] [place] [address] Protein [Mass/Vol] 6.7 g/dL Normal 6.0-7.[address] [facility] Comment on above: Performed By: #### 2 435491, 5388504, 97605429, 6696390, 6058571, 07527518, 07381105, 97558460 ####[address] [place] [address] PT & PTTon 08-28-2022 aPTT Coag (PPP) [Time] 18.0 second(s) Low 25.1-36.[address] [facility] Comment on above: Result Comment: Para meter 15 days - 4 weeks 1 - 5 months 6 - 11 months 1 - 5 years 6 - 10 years 11 - 17 years PTT Mean: 35.4 (27.6-45.6) Mean: 33.5 (24.8-40.7) Mean: 32.4 (25.1-40.7) Mean: 31.6 (24.0-39.2) Mean: 31.6 (26.9-38.7) Mean: 31.0 (24.6-38.4) Pediatric Reference ranges were obtained from a study by [employer] [place] alJesus prepared from 1437 samples obtained at 7 different centers using the same coagulation reagent and instrumentation as [facility]. Currently there are no coagulation studies available worldwide for children to 14 days, and no normal ranges. Heparin therapeutic range (represented by Anti-Factor Xa activity of 0.2 - 0.4 U/mL) corresponds to PTT of 56.6 - 109.0 sec. Performed By: #### 2 753287, 5665336, 96137054, 5696982, 7015479, 52758710, 92732747, 73438343 ####[facility] [address] [place] [address] INR Coag (PPP) [Relative time] 1.0 {INR} Invalid Interpretation Code [facility] Comment on above: Result Comment: INR results are specifically intended to assess patients stabilized on long-term Anticoagulation therapy suggested INR?s ?Less Intensive Anticoagulation? 2.0 ? 3.0Conventional Range 3.0 ? 4.5 Performed By: #### 2 564796, 7637383, 08421369, 8156438, 3401037, 28315020, 80833617, 27454329 ####[facility] [address] [place] [address] PT Coag (PPP) [Time] 10.8 second(s) Normal 9.4-12.[address] [facility] Comment on above: Result Comment: 15 d ays - 4 weeks 1 - 5 months 6 -11 months 1-5 years 6-10 years 11 -17 years Mean: 11.2 (9.5-12.6) Mean: 11.0 (9.7-12.8) Mean: 11.0 (9.8-13.0) Mean: 11.3 (9.9-13.4) Mean: 11.7 (10.0-14.6) Mean: 11.8 (10.0 - 14.1) Pediatric Reference ranges were obtained from a study by [employer] [place] prepared from 1437 samples obtained at 7 different centers using the same coagulation reagent and instrumentation as [facility]. Currently there are no coagulation studies available worldwide for children to 14 days, and no normal ranges. Performed By: #### 2 481535, 0394110, 60418682, 5119582, 2201292, 48763822, 68085189, 92846406 ####[facility] [address] [place] [address] Pre-Arrival Noteon 3 Pre-Arrival Note Normal [facility] Troponin 0 Hr.on 08-28-2022 Troponin I.cardiac [Mass/Vol] 13.70 pg/mL Low 15.90-38.[address] [facility] Comment on above: Result Comment: The 95% CI (Confidence Interval) PPV (Positive Predictive Value) for myocardial infarction in females is 38 pg/mL, in males 51 pg/mL. The results should be used in conjunction with clinical conditions of myocardial infarction.(Access High Sensitivity Troponin I Instructions For Use, [employer], February 2018) Performed By: #### 2 244344, 3962472, 70459136, 0375722, 4094779, 03432762, 50348364, 57390987 ####[facility] [address] [place] [address] eGFRon 08-28-2022 GFR/1.73 sq M.predicted among blacks MDRD (S/P/Bld) [Vol rate/Area] mL/min/{1.73_m2} Normal >=[address] [facility] Comment on above: Order Comment: Order added by Discern Expert. Result Comment: eGFR is race adjusted. AA=. Performed By: #### 2 286183, 0323588, 00618610, 5190697, 4903699, 14325613, 85425845, 41865350 ####[facility] [address] [place] [address] GFR/1.73 sq M.predicted among non-blacks MDRD (S/P/Bld) [Vol rate/Area] mL/min/{1.73_m2} Normal >=[address] [facility] Comment on above: Order Comment: Order added by Discern Expert. Result Comment: Travel Director andrea kidney disease could be indicated at eGFR's of less than 60 mL/min/1.73m2. Kidney failure is indicated at less than 15 mL/min/1.73m2. Performed By: #### 2 999605, 0190391, 74734759, 7572614, 7454325, 77358422, 37748896, 64556129 ####[facility] [address] [place] [address] Nonvisit Note - PTon 023 Nonvisit Note - PT 08-24-22 hf, pt called to cxl, stated that he had a stent placed. follow up with dr on the , Confirmed our rre-eval on the and asked tht he call back if he isn't to continue with therapy.--per front end architect [facility] PT - Orderson 08-26-2022 PT - Orders [id number]# 1.00CD:127 [facility] Consent for Procedure/Surger yon 08-25-2022 Consent for Procedure/Surgery [id number]#1 .00CD:127 [facility] Pre-Certification Formon Pre-Certification Form [id number]# 1.00CD:127 [facility] BMPon 08-24-2022 Anion gap [Moles/Vol] 8 mmol/L Normal 6-16 [facility] Comment on above: Performed By: #### 2 083538, 8615156, 64509325, 3011530, 5045208 ####[facility] [address] [place] [address] Calcium [Mass/Vol] 8.5 mg/dL Low 8.9-11.[address] [facility] Comment on above: Performed By: #### 2 700337, 1589059, 28691385, 0796086, 4228697 ####[facility] [address] [place] [address] Chloride [Moles/Vol] 108 mmol/L Normal 101-111 [facility] Comment on above: Performed By: #### 2 690974, 9474165, 88761682, 4976439, 8575805 ####[facility] [address] [place] [address] CO2 [Moles/Vol] 25 mmol/L Normal 21-31 [facility] Comment on above: Performed By: #### 2 908217, 6765314, 27029793, 8434815, 6913918 ####[facility] [address] [place] [address] Creatinine [Mass/Vol] 1.0 mg/dL Normal 0.5-1.3 [facility] Comment on above: Performed By: #### 2 188885, 9636841, 41037162, 3623291, 9491617 ####[facility] [address] [place] [address] Glucose [Mass/Vol] 111 mg/dL Normal 55-[address] [facility] Comment on above: Result Comment: If t his glucose result represents a fasting glucose, interpretation should refer to the following reference range: 55-99 mg/dL Performed By: #### 2 129957, 2357456, 50295397, 6557931, 9949737 ####[facility] [address] [place] [address] Potassium [Moles/Vol] 4.1 mmol/L Normal 3.5-5.3 [facility] Comment on above: Performed By: #### 2 347264, 8540804, 39564949, 6118183, 4600950 ####[facility] [address] [place] [address] Sodium [Moles/Vol] 137 mmol/L Normal 135-[address] [facility] Comment on above: Performed By: #### 2 615783, 6147865, 50603474, 4193052, 8851939 ####[facility] [address]ary [place] [address] Urea nitrogen [Mass/Vol] 18 mg/dL Normal 5-[address] [facility] Comment on above: Performed By: #### 2 728549, 5672099, 34225994, 0717922, 6659772 ####[facility] [address] [place] [address] Urea nitrogen/Creatinine [Mass ratio] 18 No Units Normal 10-[address] [facility] Comment on above: Performed By: #### 2 711725, 1236234, 57521175, 6638042, 4415281 ####[facility] [address] [place] [address] CBC w/Indiceson 08-24-2022 Erythrocyte distribution width (RBC) [Ratio] 13.5 % Normal 10.9-14.[address] [facility] Comment on above: Performed By: #### 2 081086, 2604887, 62603854, 3678800, 1884683 ####[facility] [address] [place] [address] Hematocrit (Bld) [Volume fraction] 41.3 % Normal 37.7-49.[address] [facility] Comment on above: Performed By: #### 2 042828, 9747651, 01956070, 8951282, 6003007 ####[facility] [address] [place] [address] Hemoglobin (Bld) [Mass/Vol] 14.1 g/dL Normal 13.5-17.[address] [facility] Comment on above: Performed By: #### 2 215191, 5509088, 81751100, 9377354, 6322217 ####[facility] [address] [place] [address] MCH (RBC) [Entitic mass] 28.3 pg Normal 27.0-34.[address] [facility] Comment on above: Performed By: #### 2 760126, 2928722, 98864810, 2182445, 4661921 ####[facility] [address] [place] [address] MCHC (RBC) [Mass/Vol] 34.2 g/dL Normal 31.4-36.0 [facility] Comment on above: Performed By: #### 2 853077, 5471896, 28478935, 4867442, 9999134 ####[facility] [address] [place] [address] MCV (RBC) [Entitic vol] 82.8 fL Normal 80.0-100.0 [facility] Comment on above: Performed By: #### 2 704248, 6803960, 77334345, 4870469, 5679559 ####[facility] [address] [place] [address] Platelet mean volume (Bld) [Entitic vol] 7.9 fL Normal 6.4-10.[address] [facility] Comment on above: Performed By: #### 2 471202, 2782699, 90420736, 7701439, 6120234 ####[address] [address] Platelets (Bld) [#/Vol] 283.0 E9/L Normal 150.0-500.[address] [facility] Comment on above: Performed By: #### 2 090448, 2266483, 71266753, 9083682, 4617695 ####[address] [address] RBC (Bld) [#/Vol] 5.0 E12/L Normal 4.3-5.[address] [facility] Comment on above: Performed By: #### 2 736682, 2118014, 92240145, 3888190, 7763802 ####[address] [address] WBC corrected for nucl RBC Auto (Bld) [#/Vol] 11.1 E9/L High 4.0-11.0 [facility] Comment on above: Performed By: #### 2 063247, 1637452, 11082472, 6092922, 2464473 ####[address] [place] [address] CHEMISTRYOrdered By: SYSTEM SYSTEM on 08-24-2022 Anion gap [Moles/Vol] 8 mmol/L Normal 6 - 16 mEq/L [facility] Calcium [Mass/Vol] 8.5 mg/dL Low 8.9 - 11. 1 mg/dL [facility] Chloride [Moles/Vol] 108 mmol/L Normal 101 - 1 11 mmol/L [facility] CO2 [Moles/Vol] 25 mmol/L Normal 21 - 31 mmol/L [facility] Creatinine [Mass/Vol] 1.0 mg/dL Normal 0.5 - 1.3 mg/dL [facility] GFR/1.73 sq M.predicted among blacks MDRD (S/P/Bld) [Vol rate/Area] mL/min/1.73 m2 Normal >=59mL/min/ 1.73 m2 [facility] Chem S GFR/1.73 sq M.predicted among non-blacks MDRD (S/P/Bld) [Vol rate/Area] mL/min/1.73 m2 Normal >=59mL/min/ 1.73 m2 [facility] Chem S Glucose [Mass/Vol] 111 mg/dL Normal 55 - 199 mg/dL [facility] Magnesium [Mass/Vol] 2.0 mg/dL Normal 1.3 - 2 .4 mg/dL [facility] Potassium [Moles/Vol] 4.1 mmol/L Normal 3.5 - 5.3 mmol/L [facility] Sodium [Moles/Vol] 137 mmol/L Normal 135 - 145 mmol/L [facility] Troponin I.cardiac [Mass/Vol] 242.60 pg/mL Invalid Interpretation Code 15.90 - 38.40 pg/mL [facility] Comment on above: Result Comment: Crit ical Result verified by repeat analysis\ Critical Result [id number] Called to MIRIAM CROSS at 3S by STEVE DELEON and read back for confirmation at 08/24/2022 07:40:25 Urea nitrogen [Mass/Vol] 18 mg/dL Normal 5 - 21 mg/dL [facility] Urea nitrogen/Creatinine [Mass ratio] 18 mg/mg Normal 10 - 20 [facility] Cardiovascular Reporton Cardiovascular Report [id number] [facility] [id number]# 1.00CD:[address] [facility] Discharge Instructionson Discharge Instructions [id number]# 1.00CD:[address] [facility] Discharge Note-Nursingon Discharge Note-Nursing Normal [facility] EMS Documentationon 08-24-19 EMS Documentation Normal [facility] EMS Documentation Normal [facility] HEMATOLOGYOrdered By: Jose Gastelum on 08-24-2022 Erythrocyte distribution width (RBC) [Ratio] 13.5 % Normal 10.9 - 14.2 % [facility] Hematocrit (Bld) [Volume fraction] 41.3 % Normal 37.7 - 49.0 % [facility] Hemoglobin (Bld) [Mass/Vol] 14.1 g/dL Normal 13.5 - 17.5 gm/dL [facility] MCH (RBC) [Entitic mass] 28.3 pg Normal 27.0 - 34.0 pg [facility] MCHC (RBC) [Mass/Vol] 34.2 g/dL Normal 31.4 - 36.0 gm/dL [facility] MCV (RBC) [Entitic vol] 82.8 fL Normal 80.0 - 100.0 fL [facility] Platelet mean volume (Bld) [Entitic vol] 7.9 fL Normal 6.4 - 10.8 fL [facility] Platelets (Bld) [#/Vol] 283.0 E9/L Normal 150. 0 - 500.0 E9/L [facility] RBC (Bld) [#/Vol] 5.0 E12/L Normal 4.3 - 5.9 E12/L [facility] WBC corrected for nucl RBC Auto (Bld) [#/Vol] 11.1 E9/L High 4.0 - 11.0 E9/L [facility] Inpatient Clinical Summaryon 08-24-2022 Inpatient Clinical Summary Normal [facility] Inpatient Patient Summaryon 08-24-2022 Inpatient Patient Summary Normal [facility] Insurance Correspondenceon 0 08-24-2022 Insurance Correspondence [id number]#1 .00CD:[address] [facility] Interdisciplinary Note - Kendrick e Manageron 08-24-2022 Interdisciplinary Note - Night Clerk Auditor Normal [facility] Comment on above: Result Comment: Elec tronically Signed By: Yesy Masters\.br\Date and Time Signed: 08/24/22 10:48 EST Magnesiumon 08-24-2022 Magnesium [Mass/Vol] 2.0 mg/dL Normal 1.3-2.4 [facility] Comment on above: Performed By: #### 2 [id number], [id number], [id number], [id number] ####[facility] [id number] [place] [address] Monitor Recordon 08-24-2022 Monitor Record [id number]# 1.00CD:[address] [facility] Operative Reporton Operative Report Normal [facility] Comment on above: Result Comment: Elec tronically Signed By: Yeni Lux MD\.br\Date and Time Signed: 08/24/22 08:12 EST Pre-Certification Formon Pre-Certification Form [id number]#1 .00CD:127 Normal [facility] [facility] Prescriptions/Work Noteson 0 08-24-2022 Prescriptions/Work Notes [id number]# 1.00CD:[address] [facility] Progress Note-Physicianon Progress Note-Physician Normal [facility] Comment on above: Result Comment: Elec tronically Signed By: Yeni Lux MD\.br\Date and Time Signed: 08/24/22 08:49 EST Troponinon 08-24-2022 Troponin I.cardiac [Mass/Vol] 242.60 pg/mL Abnormal 15.90-38.[address] [facility] Comment on above: Result Comment: Crit ical Result verified by repeat analysis\ Critical Result I_hsTnI:242.6 Called to MIRIAM CROSS at 3S by STEVE DELEON and read back for confirmation at 08/24/2022 07:40:25The 95% CI (Confidence Interval) PPV (Positive Predictive Value) for myocardial infarction in females is 38 pg/mL, in males 51 pg/mL. The results should be used in conjunction with clinical conditions of myocardial infarction.(Access High Sensitivity Troponin I Instructions For Use, Mariaelena Elizabeth, February 2018) Performed By: #### 2 [id number], 1947337, [id number], 9145294, 8765303 ####[facility] [address] [place] [address] eGFRon 08-24-2022 GFR/1.73 sq M.predicted among blacks MDRD (S/P/Bld) [Vol rate/Area] mL/min/{1.73_m2} Normal >=[address] [facility] Comment on above: Order Comment: Order added by Discern Expert. Result Comment: eGFR is race adjusted. AA=. Performed By: #### 2 651262, 9392473, 49362316, 9680937, 5891878 ####[facility] [address] [place] [address] GFR/1.73 sq M.predicted among non-blacks MDRD (S/P/Bld) [Vol rate/Area] mL/min/{1.73_m2} Normal >=[address] [facility] Comment on above: Order Comment: Order added by Discern Expert. Result Comment: Travel Director andrea kidney disease could be indicated at eGFR's of less than 60 mL/min/1.73m2. Kidney failure is indicated at less than 15 mL/min/1.73m2. Performed By: #### 2 241347, 3439935, 24760383, 1057956, 5660842 ####[facility] [address] [place] [address] Auto Diffon 08-23-2022 Basophils/100 WBC (Bld) 0.7 % Normal 0.0-2.0 [facility] Comment on above: Order Comment: Order Added by Discern Expert. Performed By: #### 1 1066704, 7531762, 2667240, 6262012, 43300532, 64116283 ####[address] [address] Basophils/Leukocytes Auto (Bld) [Pure # fraction] 0.1 E9/L Normal 0.0-0.[address] [facility] Comment on above: Order Comment: Order Added by Discern Expert. Performed By: #### 1 5529474, 1965929, 4331412, 0314290, 94787907, 82763005 ####[address] [address] Eosinophils/100 WBC (Bld) 1.2 % Normal 0.0-8.[address] [facility] Comment on above: Order Comment: Order Added by Discern Expert. Performed By: #### 1 5913477, 4046210, 4965263, 6456832, 95796871, 68082134 ####[address] [address] Eosinophils/Leukocytes Auto (Bld) [Pure # fraction] 0.1 E9/L Normal 0.0-0.[address] [facility] Comment on above: Order Comment: Order Added by Discern Expert. Performed By: #### 1 6138451, 6175451, 3286240, 8176027, 62364282, 17503345 ####[address] [address] Lymphocytes/100 WBC (Bld) 36.3 % Normal 14.0-50.[address] [facility] Comment on above: Order Comment: Order Added by Discern Expert. Performed By: #### 1 8272472, 9707138, 9024448, 8331530, 37846665, 56366290 ####[address] [address] Lymphocytes/Leukocytes Auto (Bld) [Pure # fraction] 3.4 E9/L Normal 1.0-4.[address] [facility] Comment on above: Order Comment: Order Added by Discern Expert. Performed By: #### 1 4940073, 2303032, 6107899, 4442400, 46970214, 43559108 ####[address] [place] [address] Monocytes/100 WBC (Bld) 9.8 % Normal 4.0-14.0 [facility] Comment on above: Order Comment: Order Added by Discern Expert. Performed By: #### 1 9972657, 8855691, 4837523, 7951587, 66259489, 59554601 ####[address] [address] Monocytes/Leukocytes Auto (Bld) [Pure # fraction] 0.9 E9/L Normal 0.2-1.[address] [facility] Comment on above: Order Comment: Order Added by Discern Expert. Performed By: #### 1 8390823, 6312708, 7634010, 1858051, 74450051, 06379029 ####[address] [address] Neutrophils/100 WBC (Bld) 52.0 % Normal 36.0-75.[address] [facility] Comment on above: Order Comment: Order Added by Discern Expert. Performed By: #### 1 7726821, 5742941, 2076423, 7767426, 82982011, 05648412 ####[address] [address] Neutrophils/Leukocytes Auto (Bld) [Pure # fraction] 4.9 E9/L Normal 2.0-7.[address] [facility] Comment on above: Order Comment: Order Added by Discern Expert. Performed By: #### 1 2216941, 3579256, 6059955, 4752728, 95402536, 04385306 ####[facility] [address] [place] [address] BMPon 08-23-2022 Creatinine [Mass/Vol] 1.0 mg/dL Normal 0.5-1.3 [facility] Comment on above: Performed By: #### 1 9775176, 4704922, 0744680, 9924646, 52608312, 37285716 ####[address] [address] Urea nitrogen [Mass/Vol] 15 mg/dL Normal 5-[address] [facility] Comment on above: Performed By: #### 1 7422281, 4412380, 8524273, 7197037, 08646118, 46789019 ####[facility] [address] [place] [address] Urea nitrogen/Creatinine [Mass ratio] 15 No Units Normal 10-[address] [facility] Comment on above: Performed By: #### 1 7247798, 2687054, 0681355, 0749963, 89569463, 62858931 ####[facility] [address] [place] [address] Anion gap [Moles/Vol] 12 mmol/L Normal 6-16 [facility] Comment on above: Performed By: #### 1 9247570, 1481020, 8390643, 1000271, 65746611, 19275409 ####[facility] [address] [place] [address] Calcium [Mass/Vol] 8.9 mg/dL Normal 8.9-11.[address] [facility] Comment on above: Performed By: #### 1 6936691, 3870133, 8669270, 3405064, 96605987, 47151301 ####[facility] [address] [place] [address] Chloride [Moles/Vol] 103 mmol/L Normal 101-111 [facility] Comment on above: Performed By: #### 1 8314511, 3365790, 2633554, 4285084, 95031948, 24255844 ####[facility] [address] [place] [address] CO2 [Moles/Vol] 27 mmol/L Normal 21-31 [facility] Comment on above: Performed By: #### 1 0464613, 4904835, 4024905, 8762577, 22170286, 83100849 ####[facility] [address] [place] [address] Glucose [Mass/Vol] 129 mg/dL Normal 55-[address] [facility] Comment on above: Result Comment: If t his glucose result represents a fasting glucose, interpretation should refer to the following reference range: 55-99 mg/dL Performed By: #### 1 1849347, 7697210, 8070271, 8155518, 02955069, 71892833 ####[facility] [address] [place] [address] Potassium [Moles/Vol] 3.9 mmol/L Normal 3.5-5.3 [facility] Comment on above: Performed By: #### 1 5127038, 2424415, 7473708, 4787136, 25434427, 07618578 ####[facility] [address] [place] [address] Sodium [Moles/Vol] 138 mmol/L Normal 135-[address] [facility] Comment on above: Performed By: #### 1 8525043, 9846311, 3161397, 2203744, 40800117, 21440606 ####[facility] [address] [place] [address] CBC w/ Auto Diffon 3 Erythrocyte distribution width (RBC) [Ratio] 13.4 % Normal 10.9-14.[address] [facility] Comment on above: Performed By: #### 1 0609177, 3636332, 0181923, 6970910, 85486205, 37864300 ####[address] [place] [address] Hematocrit (Bld) [Volume fraction] 43.3 % Normal 37.7-49.[address] [facility] Comment on above: Performed By: #### 1 3996263, 3260538, 7304951, 5733783, 22340221, 04732483 ####[facility] [address] [place] [address] Hemoglobin (Bld) [Mass/Vol] 14.8 g/dL Normal 13.5-17.[address] [facility] Comment on above: Performed By: #### 1 1758673, 5472985, 2697466, 1177023, 96385684, 66448648 ####[facility] [address] [place] [address] MCH (RBC) [Entitic mass] 28.2 pg Normal 27.0-34.[address] [facility] Comment on above: Performed By: #### 1 4351534, 7179373, 9513935, 0450950, 54750097, 42974539 ####[address] [place] [address] MCHC (RBC) [Mass/Vol] 34.1 g/dL Normal 31.4-36.0 [facility] Comment on above: Performed By: #### 1 2454655, 5813477, 6687577, 5045987, 72437144, 38120552 ####[address] [address] MCV (RBC) [Entitic vol] 82.8 fL Normal 80.0-100.0 [facility] Comment on above: Performed By: #### 1 8620756, 0343143, 0316610, 6144331, 95863792, 17511062 ####[address] [place] [address] Platelet mean volume (Bld) [Entitic vol] 8.0 fL Normal 6.4-10.[address] [facility] Comment on above: Performed By: #### 1 6416702, 3013324, 0564497, 7181311, 19413986, 75179036 ####[address] [place] [address] Platelets (Bld) [#/Vol] 298.0 E9/L Normal 150.0-500.[address] [facility] Comment on above: Performed By: #### 1 3962076, 4667148, 6969485, 4925825, 46687261, 25106846 ####[address] [place] [address] RBC (Bld) [#/Vol] 5.2 E12/L Normal 4.3-5.[address] [facility] Comment on above: Performed By: #### 1 1246137, 2099135, 1933833, 0753192, 13371188, 97996142 ####[facility] [address] [place] [address] WBC corrected for nucl RBC Auto (Bld) [#/Vol] 9.3 E9/L Normal 4.0-11.0 [facility] Comment on above: Performed By: #### 1 4729152, 6763977, 6120414, 9071960, 69920856, 54562613 ####[facility] [address] [place] [address] CHEMISTRYOrdered By: SYSTEM SYSTEM on 08-23-2022 Troponin I.cardiac [Mass/Vol] 7.90 pg/mL Low 15.90 - 38.40 pg/mL [facility] Remisol Troponin I.cardiac [Mass/Vol] 6.40 pg/mL Low 15.90 - 38.40 pg/mL [facility] Anion gap [Moles/Vol] 12 mmol/L Normal 6 - 16 mEq/L [facility] Calcium [Mass/Vol] 8.9 mg/dL Normal 8.9 - 11. 1 mg/dL [facility] Chloride [Moles/Vol] 103 mmol/L Normal 101 - 1 11 mmol/L [facility] CO2 [Moles/Vol] 27 mmol/L Normal 21 - 31 mmol/L [facility] Creatinine [Mass/Vol] 1.0 mg/dL Normal 0.5 - 1.3 mg/dL [facility] GFR/1.73 sq M.predicted among blacks MDRD (S/P/Bld) [Vol rate/Area] mL/min/1.73 m2 Normal >=59mL/min/ 1.73 m2 FT Chem S GFR/1.73 sq M.predicted among non-blacks MDRD (S/P/Bld) [Vol rate/Area] mL/min/1.73 m2 Normal >=59mL/min/ 1.73 m2 [facility] Chem S Glucose [Mass/Vol] 129 mg/dL Normal 55 - 199 mg/dL [facility] Potassium [Moles/Vol] 3.9 mmol/L Normal 3.5 - 5.3 mmol/L [facility] Remisol Sodium [Moles/Vol] 138 mmol/L Normal 135 - 145 mmol/L [facility] Remisol Urea nitrogen [Mass/Vol] 15 mg/dL Normal 5 - 21 mg/dL [facility] Remisol Urea nitrogen/Creatinine [Mass ratio] 15 mg/mg Normal 10 - 20 [facility] Remisol COAGULATIONOrdered By: Mireille Garcia on 08-23-2022 aPTT Coag (PPP) [Time] 29.5 s Normal 25.1 - 36.5 second(s) [facility] Auto Coag INR Coag (PPP) [Relative time] 1.0 {INR} Invalid Interpretation Code [facility] Auto Coag PT Coag (PPP) [Time] 11.5 s Normal 9.4 - 1 2.5 second(s) [facility] Auto Coag Cardiovascular Reporton Cardiovascular Report [id number]# 2.00CD:[address] [facility] Consent for Treatmenton Consent for Treatment [id number]# 1.00CD:[address] [facility] Consultation Noteon 08-23-19 Consultation Note Normal [facility] Comment on above: Result Comment: Elec tronically Signed By: Yeni Lux MD\.br\Date and Time Signed: 08/23/22 15:00 EST ED Clinical Summaryon 2022 ED Clinical Summary Normal [facility] ED Note-Physicianon 08-23-19 ED Note-Physician Normal [facility] Comment on above: Result Comment: Elec tronically Signed By: Jocelyn Garza DO\.br\Date and Time Signed: 08/23/22 11:11 EST ED Patient Education Noteon 08-23-2022 ED Patient Education Note Normal [facility] ED Patient Summaryon 023 ED Patient Summary Normal [facility] GetWell Education Videoon GetWell Education Video Patient Avoiding Infections in the Hospital Yes Normal [facility] HEMATOLOGYOrdered By: SYSTEM SYSTEM on 08-23-2022 Basophils/100 WBC (Bld) 0.7 % Normal 0.0 - 2.0 % [facility] HemeAutoSS Basophils/Leukocytes Auto (Bld) [Pure # fraction] 0.1 E9/L Normal 0.0 - 0.2 E9/L [facility] HemeAutoSS Eosinophils/100 WBC (Bld) 1.2 % Normal 0.0 - 8.0 % [facility] HemeAutoSS Eosinophils/Leukocytes Auto (Bld) [Pure # fraction] 0.1 E9/L Normal 0.0 - 0.5 E9/L [facility] HemeAutoSS Lymphocytes/100 WBC (Bld) 36.3 % Normal 14.0 - 50.0 % [facility] HemeAutoSS Lymphocytes/Leukocytes Auto (Bld) [Pure # fraction] 3.4 E9/L Normal 1.0 - 4.0 E9/L [facility] HemeAutoSS Monocytes/100 WBC (Bld) 9.8 % Normal 4.0 - 14.0 % [facility] HemeAutoSS Monocytes/Leukocytes Auto (Bld) [Pure # fraction] 0.9 E9/L Normal 0.2 - 1.0 E9/L [facility] HemeAutoSS Neutrophils/100 WBC (Bld) 52.0 % Normal 36.0 - 75.0 % [facility] HemeAutoSS Neutrophils/Leukocytes Auto (Bld) [Pure # fraction] 4.9 E9/L Normal 2.0 - 7.5 E9/L [facility] HemeAutoSS HEMATOLOGYOrdered By: Jose Gastelum on 08-23-2022 Erythrocyte distribution width (RBC) [Ratio] 13.4 % Normal 10.9 - 14.2 % [facility] HemeAutoSS Hematocrit (Bld) [Volume fraction] 43.3 % Normal 37.7 - 49.0 % [facility] HemeAutoSS Hemoglobin (Bld) [Mass/Vol] 14.8 g/dL Normal 13.5 - 17.5 gm/dL [facility] HemeAutoSS MCH (RBC) [Entitic mass] 28.2 pg Normal 27.0 - 34.0 pg [facility] HemeAutoSS MCHC (RBC) [Mass/Vol] 34.1 g/dL Normal 31.4 - 36.0 gm/dL [facility] HemeAutoSS MCV (RBC) [Entitic vol] 82.8 fL Normal 80.0 - 100.0 fL [facility] HemeAutoSS Platelet mean volume (Bld) [Entitic vol] 8.0 fL Normal 6.4 - 10.8 fL [facility] HemeAutoSS Platelets (Bld) [#/Vol] 298.0 E9/L Normal 150. 0 - 500.0 E9/L [facility] HemeAutoSS RBC (Bld) [#/Vol] 5.2 E12/L Normal 4.3 - 5.9 E12/L [facility] HemeAutoSS WBC corrected for nucl RBC Auto (Bld) [#/Vol] 9.3 E9/L Normal 4.0 - 11.0 E9/L [facility] HemeAutoSS Monitor Recordon 08-23-2022 Monitor Record [id number]# 1.00CD:[address] [facility] Operative Reporton 3 Operative Report Normal [facility] Comment on above: Result Comment: Elec tronically Signed By: Omid REBOLLEDO, Marc Fowler\.br\Date and Time Signed: 08/23/22 16:58 EST PT & PTTon 08-23-2022 aPTT Coag (PPP) [Time] 29.5 second(s) Normal 25.1-36.[address] [facility] Comment on above: Result Comment: Para meter 15 days - 4 weeks 1 - 5 months 6 - 11 months 1 - 5 years 6 - 10 years 11 - 17 years PTT Mean: 35.4 (27.6-45.6) Mean: 33.5 (24.8-40.7) Mean: 32.4 (25.1-40.7) Mean: 31.6 (24.0-39.2) Mean: 31.6 (26.9-38.7) Mean: 31.0 (24.6-38.4) Pediatric Reference ranges were obtained from a study by Ronn Boucher et al. prepared from 1437 samples obtained at 7 different centers using the same coagulation reagent and instrumentation as [facility]. Currently there are no coagulation studies available worldwide for children to 14 days, and no normal ranges. Heparin therapeutic range (represented by Anti-Factor Xa activity of 0.2 - 0.4 U/mL) corresponds to PTT of 56.6 - 109.0 sec. Performed By: #### 1 0107505, 5069940, 9807655, 8614095, 34491533, 23675936 ####[facility] [address] [place] [address] INR Coag (PPP) [Relative time] 1.0 {INR} Invalid Interpretation Code [facility] Comment on above: Result Comment: INR results are specifically intended to assess patients stabilized on long-term Anticoagulation therapy suggested INR?s ?Less Intensive Anticoagulation? 2.0 ? 3.0Conventional Range 3.0 ? 4.5 Performed By: #### 1 1494023, 7577024, 7009779, 9258572, 39158109, 21769011 ####[facility] [address] [place] [address] PT Coag (PPP) [Time] 11.5 second(s) Normal 9.4-12.[address] [facility] Comment on above: Result Comment: 15 d ays - 4 weeks 1 - 5 months 6 -11 months 1 ? 5 years 6 ? 10 years 11 -17 years Mean: 11.2 (9.5 ? 12.6) Mean: 11.0 (9.7 ? 12.8) Mean: 11.0 (9.8 ? 13.0) Mean: 11.3 (9.9 ? 13.4) Mean: 11.7 (10.0 ? 14.6) Mean: 11.8 (10.0 - 14.1) Pediatric Reference ranges were obtained from a study by Ronn Boucher et al. prepared from 1437 samples obtained at 7 different centers using the same coagulation reagent and instrumentation as [facility]. Currently there are no coagulation studies available worldwide for children to 14 days, and no normal ranges. Performed By: #### 1 [id number], 7186718, 4678135, 3740048, 59443104, 23997918 ####[facility] [address] [place] [address] Pre-Arrival Noteon Pre-Arrival Note Normal [facility] Progress Note-Physicianon Progress Note-Physician Normal [facility] Comment on above: Result Comment: Elec tronically Signed By: Jose J REBOLLEDO, Yeni\.br\Date and Time Signed: 08/23/22 16:02 EST Progress Note-Physician [facility] Comment on above: Result Comment: Elec tronically Signed By: Yeni Lux MD\.br\Date and Time Signed: 08/23/22 16:00 EST Troponin 0 Hr.on 08-23-2022 Troponin I.cardiac [Mass/Vol] 5.50 pg/mL Low 15.90-38.[address] [facility] Comment on above: Result Comment: The 95% CI (Confidence Interval) PPV (Positive Predictive Value) for myocardial infarction in females is 38 pg/mL, in males 51 pg/mL. The results should be used in conjunction with clinical conditions of myocardial infarction.(Access High Sensitivity Troponin I Instructions For Use, [employer], February 2018) Performed By: #### 1 3898517, 3235009, 8881002, 1130193, 66219449, 02183058 ####[facility] [address] [place] [address] Troponin 3 Hr.on 08-23-2022 Troponin I.cardiac [Mass/Vol] 5.10 pg/mL Low 15.90-38.[address] [facility] Comment on above: Result Comment: The 95% CI (Confidence Interval) PPV (Positive Predictive Value) for myocardial infarction in females is 38 pg/mL, in males 51 pg/mL. The results should be used in conjunction with clinical conditions of myocardial infarction.(Access High Sensitivity Troponin I Instructions For Use, Impossible SoftwareFebruary 2018) Performed By: #### 1 [id number] ####[facility] [address] [place] [address] Troponin 6 Hr.on 08-23-2022 Troponin I.cardiac [Mass/Vol] 6.40 pg/mL Low 15.90-38.[address] [facility] Comment on above: Result Comment: The 95% CI (Confidence Interval) PPV (Positive Predictive Value) for myocardial infarction in females is 38 pg/mL, in males 51 pg/mL. The results should be used in conjunction with clinical conditions of myocardial infarction.(Access High Sensitivity Troponin I Instructions For Use, Impossible SoftwareFebruary 2018) Performed By: #### 1 [id number] ####[facility] [address] [place] [address] Troponin 9 Hr.on 08-23-2022 Troponin I.cardiac [Mass/Vol] 7.90 pg/mL Low 15.90-38.[address] [facility] Comment on above: Result Comment: The 95% CI (Confidence Interval) PPV (Positive Predictive Value) for myocardial infarction in females is 38 pg/mL, in males 51 pg/mL. The results should be used in conjunction with clinical conditions of myocardial infarction.(Access High Sensitivity Troponin I Instructions For Use, Mariaelena [employer], February 2018) Performed By: #### 1 [id number] ####[facility] [address] [place] [address] XR Chest Single Viewon 08-23 XR Chest Single View Normal [facility] eGFRon 08-23-2022 GFR/1.73 sq M.predicted among blacks MDRD (S/P/Bld) [Vol rate/Area] mL/min/{1.73_m2} Normal >=[address] [facility] Comment on above: Order Comment: Order added by Discern Expert. Result Comment: eGFR is race adjusted. AA=. Performed By: #### 1 4001740, 9029289, 5434253, 0026484, 99006452, 56736204 ####[facility] [address] [place] [address] GFR/1.73 sq M.predicted among non-blacks MDRD (S/P/Bld) [Vol rate/Area] mL/min/{1.73_m2} Normal >=[address] [facility] Comment on above: Order Comment: Order added by Discern Expert. Result Comment: Travel Director andrea kidney disease could be indicated at eGFR's of less than 60 mL/min/1.73m2. Kidney failure is indicated at less than 15 mL/min/1.73m2. Performed By: #### 1 7045877, 5455914, 3510554, 7201774, 95742905, 74660977 ####[facility] [address] [place] [address] Coding Summary.on 08-15-2022 Coding Summary. Normal [facility] Stress EKG Tracingson 2022 Stress EKG Tracings [id number]# 1.00CD:127 [facility] Discharge Instructionson Discharge Instructions [id number]# 1.00CD:127 [facility] Discharge Note-Nursingon Discharge Note-Nursing [facility] ED Note-Physicianon 08-12-19 ED Note-Physician [facility] Comment on above: Result Comment: Elec tronically Signed By: Andi Payne PA-C\.br\Date and Time Signed: 08/10/22 20:03 EST\.br\Electronically Co-Signed By: Derian Rider DO\.br\Date and Time Co-Signed: 08/12/22 07:00 EST Interdisciplinary Note - Kendrick e Manageron 08-12-2022 Interdisciplinary Note - Night Clerk Auditor [facility] Comment on above: Result Comment: Elec tronically Signed By: Yesy Masters\.br\Date and Time Signed: 08/12/22 10:25 EST Monitor Recordon 08-12-2022 Monitor Record [id number]# 1.00CD:127 [facility] Monitor Record [id number]# 1.00CD:127 [facility] Monitor Record [id number]# 1.00CD:127 [facility] Monitor Record [id number]# 1.00CD:127 [facility] No Panel Informationon 08-12 Normal -[facility] y [address] DO Work Phone: Pre-Certification Formon Pre-Certification Form [id number]#1 .00CD:127 [facility] Pre-Certification Form [id number]#1 .00CD:[address] [facility] Progress Note-Physicianon Progress Note-Physician Normal [facility] Comment on above: Result Comment: Elec tronically Signed By: Wily Diaz MD\.br\Date and Time Signed: 08/12/22 12:19 EST Progress Note-Physician Normal [facility] Comment on above: Result Comment: Elec tronically Signed By: Berta PAL MD\.br\Date and Time Signed: 08/12/22 10:21 EST Progress Note-Physician Normal [facility] Comment on above: Result Comment: Elec tronically Signed By: Rosamaria Dowell RN\.br\Date and Time Signed: 08/12/22 09:20 EST\.br\Electronically Co-Signed By: Mohamud Ramirez DO\.br\Date and Time Co-Signed: 08/12/22 09:48 EST Consultation Noteon 08-11-19 23 Consultation Note [facility] Comment on above: Result Comment: Elec tronically Signed By: Wily Diaz MD\.br\Date and Time Signed: 08/11/22 14:47 EST Consultation Note [facility] Comment on above: Result Comment: Elec tronically Signed By: Nataliya Batista RN\.br\Date and Time Signed: 08/11/22 07:09 EST\.br\Electronically Co-Signed By: Mohamud Ramirez DO\.br\Date and Time Co-Signed: 08/11/22 09:33 EST Interdisciplinary Note - Kendrick e Manageron 08-11-2022 Interdisciplinary Note - Night Clerk Auditor [facility] Comment on above: Result Comment: Elec tronically Signed By: Yesy Masters\.br\Date and Time Signed: 08/11/22 11:15 EST Interdisciplinary Note - Maurisio n 08-11-2022 Interdisciplinary Note - OT Normal [facility] MRI Brain w/o Contraston MRI Brain w/o Contrast Normal [facility] MRI Spine Cervical w/o Contr reinier 08-11-2022 MRI Spine Cervical w/o Contrast Normal [facility] Monitor Recordon 08-11-2022 Monitor Record [id number]# 1.00CD:[address] [facility] Monitor Record [id number]# 1.00CD:[address] [facility] Monitor Record [id number]# 1.00CD:[address] [facility] Monitor Record [id number]# 1.00CD:[address] [facility] RAD - MRI Screening Formon 0 08-11-2022 RAD - MRI Screening Form [id number]# 1.00CD:[address] [facility] Troponin 6 Hr.on 08-11-2022 Troponin I.cardiac [Mass/Vol] 5.10 pg/mL Low 15.90-38.[address] [facility] Comment on above: Result Comment: The 95% CI (Confidence Interval) PPV (Positive Predictive Value) for myocardial infarction in females is 38 pg/mL, in males 51 pg/mL. The results should be used in conjunction with clinical conditions of myocardial infarction.(Access High Sensitivity Troponin I Instructions For Use, Mariaelena [place], February 2018) Performed By: #### 1 [id number] ####[facility] [address] [place] [address] Auto Diffon 08-10-2022 Basophils/100 WBC (Bld) 1.0 % Normal 0.0-2.0 [facility] Comment on above: Order Comment: Order Added by Discern Expert. Performed By: #### 2 155986, 1962648, 09277920, 2087466, 94041795, 91005677 ####[facility] [address] [place] [address] Basophils/Leukocytes Auto (Bld) [Pure # fraction] 0.1 E9/L Normal 0.0-0.[address] [facility] Comment on above: Order Comment: Order Added by Discern Expert. Performed By: #### 2 147757, 3873533, 52679672, 2317991, 03317751, 05173548 ####[facility] [address] [place] [address] Eosinophils/100 WBC (Bld) 1.2 % Normal 0.0-8.[address] [facility] Comment on above: Order Comment: Order Added by Discern Expert. Performed By: #### 2 667568, 2660642, 33041859, 2445081, 11515109, 16460471 ####[address] [place] [address] Eosinophils/Leukocytes Auto (Bld) [Pure # fraction] 0.1 E9/L Normal 0.0-0.[address] [facility] Comment on above: Order Comment: Order Added by Mekhi Expert. Performed By: #### 2 092969, 9461841, 37184146, 6189787, 21828674, 46486675 ####[address] [address] Lymphocytes/100 WBC (Bld) 36.2 % Normal 14.0-50.[address] [facility] Comment on above: Order Comment: Order Added by Mekhi Expert. Performed By: #### 2 072484, 5318391, 27731799, 0201047, 35927444, 04907280 ####[address] [address] Lymphocytes/Leukocytes Auto (Bld) [Pure # fraction] 3.9 E9/L Normal 1.0-4.[address] [facility] Comment on above: Order Comment: Order Added by Mekhi Expert. Performed By: #### 2 459797, 3658209, 75947532, 8362130, 56688964, 01295782 ####[facility] [address] [place] [address] Monocytes/100 WBC (Bld) 10.1 % Normal 4.0-14.0 [facility] Comment on above: Order Comment: Order Added by Discern Expert. Performed By: #### 2 781714, 6843038, 73930591, 4503862, 94159474, 64340932 ####[address] [place] [address] Monocytes/Leukocytes Auto (Bld) [Pure # fraction] 1.1 E9/L High 0.2-1.[address] [facility] Comment on above: Order Comment: Order Added by Discern Expert. Performed By: #### 2 770329, 5150531, 85979036, 3298002, 04115635, 54795023 ####[address] [place] [address] Neutrophils/100 WBC (Bld) 51.5 % Normal 36.0-75.[address] [facility] Comment on above: Order Comment: Order Added by Mekhi Expert. Performed By: #### 2 856150, 8403954, 08478483, 6963312, 45462273, 45792997 ####[address] [place] [address] Neutrophils/Leukocytes Auto (Bld) [Pure # fraction] 5.6 E9/L Normal 2.0-7.[address] [facility] Comment on above: Order Comment: Order Added by Mekhi Expert. Performed By: #### 2 591095, 9100373, 57214500, 4568182, 44956297, 33806026 ####[address] [place] [address] BMPon 08-10-2022 Creatinine [Mass/Vol] 1.0 mg/dL Normal 0.5-1.3 [facility] Comment on above: Performed By: #### 2 621725, 7975376, 34744112, 8883828, 67035843, 65260353 ####[address] [place] [address] Urea nitrogen [Mass/Vol] 17 mg/dL Normal 5-[address] [facility] Comment on above: Performed By: #### 2 784213, 1075304, 96075398, 7885901, 93117840, 28534907 ####[facility] [address] [place] [address] Urea nitrogen/Creatinine [Mass ratio] 17 No Units Normal 10-[address] [facility] Comment on above: Performed By: #### 2 794487, 6236617, 55215342, 8694920, 87233945, 10524965 ####[facility] [address] [place] [address] Anion gap [Moles/Vol] 12 mmol/L Normal 6-16 [facility] Comment on above: Performed By: #### 2 496182, 1340366, 17467640, 2504531, 68004257, 58639778 ####[facility] [address] [facility] [place] [address] Calcium [Mass/Vol] 8.8 mg/dL Low 8.9-11.[address] [facility] Comment on above: Performed By: #### 2 439457, 7553548, 86201395, 1420629, 84369794, 77830156 ####[facility] [address] [facility] [place] [address] Chloride [Moles/Vol] 101 mmol/L Normal 101-111 [facility] Comment on above: Performed By: #### 2 893505, 9402367, 23269986, 8629977, 69018806, 78916584 ####[facility] [address] [place] [address] CO2 [Moles/Vol] 26 mmol/L Normal 21-31 [facility] Comment on above: Performed By: #### 2 318858, 8744167, 89512852, 4058225, 23036442, 97633075 ####[facility] [address] [place] [address] Glucose [Mass/Vol] 128 mg/dL Normal 55-[address] [facility] Comment on above: Result Comment: If t his glucose result represents a fasting glucose, interpretation should refer to the following reference range: 55-99 mg/dL Performed By: #### 2 741996, 5711233, 37807444, 7237969, 33046413, 65935189 ####[facility] [address] [place] [address] Potassium [Moles/Vol] 3.5 mmol/L Normal 3.5-5.3 [facility] Comment on above: Performed By: #### 2 092095, 7734532, 56724579, 6536132, 81480651, 30838619 ####[facility] [address] [place] [address] Sodium [Moles/Vol] 135 mmol/L Normal 135-[address] [facility] Comment on above: Performed By: #### 2 052847, 1899827, 08193558, 5343412, 05747760, 24411822 ####[address] [address] CBC w/ Auto Diffon Erythrocyte distribution width (RBC) [Ratio] 13.6 % Normal 10.9-14.[address] [facility] Comment on above: Performed By: #### 2 844869, 8971825, 32675855, 2479032, 29733830, 20933659 ####[address] [place] [address] Hematocrit (Bld) [Volume fraction] 45.2 % Normal 37.7-49.[address] [facility] Comment on above: Performed By: #### 2 158806, 4655352, 33811191, 0145793, 91764236, 52876322 ####[facility] [address] [place] [address] Hemoglobin (Bld) [Mass/Vol] 15.1 g/dL Normal 13.5-17.[address] [facility] Comment on above: Performed By: #### 2 473207, 3559426, 16810361, 1107796, 11387836, 26548384 ####[facility] [address] [place] [address] MCH (RBC) [Entitic mass] 28.2 pg Normal 27.0-34.[address] [facility] Comment on above: Performed By: #### 2 222852, 4412163, 60882408, 0614262, 42383192, 18381879 ####[facility] [address] [place] [address] MCHC (RBC) [Mass/Vol] 33.3 g/dL Normal 31.4-36.0 [facility] Comment on above: Performed By: #### 2 977964, 1302521, 81527522, 2579392, 87908508, 16155123 ####[address] [address] MCV (RBC) [Entitic vol] 84.7 fL Normal 80.0-100.0 [facility] Comment on above: Performed By: #### 2 171156, 6139292, 73534018, 8752304, 49784110, 42146043 ####[address] [address] Platelet mean volume (Bld) [Entitic vol] 7.3 fL Normal 6.4-10.[address] [facility] Comment on above: Performed By: #### 2 644159, 4556540, 39211441, 6021394, 18509878, 10616836 ####[address] [address] Platelets (Bld) [#/Vol] 316.0 E9/L Normal 150.0-500.[address] [facility] Comment on above: Performed By: #### 2 591001, 8386101, 82791369, 7500312, 50571220, 55012506 ####[address] [place] [address] RBC (Bld) [#/Vol] 5.3 E12/L Normal 4.3-5.[address] [facility] Comment on above: Performed By: #### 2 974252, 8296212, 33384575, 2268610, 07355389, 45461115 ####[facility] [address] [place] [address] WBC corrected for nucl RBC Auto (Bld) [#/Vol] 10.8 E9/L Normal 4.0-11.0 [facility] Comment on above: Performed By: #### 2 275635, 6005668, 29890968, 6433408, 46373291, 39003882 ####[facility] [address] [place] [address] CHEMISTRYOrdered By: SYSTEM SYSTEM on 08-10-2022 Troponin I.cardiac [Mass/Vol] 5.10 pg/mL Low 15.90 - 38.40 pg/mL [facility] Troponin I.cardiac [Mass/Vol] 5.10 pg/mL Low 15.90 - 38.40 pg/mL [facility] Anion gap [Moles/Vol] 12 mmol/L Normal 6 - 16 mEq/L [facility] Calcium [Mass/Vol] 8.8 mg/dL Low 8.9 - 11. 1 mg/dL [facility] Chloride [Moles/Vol] 101 mmol/L Normal 101 - 1 11 mmol/L [facility] CO2 [Moles/Vol] 26 mmol/L Normal 21 - 31 mmol/L [facility] Creatinine [Mass/Vol] 1.0 mg/dL Normal 0.5 - 1.3 mg/dL [facility] GFR/1.73 sq M.predicted among blacks MDRD (S/P/Bld) [Vol rate/Area] mL/min/1.73 m2 Normal >=59mL/min/ 1.73 m2 [facility] Chem S GFR/1.73 sq M.predicted among non-blacks MDRD (S/P/Bld) [Vol rate/Area] mL/min/1.73 m2 Normal >=59mL/min/ 1.73 m2 [facility] Chem S Glucose [Mass/Vol] 128 mg/dL Normal 55 - 199 mg/dL [facility] Potassium [Moles/Vol] 3.5 mmol/L Normal 3.5 - 5.3 mmol/L [facility] Sodium [Moles/Vol] 135 mmol/L Normal 135 - 145 mmol/L [facility] Troponin I.cardiac [Mass/Vol] 4.90 pg/mL Low 15.90 - 38.40 pg/mL [facility] Remisol Urea nitrogen [Mass/Vol] 17 mg/dL Normal 5 - 21 mg/dL [facility] Urea nitrogen/Creatinine [Mass ratio] 17 mg/mg Normal 10 - 20 [facility] Remisol CHEMISTRYOrdered By: Lab ROP User on 08-10-2022 Glucose [Mass/Vol] 131 mg/dL High 55 - 99 mg/dL [facility] POC Subsection POC Device SN [id number] Invalid Interpretation Code [facility] POC Subsection POC User ID [id number] Invalid Interpretation Code [facility] POC Subsection POC Username DEANNE [facility] Invalid Interpretation Code [facility] POC Subsection COAGULATIONOrdered By: Anju Case on 08-10-2022 aPTT Coag (PPP) [Time] 30.1 s Normal 25.1 - 36.5 second(s) [facility] Auto Coag INR Coag (PPP) [Relative time] 1.1 {INR} Invalid Interpretation Code [facility] Auto Coag PT Coag (PPP) [Time] 11.8 s Normal 9.4 - 1 2.5 second(s) [facility] Auto Coag CT Head or Brain w/o Contras ton 08-10-2022 CT Head or Brain w/o Contrast Normal [facility] CTA Cheston 08-10-2022 CTA Chest Normal [facility] Capillary Glucose POCon 07-18 Glucose [Mass/Vol] 131 mg/dL High 55-[address] [facility] Comment on above: Performed By: #### 2 [id number] ####[facility] [address] [place] [address] Consent for Treatmenton 07-18 Consent for Treatment [id number]#1 .00CD:[address] [facility] ED Clinical Summaryon 2022 ED Clinical Summary Normal [facility] ED Patient Education Noteon 08-10-2022 ED Patient Education Note Normal [facility] ED Patient Summaryon 023 ED Patient Summary Normal [facility] HEMATOLOGYOrdered By: SYSTEM SYSTEM on 08-10-2022 Basophils/100 WBC (Bld) 1.0 % Normal 0.0 - 2.0 % [facility] HemeAutoSS Basophils/Leukocytes Auto (Bld) [Pure # fraction] 0.1 E9/L Normal 0.0 - 0.2 E9/L [facility] HemeAutoSS Eosinophils/100 WBC (Bld) 1.2 % Normal 0.0 - 8.0 % [facility] HemeAutoSS Eosinophils/Leukocytes Auto (Bld) [Pure # fraction] 0.1 E9/L Normal 0.0 - 0.5 E9/L [facility] HemeAutoSS Lymphocytes/100 WBC (Bld) 36.2 % Normal 14.0 - 50.0 % [facility] HemeAutoSS Lymphocytes/Leukocytes Auto (Bld) [Pure # fraction] 3.9 E9/L Normal 1.0 - 4.0 E9/L [facility] HemeAutoSS Monocytes/100 WBC (Bld) 10.1 % Normal 4.0 - 14.0 % [facility] HemeAutoSS Monocytes/Leukocytes Auto (Bld) [Pure # fraction] 1.1 E9/L High 0.2 - 1.0 E9/L [facility] HemeAutoSS Neutrophils/100 WBC (Bld) 51.5 % Normal 36.0 - 75.0 % [facility] HemeAutoSS Neutrophils/Leukocytes Auto (Bld) [Pure # fraction] 5.6 E9/L Normal 2.0 - 7.5 E9/L [facility] HemeAutoSS HEMATOLOGYOrdered By: Gianna Lan on 08-10-2022 Erythrocyte distribution width (RBC) [Ratio] 13.6 % Normal 10.9 - 14.2 % [facility] HemeAutoSS Hematocrit (Bld) [Volume fraction] 45.2 % Normal 37.7 - 49.0 % [facility] HemeAutoSS Hemoglobin (Bld) [Mass/Vol] 15.1 g/dL Normal 13.5 - 17.5 gm/dL [facility] HemeAutoSS MCH (RBC) [Entitic mass] 28.2 pg Normal 27.0 - 34.0 pg [facility] HemeAutoSS MCHC (RBC) [Mass/Vol] 33.3 g/dL Normal 31.4 - 36.0 gm/dL [facility] HemeAutoSS MCV (RBC) [Entitic vol] 84.7 fL Normal 80.0 - 100.0 fL [facility] HemeAutoSS Platelet mean volume (Bld) [Entitic vol] 7.3 fL Normal 6.4 - 10.8 fL [facility] HemeAutoSS Platelets (Bld) [#/Vol] 316.0 E9/L Normal 150. 0 - 500.0 E9/L [facility] HemeAutoSS RBC (Bld) [#/Vol] 5.3 E12/L Normal 4.3 - 5.9 E12/L [facility] HemeAutoSS WBC corrected for nucl RBC Auto (Bld) [#/Vol] 10.8 E9/L Normal 4.0 - 11.0 E9/L [facility] HemeAutoSS Medication Listson 3 Medication Lists [id number]# 1.00CD:[address] [facility] Monitor Recordon 08-10-2022 Monitor Record [id number]# 1.00CD:[address] [facility] PT & PTTon 08-10-2022 aPTT Coag (PPP) [Time] 30.1 second(s) Normal 25.1-36.[address] [facility] Comment on above: Result Comment: Para meter 15 days - 4 weeks 1 - 5 months 6 - 11 months 1 - 5 years 6 - 10 years 11 - 17 years PTT Mean: 35.4 (27.6-45.6) Mean: 33.5 (24.8-40.7) Mean: 32.4 (25.1-40.7) Mean: 31.6 (24.0-39.2) Mean: 31.6 (26.9-38.7) Mean: 31.0 (24.6-38.4) Pediatric Reference ranges were obtained from a study by Ronn Boucher et al. prepared from 1437 samples obtained at 7 different centers using the same coagulation reagent and instrumentation as [facility]. Currently there are no coagulation studies available worldwide for children to 14 days, and no normal ranges. Heparin therapeutic range (represented by Anti-Factor Xa activity of 0.2 - 0.4 U/mL) corresponds to PTT of 56.6 - 109.0 sec. Performed By: #### 2 619442, 1107762, 91481982, 0555768, 13619299, 35350773 ####[facility] [address] [place] [address] INR Coag (PPP) [Relative time] 1.1 {INR} Invalid Interpretation Code [facility] Comment on above: Result Comment: INR results are specifically intended to assess patients stabilized on long-term Anticoagulation therapy suggested INR?s ?Less Intensive Anticoagulation? 2.0 ? 3.0Conventional Range 3.0 ? 4.5 Performed By: #### 2 367462, 3913653, 97063606, 5344434, 58476623, 46201994 ####[facility] [address] [place] [address] PT Coag (PPP) [Time] 11.8 second(s) Normal 9.4-12.[address] [facility] Comment on above: Result Comment: 15 d ays - 4 weeks 1 - 5 months 6 -11 months 1-5 years 6-10 years 11 -17 years Mean: 11.2 (9.5-12.6) Mean: 11.0 (9.7-12.8) Mean: 11.0 (9.8-13.0) Mean: 11.3 (9.9-13.4) Mean: 11.7 (10.0-14.6) Mean: 11.8 (10.0 - 14.1) Pediatric Reference ranges were obtained from a study by Ronn Boucher et al. prepared from 1437 samples obtained at 7 different centers using the same coagulation reagent and instrumentation as [facility]. Currently there are no coagulation studies available worldwide for children to 14 days, and no normal ranges. Performed By: #### 2 287601, 2725810, 10108489, 1399554, 96541511, 70656759 ####[facility] [address] [place] [address] Troponin 0 Hr.on 08-10-2022 Troponin I.cardiac [Mass/Vol] 4.90 pg/mL Low 15.90-38.[address] [facility] Comment on above: Result Comment: The 95% CI (Confidence Interval) PPV (Positive Predictive Value) for myocardial infarction in females is 38 pg/mL, in males 51 pg/mL. The results should be used in conjunction with clinical conditions of myocardial infarction.(Access High Sensitivity Troponin I Instructions For Use, [employer], February 2018) Performed By: #### 2 802754, 5805032, 53984768, 6933963, 29336407, 62246037 ####[facility] [address] [place] [address] Troponin 3 Hr.on 08-10-2022 Troponin I.cardiac [Mass/Vol] 5.10 pg/mL Low 15.90-38.[address] [facility] Comment on above: Result Comment: The 95% CI (Confidence Interval) PPV (Positive Predictive Value) for myocardial infarction in females is 38 pg/mL, in males 51 pg/mL. The results should be used in conjunction with clinical conditions of myocardial infarction.([employer] High Sensitivity Troponin I Instructions For Use, [employer], February 2018) Performed By: #### 1 [id number] ####[facility] [address] [place] [address] UA With Cult Reflexon 2022 Bilirubin Ql (U) Negative Normal Negative [facility] Comment on above: Performed By: #### 1 [id number] ####[address] [address] Clarity (U) CLEAR Normal Clear [facility] Comment on above: Performed By: #### 1 5383369 ####[address] [address] Color (U) YELLOW Normal Yellow [facility] Comment on above: Performed By: #### 1 8584697 ####[address] [place] [address] Epithelial cells.squamous LM.HPF (Urine sed) [#/Area] 0-2 Normal 0-2 [facility] Comment on above: Performed By: #### 1 2345977 ####[facility] [address] [place] [address] Glucose Test strip (U) [Mass/Vol] Negative Normal Negative [facility] Comment on above: Performed By: #### 1 5283859 ####[address] [address] Hemoglobin Ql (U) Negative Normal Negative [facility] Comment on above: Performed By: #### 1 2678370 ####[address] [address] Ketones (U) [Mass/Vol] Negative Normal Negative [facility] Comment on above: Performed By: #### 1 0079779 ####[address] [address] Orlinda.plasma/[place]. RBC (Bld) [Mass ratio] 0-3 Normal 0-3 [facility] Comment on above: Performed By: #### 1 8906068 ####[address] [address] Nitrite Ql (U) Negative Normal Negative [facility] Comment on above: Performed By: #### 1 1376592 ####[address] [address] pH (U) 6.5 [pH] Invalid Interpretation Code 5.0-9.[address] [facility] Comment on above: Performed By: #### 1 5818379 ####[address] [address] Protein (U) [Mass/Vol] Negative Normal Negative [facility] Comment on above: Performed By: #### 1 2367140 ####[address] [address] Specific gravity (U) [Rel density] 1.015 Invalid Interpretation Code 1.005-1.[address] [facility] Comment on above: Performed By: #### 1 5603232 ####[address] [address] Type of Urine collection method Clean Catch Normal [facility] Comment on above: Performed By: #### 1 8341513 ####[address] [address] Urobilinogen Qn (U) 1.0 {Emily'U}/dL Normal 0.0-1.[address] [facility] Comment on above: Performed By: #### 1 8424217 ####[facility] [address] [place] [address] WBC Auto Ql (U) Negative Normal Negative [facility] Comment on above: Performed By: #### 1 6292095 ####[facility] [address] [place] [address] WBC LM.HPF (Urine sed) [#/Area] 0-5 Normal 0-[address] [facility] Comment on above: Performed By: #### 1 6932563 ####[facility] [address] [place] [address] URINALYSISOrdered By: Kevin Carrizales on 08-10-2022 Bilirubin Ql (U) Negative (08/10/22 5:30 PM) Normal Negative [facility] UA Auto SS Clarity (U) Clear (08/10/22 5:30 PM) Normal Clear [facility] UA Auto SS Color (U) Yellow (08/10/22 5:30 PM) Normal Yellow [facility] UA Auto SS Epithelial cells.squamous LM.HPF (Urine sed) [#/Area] 0-2 /HPF Normal 0-2/HPF [facility] UA Aut o SS Glucose Test strip (U) [Mass/Vol] Negative (08/10/22 5:30 PM) Normal Negative [facility] UA Auto SS Hemoglobin Ql (U) Negative (08/10/22 5:30 PM) Normal Negative [facility] UA Auto SS Ketones (U) [Mass/Vol] Negative (08/10/22 5:30 PM) Normal Negative [facility] UA Auto SS Orlinda.plasma/Orlinda. RBC (Bld) [Mass ratio] 0-3 /HPF Normal 0-3/HPF [facility] UA A uto SS Nitrite Ql (U) Negative (08/10/22 5:30 PM) Normal Negative [facility] UA Auto SS pH (U) 6.5 *NA* (08/10/22 5:30 PM) Invalid Interpretation Code 5.0 - 9.0 [facility] UA Auto SS Protein (U) [Mass/Vol] Negative (08/10/22 5:30 PM) Normal Negative [facility] UA Auto SS Specific gravity (U) [Rel density] 1.015 *NA* (08/10/22 5:30 PM) Invalid Interpretation Code 1.005 - 1.030 [facility] UA Auto SS UA Spec Desc Clean Catch (08/10/22 5:30 PM) Normal [facility] UA Auto SS Urobilinogen Qn (U) 1.7643693 {Emily'U}/dL Normal 0.0 - 1.0 EU/dL [facility] UA Auto SS WBC Auto Ql (U) Negative (08/10/22 5:30 PM) Normal Negative [facility] UA Auto SS WBC LM.HPF (Urine sed) [#/Area] 0-5 /HPF Normal 0-5/HPF [facility] UA Auto SS eGFRon 08-10-2022 GFR/1.73 sq M.predicted among blacks MDRD (S/P/Bld) [Vol rate/Area] mL/min/{1.73_m2} Normal >=[address] [facility] Comment on above: Order Comment: Order added by Discern Expert. Result Comment: eGFR is race adjusted. AA=. Performed By: #### 2 [id number], 0939694, 21608425, 3871510, 25399416, 39948995 ####[facility] [address] [place] [address] GFR/1.73 sq M.predicted among non-blacks MDRD (S/P/Bld) [Vol rate/Area] mL/min/{1.73_m2} Normal >=[address] [facility] Comment on above: Order Comment: Order added by Discern Expert. Result Comment: Travel Director andrea kidney disease could be indicated at eGFR's of less than 60 mL/min/1.73m2. Kidney failure is indicated at less than 15 mL/min/1.73m2. Performed By: #### 2 002959, 4361874, 21210873, 0735609, 62217026, 55245516 ####[facility] [address] [place] [address] PT - Assessmentson 3 PT - Assessments [id number]#1 .00CD:[address] [facility] PT - Consentson 08-09-2022 PT - Consents [id number]#1 .00CD:127 [facility] Coding Summary.on 08-05-2022 Coding Summary. [facility] Insurance Correspondenceon 0 08-05-2022 Insurance Correspondence [id number]# 1.00CD:127 [facility] Consent for Treatmenton 07-17 Consent for Treatment [id number]#1 .00CD:127 [facility] PT - Orderson 08-03-2022 PT - Orders [id number]# 1.00CD:127 [facility] Pre-Certification Formon Pre-Certification Form [id number]# 1.00CD:127 [facility] EMS Documentationon 07-18-19 EMS Documentation [facility] Coding Summary.on 07-08-2022 Coding Summary. [facility] Pre-Certification Formon Pre-Certification Form [id number]# 1.00CD:127 [facility] CHEMISTRYOrdered By: SYSTEM SYSTEM on 07-07-2022 Cholesterol [Mass/Vol] 167 mg/dL Normal 120 - 200 mg/dL [facility] Remisol Cholesterol in HDL [Mass/Vol] 30 mg/dL Invalid Interpretation Code [facility] Remisol Cholesterol in LDL [Mass/Vol] 113 mg/dL Normal <=129mg/dL [facility] Remisol Cholesterol in VLDL [Mass/Vol] 30 mg/dL Normal 7 - 40 mg/dL [facility] Remisol Triglyceride [Mass/Vol] 150 mg/dL High <=149mg/dL [facility] Remisol Consultation Noteon 07-07-20 Consultation Note Normal [facility] Comment on above: Result Comment: Elec tronically Signed By: Delmer DIAZRosamaria\.br\Date and Time Signed: 07/07/22 09:21 EST\.br\Electronically Co-Signed By: Mohamud Ramirez DO\.br\Date and Time Co-Signed: 07/07/22 10:03 EST Discharge Instructionson Discharge Instructions [id number]# 1.00CD:[address] [facility] Echo Transthoracic Lmtdon Echo Transthoracic Lmtd Normal [facility] Inpatient Clinical Summaryon 07-07-2022 Inpatient Clinical Summary Normal [facility] Inpatient Patient Summaryon 07-07-2022 Inpatient Patient Summary Normal [facility] Inpatient Patient Summary Normal [facility] Interdisciplinary Note - Kendrick e Manageron 07-07-2022 Interdisciplinary Note - Night Clerk Auditor Normal [facility] Comment on above: Result Comment: Elec tronically Signed By: Nidia Lopez RN\.br\Date and Time Signed: 07/07/22 09:13 EST Interdisciplinary Note - Maurisio n 07-07-2022 Interdisciplinary Note - OT Normal [facility] Lipid Panelon 07-07-2022 Cholesterol [Mass/Vol] 167 mg/dL Normal 120-200 [facility] Comment on above: Performed By: #### 2 [id number] ####[facility] [address] [place] [address] Cholesterol in HDL [Mass/Vol] 30 mg/dL Invalid Interpretation Code [facility] Comment on above: Result Comment: HDL > or equal to 60 mg/dL: Low cardiovascular riskHDL < 40 mg/dL : High cardiovascular risk Performed By: #### 2 175639 ####[facility] [address] [place] [address] Cholesterol in LDL [Mass/Vol] 113 mg/dL Normal <=[address] [facility] Comment on above: Performed By: #### 2 308777 ####[facility] [address] [place] [address] Cholesterol in VLDL [Mass/Vol] 30 mg/dL Normal 7-[address] [facility] Comment on above: Performed By: #### 2 750300 ####[facility] [address] [place] [address] Triglyceride [Mass/Vol] 150 mg/dL High <=149 [facility] Comment on above: Performed By: #### 2 628411 ####[facility] [address] [place] [address] US Carotid Duplex Bilateralo n 07-07-2022 US Carotid Duplex Bilateral Normal [facility] Auto Diffon 07-06-2022 Basophils/100 WBC (Bld) 1.4 % Normal 0.0-2.0 [facility] Comment on above: Order Comment: Order Added by Discern Expert. Performed By: #### 7 75104579, 2719209, 6045845, 58783563, 2819585, 79238356, 81691167, 40093699 ####[facility] [address] [place] [address] Basophils/Leukocytes Auto (Bld) [Pure # fraction] 0.1 E9/L Normal 0.0-0.[address] [facility] Comment on above: Order Comment: Order Added by Discern Expert. Performed By: #### 7 [id number], 8401229, 0626363, 47018780, 6197086, 74259946, 95399831, 66025846 ####[facility] [address] [place] [address] Eosinophils/100 WBC (Bld) 1.5 % Normal 0.0-8.[address] [facility] Comment on above: Order Comment: Order Added by Discern Expert. Performed By: #### 7 51432139, 2461430, 9118088, 30352925, 0526432, 22638401, 99393018, 44183106 ####[address] [place] [address] Eosinophils/Leukocytes Auto (Bld) [Pure # fraction] 0.2 E9/L Normal 0.0-0.[address] [facility] Comment on above: Order Comment: Order Added by Discern Expert. Performed By: #### 7 03320558, 0595990, 0953824, 63987586, 9451399, 68281269, 46251537, 33027611 ####[facility] [address] [place] [address] Lymphocytes/100 WBC (Bld) 32.7 % Normal 14.0-50.[address] [facility] Comment on above: Order Comment: Order Added by Discern Expert. Performed By: #### 7 47932383, 4282275, 3189794, 09128623, 7206831, 85175290, 80103239, 33106383 ####[facility] [address] [place] [address] Lymphocytes/Leukocytes Auto (Bld) [Pure # fraction] 3.3 E9/L Normal 1.0-4.[address] [facility] Comment on above: Order Comment: Order Added by Discern Expert. Performed By: #### 7 06037166, 9343126, 3266150, 14470439, 3939418, 03414606, 65375885, 70785314 ####[address] [place] [address] Monocytes/100 WBC (Bld) 9.0 % Normal 4.0-14.0 [facility] Comment on above: Order Comment: Order Added by Discern Expert. Performed By: #### 7 15420873, 4990244, 5713545, 55018995, 0295450, 36278233, 97783488, 75339635 ####[address] [place] [address] Monocytes/Leukocytes Auto (Bld) [Pure # fraction] 0.9 E9/L Normal 0.2-1.[address] [facility] Comment on above: Order Comment: Order Added by Discern Expert. Performed By: #### 7 34184614, 2908263, 6738709, 37859538, 4042177, 73837397, 41404758, 81530600 ####[facility] [address] [place] [address] Neutrophils/100 WBC (Bld) 55.4 % Normal 36.0-75.[address] [facility] Comment on above: Order Comment: Order Added by Discern Expert. Performed By: #### 7 12038151, 1297884, 7021845, 79524597, 4798864, 71702919, 43863424, 03717637 ####[facility] [address] [place] [address] Neutrophils/Leukocytes Auto (Bld) [Pure # fraction] 5.6 E9/L Normal 2.0-7.[address] [facility] Comment on above: Order Comment: Order Added by Discern Expert. Performed By: #### 7 00069436, 3822003, 2449205, 31899149, 1384128, 00267355, 45665657, 89288845 ####[facility] [address] [place] [address] BB Draw & Holdon 07-06-2022 BB D&H Sample drawn for Blood Ba Normal [facility] Comment on above: Performed By: #### 7 82625090, 1664500, 3983175, 98943054, 3837206, 97940801, 43887836, 95521986 ####[facility] [address] [place] [address] BMPon 07-06-2022 Creatinine [Mass/Vol] 1.0 mg/dL Normal 0.5-1.3 [facility] Comment on above: Performed By: #### 7 52111643, 2213902, 8071409, 30417024, 1943626, 07445517, 09188892, 10419137 ####[facility] [address] [place] [address] Urea nitrogen [Mass/Vol] 18 mg/dL Normal 5-[address] [facility] Comment on above: Performed By: #### 7 24553842, 2566382, 6599947, 48088503, 2302072, 09171438, 46867029, 35268623 ####[facility] [address] [place] [address] Urea nitrogen/Creatinine [Mass ratio] 18 No Units Normal 10-[address] [facility] Comment on above: Performed By: #### 7 06203156, 9577431, 0671358, 17616173, 7337471, 46456130, 45882601, 62165700 ####[facility] [address] [place] [address] Anion gap [Moles/Vol] 7 mmol/L Normal 6-16 [facility] Comment on above: Performed By: #### 7 54702711, 9964672, 0936918, 54705002, 0880529, 44233994, 47074810, 38725067 ####[facility] [address] [place] [address] Calcium [Mass/Vol] 8.8 mg/dL Low 8.9-11.[address] [facility] Comment on above: Performed By: #### 7 28724407, 8089966, 2789524, 79483381, 6816218, 97412235, 24859388, 46432847 ####[facility] [address] [place] [address] Chloride [Moles/Vol] 102 mmol/L Normal 101-111 [facility] Comment on above: Performed By: #### 7 72557923, 0861094, 8807017, 65800202, 3137525, 95023008, 50024602, 53483885 ####[facility] [address] [place] [address] CO2 [Moles/Vol] 28 mmol/L Normal 21-31 [facility] Comment on above: Performed By: #### 7 37993896, 2231632, 9512945, 95137337, 7628214, 79607455, 20984988, 04400198 ####[facility] [address] [place] [address] Glucose [Mass/Vol] 106 mg/dL Normal 55-[address] [facility] Comment on above: Result Comment: If t his glucose result represents a fasting glucose, interpretation should refer to the following reference range: 55-99 mg/dL Performed By: #### 7 45163750, 0839289, 3193627, 20190649, 0087232, 38462270, 84243324, 75444112 ####[facility] [address] [place] [address] Potassium [Moles/Vol] 4.3 mmol/L Normal 3.5-5.3 [facility] Comment on above: Performed By: #### 7 12189323, 5625786, 0298192, 69610992, 5977786, 54547751, 32840174, 21258110 ####[address] [place] [address] Sodium [Moles/Vol] 133 mmol/L Low 135-[address] [facility] Comment on above: Performed By: #### 7 37562309, 4296274, 5583577, 06299038, 9073332, 71297284, 47280038, 73576203 ####[address] [address] CBC w/ Auto Diffon Erythrocyte distribution width (RBC) [Ratio] 13.3 % Normal 10.9-14.[address] [facility] Comment on above: Performed By: #### 7 41621846, 5807766, 2595441, 67608224, 0140323, 39577087, 26741820, 22827424 ####[address] [place] [address] Hematocrit (Bld) [Volume fraction] 43.2 % Normal 37.7-49.[address] [facility] Comment on above: Performed By: #### 7 78974635, 9650767, 3466188, 58298009, 9859705, 03281620, 91161867, 62645843 ####[address] [place] [address] Hemoglobin (Bld) [Mass/Vol] 14.9 g/dL Normal 13.5-17.[address] [facility] Comment on above: Performed By: #### 7 06042776, 6193217, 8219107, 75972633, 8523605, 45937065, 56836878, 62186777 ####[facility] [address] [place] [address] MCH (RBC) [Entitic mass] 28.3 pg Normal 27.0-34.[address] [facility] Comment on above: Performed By: #### 7 64850462, 4874026, 4077582, 96355028, 8188307, 95241751, 24920763, 57941645 ####[address] [address] MCHC (RBC) [Mass/Vol] 34.4 g/dL Normal 31.4-36.0 [facility] Comment on above: Performed By: #### 7 28230085, 8701007, 7918014, 14725410, 5242982, 81528778, 61392837, 42210259 ####[address] [address] MCV (RBC) [Entitic vol] 82.4 fL Normal 80.0-100.0 [facility] Comment on above: Performed By: #### 7 95353119, 7521383, 2790933, 01120138, 6060244, 61879793, 12228566, 65621673 ####[address] [place] [address] Platelet mean volume (Bld) [Entitic vol] 7.4 fL Normal 6.4-10.[address] [facility] Comment on above: Performed By: #### 7 98245679, 0587848, 3563029, 10169371, 5180948, 94088564, 12089937, 16631348 ####[address] [place] [address] Platelets (Bld) [#/Vol] 283.0 E9/L Normal 150.0-500.[address] [facility] Comment on above: Performed By: #### 7 69252315, 3040310, 5133470, 87390763, 0162479, 69355210, 33300262, 44708021 ####[facility] [address] [place] [address] RBC (Bld) [#/Vol] 5.2 E12/L Normal 4.3-5.[address] [facility] Comment on above: Performed By: #### 7 68247574, 9706562, 2657083, 86580928, 0659427, 83253882, 40460815, 84845964 ####[facility] [address] [place] [address] WBC corrected for nucl RBC Auto (Bld) [#/Vol] 10.1 E9/L Normal 4.0-11.0 [facility] Comment on above: Performed By: #### 7 29000382, 4822171, 7807839, 70014809, 7898078, 49057173, 04519237, 32194351 ####[facility] [address] [place] [address] CHEMISTRYOrdered By: SYSTEM SYSTEM on 07-06-2022 Anion gap [Moles/Vol] 7 mmol/L Normal 6 - 16 mEq/L [facility] Remisol Calcium [Mass/Vol] 8.8 mg/dL Low 8.9 - 11. 1 mg/dL [facility] Chloride [Moles/Vol] 102 mmol/L Normal 101 - 1 11 mmol/L [facility] CO2 [Moles/Vol] 28 mmol/L Normal 21 - 31 mmol/L [facility] Creatinine [Mass/Vol] 1.0 mg/dL Normal 0.5 - 1.3 mg/dL [facility] Remisol GFR/1.73 sq M.predicted among blacks MDRD (S/P/Bld) [Vol rate/Area] mL/min/1.73 m2 Normal >=59mL/min/ 1.73 m2 [facility] Chem S GFR/1.73 sq M.predicted among non-blacks MDRD (S/P/Bld) [Vol rate/Area] mL/min/1.73 m2 Normal >=59mL/min/ 1.73 m2 [facility] Chem S Glucose [Mass/Vol] 106 mg/dL Normal 55 - 199 mg/dL [facility] Remisol Potassium [Moles/Vol] 4.3 mmol/L Normal 3.5 - 5.3 mmol/L [facility] Remisol Sodium [Moles/Vol] 133 mmol/L Low 135 - 145 mmol/L [facility] Remisol Troponin I.cardiac [Mass/Vol] 4.30 pg/mL Low 15.90 - 38.40 pg/mL [facility] Remisol Urea nitrogen [Mass/Vol] 18 mg/dL Normal 5 - 21 mg/dL [facility] Remisol Urea nitrogen/Creatinine [Mass ratio] 18 mg/mg Normal 10 - 20 [facility] Remisol CHEMISTRYOrdered By: Leandra Hernandez on 07-06-2022 HbA1c (Bld) [Mass fraction] 6.0 % High <=5.9% [facility] ChemAutoSS COAGULATIONOrdered By: Alejandro Hernandez on 07-06-2022 aPTT Coag (PPP) [Time] 30.0 s Normal 25.1 - 36.5 second(s) [facility] Auto Coag INR Coag (PPP) [Relative time] 1.0 {INR} Invalid Interpretation Code [facility] Auto Coag PT Coag (PPP) [Time] 11.6 s Normal 9.4 - 1 2.5 second(s) [facility] Auto Coag CT Head or Brain w/o Contras ton 07-06-2022 CT Head or Brain w/o Contrast Normal [facility] ED Clinical Summaryon 2021 ED Clinical Summary Normal [facility] ED Note-Physicianon 07-06-20 ED Note-Physician Normal [facility] Comment on above: Result Comment: Elec tronically Signed By: Derian Rider DO.br\Date and Time Signed: 07/06/22 09:02 EST ED Patient Education Noteon 07-06-2022 ED Patient Education Note Normal [facility] ED Patient Summaryon 022 ED Patient Summary Normal [facility] EMS Documentationon 07-06-20 EMS Documentation Normal [facility] EadBoxWell Education Videoon GetWell Education Video Yes Patient Avoiding Infections in the Hospital Normal [facility] HEMATOLOGYOrdered By: SYSTEM SYSTEM on 07-06-2022 Basophils/100 WBC (Bld) 1.4 % Normal 0.0 - 2.0 % [facility] HemeAutoSS Basophils/Leukocytes Auto (Bld) [Pure # fraction] 0.1 E9/L Normal 0.0 - 0.2 E9/L [facility] HemeAutoSS Eosinophils/100 WBC (Bld) 1.5 % Normal 0.0 - 8.0 % [facility] HemeAutoSS Eosinophils/Leukocytes Auto (Bld) [Pure # fraction] 0.2 E9/L Normal 0.0 - 0.5 E9/L [facility] HemeAutoSS Lymphocytes/100 WBC (Bld) 32.7 % Normal 14.0 - 50.0 % [facility] HemeAutoSS Lymphocytes/Leukocytes Auto (Bld) [Pure # fraction] 3.3 E9/L Normal 1.0 - 4.0 E9/L [facility] HemeAutoSS Monocytes/100 WBC (Bld) 9.0 % Normal 4.0 - 14.0 % [facility] HemeAutoSS Monocytes/Leukocytes Auto (Bld) [Pure # fraction] 0.9 E9/L Normal 0.2 - 1.0 E9/L [facility] HemeAutoSS Neutrophils/100 WBC (Bld) 55.4 % Normal 36.0 - 75.0 % [facility] HemeAutoSS Neutrophils/Leukocytes Auto (Bld) [Pure # fraction] 5.6 E9/L Normal 2.0 - 7.5 E9/L [facility] HemeAutoSS HEMATOLOGYOrdered By: Marlene Solorzano on 07-06-2022 Erythrocyte distribution width (RBC) [Ratio] 13.3 % Normal 10.9 - 14.2 % [facility] HemeAutoSS Hematocrit (Bld) [Volume fraction] 43.2 % Normal 37.7 - 49.0 % [facility] HemeAutoSS Hemoglobin (Bld) [Mass/Vol] 14.9 g/dL Normal 13.5 - 17.5 gm/dL [facility] HemeAutoSS MCH (RBC) [Entitic mass] 28.3 pg Normal 27.0 - 34.0 pg [facility] HemeAutoSS MCHC (RBC) [Mass/Vol] 34.4 g/dL Normal 31.4 - 36.0 gm/dL [facility] HemeAutoSS MCV (RBC) [Entitic vol] 82.4 fL Normal 80.0 - 100.0 fL [facility] HemeAutoSS Platelet mean volume (Bld) [Entitic vol] 7.4 fL Normal 6.4 - 10.8 fL [facility] HemeAutoSS Platelets (Bld) [#/Vol] 283.0 E9/L Normal 150. 0 - 500.0 E9/L [facility] HemeAutoSS RBC (Bld) [#/Vol] 5.2 E12/L Normal 4.3 - 5.9 E12/L [facility] HemeAutoSS WBC corrected for nucl RBC Auto (Bld) [#/Vol] 10.1 E9/L Normal 4.0 - 11.0 E9/L [facility] HemeAutoSS [id number] 07-06-2022 HbA1c (Bld) [Mass fraction] 6.0 % High <=5.[address] [facility] Comment on above: Performed By: #### 7 [id number], 7698582, 8930364, 84901987, 8119148, 59451553, 33974736, 49587893 ####[facility] [address] [place] [address] MRA Head w/o Contraston 06-17 MRA Head w/o Contrast Normal [facility] MRI Brain w/o Contraston MRI Brain w/o Contrast Normal [facility] Monitor Recordon 07-06-2022 Monitor Record [id number]# 1.00CD:[address] [facility] Monitor Record [id number]# 1.00CD:[address] [facility] PT & PTTon 07-06-2022 aPTT Coag (PPP) [Time] 30.0 second(s) Normal 25.1-36.[address] [facility] Comment on above: Result Comment: Para meter 15 days - 4 weeks 1 - 5 months 6 - 11 months 1 - 5 years 6 - 10 years 11 - 17 years PTT Mean: 35.4 (27.6-45.6) Mean: 33.5 (24.8-40.7) Mean: 32.4 (25.1-40.7) Mean: 31.6 (24.0-39.2) Mean: 31.6 (26.9-38.7) Mean: 31.0 (24.6-38.4) Pediatric Reference ranges were obtained from a study by [employer] [place] alJesus prepared from 1437 samples obtained at 7 different centers using the same coagulation reagent and instrumentation as [facility]. Currently there are no coagulation studies available worldwide for children to 14 days, and no normal ranges. Heparin therapeutic range (represented by Anti-Factor Xa activity of 0.2 - 0.4 U/mL) corresponds to PTT of 56.6 - 109.0 sec. Performed By: #### 7 [id number], 4612674, 3510988, 30252967, 7635296, 77181756, 49981170, 90246818 ####[facility] [address] [place] [address] INR Coag (PPP) [Relative time] 1.0 {INR} Invalid Interpretation Code [facility] Comment on above: Result Comment: INR results are specifically intended to assess patients stabilized on long-term Anticoagulation therapy suggested INR?s ?Less Intensive Anticoagulation? 2.0 ? 3.0Conventional Range 3.0 ? 4.5 Performed By: #### 7 [id number], 4308141, 0418141, 95340867, 6698562, 73161523, 79204440, 87920098 ####[facility] [address] [place] [address] PT Coag (PPP) [Time] 11.6 second(s) Normal 9.4-12.[address] [facility] Comment on above: Result Comment: 15 d ays - 4 weeks 1 - 5 months 6 -11 months 1 ? 5 years 6 ? 10 years 11 -17 years Mean: 11.2 (9.5 ? 12.6) Mean: 11.0 (9.7 ? 12.8) Mean: 11.0 (9.8 ? 13.0) Mean: 11.3 (9.9 ? 13.4) Mean: 11.7 (10.0 ? 14.6) Mean: 11.8 (10.0 - 14.1) Pediatric Reference ranges were obtained from a study by [employer] [place] prepared from 1437 samples obtained at 7 different centers using the same coagulation reagent and instrumentation as [facility]. Currently there are no coagulation studies available worldwide for children to 14 days, and no normal ranges. Performed By: #### 7 [id number], 8242908, 1694886, 23465306, 5804327, 40396459, 04717419, 02474141 ####[facility] [address] [place] [address] Pre-Arrival Noteon 2 Pre-Arrival Note Normal [facility] RAD - MRI Screening Formon 1 09-06-2021 RAD - MRI Screening Form [id number]# 1.00CD:[address] [facility] Troponin 0 Hr.on 07-06-2022 Troponin I.cardiac [Mass/Vol] 4.30 pg/mL Low 15.90-38.[address] [facility] Comment on above: Result Comment: The 95% CI (Confidence Interval) PPV (Positive Predictive Value) for myocardial infarction in females is 38 pg/mL, in males 51 pg/mL. The results should be used in conjunction with clinical conditions of myocardial infarction.(Access High Sensitivity Troponin I Instructions For Use, Mariaelena Elizabeth, February 2018) Performed By: #### 7 [id number], [id number], [id number], [id number], [id number], [id number] ####[facility] [address] [place] [address] XR Chest Single Viewon 07-06 XR Chest Single View Normal [facility] eGFRon 07-06-2022 GFR/1.73 sq M.predicted among blacks MDRD (S/P/Bld) [Vol rate/Area] mL/min/{1.73_m2} Normal >=[address] [facility] Comment on above: Order Comment: Order added by Discern Expert. Result Comment: eGFR is race adjusted. AA=. Performed By: #### 7 [id number], [id number], [id number], [id number], [id number] ####[facility] [address] [place] [address] GFR/1.73 sq M.predicted among non-blacks MDRD (S/P/Bld) [Vol rate/Area] mL/min/{1.73_m2} Normal >=[address] [facility] Comment on above: Order Comment: Order added by Discern Expert. Result Comment: Travel Director andrea kidney disease could be indicated at eGFR's of less than 60 mL/min/1.73m2. Kidney failure is indicated at less than 15 mL/min/1.73m2. Performed By: #### 7 [id number], [id number], [id number], [id number], [id number] ####[facility] [address] [place] [address] CT HEAD OR BRAIN WITHOUT CON TRASTon 06-02-2020 CT HEAD OR BRAIN WITHOUT CONTRAST EXAMINATION: UNENHANCED CT SCAN OF THE BRAIN, 06/02/2020 HISTORY: Status post fall, reported loss of consciousness. Patient on aspirin and Plavix. COMPARISON FILMS: Unenhanced CT scan of the brain, 05/13/2017. TECHNIQUE: 3 mm axial images from the skull base through the vertex without intravenous contrast were obtained. Sagittal, coronal reconstructions were performed. Dose reduction techniques were achieved by using automated exposure control and/or adjustment of mA and/or kV according to patient size and/or use of iterative reconstruction technique. FINDINGS: The visualized internal contents are normal. There is no significant interval change in appearance of ventricles, sulcal or cisternal spaces. There is an old lacunar infarct involving the right basal ganglia. Similarly there is an old infarct involving the right frontal lobe. Further superiorly there is probably an old infarct involving left frontal lobe. At the same level there is hypodensity in the right frontal, parietal lobes compatible with old infarcts. No definite acute infarct, hemorrhage, mass, mass effect or midline shift. The visualized paranasal sinuses, mastoid air cells appear normal. The calvarium appears intact. IMPRESSION: 1. Multiple scattered old infarcts, without acute infarct, hemorrhage or acute intracranial injury. 2. No skull fractures. [employer] Workstation ID: [id number] Dictated by: CAITLIN GONZALEZ on MonJun 02, 2020 10:34:13 PM EST Transcribed by: SARAH ANDRE on MonJun 02, 2020 10:41:19 PM EST Finalized by: CAITLIN GONZALEZ on MonJun 02, 2020 10:57:47 PM EST Normal [facility] Comment on above: Order Comment: Injur y/Trauma or Illness?:Injury/Trauma How long have you had these symptoms (acute/chronic)?:Acute Reason for exam?:Fell on left side from a standing postion, LOC, headache Type of Exam?:Initial Mechanism of injury?:Fall, Hx of strokes 1. Multiple scattere d old infarcts, without acute infarct, hemorrhage or acute intracranial injury. 2. No skull fractures. [employer] Workstation ID: [id number] [facility] EXAMINATION: UNENHANCED CT SCAN OF THE BRAIN, 06/02/2020 HISTORY: Status post fall, reported loss of consciousness. Patient on aspirin and Plavix. COMPARISON FILMS: Unenhanced CT scan of the brain, 05/13/2017. TECHNIQUE: 3 mm axial images from the skull base through the vertex without intravenous contrast were obtained. Sagittal, coronal reconstructions were performed. Dose reduction techniques were achieved by using automated exposure control and/or adjustment of mA and/or kV according to patient size and/or use of iterative reconstruction technique. FINDINGS: The visualized internal contents are normal. There is no significant interval change in appearance of ventricles, sulcal or cisternal spaces. There is an old lacunar infarct involving the right basal ganglia. Similarly there is an old infarct involving the right frontal lobe. Further superiorly there is probably an old infarct involving left frontal lobe. At the same level there is hypodensity in the right frontal, parietal lobes compatible with old infarcts. No definite acute infarct, hemorrhage, mass, mass effect or midline shift. The visualized paranasal sinuses, mastoid air cells appear normal. The calvarium appears intact. [facility] Interface, Rad In [employer] Speechq - 06/02/2020 11:00 PM EST EXAMINATION: UNENHANCED CT SCAN OF THE BRAIN, 06/02/2020 HISTORY: Status post fall, reported loss of consciousness. Patient on aspirin and Plavix. COMPARISON FILMS: Unenhanced CT scan of the brain, 05/13/2017. TECHNIQUE: 3 mm axial images from the skull base through the vertex without intravenous contrast were obtained. Sagittal, coronal reconstructions were performed. Dose reduction techniques were achieved by using automated exposure control and/or adjustment of mA and/or kV according to patient size and/or use of iterative reconstruction technique. FINDINGS: The visualized internal contents are normal. There is no significant interval change in appearance of ventricles, sulcal or cisternal spaces. There is an old lacunar infarct involving the right basal ganglia. Similarly there is an old infarct involving the right frontal lobe. Further superiorly there is probably an old infarct involving left frontal lobe. At the same level there is hypodensity in the right frontal, parietal lobes compatible with old infarcts. No definite acute infarct, hemorrhage, mass, mass effect or midline shift. The visualized paranasal sinuses, mastoid air cells appear normal. The calvarium appears intact. IMPRESSION: 1. Multiple scattered old infarcts, without acute infarct, hemorrhage or acute intracranial injury. 2. No skull fractures. [employer] Workstation ID: [id number] [facility] XR FEMUR LEFT 2+ VIEWS ([facility])on 06-02-2020 XR FEMUR LEFT 2+ VIEWS (STANDARD) EXAMINATION: XR FEMUR LEFT 2+ VIEWS (STANDARD) 06/02/2020 9:29 pm HISTORY: ORDERING SYSTEM PROVIDED HISTORY: fall with pain, TECHNOLOGIST PROVIDED HISTORY: Injury/Trauma Reason for exam: Left leg pain Cancer History: unknown Surgery, RadiationHistory: unkn own Encounter Type: Initial Mechanism of injury: fall ORDERING SYSTEM PROVIDED DIAGNOSIS CODES: COMPARISON: None FINDINGS: Two views, 5 images. Normal alignment. Normal mineralization. No displaced fracture. Globular calcification at the left femoral neck. Joint spaces are maintained. Spring/coil overlies the distal sacrum. Soft tissues are unremarkable. IMPRESSION: 1. No displaced fracture of the left femur. 2. Indeterminate globular calcification of the left femoral neck on single view. Workstation ID: [id number] Dictated by: ARIANA SANTANA on MonJun 02, 2020 11:02:18 PM EST Transcribed by: ARIANA SANTANA on MonJun 02, 2020 11:02:18 PM EST Finalized by: ARIANA SANTANA on MonJun 02, 2020 11:02:18 PM EST Normal [facility] Comment on above: Order Comment: Injur y/Trauma or Illness?:Injury/Trauma How long have you had these symptoms (acute/chronic)?:Acute Reason for exam?:Left leg pain History of cancer?:unknown Surgeries, chemotherapy, or radiation?:unkn own Type of Exam?:Initial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 10-22-2022 01:30-0400 Diastolic blood pressure 77 mm[Hg] Elivs Walter [facility] 10-22-2022 01:30-0400 Heart rate 57 /min Elvis Walter [facility] 10-22-2022 01:30-0400 Mean blood pressure 89 mm[Hg] Elvis Walter [facility] 10-22-2022 01:30-0400 Respiratory rate 10 /min Elvis Walter [facility] 10-22-2022 01:30-0400 SaO2% (BldA) [Mass fraction] 96 % Elvis Walter [facility] 10-22-2022 01:30-0400 Systolic blood pressure 113 mm[Hg] Elvis Walter [facility] 10-22-2022 01:00-0400 Diastolic blood pressure 90 mm[Hg] Elvis Walter [facility] 10-22-2022 01:00-0400 Heart rate 59 /min Elvis Walter [facility] 10-22-2022 01:00-0400 Mean blood pressure 98 mm[Hg] Elvis Walter [facility] 10-22-2022 01:00-0400 Systolic blood pressure 114 mm[Hg] Elvis Walter [facility] 10-21-2022 21:39-0400 Body temperature 97.88 [degF] [facility] 10-21-2022 21:39-0400 Respiratory rate 19 /min Elvis Walter [facility] 10-06-2022 16:13-0400 Hourly Rounding [facility] 10-06-2022 16:13-0400 Promise to Return [facility] 10-06-2022 15:53-0400 Hourly Rounding [facility] 10-06-2022 15:53-0400 Promise to Return [facility] 10-06-2022 14:11-0400 Hourly Rounding [facility] 10-06-2022 14:11-0400 Promise to Return [facility] 10-06-2022 12:17-0400 Blood Pressure Location [facility] 10-06-2022 12:17-0400 Body temperature 97.52 [degF] [facility] 10-06-2022 12:17-0400 Diastolic blood pressure 86 mm[Hg] [facility] 10-06-2022 12:17-0400 Heart rate 73 /min [facility] 10-06-2022 12:17-0400 Mean blood pressure 102 mm[Hg] [facility] 10-06-2022 12:17-0400 Respiratory rate 16 /min [facility] 10-06-2022 12:17-0400 SaO2% (BldA) [Mass fraction] 97 % [facility] 10-06-2022 12:17-0400 Systolic blood pressure 134 mm[Hg] [facility] 10-05-2022 20:00-0400 Blood Pressure Location [facility] 10-05-2022 20:00-0400 Body temperature 97.52 [degF] [facility] 10-05-2022 20:00-0400 Diastolic blood pressure 67 mm[Hg] [facility] 10-05-2022 20:00-0400 Heart rate 63 /min [facility] 10-05-2022 20:00-0400 Mean blood pressure 81 mm[Hg] [facility] 10-05-2022 20:00-0400 Respiratory rate 18 /min [facility] 10-05-2022 20:00-0400 SaO2% (BldA) [Mass fraction] 96 % [facility] 10-05-2022 20:00-0400 Systolic blood pressure 110 mm[Hg] [facility] 10-05-2022 16:00-0400 Body temperature 97.88 [degF] [facility] 10-05-2022 16:00-0400 Diastolic blood pressure 77 mm[Hg] [facility] 10-05-2022 16:00-0400 Heart rate 58 /min [facility] 10-05-2022 16:00-0400 SaO2% (BldA) [Mass fraction] 98 % [facility] 10-05-2022 16:00-0400 Systolic blood pressure 128 mm[Hg] [facility] 10-05-2022 11:00-0400 Heart rate 65 /min [facility] 10-05-2022 11:00-0400 Mean blood pressure 90 mm[Hg] [facility] 10-05-2022 08:06-0400 Heart rate 68 /min [facility] 10-05-2022 08:06-0400 Respiratory rate 16 /min [facility] 10-04-2022 15:45-0400 Heart rate 54 /min [facility] 10-04-2022 12:15-0400 Respiratory rate 25 /min [facility] 10-04-2022 12:07-0400 Heart rate 54 /min [facility] 10-04-2022 11:30-0400 Respiratory rate 15 /min [facility] 10-04-2022 11:00-0400 Respiratory rate 14 /min [facility] 10-04-2022 05:36-0400 gluc 116 mg/dL [facility] 10-04-2022 05:36-0400 gluc [facility] 10-04-2022 05:33-0400 Body temperature 97.7 [degF] [facility] 10-04-2022 05:33-0400 Heart rate 63 /min [facility] 10-04-2022 00:00-0400 65 1 Cyn Shearer Work Phone: [facility] DO Work Phone: Comment on above: [id number] 09-28-2022 18:40-0400 Heart rate 55 /min Derian Rider [facility] 09-28-2022 18:40-0400 Respiratory rate 20 /min Derian Tereso [facility] 09-28-2022 18:40-0400 SaO2% (BldA) [Mass fraction] 97 % Derian Tereso [facility] 09-28-2022 18:00-0400 Diastolic blood pressure 76 mm[Hg] Derian Tereso [facility] 09-28-2022 18:00-0400 Heart rate 61 /min Derian Tereso [facility] 09-28-2022 18:00-0400 Mean blood pressure 95 mm[Hg] Derian Tereso [facility] 09-28-2022 18:00-0400 Systolic blood pressure 133 mm[Hg] Derian Tereso [facility] 09-28-2022 17:30-0400 Diastolic blood pressure 78 mm[Hg] Derian Tereso [facility] 09-28-2022 17:30-0400 Heart rate 63 /min Derian Tereso [facility] 09-28-2022 17:30-0400 Mean blood pressure 97 mm[Hg] Derian Tereso [facility] 09-28-2022 17:30-0400 Respiratory rate 16 /min Derian Tereso [facility] 09-28-2022 17:30-0400 SaO2% (BldA) [Mass fraction] 98 % Derian Tereso [facility] 09-28-2022 17:30-0400 Systolic blood pressure 134 mm[Hg] Derian Tereso [facility] 09-28-2022 17:00-0400 Diastolic blood pressure 74 mm[Hg] Derian Tereso [facility] 09-28-2022 17:00-0400 Mean blood pressure 96 mm[Hg] Derian Rider [facility] 09-28-2022 17:00-0400 Systolic blood pressure 139 mm[Hg] Derian Rider [facility] 09-28-2022 16:35-0400 Body temperature 98.78 [degF] Derian Rider [facility] 09-28-2022 16:35-0400 Heart rate 65 /min Derian Rider [facility] 09-25-2022 14:23-0400 Hourly Rounding [facility] 09-25-2022 14:23-0400 Promise to Return [facility] 09-25-2022 13:07-0400 Hourly Rounding [facility] 09-25-2022 13:07-0400 Promise to Return [facility] 09-25-2022 12:07-0400 Hourly Rounding [facility] 09-25-2022 12:07-0400 Promise to Return [facility] 09-25-2022 11:14-0400 Heart rate 74 /min [facility] 09-25-2022 11:14-0400 SaO2% (BldA) [Mass fraction] 96 % [facility] 09-25-2022 11:14-0400 Diastolic blood pressure 61 mm[Hg] [facility] 09-25-2022 11:14-0400 Mean blood pressure 73 mm[Hg] [facility] 09-25-2022 11:14-0400 Systolic blood pressure 99 mm[Hg] [facility] 09-25-2022 11:00-0400 Blood Pressure Location [facility] 09-25-2022 11:00-0400 Body temperature 97.7 [degF] [facility] 09-25-2022 11:00-0400 Respiratory rate 17 /min [facility] 09-25-2022 08:00-0400 SaO2% (BldA) [Mass fraction] 98 % [facility] 09-25-2022 07:48-0400 Heart rate 60 /min [facility] 09-25-2022 07:48-0400 SaO2% (BldA) [Mass fraction] 99 % [facility] 09-25-2022 07:48-0400 Diastolic blood pressure 65 mm[Hg] [facility] 09-25-2022 07:48-0400 Mean blood pressure 80 mm[Hg] [facility] 09-25-2022 07:48-0400 Systolic blood pressure 111 mm[Hg] [facility] 09-25-2022 07:48-0400 Body temperature 97.88 [degF] [facility] 09-25-2022 07:00-0400 Respiratory rate 16 /min [facility] 09-25-2022 04:00-0400 Heart rate 55 /min [facility] 09-25-2022 04:00-0400 Systolic blood pressure 116 mm[Hg] [facility] 09-24-2022 16:44-0500 Mean blood pressure 83 mm[Hg] [facility] 09-24-2022 09:54-0500 Heart rate 71 /min [facility] 09-24-2022 08:00-0500 Heart rate 49 /min [facility] 09-24-2022 08:00-0500 Mean blood pressure 112 mm[Hg] [facility] 09-24-2022 07:24-0500 Heart rate 56 /min [facility] 09-24-2022 07:24-0500 Respiratory rate 16 /min [facility] 09-24-2022 05:35-0500 gluc 131 mg/dL [facility] 09-24-2022 05:35-0500 gluc [facility] 09-24-2022 05:25-0500 Heart rate 58 /min [facility] 09-06-2022 12:13-0500 Diastolic blood pressure 60 mm[Hg] Cyn L Shearer Work Phone: [facility] DO Work Phone: 09-06-2022 12:13-0500 Systolic blood pressure 92 mm[Hg] Cyn L Shearer Work Phone: [facility] DO Work Phone: 09-06-2022 12:10-0500 Body height 165.1 cm Cyn L Shearer Work Phone: [facility] DO Work Phone: 09-06-2022 12:10-0500 Body mass index (BMI) [Ratio] 32.45 kg/m2 Cyn L Shearer Work Phone: [facility] DO Work Phone: 09-06-2022 12:10-0500 Body surface area Derived from formula 1.96 m2 Cyn L Shearer Work Phone: [facility] DO Work Phone: 09-06-2022 12:10-0500 Body weight 88.45 kg Cyn L Shearer Work Phone: [facility] DO Work Phone: 09-06-2022 12:10-0500 Diastolic blood pressure 62 mm[Hg] Cyn L Shearer Work Phone: [facility] DO Work Phone: 09-06-2022 12:10-0500 Heart rate 88 /min Cyn L Shearer Work Phone: [facility] DO Work Phone: 09-06-2022 12:10-0500 Systolic blood pressure 100 mm[Hg] Cyn Shearer Work Phone: [facility] DO Work Phone: 08-29-2022 00:00-0500 Diastolic blood pressure 77 mm[Hg] Kaylinn Dokken [facility] 08-29-2022 00:00-0500 Heart rate 56 /min Kaylinn Dokken [facility] 08-29-2022 00:00-0500 Respiratory rate 10 /min Kaylinn Dokken [facility] 08-29-2022 00:00-0500 SaO2% (BldA) [Mass fraction] 95 % Kaylinn Dokken [facility] 08-29-2022 00:00-0500 Systolic blood pressure 136 mm[Hg] [facility] 08-28-2022 23:30-0500 Diastolic blood pressure 80 mm[Hg] [facility] 08-28-2022 23:30-0500 Heart rate 57 /min [facility] 08-28-2022 23:30-0500 Mean blood pressure 97 mm[Hg] [facility] 08-28-2022 23:30-0500 Respiratory rate 14 /min [facility] 08-28-2022 23:30-0500 SaO2% (BldA) [Mass fraction] 94 % [facility] 08-28-2022 23:30-0500 Systolic blood pressure 130 mm[Hg] [facility] 08-28-2022 23:00-0500 Diastolic blood pressure 74 mm[Hg] [facility] 08-28-2022 23:00-0500 Mean blood pressure 83 mm[Hg] [facility] 08-28-2022 23:00-0500 Respiratory rate 13 /min [facility] 08-28-2022 23:00-0500 Systolic blood pressure 100 mm[Hg] [facility] 08-28-2022 21:37-0500 Hourly Rounding [facility] 08-28-2022 21:37-0500 Promise to Return [facility] 08-28-2022 20:37-0500 Body temperature 97.7 [degF] [facility] 08-28-2022 20:37-0500 Heart rate 64 /min [facility] 08-28-2022 20:37-0500 Respiratory rate 18 /min [facility] 08-24-2022 12:00-0500 Hourly Rounding [facility] 08-24-2022 12:00-0500 Promise to Return [facility] 08-24-2022 11:00-0500 Hourly Rounding [facility] 08-24-2022 11:00-0500 Promise to Return [facility] 08-24-2022 10:00-0500 Hourly Rounding [facility] 08-24-2022 10:00-0500 Promise to Return [facility] 08-24-2022 09:57-0500 Diastolic blood pressure 76 mm[Hg] [facility] 08-24-2022 09:57-0500 Heart rate 80 /min [facility] 08-24-2022 09:57-0500 Systolic blood pressure 143 mm[Hg] [facility] 08-24-2022 08:39-0500 SaO2% (BldA) [Mass fraction] 96 % [facility] 08-24-2022 05:30-0500 Body temperature 97.52 [degF] [facility] 08-24-2022 05:30-0500 Diastolic blood pressure 76 mm[Hg] [facility] 08-24-2022 05:30-0500 Heart rate 72 /min [facility] 08-24-2022 05:30-0500 Respiratory rate 16 /min [facility] 08-24-2022 05:30-0500 SaO2% (BldA) [Mass fraction] 96 % [facility] 08-24-2022 05:30-0500 Systolic blood pressure 143 mm[Hg] [facility] 08-24-2022 01:00-0500 SaO2% (BldA) [Mass fraction] 95 % [facility] 08-24-2022 00:24-0500 Body temperature 98.06 [degF] [facility] 08-24-2022 00:24-0500 Diastolic blood pressure 57 mm[Hg] [facility] 08-24-2022 00:24-0500 Heart rate 71 /min [facility] 08-24-2022 00:24-0500 Respiratory rate 16 /min [facility] 08-24-2022 00:24-0500 Systolic blood pressure 105 mm[Hg] [facility] 08-23-2022 20:28-0500 Heart rate 54 /min [facility] 08-23-2022 20:27-0500 Body temperature 97.88 [degF] [facility] 08-23-2022 20:27-0500 Mean blood pressure 87 mm[Hg] [facility] 08-23-2022 17:00-0500 Body temperature 97.52 [degF] [facility] 08-23-2022 12:34-0500 Blood Pressure Location [facility] 08-23-2022 12:34-0500 Heart rate 56 /min [facility] 08-23-2022 12:27-0500 Mean blood pressure 103 mm[Hg] [facility] 08-23-2022 12:27-0500 Body temperature 97.88 [degF] [facility] 08-23-2022 12:00-0500 Mean blood pressure 99 mm[Hg] [facility] 08-23-2022 11:00-0500 Respiratory rate 12 /min [facility] 08-23-2022 10:14-0500 Heart rate 68 /min [facility] 08-23-2022 10:14-0500 Respiratory rate 18 /min [facility] 08-12-2022 13:26-0500 Hourly Rounding [facility] 08-12-2022 13:26-0500 Promise to Return [facility] 08-12-2022 12:49-0500 Heart rate 71 /min [facility] 08-12-2022 12:49-0500 SaO2% (BldA) [Mass fraction] 98 % [facility] 08-12-2022 12:47-0500 Diastolic blood pressure 87 mm[Hg] [facility] 08-12-2022 12:47-0500 Mean blood pressure 109 mm[Hg] [facility] 08-12-2022 12:47-0500 Systolic blood pressure 151 mm[Hg] [facility] 08-12-2022 12:00-0500 Hourly Rounding [facility] 08-12-2022 12:00-0500 [facility] 08-12-2022 10:00-0500 Hourly Rounding [facility] 08-12-2022 10:00-0500 [facility] 08-12-2022 08:45-0500 Diastolic blood pressure 76 mm[Hg] [facility] 08-12-2022 08:45-0500 Systolic blood pressure 143 mm[Hg] [facility] 08-12-2022 08:15-0500 Heart rate 70 /min [facility] 08-12-2022 08:15-0500 SaO2% (BldA) [Mass fraction] 96 % [facility] 08-12-2022 08:14-0500 Diastolic blood pressure 76 mm[Hg] [facility] 08-12-2022 08:14-0500 Mean blood pressure 98 mm[Hg] [facility] 08-12-2022 08:14-0500 Systolic blood pressure 143 mm[Hg] [facility] 08-12-2022 08:13-0500 Body temperature 97.88 [degF] [facility] 08-12-2022 08:00-0500 Blood Pressure Location [facility] 08-12-2022 08:00-0500 Respiratory rate 18 /min [facility] 08-12-2022 00:16-0500 Heart rate 59 /min [facility] 08-12-2022 00:16-0500 SaO2% (BldA) [Mass fraction] 96 % [facility] 08-12-2022 00:16-0500 Mean blood pressure 92 mm[Hg] [facility] 08-12-2022 00:16-0500 Body temperature 97.52 [degF] mad [facility] 08-12-2022 00:16-0500 Blood Pressure Location mad [facility] 08-12-2022 00:16-0500 Mean blood pressure 92 mm[Hg] [facility] 08-12-2022 00:16-0500 Respiratory rate 16 /min mad [facility] 08-11-2022 19:46-0500 Body temperature 97.88 [degF] [facility] 08-11-2022 04:33-0500 Respiratory rate 18 /min mad [facility] 08-11-2022 04:00-0500 Body temperature 97.34 [degF] [facility] 08-11-2022 01:00-0500 Body temperature 97.52 [degF] [facility] 01:00-0500 Mean blood pressure 77 mm[Hg] dottied [facility] 08-10-2022 20:32-0500 Body temperature 97.7 [degF] [facility] 08-10-2022 20:32-0500 Heart rate 53 /min [facility] 08-10-2022 19:38-0500 Heart rate 61 /min [facility] 08-10-2022 19:38-0500 Mean blood pressure 108 mm[Hg] mad [facility] 08-10-2022 19:10-0500 Respiratory rate 13 /min mad [facility] 08-10-2022 19:01-0500 Respiratory rate 18 /min mad [facility] 08-10-2022 18:15-0500 Respiratory rate 16 /min [facility] 08-10-2022 15:25-0500 gluc 131 mg/dL [facility] 08-10-2022 15:25-0500 gluc [facility] 08-10-2022 15:05-0500 Heart rate 78 /min [facility] 07-07-2022 12:09-0500 Hourly Rounding [facility] 07-07-2022 12:09-0500 Promise to Return [facility] 07-07-2022 11:20-0500 Heart rate 69 /min [facility] 07-07-2022 11:20-0500 SaO2% (BldA) [Mass fraction] 95 % [facility] 07-07-2022 11:20-0500 Diastolic blood pressure 85 mm[Hg] [facility] 07-07-2022 11:20-0500 Mean blood pressure 101 mm[Hg] [facility] 07-07-2022 11:20-0500 Systolic blood pressure 135 mm[Hg] [facility] 07-07-2022 11:00-0500 Body temperature 98.24 [degF] [facility] 07-07-2022 11:00-0500 Hourly Rounding [facility] 07-07-2022 11:00-0500 Promise to Return [facility] 07-07-2022 10:00-0500 Hourly Rounding [facility] 07-07-2022 10:00-0500 Promise to Return [facility] 07-07-2022 08:00-0500 Heart rate 66 /min [facility] 07-07-2022 08:00-0500 Respiratory rate 20 /min [facility] 07-07-2022 08:00-0500 SaO2% (BldA) [Mass fraction] 94 % [facility] 07-07-2022 07:46-0500 Heart rate 69 /min [facility] 07-07-2022 07:46-0500 SaO2% (BldA) [Mass fraction] 96 % [facility] 07-07-2022 07:46-0500 Diastolic blood pressure 82 mm[Hg] [facility] 07-07-2022 07:46-0500 Mean blood pressure 97 mm[Hg] [facility] 07-07-2022 07:46-0500 Systolic blood pressure 127 mm[Hg] [facility] 07-07-2022 07:00-0500 Body temperature 98.42 [degF] [facility] 07-07-2022 04:28-0500 Heart rate 60 /min [facility] 07-07-2022 04:27-0500 Body temperature 98.78 [degF] [facility] 07-07-2022 04:27-0500 Diastolic blood pressure 69 mm[Hg] [facility] 07-07-2022 04:27-0500 Mean blood pressure 89 mm[Hg] [facility] 07-07-2022 04:27-0500 Systolic blood pressure 128 mm[Hg] [facility] 07-07-2022 00:00-0500 Body temperature 97.7 [degF] [facility] 07-07-2022 00:00-0500 Heart rate 62 /min [facility] 07-06-2022 19:49-0500 Body temperature 98.06 [degF] [facility] 07-06-2022 16:36-0500 Blood Pressure Location [facility] 07-06-2022 16:36-0500 Heart rate 57 /min [facility] 07-06-2022 13:52-0500 Mean blood pressure 102 mm[Hg] [facility] 07-06-2022 13:52-0500 Respiratory rate 27 /min [facility] 07-06-2022 13:00-0500 Mean blood pressure 94 mm[Hg] [facility] 07-06-2022 13:00-0500 Respiratory rate 8 /min [facility] 07-06-2022 12:00-0500 Mean blood pressure 101 mm[Hg] [facility] 07-06-2022 12:00-0500 Respiratory rate 11 /min [facility] 07-06-2022 08:05-0500 gluc 104 mg/dL [facility] 07-06-2022 08:05-0500 gluc [facility] 07-06-2022 08:05-0500 Respiratory rate 20 /min [facility] 12-31-2021 04:20-0400 Diastolic blood pressure 86 mm[Hg] [facility] 12-31-2021 04:20-0400 Heart rate 61 /min [facility] 12-31-2021 04:20-0400 Hourly Rounding [facility] 12-31-2021 04:20-0400 Respiratory rate 18 /min [facility] 12-31-2021 04:20-0400 SaO2% (BldA) [Mass fraction] 95 % [facility] 12-31-2021 04:20-0400 Systolic blood pressure 134 mm[Hg] [facility] 12-31-2021 03:24-0400 Diastolic blood pressure 75 mm[Hg] [facility] 12-31-2021 03:24-0400 Heart rate 64 /min [facility] 12-31-2021 03:24-0400 Hourly Rounding [facility] 12-31-2021 03:24-0400 Respiratory rate 18 /min [facility] 12-31-2021 03:24-0400 SaO2% (BldA) [Mass fraction] 98 % [facility] 12-31-2021 03:24-0400 Systolic blood pressure 124 mm[Hg] [facility] 12-31-2021 02:13-0400 Body temperature 98.24 [degF] [facility] 12-31-2021 02:13-0400 Diastolic blood pressure 75 mm[Hg] [facility] 12-31-2021 02:13-0400 Heart rate 73 /min [facility] 12-31-2021 02:13-0400 Hourly Rounding [facility] 12-31-2021 02:13-0400 Respiratory rate 18 /min [facility] 12-31-2021 02:13-0400 SaO2% (BldA) [Mass fraction] 97 % [facility] 12-31-2021 02:13-0400 Systolic blood pressure 122 mm[Hg] [facility] 10-06-2020 15:17-0400 BMI (Body Mass Index) 32.1 kg/m2 [employer] Work Phone: 10-06-2020 15:17-0400 Body weight 84.82 kg [employer] Work Phone: 10-06-2020 15:17-0400 Height 162.6 cm [employer] Phone: 10-06-2020 15:16-0400 Body Temperature 98.2 [degF] [employer] Work Phone: 10-06-2020 15:16-0400 BP Diastolic 106 mm[Hg] [employer] Work Phone: 10-06-2020 15:16-0400 BP Systolic 174 mm[Hg] [employer] Work Phone: 10-06-2020 15:16-0400 Pulse (Heart Rate) 116 /min [employer] Work Phone: 10-06-2020 15:16-0400 Pulse Oximetry 96 % [employer] Phone: 10-06-2020 15:16-0400 Respiratory Rate 16 /min [employer] Work Phone: 06-02-2020 21:41-0500 BMI (Body Mass Index) 29.95 kg/m2 [facility] 06-02-2020 21:41-0500 Body weight 81.65 kg [facility] 06-02-2020 21:41-0500 BP Diastolic 99 mm[Hg] [facility] 06-02-2020 21:41-0500 BP Systolic 154 mm[Hg] [facility] 06-02-2020 21:41-0500 Height 165.1 cm [facility] 06-02-2020 21:41-0500 [facility] 83 [facility] 21:41-0500 Pulse Oximetry 97 % [facility] 06-02-2020 21:41-0500 Respiratory Rate 16 /min [facility] 02-25-2020 03:42-0400 Heart rate Medtronic [facility] 02-25-2020 03:42-0400 Heart rate LNQ11 Reveal LINQ [facility]ad [facility] 02-25-2020 03:42-0400 Heart rate [id number] Mohammad [facility] 02-25-2020 03:42-[address] Recorder Mohalbad [facility] 02-25-2020 03:42-0400 Heart rate [id number] /min Mohammad [facility] 01-22-2020 05:41-0400 Heart rate [employer]tronic Editad [facility] 01-22-2020 05:41-0400 Heart rate LNQ11 Reveal LINQ [facility] 01-22-2020 05:41-0400 Heart rate [id number] Editad [facility] 01-22-2020 05:41-[address] Loop Recorder Editad [facility] 01-22-2020 05:41-0400 Heart rate [id number] /min [facility]ad [facility] 12-18-2019 05:43-0400 Heart rate Medtronic Editad [facility] 12-18-2019 05:43-0400 Heart rate LNQ11 Reveal LINQ [facility] 12-18-2019 05:43-0400 Heart rate [id number] Gennyammad [facility] 12-18-2019 05:43-[address] Recorder Editad [facility] 12-18-2019 05:43-0400 Heart rate [id number] /min Gennyammad [facility] 10-09-2019 06:40-0400 Heart rate Medtronic Gennyammad [facility] 10-09-2019 06:40-0400 Heart rate LNQ11 Reveal LINQ Gennyammad [facility] 10-09-2019 06:40-0400 Heart rate [id number] Mohammad [facility] 10-09-2019 06:40-[address] Loop Recorder Omar [facility] 10-09-2019 06:40-0400 Heart rate [id number] /min [facility] 09-04-2019 05:41-0500 Heart rate Medtronic Omar [facility] 09-04-2019 05:41-0500 Heart rate LNQ11 Reveal LINQ [facility] 09-04-2019 05:41-0500 Heart rate [id number] [facility] 09-04-2019 05:41-[address] Loop Recorder Omar [facility] 09-04-2019 05:41-0500 Heart rate [id number] /min [facility] 07-31-2019 02:41-0500 Heart rate Medtronic Omar [facility] 07-31-2019 02:41-0500 Heart rate LNQ11 Reveal LINQ [facility] 07-31-2019 02:41-0500 Heart rate [id number] [facility] 07-31-2019 02:41-[address] Loop Recorder [facility] 07-31-2019 02:41-0500 Heart rate [id number] /min [facility] 02-05-2019 22:08-0400 BP Diastolic 88 mm[Hg] [facility] 02-05-2019 22:08-0400 BP Systolic 145 mm[Hg] [facility] 02-05-2019 22:08-0400 Pulse (Heart Rate) 89 /min [facility] 02-05-2019 22:08-0400 Pulse Oximetry 100 % [facility] 02-05-2019 22:08-0400 Respiratory Rate 20 /min [facility] 02-05-2019 19:35-0400 BMI (Body Mass Index) 31.62 kg/m2 [facility] 02-05-2019 19:35-0400 Body Temperature 98.1 [degF] [facility] 02-05-2019 19:35-0400 Body weight 86.18 kg [facility] 02-05-2019 19:35-0400 Height 165.1 cm [facility] 01-04-2019 06:05-0400 Heart rate [facility] [facility] 01-04-2019 06:05-0400 Heart rate LNQ11 Reveal LINQ [facility] 01-04-2019 06:05-0400 Heart rate [id number] [facility] 01-04-2019 06:05-[address] Recorder Omar [facility] 01-04-2019 06:05-0400 Heart rate [id number] /min [facility] 11-28-2018 10:09-0400 Heart rate Medtronic Omar [facility] 11-28-2018 10:09-0400 Heart rate LNQ11 Reveal LINQ [facility] 11-28-2018 10:09-0400 Heart rate [id number] [facility] 11-28-2018 10:09-[address] Loop Recorder Omar [facility] 11-28-2018 10:09-0400 Heart rate [id number] /min [facility] 10-19-2018 08:41-0400 Heart rate Medtronic Omar [facility] 10-19-2018 08:41-0400 Heart rate LNQ11 Reveal LINQ [facility] 10-19-2018 08:41-0400 Heart rate [id number] [facility] 10-19-2018 08:41-[address] Loop Recorder [facility] 10-19-2018 08:41-0400 Heart rate [id number] /min [facility] 09-11-2018 11:13-0500 Heart rate Medtronic [facility] 09-11-2018 11:13-0500 Heart rate LNQ11 Reveal LINQ [facility] 09-11-2018 11:13-0500 Heart rate [id number] [facility] 09-11-2018 11:13-05[address] Heart rate Loop Recorder [facility] 09-11-2018 11:13-0500 Heart rate [id number] /min [facility] 08-06-2018 07:46-0500 Heart rate [facility] [facility] 08-06-2018 07:46-0500 Heart rate LNQ11 Reveal LINQ [facility] 08-06-2018 07:46-0500 Heart rate [id number] [facility] 08-06-2018 07:46-05[address] Heart rate Loop Recorder [facility] 08-06-2018 07:46-0500 Heart rate [id number] /min [facility] 06-29-2018 03:08-0500 Heart rate [employer]tr[employer] [facility] 06-29-2018 03:08-0500 Heart rate LNQ11 Reveal LINQ [facility] 06-29-2018 03:08-0500 Heart rate [id number] [facility] 06-29-2018 03:08-05[address] Heart rate Loop Recorder [facility] 06-29-2018 03:08-0500 Heart rate [id number] /min [facility] 05-30-2018 13:42-0500 Heart rate [employer] [facility] 05-30-2018 13:42-0500 Heart rate LNQ11 Reveal LINQ [facility] 05-30-2018 13:42-0500 Heart rate [id number] [facility] 05-30-2018 13:42-[address] Loop Recorder [facility] 05-30-2018 13:42-0500 Heart rate [id number] /min [facility] 10-20-2017 13:32-0400 BMI (Body Mass Index) 32.28 kg/m2 [facility] 10-20-2017 13:32-0400 Body Temperature 98.1 [degF[facility] 13:32-0400 BP Diastolic 93 mm[Hg] [facility] 10-20-2017 13:32-0400 BP Systolic 147 mm[Hg] [facility] 10-20-2017 13:32-0400 Height 167.6 cm Del[facility] 10-20-2017 13:32-0400 Pulse (Heart Rate) 67 /min [facility] 10-20-2017 13:32-0400 Respiratory Rate 16 /min Del[facility] 10-20-2017 13:32-0400 Weight 90.72 kg Del[facility] 06-19-2017 07:47-0500 BMI (Body Mass Index) 28.29 kg/m2 [facility] Work Phone: 06-19-2017 07:47-0500 Body Temperature 98.71 [degF] [facility] Work Phone: 06-19-2017 07:47-0500 BP Diastolic 89 mm[Hg] Del[facility] Work Phone: 06-19-2017 07:47-0500 BP Systolic 137 mm[Hg] Del[facility] Work Phone: 06-19-2017 07:47-0500 Height 165.1 cm Del[facility] Work Phone: 06-19-2017 07:47-0500 Pulse (Heart Rate) 73 /min Del[facility] Work Phone: 06-19-2017 07:47-0500 Respiratory Rate 16 /min Del[facility] Work Phone: 06-19-2017 07:47-0500 Weight 77.11 kg Delmy [facility] Work Phone: Encounters Encounter Date Encounter Type Care Provider Facility Start: 06-07-2023 End: 06-07-2023 Emergency department patient visit Diamony Wilson Gino Facility:[facility] Start: 06-07-2023 End: 06-07-2023 Emergency department patient visit Kasey Steve Gino [facility] Start: 05-05-2023 End: 05-05-2023 Emergency department patient visit Kasey Christian Facility:[facility] Start: 05-05-2023 End: 05-05-2023 Emergency department patient visit Kasey Christian [facility] Start: 04-27-2023 End: 04-28-2023 ambulatory Ni COLEMAN Facility:[facility] Start: 04-27-2023 End: 04-27-2023 Patient encounter procedure Ni COLEMAN [facility] Start: 04-14-2023 End: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 [facility] Start: 04-17-2019 End: 04-17-2019 Appointment 04/17/2019 Appointment Cardiology [facility] Start: 03-17-2019 Influenza vaccinatio n given [facility] Start: 03-13-2019 End: 03-13-2019 Appointment 03/13/2019 Appointment Cardiology [facility] Start: 02-06-2019 End: 02-06-2019 Appointment [facility] Start: 01-02-2019 End: 01-02-2019 Appointment 01/02/2019 Appointment Cardiology [facility] Start: 11-28-2018 End: 11-28-2018 Appointment 11/28/2018 Appointment Cardiology [facility] Start: 10-19-2018 End: 10-19-2018 PaceArt Device Check 10/19/2018 PaceArt Device Check Cardiology [facility] Start: 09-11-2018 End: 09-11-2018 PaceArt Device Check 09/11/2018 PaceArt Device Check Cardiology [facility] Start: 08-06-2018 End: 08-06-2018 Ambulatory 08/06/2018 PaceArt Device Check Cardiology [facility] Start: 07-05-2018 End: 07-05-2018 Ambulatory 07/05/2018 PaceArt Device Check Cardiology [facility] Start: 06-15-2018 End: 06-15-2018 Ambulatory 06/15/2018 Office Visit Primary Care Evans Olson, [facility] [address] [place] [address] [phone] [facility] Start: 05-30-2018 End: 05-30-2018 Ambulatory 05/30/2018 PaceArt Device Check Cardiology [facility] Start: 04-23-2018 End: 04-23-2018 Ambulatory 04/23/2018 PaceArt Device Check Cardiology [facility] Start: 03-17-2018 Influenza vaccination [facility] Start: 03-17-2018 Influenza vaccinatio n given SEQUENTIAL INFLUENZA VACCINE (#1) [facility] Start: 03-15-2018 End: 03-15-2018 Ambulatory 03/15/2018 Office Visit Primary Care Evans Olson, [employer] [facility] [address] [place] [address] [phone] [facility] Start: 03-13-2018 End: 03-13-2018 Ambulatory 03/13/2018 PaceArt Device Check Cardiology [facility] Start: 02-05-2018 End: 02-05-2018 Ambulatory 02/05/2018 PaceArt Device Check Cardiology [facility] Start: 01-02-2018 End: 01-02-2018 Ambulatory 01/02/2018 PaceArt Device Check Cardiology [facility] Start: 12-12-2017 End: 12-12-2017 Ambulatory 12/12/2017 Office Visit Primary Care Evans Olson, [facility] [facility] [address] [place] [address] [phone] [facility] Start: 11-22-2017 Ambulatory 11/22/2017 Pac eArt Device Check Cardiology [facility] Start: 11-13-2017 Screening for malign ant neoplasm of colon Colon cancer screen colonoscopy [employer] Phone: Start: 10-20-2017 Ambulatory 10/20/2017 Off ice Visit Neurology Delmy Orellana MD [address] [place] [address] [phone] [facility] Start: 10-18-2017 Ambulatory 10/18/2017 Pac eArt Device Check Cardiology [facility] Start: 09-12-2017 Ambulatory 09/12/2017 Pac eArt Device Check Cardiology [facility] Start: 08-18-2017 Ambulatory 08/18/2017 Off ice Visit Primary Care Evans Olson, [facility] [address] [place] [address] [phone] [facility] Start: 08-08-2017 Ambulatory 08/08/2017 Pac eArt Device Check Cardiology [facility] Start: 06-27-2017 Ambulatory 06/27/2017 Pac eArt Device Check Cardiology [facility] Start: 06-19-2017 Ambulatory 06/19/2017 Off ice Visit Neurology OrellanaDelmy MD [address] [place] [address] [phone] [facility] Start: 05-20-2017 Ambulatory 05/20/2017 Pac eArt Device Check Cardiology [facility] Start: 04-15-2017 Ambulatory 04/15/2017 Pac eArt Device Check Cardiology [facility] Start: 03-17-2017 Influenza vaccination SEQUENTI AL INFLUENZA VACCINE (#1) [facility] Work Phone: Start: 03-17-2017 SEQUENTIAL INFLUENZA VACCINE (#1) SEQUENTIAL INFLUENZA VACCINE (#1) [facility] Work Phone: Start: 03-11-2017 Ambulatory 03/11/2017 Pac eArt Device Check Cardiology [facility] Start: 10-05-2013 Lipid panel Lipid screen [facility] Work Phone: Start: 12-14-2011 Administration of he rpes zoster vaccine Zoster Vaccines (1 of 2) [facility] Start: 12-14-2011 Screening for malign ant neoplasm of colon [facility] Start: 12-14-2011 Shingles (RZV) Vacci ne (1 of 2) Shingles (RZV) Vaccine (1 of 2) [facility] Start: 12-14-2011 Shingles Vaccine (1 of 2) Shingles Vaccine (1 of 2) [employer] Work Phone: Start: 2006 Screening for malign ant neoplasm of colon [facility] Start: 2001 Diabetes screen Diabetes screen [employer] Work Phone: Start: 1996 Lipid panel Cholesterol [facility] Start: 12-14-1979 Hepatitis C antibody , confirmatory test Hepatitis C Screening [facility] Start: 12-14-1979 Hepatitis C screening Hepatitis C An tibody [facility] Start: 12-14-1979 Tetanus + diphtheria + acellular pertussis vaccine (product) Tdap Booster [facility] Start: 1977 COVID-19 Vaccine (1 of 2) COVID-19 Vaccine (1 of 2) [facility] Start: 1977 COVID-19 Vaccine (1) COVID-19 Vaccin e (1) [employer] Work Phone: Start: [address] [facility] Start: 1973 Adolescent depressio n screening assessment Depression Screening (PHQ9) [facility] Start: 12-14-1967 Pneumococcal vaccination Pneum ococcal Vaccine(s) (1 - PCV) [facility] Start: 1964 History and physical examination, annual for health maintenance Wellness Visit [facility] Start: 06-15-1962 COVID-19 Vaccine (#1) COVID-19 Vacci ne (#1) [facility] Start: 1961 Colonoscopy COLONOSCOPY [facility] Work Phone: Start: 1961 Depression screening using PHQ-9 (Patient Health Questionnaire 9) score DEPRESSION SCREENING (PHQ9) [facility] Start: 1961 Hepatitis C screening Hepatitis C sc reen [facility] [employer] Work Phone: Start: 1961 Prostate specific antigen measurement PSA Level [facility] Start: 1961 Screening for malign ant [facility]oplasm [facility] Start: 1961 Colonoscopy COLONOSCOPY [facility] Work Phone: Start: 1961 End: 1961 Hepatitis C antibody, confirmatory test HEPATITIS C SCREENING [facility] Start: 1961 End: 1961 HEPATITIS C SCREENING HEPATITIS C SCREENING [facility] Work Phone: Start: 1961 End: 1961 Low-dose CT Lung Cancer Screen Low-dose CT Lung Cancer Screen [facility] Work Phone: Start: 1961 End: 05-30-1962 Protein mass conc COLONOSCOPY [facility] Start: 1961 Screening colonoscopy COLONOSCOPY [facility] Work Phone: Start: 1961 End: 1961 Screening for malignant neoplasm of lung Low-dose CT Lung Cancer Screen [facility] Start: 1961 End: 1961 TETANUS EVERY 10 YR TETANUS EVERY 10 YR [facility] Work Phone: Start: 1961 Tetanus vaccination TETANUS EVERY 10 YR [facility] Work Phone: End: 02-05-2019 X-ray of left foot XR Foot Left 3+ Views (Standard) Imaging STAT One time imaging One time imaging for 1 Occurrences starting 02/05/2019 until 02/05/2019 [facility] Comment on above: One time imaging One time imaging for 1 Occurrences starting 02/05/2019 until 02/05/2019 X-ray of left foot XR Foot Left 3+ Views (Standard) Imaging STAT 02/05/2019 8:22 PM EDT [facility] XR Ribs Left With Ch est 3+ Views XR Ribs Left With Chest 3+ Views Imaging PEDRO 06/02/2020 10:29 PM EST [facility] Immunizations Immunization Date Immunization Notes Care Provider Clarissa cintron 02-13-2023 Hemoglobin A1C Mh 2(Edge) [facility] 09-01-2021 COVID-19, mRNA, LNP- S, PF, 100 mcg or 50 mcg dose Kaylinn D[facility] 07-24-2021 COVID-19, mRNA, LNP- S, PF, 100 mcg or 50 mcg dose Kaylinn D[facility] 10-05-2012 tetanus toxoid, reduced diphtheria toxoid, and acellular pertussis vaccine, adsorbed Veselin Vinh [facility] Payers Date Payer Category Payer Medicaid [employer]ICA[employer] HMO [id number] 2023-Present [phone] [address] [place] [address] Medicaid HMO [id number] 2022 Private Health Insurance [id number] 2014 Medicaid [id number] 2014 Medicaid [id number] 2014 Medicaid [id number] 2.16.840.1.155063.3.249.13 2014 Medicaid [id number] 2.16.840.1.729674.3.249.13 2014 Medicaid [id number] 1.2.840.197889.1.13.385.2. 7.3.454505.315 1961 Unknown [id number] 2.16.840.1.604490.3.579.2. 90 1961 Unknown [id number] 2.16.840.1.459448.3.579.2. 1961 Unknown [id number] 2.16.840.1.837158.3.579.2. 90 1961 Unknown [id number] 2.16.840.1.679828.3.579.2. 1961 Unknown [id number] 2.16.840.1.907495.3.579.2. 1961 Unknown [id number] 2.16.840.1.629104.3.579.2. 1961 Unknown [id number] 2.16.840.1.617054.3.579.2. 90 1961 Unknown [id number] 2.16.840.1.482765.3.579.2. 1961 Unknown [id number] 2.16.840.1.524684.3.579.2. 90 1961 Unknown [id number] 2.16.840.1.748479.3.579.2. 90 1962 Unknown [id number] 2.16.840.1.608004.3.579.2. 1961 Unknown [id number] 2.16.840.1.209901.3.579.2 1961 Unknown [id number] 2.16.840.1.423619.3.579.2 1961 Unknown [id number] 2.16.840.1.873582.3.579.2 1961 Unknown [id number] 2.16.840.1.146509.3.579.2 1961 Unknown [id number] 2.16.840.1.375520.3.579.2 1961 Unknown [id number] 2.16.840.1.249932.3.579.2 1961 Unknown [id number] 2.16.840.1.321801.3.579.2 1961 Unknown [id number] 2.16.840.1.131229.3.579.2 1961 Unknown [id number] 2.16.840.1.200164.3.579.2 1961 Unknown [id number] 2.16.840.1.745210.3.579.2 1961 Unknown [id number] 2.16.840.1.939421.3.579.2 1961 Unknown [id number] 2.16.840.1.243186.3.579.2 1961 Unknown [id number] 2.16.840.1.743235.3.579.2 1961 Unknown [id number] 2.16.840.1.458916.3.579.2 1961 Unknown [id number] 2.16.840.1.345817.3.579.2. 903 1961 Unknown [id number] 2.16.840.1.754506.3.579.2. 174 1961 Unknown [id number] 2.16.840.1.254281.3.579.2. 356 1961 Unknown [id number] 2.16.840.1.489289.3.579.2. 356 1961 Unknown [id number] 2.16.840.1.749130.3.579.2. 356 1961 Unknown [id number] 2.16.840.1.531292.3.579.2. 356 1961 Unknown [id number] 2.16.840.1.048891.3.579.2. 356 1961 Unknown [id number] 2.16.840.1.552951.3.579.2. 356 1961 Unknown [id number] 2.16.840.1.452783.3.579.2. 356 1961 Unknown [id number] 2.16.840.1.859013.3.579.2. 356 1961 Unknown [id number] 2.16.840.1.095451.3.579.2. 356 1961 Unknown [id number] 2.16.840.1.160558.3.579.2. 356 1961 Unknown [id number] 2.16.840.1.352843.3.579.2. 356 1961 Unknown [id number] 2.16.840.1.706430.3.579.2. 356 1961 Unknown [id number] 2.16.840.1.772484.3.579.2. 356 1961 Unknown [id number] 2.16.840.1.810609.3.579.2. 1961 Unknown [id number] 2.16.840.1.257328.3.579.2. 1961 Unknown [id number] 2.16.840.1.590901.3.579.2. 1961 Unknown [id number] 2.16.840.1.866827.3.579.2 1961 Unknown [id number] 2.16.840.1.082217.3.579.2. 1961 Unknown [id number] 2.16.840.1.802858.3.579.2 1961 Unknown [id number] 2.16.840.1.976144.3.579.2 1961 Unknown [id number] 2.16.840.1.618776.3.579.2 1961 Unknown [id number] 2.16.840.1.848181.3.579.2 1961 Unknown [id number] 2.16.840.1.814601.3.579.2 1961 Unknown [id number] 2.16.840.1.008116.3.579.2 1961 Unknown [id number] 2.16.840.1.439152.3.579.2 1961 Unknown [id number] 2.16.840.1.368759.3.579.2 1961 Unknown [id number] 2.16.840.1.100946.3.579.2 1961 Unknown [id number] 2.16.840.1.260840.3.579.2 1961 Unknown [id number] 2.16.840.1.022710.3.579.2 1961 Unknown [id number] 2.16.840.1.687587.3.579.2. 727 1961 Unknown [id number] 2.16.840.1.782017.3.579.2. 7 1961 Unknown [id number] 2.16.840.1.045189.3.579.2. 1961 Unknown [id number] 2.16.840.1.289533.3.579.2. 1961 Unknown [id number] 2.16.840.1.568295.3.579.2. 727 1959 Self-pay Unknown Unknown [id number] 2.16.840.1.389798.3.579.2. 593 Social History Date Type Detail Facility Start: 10-20-2017 End: 12-19-2018 Tobacco smoking status [facility] Former smoker [facility] Work Phone: End: 01-15-2016 History of tobacco use Current smoker [facility] Work Phone: Start: 1960 Sex Assigned At Not on file [facility] [employer] Work Phone: Start: 09-12-2017 End: 02-12-2023 Cigarettes smoked current (pack per day) - Reported [facility] [employer] Phone: Comment on above: 6-7 cigs daily; Start: 02-05-2019 End: 02-12-2023 Tobacco smoking status [facility] Current every day smoker [facility] Start: 02-05-2019 End: 10-06-2020 Alcohol intake Current non-drinker of alcohol (finding) [facility] Start: 06-02-2020 End: 02-12-2023 Tobacco use and exposure Never used [facility] Start: 06-02-2020 Alcohol intake Current drinke r of alcohol (finding) [facility] Start: 04-10-2020 Alcohol Comment [facility] Exposure to SARS-CoV -2 (event) Not sure [facility] History of tobacco use Cigarette Smoker [facility] Work Phone: Start: 06-28-2011 Tobacco Comment every 2 days [employer] Work Phone: Start: 08-21-2020 End: 01-18-2023 Tobacco smoking status Light tobacco smoker (finding) [facility] Sex Assigned At Male [facility] Start: 08-10-2022 Tobacco smoking status Heavy t obacco smoker (finding) [facility] Comment on above: pack/day Tobacco smoking stat us NHIS Tobacco smoking consumption unknown [facility] Work Phone: Tobacco smoking status Never [facility] Medical Equipment Procedure Code Equipment Code Equipment Origin al Text Equipment Identifier Dates Mdt Lnq11 Reveal [employer] [id number] Start: 09-26-2016 Mdt Lnq11 Reveal Linq [id number] Start: 09-26-2016 Mdt Lnq11 Reveal [employer] [id number] Start: 09-26-2016 Mdt Lnq11 Reveal Linq [id number] Start: 09-26-2016 Mdt Lnq11 Reveal Linq [id number] Start: 09-26-2016 Mdt Lnq11 Reveal Linq [id number] Start: 09-26-2016 Mdt Lnq11 Reveal Linq [id number] Start: 09-26-2016 Mdt Lnq11 Reveal Linq [id number] Start: 09-26-2016 Mdt Lnq11 Reveal Linq [id number] Start: 09-26-2016 Mdt Lnq11 Reveal Linq [id number] Start: 09-26-2016 Mdt Lnq11 Reveal Lin[employer] [id number] Start: 09-26-2016 Mdt Lnq11 Reveal Linq [id number] Start: 09-26-2016 Mdt Lnq11 Reveal Linq [id number] Start: 09-26-2016 Mdt Lnq11 Reveal Linq [id number] Start: 09-26-2016 Mdt Lnq11 Reveal Linq [id number] Start: 09-26-2016 Mdt Lnq11 Reveal Linq [id number] Start: 09-26-2016 Mdt Lnq11 Reveal Linq [id number] Start: 09-26-2016 Mdt Lnq11 Reveal Linq [id number] Start: 09-26-2016 Mdt Lnq11 Reveal Linq [id number] Start: 09-26-2016 Mdt Lnq11 Reveal Linq [id number] Start: 09-26-2016 Mdt Lnq11 Reveal Linq [id number] Start: 09-26-2016 Mdt Lnq11 Reveal Linq [id number] Start: 09-26-2016 Mdt Lnq11 Reveal Linq [id number] Start: 09-26-2016 Mdt Lnq11 Reveal Linq [id number] Start: 09-26-2016 Mdt Lnq11 Reveal Linq [id number] Start: 09-26-2016 Mdt Lnq11 Reveal Linq [id number] Start: 09-26-2016 Mdt Lnq11 Reveal Linq [id number] Start: 09-26-2016 Mdt Lnq11 Reveal Linq [id number] Start: 09-26-2016 Mdt Lnq11 Reveal Linq [id number] Start: 09-26-2016 Mdt Lnq11 Reveal Linq [id number] Start: 09-26-2016 Mdt Lnq11 Reveal Linq [id number] Start: 09-26-2016 Mdt Lnq11 Reveal Linq [id number] Start: 09-26-2016 Mdt Lnq11 Reveal Linq [id number] Start: 09-26-2016 Mdt Lnq11 Reveal Linq [id number] Start: 09-26-2016 Mdt Lnq11 Reveal Linq [id number] Start: 09-26-2016 Mdt Lnq11 Reveal Linq [id number] Start: 09-26-2016 Mdt Lnq11 Reveal Linq [id number] Start: 09-26-2016 Mdt Lnq11 Reveal Linq [id number] Start: 09-26-2016 Mdt Lnq11 Reveal Linq [id number] Start: 09-26-2016 Mdt Lnq11 Reveal Linq [id number] Start: 09-26-2016 Mdt Lnq11 Reveal Linq [id number] Start: 09-26-2016 Mdt Lnq11 Reveal Linq [id number] Start: 09-26-2016 LHC Unknown Non Biological Left Anterior Descending Coronary Artery FDA Start: 08-23-2022 Comment on above: 2.75X15 LHC Unknown Non Biological Left Anterior Descending Coronary Artery FDA Start: 08-23-2022 Comment on above: 2.75X15 LHC Unknown Non Biological Left Anterior Descending Coronary Artery FDA Start: 08-23-2022 Comment on above: 2.75X15 LHC Unknown Non Biological Left Anterior Descending Coronary Artery FDA Start: 08-23-2022 Comment on above: 2.75X15 LHC Unknown Non Biological Left Anterior Descending Coronary Artery FDA Start: 08-23-2022 Comment on above: 2.75X15 LHC Unknown Non Biological Left Anterior Descending Coronary Artery FDA Start: 08-23-2022 Comment on above: 2.75X15 LHC Unknown Non Biological Left Anterior Descending Coronary Artery FDA Start: 08-23-2022 Comment on above: 2.75X15 LHC Unknown Non Biological Left Anterior Descending Coronary Artery FDA Start: 08-23-2022 Comment on above: 2.75X15 LHC Unknown Non Biological Left Anterior Descending Coronary Artery FDA Start: 08-23-2022 Comment on above: 2.75X15 LHC Unknown Non Biological Left Anterior Descending Coronary Artery FDA Start: 08-23-2022 Comment on above: 2.75X15 LHC Unknown Non Biological Left Anterior Descending Coronary Artery FDA Start: 08-23-2022 Comment on above: 2.75X15 LHC Unknown Non Biological Left Anterior Descending Coronary Artery FDA Start: 08-23-2022 Comment on above: 2.75X15 LHC Unknown Non Biological Left Anterior Descending Coronary Artery FDA Start: 08-23-2022 Comment on above: 2.75X15 LHC Unknown Non Biological Left Anterior Descending Coronary Artery FDA Start: 08-23-2022 Comment on above: 2.75X15 LHC Unknown Non Biological Left Anterior Descending Coronary Artery FDA Start: 08-23-2022 Comment on above: 2.75X15 LHC Unknown Non Biological Left Anterior Descending Coronary Artery FDA Start: 08-23-2022 Comment on above: 2.75X15 LHC Unknown Non Biological Left Anterior Descending Coronary Artery FDA Start: 08-23-2022 Comment on above: 2.75X15 Goals Date Patient Goal Desired Activity /State Functional Status Date Assessment Result Facility 06-07-2023 Functional Status N/A [facility] 05-05-2023 Functional Status N/A [facility] 03-16-2023 Functional Status N/A [facility] 02-11-2023 Functional Status N/A [facility] 12-20-2022 Functional Status No [facility] 11-22-2022 Functional Status N/A [facility] 11-15-2022 Functional Status N/A [facility] 11-03-2022 Functional Status No [facility] 10-21-2022 Functional Status N/A [facility] 10-04-2022 Functional Status N/A [facility] 10-04-2022 Functional Status [facility] 09-28-2022 Functional Status N/A [facility] 09-24-2022 Functional Status N/A [facility] 09-24-2022 Functional Status [facility] 08-28-2022 Functional Status N/A [facility] 08-23-2022 Functional Status Yes [facility] 08-23-2022 Functional Status [facility] 08-10-2022 Functional Status No [facility] 08-10-2022 Functional Status [facility] 07-06-2022 Functional Status N/A [facility] 07-06-2022 Functional Status [facility] 12-31-2021 Functional Status N/A [facility] Clinical Notes 12-31-2021 to 06-07-2023 Note Date & Type Note Facility 06-07-2023 Hospital Discharg e instructions Patient Education 06/07/2023 14:25:10 Acute Bronchitis, Adult, [id number] Acute Bronchitis, Adult Acute bronchitis is when air tubes in the lungs (bronchi) suddenly get swollen. The condition can make it hard for you to breathe. In adults, acute bronchitis usually goes away within 2 weeks. A cough caused by bronchitis may last up to 3 weeks. Smoking, allergies, and asthma can make the condition worse. What are the causes? Germs that cause cold and flu (viruses). The most common cause of this condition is the virus that causes the common cold. Bacteria. Substances that bother (irritate) the lungs, including: ?Smoke from cigarettes and other types of tobacco. ?Dust and pollen. ?Fumes from chemicals, gases, or burned fuel. ?Indoor or outdoor air pollution. What increases the risk? A weak body's defense system. This is also called the immune system. Any condition that affects your lungs and breathing, such as asthma. What are the signs or symptoms? A cough. Coughing up clear, yellow, or green mucus. Making high-pitched whistling sounds when you breathe, most often when you breathe out (wheezing). Runny or stuffy nose. Having too much mucus in your lungs (chest congestion). Shortness of breath. Body aches. A sore throat. How is this treated? Acute bronchitis may go away over time without treatment. Your doctor may tell you to: Drink more fluids. This will help thin your mucus so it is easier to cough up. Use a device that gets medicine into your lungs (inhaler). Use a vaporizer or a humidifier. These are machines that add water to the air. This helps with coughing and poor breathing. Take a medicine that thins mucus and helps clear it from your lungs. Take a medicine that prevents or stops coughing. It is not common to take an antibiotic medicine for this condition. Follow these instructions at home: Take mzsp-qei-ijnxgti and prescription medicines only as told by your doctor. Use an inhaler, vaporizer, or humidifier as told by your doctor. Take two teaspoons (10 mL) of honey at bedtime. This helps lessen your coughing at night. Drink enough fluid to keep your pee (urine) pale yellow. Do not smoke or use any products that contain nicotine or tobacco. If you need help quitting, ask your doctor. Get a lot of rest. Return to your normal activities when your doctor says that it is safe. Keep all follow-up visits. How is this prevented? Wash your hands often with soap and water for at least 20 seconds. If you cannot use soap and water, use hand cell installer. Avoid contact with people who have cold symptoms. Try not to touch your mouth, nose, or eyes with your hands. Avoid breathing in smoke or chemical fumes. Make sure to get the flu shot every year. Contact a doctor if: Your symptoms do not get better in 2 weeks. You have trouble coughing up the mucus. Your cough keeps you awake at night. You have a fever. Get help right away if: You cough up blood. You have chest pain. You have very bad shortness of breath. You faint or keep feeling like you are going to faint. You have a very bad headache. Your fever or chills get worse. These symptoms may be an emergency. Get help right away. Call your local emergency services (911 in the [place] Do not wait to see if the symptoms will go away. Do not drive yourself to the hospital. Summary Acute bronchitis is when air tubes in the lungs (bronchi) suddenly get swollen. In adults, acute bronchitis usually goes away within 2 weeks. Drink more fluids. This will help thin your mucus so it is easier to cough up. Take engw-ild-bpmvref and prescription medicines only as told by your doctor. Contact a doctor if your symptoms do not improve after 2 weeks of treatment. This information is not intended to replace advice given to you by your health care provider. Make sure you discuss any questions you have with your health care provider. Document Revised: 11/03/2021 Document Reviewed: 11/03/2021 [employer] Patient Education 2022 [employer]. Follow Up Care 06/07/2023 12:32:34 With:Cyn Shearer Address: [address] [place] [address], [address] [place] [phone]- Business (1) When:06/10/2023 14:17:48 Comments:Follow-up with your primary care provider in 3 to 5 days. If symptoms worsen, do not improve, or new symptoms arise please report back to emergency department for further evaluation. [facility] 06-07-2023 Evaluation + Plan note Extrac ben from: Title:ED Note Author:Morgan Tamez PA-C te:06/07/23 Bronchitis (J40: Bronchitis, not specified as acute or chronic) Orders: albuterol, 1 puff(s), Inhalation, q6hr for wheezing, 18 gram, Refill(s) 0, [facility] #[id number], 165.1, cm, 06/07/23 12:41:00 EST, Height/Length Dosing, 91.5, kg, 06/07/23 12:41:00 EST, Weight Dosing albuterol-ipratropium, 3 mL, Soln-Inh, Inhalation, Once, Stop date 06/07/23 12:47:00 EST, STAT, Start date 06/07/23 12:47:00 EST predniSONE, 50 mg = 1 tab(s), Oral, Daily, X 5 day(s), # 5 tab(s), Refills(s) 0, Pharmacy: [facility] #[id number], 165.1, cm, 06/07/23 12:41:00 EST, Height/Length Dosing, 91.5, kg, 06/07/23 12:41:00 EST, Weight Dosing Automated Diff B-Type Natriuretic Peptide Basic Metabolic Panel CBC w/ Auto Diff Continuous Pulse Oximetry ED Cardiac Monitoring eGFR Extra SST Tube Oxygen Therapy PT & PTT Troponin 0 Hr. XR Chest Single View [facility]10-20-2023 Hospital Discharge instructions Patient Education 05/05/2023 20:41:18 Nonspecific Chest Pain, Adult Nonspecific Chest Pain, Adult Chest pain is an uncomfortable, tight, or painful feeling in the chest. The pain can feel like a crushing, aching, or squeezing pressure. A person can feel a burning or tingling sensation. Chest paincan also be felt in your back, neck, jaw, shoulder, or arm. This pain can be worse when you move, sneeze, or take a deep breath. Chest pain can be caused by a condition that is life-threatening. This must be treated right away. It can also be caused by something that is not life- threatening. If you have chest pain, it can be hard to know the difference, so it is important to get help right away to make sure that you do not have a serious condition. Some life-threatening causes of chest pain include: Heart attack. A tear in the body's main blood vessel (aortic dissection). Inflammation around your heart (pericarditis). A problem in the lungs, such as a blood clot (pulmonary embolism) or a collapsed lung (pneumothorax). Some non life-threatening causes of chest pain include: Heartburn. Anxiety or stress. Damage to the bones, muscles, and cartilage that make up your chest wall. Pneumonia or bronchitis. Shingles infection (varicella-zoster virus). Your chest pain may come and go. It may also be constant. Your health care provider will do tests and other studies to find the cause of your pain. Treatment will depend on the cause of your chest pain. Follow these instructions at home: Medicines Take wszr-xac-axwrtez and prescription medicines only as told by your health care provider. If you were prescribed an antibiotic medicine, take it as told by your health care provider. Do notstop taking the antibiotic even if you start to feel better. Activity Avoid any activities that cause chest pain. Do not lift anything that is heavier than 10 lb (4.5 kg), or the limit that you are told, until your health care provider says that it is safe. Rest as directed by your health care provider. Return to your normal activities only as told by your health care provider. Ask your health care provider what activities are safe for you. Lifestyle Do not use any products that contain nicotine or tobacco, such as cigarettes, e- cigarettes, and chewing tobacco. If you need help quitting, ask your health care provider. Do not drink alcohol. Make healthy lifestyle changes as recommended. These may include: ?Getting regular exercise. Ask your health care provider to suggest some exercises that are safe for you. ?Eating a heart-healthy diet. This includes plenty of fresh fruits and vegetables, whole grains, low-fat (lean) protein, and low-fat dairy products. A dietitian can help you find healthy eating options. ?Maintaining a healthy weight. ?Managing any other health conditions you may have, such as high blood pressure (hypertension) or diabetes. ?Reducing stress, such as with yoga or relaxation techniques. General instructions Pay attention to any changes in your symptoms. It is up to you to get the results of any tests that were done. Ask your health care provider, or the department that is doing the tests, when your results will be ready. Keep all follow-up visits as told by your health care provider. This is important. You may be asked to go for further testing if your chest pain does not go away. Contact a health care provider if: Your chest pain does not go away. You feel depressed. You have a fever. You notice changes in your symptoms or develop new symptoms. Get help right away if: Your chest pain gets worse. You have a cough that gets worse, or you cough up blood. You have severe pain in your abdomen. You faint. You have sudden, unexplained chest discomfort. You have sudden, unexplained discomfort in your arms, back, neck, or jaw. You have shortness of breath at any time. You suddenly start to sweat, or your skin gets clammy. You feel nausea or you vomit. You suddenly feel lightheaded or dizzy. You have severe weakness, or unexplained weakness or fatigue. Your heart begins to beat quickly, or it feels like it is skipping beats. These symptoms may represent a serious problem that is an emergency. Do not wait to see if the symptoms will go away. Get medical help right away. Call your local emergency services (911 in the [place] Do not drive yourself to the hospital. Summary Chest pain can be caused by a condition that is serious and requires urgent treatment. It may also be caused by something that is not life-threatening. Your health care provider may do lab tests and other studies to find the cause of your pain. Follow your health care provider's instructions on taking medicines, making lifestyle changes, and getting emergency treatment if symptoms become worse. Keep all follow-up visits as told by your health care provider. This includes visits for any further testing if your chest pain does not go away. This information is not intended to replace advice given to you by your health care provider. Make sure you discuss any questions you have with your health care provider. Document Revised: 09/16/2021 Document Reviewed: 09/16/2021 [employer] Patient Education 2022 [employer]. Follow Up Care 05/05/2023 16:15:33 With:Cyn Shearer Address: [address] [place] [address], [address] [place] [address]- Business (1) When:05/08/2023 20:41:07 Comments:Call the office of your primary care doctor to arrange for follow-up within the above-stated timeframe. Follow-up with your primary care doctor about this ED visit. You should review your labs, imaging, and diagnoses from this ED visit with your primary care physician. If you were prescribed medications you should discuss possible side-effects and drug interactions with your pharmacist. Call 911 or go to the nearest Emergency Department if you develop any new or worsening symptoms. [facility]10-01-2023 NoteOT evaluation completed with pt. scoring on the AM-PAC 6 Click Assessment and no further OT tx warranted. Recommend home when pt. medically stable.[facility]10-01-2023 [facility]Result Comment: Electronically Signed By: Ni COLEMAN MD\.br\Date and Time Signed: 04/16/23 09:44 EDT 04-16-[address] [facility] CenterComment on above:Result Comment: Electronically Signed By: Mckayla WOODALL\.br\Date and Time Signed: 04/14/23 18:32 EDT\.br\Electronically Co-Signed By: Prince FREEDMAN MD\.br\Date and Time Co-Signed: 04/16/23 07:02 [id number] Hospital Discharge instructions Patient Education 03/16/2023 23:18:07 Nonspecific Chest Pain, Adult Nonspecific Chest Pain, Adult Chest pain is an uncomfortable, tight, or painful feeling in the chest. The pain can feel like a crushing, aching, or squeezing pressure. A person can feel a burning or tingling sensation. Chest paincan also be felt in your back, neck, jaw, shoulder, or arm. This pain can be worse when you move, sneeze, or take a deep breath. Chest pain can be caused by a condition that is life-threatening. This must be treated right away. It can also be caused by something that is not life- threatening. If you have chest pain, it can be hard to know the difference, so it is important to get help right away to make sure that you do not have a serious condition. Some life-threatening causes of chest pain include: Heart attack. A tear in the body's main blood vessel (aortic dissection). Inflammation around your heart (pericarditis). A problem in the lungs, such as a blood clot (pulmonary embolism) or a collapsed lung (pneumothorax). Some non life-threatening causes of chest pain include: Heartburn. Anxiety or stress. Damage to the bones, muscles, and cartilage that make up your chest wall. Pneumonia or bronchitis. Shingles infection (varicella-zoster virus). Your chest pain may come and go. It may also be constant. Your health care provider will do tests and other studies to find the cause of your pain. Treatment will depend on the cause of your chest pain. Follow these instructions at home: Medicines Take yjma-ijz-rnsqvhw and prescription medicines only as told by your health care provider. If you were prescribed an antibiotic medicine, take it as told by your health care provider. Do notstop taking the antibiotic even if you start to feel better. Activity Avoid any activities that cause chest pain. Do not lift anything that is heavier than 10 lb (4.5 kg), or the limit that you are told, until your health care provider says that it is safe. Rest as directed by your health care provider. Return to your normal activities only as told by your health care provider. Ask your health care provider what activities are safe for you. Lifestyle Do not use any products that contain nicotine or tobacco, such as cigarettes, e- cigarettes, and chewing tobacco. If you need help quitting, ask your health care provider. Do not drink alcohol. Make healthy lifestyle changes as recommended. These may include: ?Getting regular exercise. Ask your health care provider to suggest some exercises that are safe for you. ?Eating a heart-healthy diet. This includes plenty of fresh fruits and vegetables, whole grains, low-fat (lean) protein, and low-fat dairy products. A dietitian can help you find healthy eating options. ?Maintaining a healthy weight. ?Managing any other health conditions you may have, such as high blood pressure (hypertension) or diabetes. ?Reducing stress, such as with yoga or relaxation techniques. General instructions Pay attention to any changes in your symptoms. It is up to you to get the results of any tests that were done. Ask your health care provider, or the department that is doing the tests, when your results will be ready. Keep all follow-up visits as told by your health care provider. This is important. You may be asked to go for further testing if your chest pain does not go away. Contact a health care provider if: Your chest pain does not go away. You feel depressed. You have a fever. You notice changes in your symptoms or develop new symptoms. Get help right away if: Your chest pain gets worse. You have a cough that gets worse, or you cough up blood. You have severe pain in your abdomen. You faint. You have sudden, unexplained chest discomfort. You have sudden, unexplained discomfort in your arms, back, neck, or jaw. You have shortness of breath at any time. You suddenly start to sweat, or your skin gets clammy. You feel nausea or you vomit. You suddenly feel lightheaded or dizzy. You have severe weakness, or unexplained weakness or fatigue. Your heart begins to beat quickly, or it feels like it is skipping beats. These symptoms may represent a serious problem that is an emergency. Do not wait to see if the symptoms will go away. Get medical help right away. Call your local emergency services (911 in the [place] Do not drive yourself to the hospital. Summary Chest pain can be caused by a condition that is serious and requires urgent treatment. It may also be caused by something that is not life-threatening. Your health care provider may do lab tests and other studies to find the cause of your pain. Follow your health care provider's instructions on taking medicines, making lifestyle changes, and getting emergency treatment if symptoms become worse. Keep all follow-up visits as told by your health care provider. This includes visits for any further testing if your chest pain does not go away. This information is not intended to replace advice given to you by your health care provider. Make sure you discuss any questions you have with your health care provider. Document Revised: 09/16/2021 Document Reviewed: 09/16/2021 [employer] Patient Education 2022 [employer]. Follow Up Care 03/16/2023 18:47:45 With:Marc Anne Address: [address] [place] [address] Business (1) When:03/19/2023 With:Cyn Shearer Address: [address], [address] [place] [address]- Business (1) When:Within 3 Day(s) [facility]08-07-2023 Telephone encounter Note* Telephone Encounter - Christine Urbina RN - 02/20/2023 12:34 PM EDT Transitional Care Management Contact Initial communication post- discharge: 1st attempt: 02/20/23-Contact reached Sources of Information: [x]Patient, family member or daycare provider: Name and Relationship to patient: [x] Hospital Discharge Summary reviewed: [x] Hospital fax received from: [] List of recent hospitalizations or ED visits reviewed : []Other: Date of Admission: 02/12/23 Hospital Discharge diagnosis: Reason for admission: acute PE Current symptoms/Patient concerns: Patient states that he is feeling better then he was. Medication changes: No If yes, what are they and does patient understand how and when to take? Yes Medication list reviewed with patient: Yes Medication-related problems: MTP: Problem identified - No medication-related issues identified - Noneeds at this time. Patient able to obtain prescribed medications per discharge list: No No needs at this time. Pharmacy needs: None at this time Patient provided pharmacy number [phone] for medication related concerns/follow up. Needs follow up appointment or procedure: Future Appointments (next 10) Provider Department Center 03/15/2023 10:00 AM Violette Rowley MD [facility] U[facility] 03/31/2023 10:40 AM VASCULAR MEDICINE [facility] 04/27/2023 9:15 AM Bisi Davis MD [facility] Vascular Surgery [facility] Community resources identified for patient/family: NA i.e. [employer], [employer] Durable medical equipment ordered: NA Education provided to patient/caregiver to support self management, ADL's, etc: YADIRA offered Take all medications as prescribed Attend all recommended follow up appointments Mode of Transportation: Patient drives. Additional information needed and requested: No Reminded to bring in all medications. (Old & New) to future appointment. Interact with other health acute care nurse practitioner involved in patient care: No Patient no longer meet Mail Room Clerk Coordination services due to one or more of the following: [x] Well connected to medical home and/or other services [] Identified Needs/Goals have been met [] Unable to contact patient (at least 3 documented attempts) [] Is not adherent to Care Plan or Goals [x] Declined Services: receives care from outside facilities. [] Rolled off insurance plan or no longer patient [] Living situation changed; ie. SNF, [facility] [] PCP recommends deferral [] Patient transferred to Vending Machine Host/Hostess or Museum Preparator [] Christine JOSE ALBERTO Urbina, glue reel operatorManager Therapy [facility] [phone] Option 3 [id number] Miscellaneous Notes* Telephone Encounter - Christine Urbina RN - 02/20/2023 12:34 PM EDT Transitional Care Management Contact Initial communication post- discharge: 1st attempt: 02/20/23-Contact reached Sources of Information: [x]Patient, family member or daycare provider: Name and Relationship to patient: [x] Hospital Discharge Summary reviewed: [x] Hospital fax received from: [] List of recent hospitalizations or ED visits reviewed : []Other: Date of Admission: 02/12/23 Hospital Discharge diagnosis: Reason for admission: acute PE Current symptoms/Patient concerns: Patient states that he is feeling better then he was. Medication changes: No If yes, what are they and does patient understand how and when to take? Yes Medication list reviewed with patient: Yes Medication-related problems: MTP: Problem identified - No medication-related issues identified - Noneeds at this time. Patient able to obtain prescribed medications per discharge list: No No needs at this time. Pharmacy needs: None at this time Patient provided pharmacy number [phone] for medication related concerns/follow up. Needs follow up appointment or procedure: Future Appointments (next ) Provider Department Center 03/15/2023 10:00 AM Violette Rowley MD [facility] U[facility] 03/31/2023 10:40 AM VASCULAR MEDICINE [facility] 04/27/2023 9:15 AM Bisi Davis MD [facility] Vascular Surgery [facility] resources identified for patient/family: NA i.e. [employer], [employer] Durable medical equipment ordered: NA Education provided to patient/caregiver to support self management, ADL's, etc: YADIRA offered Take all medications as prescribed Attend all recommended follow up appointments Mode of Transportation: Patient drives. Additional information needed and requested: No Reminded to bring in all medications. (Old & New) to future appointment. Interact with other health acute care nurse practitioner involved in patient care: No Patient no longer meet Mail Room Clerk Coordination services due to one or more of the following: [x] Well connected to medical home and/or other services [] Identified Needs/Goals have been met [] Unable to contact patient (at least 3 documented attempts) [] Is not adherent to Care Plan or Goals [x] Declined Services: receives care from outside facilities. [] Rolled off insurance plan or no longer MH patient [] Living situation changed; ie. SNF, [facility] [] PCP recommends deferral [] Patient transferred to Vending Machine Host/Hostess or Museum Preparator [] JOSE ALBERTO Camarena, glue reel operatorManager Therapy [facility] [phone] Option 3 documented in this [id number] Plan of care note* Care Plan Note - Nidia Alejo RN - 02/17/2023 10:21 AM EDT Problem: Routine Care: Goal: Patient care will be managed and maintained throughout hospital stay per unit specific routine care procedure Outcome: Progressing Problem: Safety: Goal: Patient will remain free of falls during hospital stay Outcome: Progressing Goal: Free from injury during hospitalization Outcome: Progressing Problem: Acute Pain: Goal: Ability to identify pain intensity on a pain scale and rate it consistently will be achieved and maintained Outcome: Progressing Goal: Understanding of proper administration and use of medicines will be achieved Outcome: Progressing Goal: Acceptable level of pain which allows the patient to achieve functional outcome goals Outcome: Progressing Problem: VTE Prophylaxis: Goal: Will be free of DVT Outcome: Progressing Problem: Discharge Planning: Goal: Discharge needs of the adult patient will be met Outcome: Progressing [id number] Miscellaneous Notes* Care Plan Note - Nidia Alejo RN - 02/17/2023 10:21 AM EDT Problem: Routine Care: Goal: Patient care will be managed and maintained throughout hospital stay per unit specific routine care procedure Outcome: Progressing Problem: Safety: Goal: Patient will remain free of falls during hospital stay Outcome: Progressing Goal: Free from injury during hospitalization Outcome: Progressing Problem: Acute Pain: Goal: Ability to identify pain intensity on a pain scale and rate it consistently will be achieved and maintained Outcome: Progressing Goal: Understanding of proper administration and use of medicines will be achieved Outcome: Progressing Goal: Acceptable level of pain which allows the patient to achieve functional outcome goals Outcome: Progressing Problem: VTE Prophylaxis: Goal: Will be free of DVT Outcome: Progressing Problem: Discharge Planning: Goal: Discharge needs of the adult patient will be met Outcome: Progressing * Care Plan Note - Leandra Herrmann RN - 02/17/2023 12:50 AM EDT Problem: Routine Care: Goal: Patient care will be managed and maintained throughout hospital stay per unit specific routine care procedure Outcome: Progressing Problem: Safety: Goal: Patient will remain free of falls during hospital stay Outcome: Progressing Goal: Free from injury during hospitalization Outcome: Progressing Problem: Acute Pain: Goal: Ability to identify pain intensity on a pain scale and rate it consistently will be achieved and maintained Outcome: Progressing Goal: Understanding of proper administration and use of medicines will be achieved Outcome: Progressing Goal: Acceptable level of pain which allows the patient to achieve functional outcome goals Outcome: Progressing Problem: VTE Prophylaxis: Goal: Will be free of DVT Outcome: Progressing Problem: Discharge Planning: Goal: Discharge needs of the adult patient will be met Outcome: Progressing * Care Plan Note - Raman Durham RN - 02/16/2023 4:22 AM EDT Problem: Routine Care: Goal: Patient care will be managed and maintained throughout hospital stay per unit specific routine care procedure Outcome: Progressing Problem: Safety: Goal: Patient will remain free of falls during hospital stay Outcome: Progressing Goal: Free from injury during hospitalization Outcome: Progressing Problem: Acute Pain: Goal: Ability to identify pain intensity on a pain scale and rate it consistently will be achieved and maintained Outcome: Progressing Goal: Understanding of proper administration and use of medicines will be achieved Outcome: Progressing Goal: Acceptable level of pain which allows the patient to achieve functional outcome goals Outcome: Progressing Problem: VTE Prophylaxis: Goal: Will be free of DVT Outcome: Progressing Problem: Discharge Planning: Goal: Discharge needs of the adult patient will be met Outcome: Not Progressing Patient will meet goal once medically stable and ready for discharge. * Care Plan Note - Andrae Moreno PA-C - 02/15/2023 6:35 AM EDT OVERNIGHT EVENT Intermittent chest pain BP 145/80 (BP Location: left arm) Pulse 65 Temp 97.7 F (36.5 C) (Oral) Resp 18 Ht 5' 5 (1.651 m) Wt 92.1 kg (203 lb) SpO2 97% BMI 33.78 kg/m Mid-sternal intermittent chest pain and intermittent unproductive cough per RN this morning. Per chart review hx of CAD s/p PCI to LAD in 09/08 and also acute PE on Lovenox, presenting primarily withchest pain, seen by cesar and danny ---chronic pain specialist for management of noncardiac chest pain ---Aspirin and high intensity statin ---Dual antiplatelet therapy with Ticagrelor for at least 12 months. EKG repeated and seems at baseline when compared to previous EKG. Appear clinical stable on encounter, HDS, saturation is great on RA, chest pain not reproducible on palpation. For completeness, get CXR and draw cardiac enzymes. Highly doubt this is a new event but rather a culmination of known CAD and PE. Andrae Moreno PA-C * Care Plan Note - Raman Durham RN - 02/15/2023 1:22 AM EDT Problem: Routine Care: Goal: Patient care will be managed and maintained throughout hospital stay per unit specific routine care procedure Outcome: Progressing Problem: Safety: Goal: Patient will remain free of falls during hospital stay Outcome: Progressing Goal: Free from injury during hospitalization Outcome: Progressing Problem: Acute Pain: Goal: Ability to identify pain intensity on a pain scale and rate it consistently will be achieved and maintained Outcome: Progressing Goal: Understanding of proper administration and use of medicines will be achieved Outcome: Progressing Goal: Acceptable level of pain which allows the patient to achieve functional outcome goals Outcome: Progressing Problem: VTE Prophylaxis: Goal: Will be free of DVT Outcome: Progressing Problem: Discharge Planning: Goal: Discharge needs of the adult patient will be met Outcome: Not Progressing Patient will meet goal once medically stable and ready for discharge. * Care Plan Note - Key Hood RN - 02/13/2023 12:28 PM EDT Problem: Routine Care: Goal: Patient care will be managed and maintained throughout hospital stay per unit specific routine care procedure Outcome: Progressing Problem: Safety: Goal: Patient will remain free of falls during hospital stay Outcome: Progressing Goal: Free from injury during hospitalization Outcome: Progressing Problem: Acute Pain: Goal: Ability to identify pain intensity on a pain scale and rate it consistently will be achieved and maintained Outcome: Progressing Goal: Understanding of proper administration and use of medicines will be achieved Outcome: Progressing Goal: Acceptable level of pain which allows the patient to achieve functional outcome goals Outcome: Progressing Problem: VTE Prophylaxis: Goal: Will be free of DVT Outcome: Progressing Problem: Discharge Planning: Goal: Discharge needs of the adult patient will be met Outcome: Progressing * Care Plan Note - Rajan Macdonald RN - 02/12/2023 6:03 PM EDT Problem: Routine Care: Goal: Patient care will be managed and maintained throughout hospital stay per unit specific routine care procedure Outcome: Progressing Problem: Safety: Goal: Patient will remain free of falls during hospital stay Outcome: Progressing Goal: Free from injury during hospitalization Outcome: Progressing Problem: Acute Pain: Goal: Ability to identify pain intensity on a pain scale and rate it consistently will be achieved and maintained Outcome: Progressing Goal: Understanding of proper administration and use of medicines will be achieved Outcome: Progressing Goal: Acceptable level of pain which allows the patient to achieve functional outcome goals Outcome: Progressing Problem: VTE Prophylaxis: Goal: Will be free of DVT Outcome: Progressing Problem: Discharge Planning: Goal: Discharge needs of the adult patient will be met Outcome: Progressing * AdmissionCare - Smita Orta APRN-CNP - 02/12/2023 11:56 AM EDT AdmissionCare Guideline: General Observation, Observation Based on the indications selected for the patient, the bed status of Admit to Observation was determined to be MET The following indications were selected as present at the time of evaluation of the patient: - Clinical care (eg, testing, monitoring, or treatment) needed beyond the usual emergency department time frame (eg, 3 to 4 hours) - Clinical care needed is not appropriate for a lower level of care (ie, discharge to outpatient setting not appropriate). Patient has clinical condition for which observation care is needed, as indicated by 1 or more of the following: - - Urologic condition or finding (eg, obstruction, urinary retention, difficulty urinating, suspected acute kidney injury, priapism, hematuria, prostatitis, scrotal, testicular, or epididymal pain or disorder) Other condition or finding (eg, laboratory test, imaging study, sign, symptom) that suggests a needfor continued care, as indicated by 1 or more of the following: - - Acute need to establish diagnosis (eg, repeat or continued testing or clinical assessments are needed) AdmissionCare documentation entered by: Smita Orta [facility], 27th edition, Copyright 2022 [facility] [employer] [facility] All Rights Reserved. [id number] documented in this [id number] Plan of care note* Care Plan Note - Leandra Herrmann RN - 02/17/2023 12:50 AM EDT Problem: Routine Care: Goal: Patient care will be managed and maintained throughout hospital stay per unit specific routine care procedure Outcome: Progressing Problem: Safety: Goal: Patient will remain free of falls during hospital stay Outcome: Progressing Goal: Free from injury during hospitalization Outcome: Progressing Problem: Acute Pain: Goal: Ability to identify pain intensity on a pain scale and rate it consistently will be achieved and maintained Outcome: Progressing Goal: Understanding of proper administration and use of medicines will be achieved Outcome: Progressing Goal: Acceptable level of pain which allows the patient to achieve functional outcome goals Outcome: Progressing Problem: VTE Prophylaxis: Goal: Will be free of DVT Outcome: Progressing Problem: Discharge Planning: Goal: Discharge needs of the adult patient will be met Outcome: Progressing [id number] History of Present illness Narrative* Elizabeth Rice MD - 02/16/2023 9:24 AM EDT Images from the original note were not included. Hospital Medicine Team 8 Progress Note Fran Means 62 year old Admit Date: 02/12/2023 Reason for admission: acute PE Hospital course Briefly, Fran Means is a 62 year old male with PMHx of CAD s/p LAKSHMI to LAD 08/2022, multiple CVAs who presented from OSH after a fall. Found to have acute PE without RHS for which he was started on therapeutic lovenox. Also found to have CAP for which he was started on CTX+azithromycin. Feeling well today, flank pain and chest pain improved. Complaining of decreased appetite, however ate all of breakfast, last BM 02/15 Assessment / Plan # PE plan: - will plan to switch from lovenox to DOAC 02/17 prior to discharge # CAD s/p LAKSHMI to proximal LAD - restart ASA and plavix - discuss with cardiology need for triple therapy (plavix, asa, DOAC) given history of stent ~6 months ago (08/2022) with new PE # CAP plan: - continue ctx and azithromycin, stop date 02/17 # R kidney non-obstructing renal stone plan: - o/p urology follow up # chronic SMA dissection plan: - o/p vascular follow up chronic non-cardiac chest pain: waxes/wanes, continue ranexa, imdur, toprol GERD: PPI Nutrition: Regular Analgesia: nicotine (NICODERM CQ) 21 mg/24HR patch gabapentin (NEURONTIN) capsule cyclobenzaprine (FLEXERIL) tablet No medications of specified category were found aspirin EC tablet oxyCODONE immediate release tablet oxyCODONE immediate release tablet acetaminophen (TYLENOL) tablet DVT ppx: therapeutic lovenox aspirin EC tablet clopidogrel (PLAVIX) 75 MG tablet enoxaparin (LOVENOX) 100 MG/ML injection 90 mg acetaminophen (TYLENOL) tablet Glycemic control: daily bmp Supplemental O2: none Bowel regimen: none Urinary catheter: none Lines: (including peripheral venous, central venous, arterial): Peripheral IV Access: 02/12/23 0000 Anterior;Proximal;Right Forearm (Active) Site Assessment WNL;Dressing intact 02/15/2324 Infusion Status Port #1 Capped;Patent 02/15/2324 Number of days: 3 Code Status: Full Code Disposition: Home Outpatient follow-up: PCPdenisa Primary contact: PATIENT: Home: Mobile: Not on file. EMERGENCY CONTACT #1: LALI MEANS (Spouse) home: [phone], work: Vitals: Patient Vitals for the past 24 hrs: BP Temp Temp src Pulse Resp SpO2 O2 Device 02/16/23 0608 149/85 98.3 F (36.8 C) Oral 63 18 96 % Room air 02/16/23 0544 146/87 97.6 F (36.4 C) Oral 58 18 96 % Room air 02/16/23 0020 -- -- -- -- -- -- Room air 02/15/23 2200 152/94 97.8 F (36.6 C) Oral 68 18 98 % -- 02/15/23 1545 122/65 98.2 F (36.8 C) Oral 68 18 99 % -- Intake/Output Summary (Last 24 hours) at 02/16/2023 0924 Last data filed at 02/16/2023 0653 Gross per 24 hour Intake 240 ml Output -- Net 240 ml Physical Exam: General: NAD, A&O*3 HEENT: head atraumatic, EOMI, MMM Cardiovascular: RRR, no JVD Lungs: normal effort, no respiratory distress Abdominal: non-tender, non-distended MSK: No joint swelling or edema Skin: warm and dry, no erythema or rashes Neuro: no gross focal neurological deficits Labs CBC (last 3 years, up to 5 values) WBC RBC Hgb Hct MCV RDW Plt 02/15/23 0055 9.2 4.22 12.2 36.1 86 13.8 273 02/14/23 0543 10.6 4.45 12.9 37.8 85 13.8 274 02/13/23 0232 13.6 4.52 13.1 39.0 86 13.6 239 02/12/23 1821 12.5 4.51 12.9 38.6 86 13.4 233 Basic Metabolic Panel Na K Cl CO2 Gap Glu BUN Cr Ca 02/15/2354 137 4.5 105 26 11 115 15 0.96 8.3 02/14/23 0543 136 4.3 104 25 11 111 12 0.90 8.5 02/13/23 0232 135 4.0 104 24 11 164 16 0.83 8.4 02/12/23 1519 134 5.8 Comment: Hemolysis present 104 21 15 139 15 0.91 8.3 LFT's (last 3 years, up to 5 values) T Prot Albumin D Bili T Bili Alk Phos ALT AST 02/12/23 1519 6.2 3.9 0.10 0.9 117 21 36 Comment: Hemolysis present Lab Results Component Value Date HBA1C 6.0 (H) 02/13/2023 Urinalysis: Leuk. Esterase (no units) Date Value 02/13/2023 Negative Nitrite (no units) Date Value 02/13/2023 Negative Glucose (mg/dL) Date Value 02/13/2023 70 (A) Blood (no units) Date Value 02/13/2023 Negative Appearance (no units) Date Value 02/13/2023 Clear Color (no units) Date Value 02/13/2023 Yellow pH (no units) Date Value 02/13/2023 6.0 Protein (mg/dL) Date Value 02/13/2023 20 Spec Hodges (no units) Date Value 02/13/2023 1.015 Urobilinogen (mg/dL) Date Value 02/13/2023 2.0 (A) Bilirubin (no units) Date Value 02/13/2023 Negative Lipids (last 3 years, up to 5 values) Chol- esterol TG HDL LDL Chol / HDL LDL / HDL Non HDL 02/14/23 0543 128 172 30 76 4.27 2.53 98 No results found for: TSH Imaging: XR CHEST AP OR PA 1 VIEW Result Date: 02/15/2023 IMPRESSION: Streaks of atelectasis. Some thickening in the minor fissure which may represent some residual fluid. MACRO: None CT ABDOMEN/PELVIS W/ CONTRAST Result Date: 02/13/2023 IMPRESSION: 1. 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 This is better evaluated on the axial imaging. 2. No CT evidence of abdominal aortic aneurysm or dissection. 3. Wispy stranding along the superolateral aspect of the right kidney and posterior inferior aspect of the left kidney. These are probably related to perinephric stranding, probably represents chronic medical renal disease. Superimposed acute infectious/inflammatory process isdifficult to evaluate in this study. If indicated, this can be further evaluated with lab values and urine analysis. 4. Mild left hemicolonic diverticula. Nonobstructive right nephrolithiasis. MACRO: None CTA CHEST PULMONARY EMBOLISM W/ CTA Result Date: 02/13/2023 IMPRESSION: 1. Acute subocclusive pulmonary emboli in the bilateral lower lobe segmental pulmonary arteries. No associated right heart strain. 2. Small right, trace left-sided pleural effusion. 3. Multifocal areas of patchy consolidative opacities superimposed with subpleural groundglass opacities.Differential diagnoses include atelectasis versus multifocal pneumonia and less likely to be pulmonary infarct. 4. Shotty mediastinal and hilar lymph nodes, likely reactive in nature. MACRO: Notification of the critical finding of acute pulmonary embolism was initiated at 12:40 PM EDT on 02/13/2023.Naomi Villa successfully contacted SEN JOHNS at 12:40 PM EDT on 02/13/2023, via telephone, who a cknowledged the critical finding with read back verification. (-CF-) TTE: Left Ventricular Ejection Fraction: 65 % on 02/13/2023. EKG: sinus lashaun Consults IP SURGERY VASCULAR CONSULT IP CARDIOLOGY CONSULT ROS All other systems reviewed and are negative. History PMH, PSH, FH, social history reviewed and updated in EMR I have personally reviewed the patient's medical record including but not limited to blood work andradiology report(s). Total time spent is greater than 50 minutes; more than 50% of the time was spent in direct patient care. Elizabeth Rice MD Internal Medicine Team 8 * Mavis Garcia RN - 02/16/2023 8:38 AM EDT 02/16/23 0835 Assessment and Discharge Planning Evaluation READMISSION LESS THAN 30 DAYS No READMISSION RISK SCORE IS Low Risk INTERVIEWED Patient COGNITIVE STATUS Age Appropriate Functional Status Age Appropriate Advance Directives Not interested LIVING SITUATION Home - Own Bedroom floor level 1 Bathroom Floor Level 1 Home Concerns No Do you have animals or pets at home? No PCP VERIFIED Yes ADMISSION INSURANCE Medicaid Medicaid [facility] Transportation to and/or from Appointments Drives Self;Family/Friend Provides Ride HOME HEALTH CARE PRIOR TO ADMISSION No Dialysis No TENTATIVE DISCHARGE PLAN Home - Own READMISSION RISK SCORE SHOULD BE Remain Unchanged Case Management Patient interviewed at bedside, address, telephone number, and PCP verified. Patient states he lives at home with his in a two story home. Prior to admission patient was independent with Adls. CM will continue to follow and update as warranted. Mavis Garcia RN, BSN Inpatient Night Clerk Auditor Work * Elizabeth Rice MD - 02/15/2023 8:58 AM EDT Images from the original note were not included. Hospital Medicine Team 8 Progress Note Fran Means 62 year old Admit Date: 02/12/2023 Reason for admission: acute PE Hospital course Briefly, Fran Means is a 62 year old male with PMHx of CAD s/p LAKSHMI to LAD 08/2022, multiple CVAs who presented from OSH after a fall. Found to have acute PE without RHS for which he was started on therapeutic lovenox. Also found to have CAP for which he was started on CTX+azithromycin. Assessment / Plan # PE plan: - will plan to switch from lovenox to DOAC tomorrrow prior to discharge # CAD s/p LAKSHMI to proximal LAD - restart ASA and plavix - discuss with cardiology need for triple therapy (plavix, asa, DOAC) given history of stent ~6 months ago (08/2022) with new PE # CAP plan: - continue ctx and azithromycin # R kidney non-obstructing renal stone plan: - o/p urology follow up # chronic SMA dissection plan: - o/p vascular follow up chronic non-cardiac chest pain: waxes/wanes, continue ranexa, imdur, toprol GERD: PPI Nutrition: Regular Analgesia: nicotine (NICODERM CQ) 21 mg/24HR patch gabapentin (NEURONTIN) capsule cyclobenzaprine (FLEXERIL) tablet No medications of specified category were found oxyCODONE immediate release tablet oxyCODONE immediate release tablet acetaminophen (TYLENOL) tablet DVT ppx: therapeutic lovenox enoxaparin (LOVENOX) 100 MG/ML injection 90 mg acetaminophen (TYLENOL) tablet Glycemic control: daily bmp Supplemental O2: none Bowel regimen: none Urinary catheter: none Lines: (including peripheral venous, central venous, arterial): Peripheral IV Access: 02/12/23 0000 Anterior;Proximal;Right Forearm (Active) Site Assessment WNL;Dressing intact 02/15/2324 Infusion Status Port #1 Capped;Patent 02/15/2324 Number of days: 3 Code Status: Full Code Disposition: Home Outpatient follow-up: PCPdenisa Primary contact: PATIENT: Home: Mobile: Not on file. EMERGENCY CONTACT #1: LALI MEANS (Spouse) home: [phone], work: Vitals: Patient Vitals for the past 24 hrs: BP Temp Temp src Pulse Resp SpO2 O2 Device 02/15/23 0630 145/80 97.7 F (36.5 C) Oral 65 18 97 % Room air 02/15/23 0025 -- -- -- -- -- -- Room air 02/14/23 2113 118/60 98.6 F (37 C) Oral 89 18 92 % Room air 02/14/23 1422 123/76 98 F (36.7 C) Oral 74 18 96 % -- Intake/Output Summary (Last 24 hours) at 02/15/2023 0858 Last data filed at 02/15/2023 0631 Gross per 24 hour Intake 480 ml Output -- Net 480 ml Physical Exam: General: NAD, A&O*3 HEENT: head atraumatic, EOMI, MMM Cardiovascular: RRR, no JVD Lungs: normal effort, no respiratory distress Abdominal: non-tender, non-distended MSK: No joint swelling or edema Skin: warm and dry, no erythema or rashes Neuro: no gross focal neurological deficits Labs CBC (last 3 years, up to 5 values) WBC RBC Hgb Hct MCV RDW Plt 02/15/23 0055 9.2 4.22 12.2 36.1 86 13.8 273 02/14/23 0543 10.6 4.45 12.9 37.8 85 13.8 274 02/13/23 0232 13.6 4.52 13.1 39.0 86 13.6 239 02/12/23 1821 12.5 4.51 12.9 38.6 86 13.4 233 Basic Metabolic Panel Na K Cl CO2 Gap Glu BUN Cr Ca 02/15/23 0055 137 4.5 105 26 11 115 15 0.96 8.3 02/14/23 0543 136 4.3 104 25 11 111 12 0.90 8.5 02/13/23 0232 135 4.0 104 24 11 164 16 0.83 8.4 02/12/23 1519 134 5.8 Comment: Hemolysis present 104 21 15 139 15 0.91 8.3 LFT's (last 3 years, up to 5 values) T Prot Albumin D Bili T Bili Alk Phos ALT AST 02/12/23 1519 6.2 3.9 0.10 0.9 117 21 36 Comment: Hemolysis present Lab Results Component Value Date HBA1C 6.0 (H) 02/13/2023 Urinalysis: Leuk. Esterase (no units) Date Value 02/13/2023 Negative Nitrite (no units) Date Value 02/13/2023 Negative Glucose (mg/dL) Date Value 02/13/2023 70 (A) Blood (no units) Date Value 02/13/2023 Negative Appearance (no units) Date Value 02/13/2023 Clear Color (no units) Date Value 02/13/2023 Yellow pH (no units) Date Value 02/13/2023 6.0 Protein (mg/dL) Date Value 02/13/2023 20 Spec Hodges (no units) Date Value 02/13/2023 1.015 Urobilinogen (mg/dL) Date Value 02/13/2023 2.0 (A) Bilirubin (no units) Date Value 02/13/2023 Negative Lipids (last 3 years, up to 5 values) Chol- esterol TG HDL LDL Chol / HDL LDL / HDL Non HDL 02/14/23 0543 128 172 30 76 4.27 2.53 98 No results found for: TSH Imaging: XR CHEST AP OR PA 1 VIEW Result Date: 02/15/2023 IMPRESSION: Streaks of atelectasis. Some thickening in the minor fissure which may represent some residual fluid. MACRO: None CT ABDOMEN/PELVIS W/ CONTRAST Result Date: 02/13/2023 IMPRESSION: 1. 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 This is better evaluated on the axial imaging. 2. No CT evidence of abdominal aortic aneurysm or dissection. 3. Wispy stranding along the superolateral aspect of the right kidney and posterior inferior aspect of the left kidney. These are probably related to perinephric stranding, probably represents chronic medical renal disease. Superimposed acute infectious/inflammatory process isdifficult to evaluate in this study. If indicated, this can be further evaluated with lab values and urine analysis. 4. Mild left hemicolonic diverticula. Nonobstructive right nephrolithiasis. MACRO: None CTA CHEST PULMONARY EMBOLISM W/ CTA Result Date: 02/13/2023 IMPRESSION: 1. Acute subocclusive pulmonary emboli in the bilateral lower lobe segmental pulmonary arteries. No associated right heart strain. 2. Small right, trace left-sided pleural effusion. 3. Multifocal areas of patchy consolidative opacities superimposed with subpleural groundglass opacities.Differential diagnoses include atelectasis versus multifocal pneumonia and less likely to be pulmonary infarct. 4. Shotty mediastinal and hilar lymph nodes, likely reactive in nature. MACRO: Notification of the critical finding of acute pulmonary embolism was initiated at 12:40 PM EDT on 02/13/2023.Naomi Villa successfully contacted SEN JOHNS at 12:40 PM EDT on 02/13/2023, via telephone, who a cknowledged the critical finding with read back verification. (-CF-) TTE: Left Ventricular Ejection Fraction: 65 % on 02/13/2023. EKG: sinus lashaun Consults IP SURGERY VASCULAR CONSULT IP CARDIOLOGY CONSULT ROS All other systems reviewed and are negative. History PMH, PSH, FH, social history reviewed and updated in EMR I have personally reviewed the patient's medical record including but not limited to blood work andradiology report(s). Total time spent is greater than 50 minutes; more than 50% of the time was spent in direct patient care. Elizabeth Rice MD Internal Medicine Team 8 * Moira Lanza MD - 02/14/2023 3:34 PM EDT Teaching Physician Note: I saw and evaluated the patient. I personally obtained the stevens and critical portions of the historyand physical exam. I reviewed the resident's documentation and discussed the patient with the resident. I agree with the resident's medical decision making as documented in the resident's note. Diagnosis: Noncardiac chest pain Single-vessel Coronary artery disease ( Unstable angina with preceding abnormal nuclear stress test--> s/p Percutaneous coronary intervention with Drug eluting stent to proximal Left anterior descending ( 2.75 x 18 mm) in 08/2022 --> recurrence of chest pain; most recent stress test in 09/2022showed no ischemia; off Beta maría elena due to hypotension and bradycardia) Hypertension Prediabetes Dyslipidemia Peripheral arterial disease ( right Carotid endarterectomy in 2016) Remote cerebrovascular accident Smoking Class 1 obesity Abdominal pain (? 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 EKG showed no dynamic ischemic changes and troponin was not elevated. Echocardiogram suggestive of apical diverticulum rather than aneurysm as per my read. There are no contiguous segments of akinesis/hypokinesis. Personally reviewed labs, EKG, Chest X-ray, echocardiograms, stress tests & telemetry monitoring of patient. Plan: Patient has been reassured Advised to seek consultation with chronic pain specialist Continue Aspirin, high intensity statin Dual antiplatelet therapy with Ticagrelor for at least 12 months Tobacco abuse: Advised to quit. Patient seems ready. He can be discharged; advised follow up with his regular Account Management Assistant. Moira Lanza MD, [facility] Non[facility]Invasive Cardiology Pager [phone] * Hannah Santana, GRINDER OPERATOR EXTERNAL TOOL-VEGETABLE BUNCHER - 02/14/2023 1:46 PM EDT Images from the original note were not included. GRINDER OPERATOR EXTERNAL TOOL PROGRESS NOTE Fran Means [id number] 02/14/2023 Length of stay: 2 day(s) Subjective/Recent Events: Patient is seen at bedside. He is doing well. Updated the patient and his on plan of care. Discussed vascular surgery rec's as well. Agreeable with POC. Objective: Change in Weight: Current value is 203.0 lb (92.079 kg) on 02/12/2023 at 1305 No other value found for comparison BP 132/69 (BP Location: left arm) Pulse 63 Temp 97.4 F (36.3 C) (Oral) Resp 18 Ht 5' 5 (1.651 m) Wt 203 lb (92.1 kg) SpO2 96% BMI 33.78 kg/m Intake/Output Summary (Last 24 hours) at 02/14/2023 1404 Last data filed at 02/14/2023 0932 Gross per 24 hour Intake 660 ml Output -- Net 660 ml Gen:Well developed, well hydrated, male appearing in no acute distress. Cardiovascular :RRR, S1S2, no MRG Respiratory :Diminished breathe sounds bilateral lower lobes, respirations even and unlabored. Gastrointestinal :Soft, non tender, non distended, +BS, Extremities :normal appearing; no edema; KATHI x 4 Skin :Color normal for ethnicity, W/D/I. Neuro :No focal deficits; awake, alert and oriented X 3 Lines: PIV Urinary Catheter: None Drains/Tubes: None CURRENT MEDICATIONS: Current Facility-Administered Medications Medication Dose Route Frequency Last Rate Last Admin enoxaparin (LOVENOX) 100 MG/ML injection 90 mg 1 mg/kg Subcutaneous 2x Daily 90 mg at 02/14/23 0842 cefTRIAXone (ROCEPHIN) 1,000 mg in dextrose 50 mL ivpb 1,000 mg Intravenous Q24H Antibiotic 1,000 mg at 02/14/23 0900 And azithromycin (ZITHROMAX) 500 mg in NS 250 mL ivpb 500 mg Intravenous Q24H Antibiotic 250 mL/hr at 02/14/23 1030 500 mg at 02/14/23 1030 simethicone (GAS-X) 80 MG chewable tablet 80 mg Oral Q6H PRN 80 mg at 02/12/23 1508 ondansetron (ZOFRAN) 4 MG/2ML injection 4 mg Intravenous Push Q4H PRN 4 mg at 02/12/23 1508 nicotine (NICODERM CQ) 21 mg/24HR patch 21 mg Transdermal Daily 21 mg at 02/14/23 0844 oxyCODONE immediate release tablet 5 mg Oral Q4H PRN 5 mg at 02/13/23 2136 oxyCODONE immediate release tablet 10 mg Oral Q4H PRN 10 mg at 02/14/23 0843 acetaminophen (TYLENOL) tablet 1,000 mg Oral 3x Daily 1,000 mg at 02/14/23 0542 lidocaine (LIDODERM) 5 % patch 1 Patch Transdermal Every 24 hours 1 Patch at 02/13/23 1335 gabapentin (NEURONTIN) capsule 300 mg Oral 2x Daily 300 mg at 02/14/23 0843 isosorbide mononitrate (IMDUR) 24 hour CR tablet 30 mg Oral Daily 30 mg at 02/14/23 0843 metoprolol (TOPROL-XL) 24 hour tablet 25 mg Oral Daily 25 mg at 02/14/23 0842 esomeprazole (NEXIUM) capsule 40 mg Oral 2x Daily 30 min AC 40 mg at 02/14/23 0843 ranolazine (RANEXA) 500 MG 12 hour tablet 500 mg Oral 2x Daily 500 mg at 02/14/23 0843 cyclobenzaprine (FLEXERIL) tablet 10 mg Oral 3x Daily PRN 10 mg at 02/14/23 0843 atorvastatin (LIPITOR) tablet 80 mg Oral Daily 80 mg at 02/14/23 0843 LAB DATA: Basic Metabolic Panel Na K Cl CO2 Gap Glu BUN Cr Ca Mg PO4 02/14/23 0543 2.0 02/14/23 0543 136 4.3 104 25 11 111 12 0.90 8.5 02/13/23 0232 135 4.0 104 24 11 164 16 0.83 8.4 02/12/23 1519 134 5.8 Comment: Hemolysis present 104 21 15 139 15 0.91 8.3 CBC/PT/INR WBC RBC Hgb Hct MCV RDW Plt PT aPTT INR 02/14/23 0543 10.6 4.45 12.9 37.8 85 13.8 274 02/13/23 0232 13.6 4.52 13.1 39.0 86 13.6 239 02/12/23 1821 12.5 4.51 12.9 38.6 86 13.4 233 IMAGING/OTHER: CTA CHEST PE: IMPRESSION: 1. Acute subocclusive pulmonary emboli in the bilateral lower lobe segmental pulmonary arteries. Noassociated right heart strain. 2. Small right, trace left-sided pleural effusion. 3. Multifocal areas of patchy consolidative opacities superimposed with subpleural groundglass opacities. Differential diagnoses include atelectasis versus multifocal pneumonia and less likely to be pulmonary infarct. 4. Shotty mediastinal and hilar lymph nodes, likely reactive in nature. CT ABD/PELVIS: Summary Focally abnormal LV systolic function. Focal LV systolic dysfunction consists of dyskinesia (aneurysm) of the distal apex. Normal RV systolic function. Diastolic LV function assessed by resting Doppler is normal. Concentric LV remodeling is present. Fibrocalcific changes are seen in the aortic valve. Mild tricuspid valve regurgitation. Noninvasive hemodynamic assessment is consistent with normal pulmonary artery systolic pressure, a low CVP. ECHOCARDIOGRAM: Summary Focally abnormal LV systolic function. Focal LV systolic dysfunction consists of dyskinesia (aneurysm) of the distal apex. Normal RV systolic function. Diastolic LV function assessed by resting Doppler is normal. Concentric LV remodeling is present. Fibrocalcific changes are seen in the aortic valve. Mild tricuspid valve regurgitation. Noninvasive hemodynamic assessment is consistent with normal pulmonary artery systolic pressure, a low CVP. Consults: Cardiology SUMMARY: 62 year old male with past medical history of tobacco use, CAD s/p OR and Stent placement in LAD 08/2022, frequent admissions for chronic chest pain on ranexa, GERD. HLD, HTN, and CVD with HX multiplestrokes presents for right abdominal pain, transferred from [facility] for further evaluation of right upper pole perirenal hematoma PROBLEM LIST: Present on Admission: Perinephric hematoma Acute pulmonary embolism without acute cor pulmonale (HCC) ASSESSMENT AND PLAN: Right posterior upper pole perirenal hematoma -Outside imaging ABD/PEL showing 1 cm band decreased attenuation posterior upper pole right kidney concerning for right upper pole perirenal hematoma -No trauma, no recent procedures -Repeat CT abd/pelvis did not demonstrate retroperitoneal or perirenal hematoma. It did demonstratea nonobstructive stone in the right kidney measuring 5 mm. Pt will follow up with Urology in outpatient setting for kidney stone. Appointment scheduled for 03/15 with -RICHARD pain control Leukocytosis Pleuritic chest pain -Most likely 2/2 to acute subocclusive PE and possible CAP -UA negative for acute UTI -Cont treat as stated below Acute Pulomary Emboli without acute cor pulmonale CAP -CTA PE demonstrated acute subocclusive pulmonary emboli in the bilateral lower lobe segmental pulmonary arteries, no associated heart strain. Also noted for multifocal areas of patchy consolidative opacities superimposed with subpleural groundglass opacities -PSI- class 3 risk -Will continue IV ceftriaxone +azithromycin -Cont Lovenox 1mg/kg BID ordered, transition to DOAC on d/c home CAD s/p OR and LAD stenting, chronic chest pain, HTN, HLD Also has retained loop recorder -Continue imdur and metoprolol -statin -Cont ASA and Plavix -Cont ranexa -Echo- LVEF @ 65%, -Cardiology consulted, appreciate rec's -HST- WNL -FLP- elevated triglycerides @ 172 HX Multiple previous CVA Previous MRI redemonstrates evidence of remote ischemia in a watershed/borderzone distribution MCA JARRETT on the right and a small amount in the left frontal lobe cortically No residual deficits -Statin GERD - PPI Tobacco use 1 PPD x 40+ years -Nicotine patch -per patient he is trying to quit, encouraged cessation Code Status: Full DVT Prophylaxis: Lovenox Dispo: Home when medically cleared JOHN Benedict Pager; [phone] * Sen Johns APRN-CNP - 02/13/2023 3:35 PM EDT Images from the original note were not included. 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 This is better evaluated on the axial imaging. Vascular surgery consult place, awaiting call back. Sen Johns * Sen Johns APRN-CNP - 02/13/2023 7:31 AM EDT Images from the original note were not included. HOSPITAL MEDICINE PROGRESS NOTE Subjective: feels his initial flank pain has improved since given the medication with a D but pain is now a little higher in his right rib cage area and hurts when he breaths in. He denies dysuria,hematuria, denies fever, chills, nausea or vomiting. He does endorse a dry cough and some shortnessof breath at times, with ambulation at times as well. His was concerned about his swelling in his legs as well. Objective: Vitals: 02/13/23 0626 BP: 124/76 Pulse: 63 Resp: 18 Temp: 98 F (36.7 C) SpO2: 94% Gen: alert, oriented and disheveled appearing Heart: normal S1S2, RRR, no murmur Lungs: CTA with diminished bases Abdomen: soft, firm abdomen but non-tender, some reproducible pain to right lower ribs Extremities: moves all extremities, trace edema to bilateral LE's Neuro: oriented x4, no focal deficit Lines: PIV Current Facility-Administered Medications: simethicone (GAS-X) 80 MG chewable tablet, 80 mg, Oral, Q6H PRN, Lisjt, Smita, GRINDER OPERATOR EXTERNAL TOOL-VEGETABLE BUNCHER, 80 mg at 02/12/23 1508 ondansetron (ZOFRAN) 4 MG/2ML injection, 4 mg, Intravenous Push, Q4H PRN, LisMatthew watersia, GRINDER OPERATOR EXTERNAL TOOL-VEGETABLE BUNCHER, 4 mg at 02/12/23 1508 nicotine (NICODERM CQ) 21 mg/24HR patch, 21 mg, Transdermal, Daily, Smita Orta, GRINDER OPERATOR EXTERNAL TOOL-VEGETABLE BUNCHER, 21 mg at 02/12/23 1440 oxyCODONE immediate release tablet, 5 mg, Oral, Q4H PRN, Sangita Ortaricia, GRINDER OPERATOR EXTERNAL TOOL-VEGETABLE BUNCHER oxyCODONE immediate release tablet, 10 mg, Oral, Q4H PRN, Lisowski, Smita, GRINDER OPERATOR EXTERNAL TOOL-VEGETABLE BUNCHER HYDROmorphone HCl PF (DILAUDID) 1 MG/ML injection, 1 mg, Intravenous Push, Q3H PRN, LisSangita watersricia, GRINDER OPERATOR EXTERNAL TOOL-VEGETABLE BUNCHER, 1 mg at 02/12/23 1437 acetaminophen (TYLENOL) tablet, 1,000 mg, Oral, 3x Daily, Lisjt, Smita, GRINDER OPERATOR EXTERNAL TOOL-VEGETABLE BUNCHER, 1,000 mg at02/12/23 2103 lidocaine (LIDODERM) 5 % patch, 1 Patch, Transdermal, Every 24 hours, Sangita Ortaricia, GRINDER OPERATOR EXTERNAL TOOL-VEGETABLE BUNCHER,1 Patch at 02/12/23 1630 gabapentin (NEURONTIN) capsule, 300 mg, Oral, 2x Daily, LisMatthew watersia, GRINDER OPERATOR EXTERNAL TOOL-VEGETABLE BUNCHER, 300 mg at 02/12/23 2104 isosorbide mononitrate (IMDUR) 24 hour CR tablet, 30 mg, Oral, Daily, Lisjt, Smita, GRINDER OPERATOR EXTERNAL TOOL-VEGETABLE BUNCHER,30 mg at 02/12/23 1629 metoprolol (TOPROL-XL) 24 hour tablet, 25 mg, Oral, Daily, Lisjt, Smita, GRINDER OPERATOR EXTERNAL TOOL-VEGETABLE BUNCHER, 25 mg at 02/12/23 1440 esomeprazole (NEXIUM) capsule, 40 mg, Oral, 2x Daily 30 min AC, Sangita Ortaricia, GRINDER OPERATOR EXTERNAL TOOL-VEGETABLE BUNCHER, 40 mgat 02/12/23 1629 ranolazine (RANEXA) 500 MG 12 hour tablet, 500 mg, Oral, 2x Daily, Lisjt, Smita, GRINDER OPERATOR EXTERNAL TOOL-VEGETABLE BUNCHER, 500 mg at 02/12/23 210 cyclobenzaprine (FLEXERIL) tablet, 10 mg, Oral, 3x Daily PRN, Lisjt, Smita, GRINDER OPERATOR EXTERNAL TOOL-VEGETABLE BUNCHER atorvastatin (LIPITOR) tablet, 80 mg, Oral, Daily, Lisjt, Smita, GRINDER OPERATOR EXTERNAL TOOL-VEGETABLE BUNCHER, 80 mg at 02/12/23 1440 Labs: Basic Metabolic Panel Na K Cl CO2 Gap Glu BUN Cr Ca Mg PO4 02/13/23 0232 135 4.0 104 24 11 164 16 0.83 8.4 02/12/23 1519 134 5.8 Comment: Hemolysis present 104 21 15 139 15 0.91 8.3 CBC/PT/INR WBC RBC Hgb Hct MCV RDW Plt PT aPTT INR 02/13/23 0232 13.6 4.52 13.1 39.0 86 13.6 239 02/12/23 1821 12.5 4.51 12.9 38.6 86 13.4 233 WBC/Diff None CBC/PT/INR WBC RBC Hgb Hct MCV RDW Plt PT aPTT INR 02/13/23 0232 13.6 4.52 13.1 39.0 86 13.6 239 02/12/23 1821 12.5 4.51 12.9 38.6 86 13.4 233 Additional Studies: None Code Status: Full Code DVT Prophylaxis: SCD's Consults: urology Dispo: return home when medically cleared Assessment/Plan: 62 year old male with past medical history of tobacco use, CAD s/p OR and Stent placement in LAD 08/2022, frequent admissions for chronic chest pain on ranexa, GERD. HLD, HTN, and CVD with HX multiplestrokes presents for right abdominal pain, transferred from [facility] for further evaluation of right upper pole perirenal hematoma. Right posterior upper pole perirenal hematoma -outside imaging ABD/PEL showing 1 cm band decreased attenuation posterior upper pole right kidney concerning for right upper pole perirenal hematoma -No trauma, no recent procedures -hemoglobin stable -urology consult to discuss repeating imaging, will obtain CT with contrast of abdomen/pelvics - prn pain control Leukocytosis Pleuritic chest pain -no clear source of infection -does endorse coughing a bit and now pain is to right rib cage/upper abdomen -add on CTA Chest to r/o PE Addendum: Spoke with radiologist reading CT PE and abdomen/pelvis, bilateral PE with no R heart strain and nosigns of renal hematoma, but concerns for stranding--could be infection -awaiting repeat UA -will start IV ceftriaxone +azithromycin with concern for opacities in the lung base as well---cover for UTI+CAP for now -lovenox 1mg/kg BID ordered CAD s/p OR and LAD stenting, chronic chest pain, HTN, HLD Also has retained loop recorder - continue imdur and metoprolol - statin - restart asa and plavix as able per repeat imaging findings and urology recs - continue ranexa -patient with dyspnea on exertion and trace lower extremity edema, order echo for today with cardiac hx HX Multiple previous CVA Previous MRI redemonstrates evidence of remote ischemia in a watershed/borderzone distribution MCA JARRETT on the right and a small amount in the left frontal lobe cortically No residual deficits - statin GERD - PPI Tobacco use 1 PPD x 40+ years - agreeable to nicotine patch -per patient he is trying to quit, encouraged cessation Sen Johns, MSN, GRINDER OPERATOR EXTERNAL TOOL, BODY TECHNICIAN/PAINTER-C [facility] Personal Pager: [phone] documented in this [id number] Plan of care note* Care Plan Note - Raman Durham RN - 02/16/2023 4:22 AM EDT Problem: Routine Care: Goal: Patient care will be managed and maintained throughout hospital stay per unit specific routine care procedure Outcome: Progressing Problem: Safety: Goal: Patient will remain free of falls during hospital stay Outcome: Progressing Goal: Free from injury during hospitalization Outcome: Progressing Problem: Acute Pain: Goal: Ability to identify pain intensity on a pain scale and rate it consistently will be achieved and maintained Outcome: Progressing Goal: Understanding of proper administration and use of medicines will be achieved Outcome: Progressing Goal: Acceptable level of pain which allows the patient to achieve functional outcome goals Outcome: Progressing Problem: VTE Prophylaxis: Goal: Will be free of DVT Outcome: Progressing Problem: Discharge Planning: Goal: Discharge needs of the adult patient will be met Outcome: Not Progressing Patient will meet goal once medically stable and ready for discharge. [id number] Plan of care note* Care Plan Note - Andrae Moreno PA- C - 02/15/2023 6:35 AM EDT OVERNIGHT EVENT Intermittent chest pain BP 145/80 (BP Location: left arm) Pulse 65 Temp 97.7 F (36.5 C) (Oral) Resp 18 Ht 5' 5 (1.651 m) Wt 92.1 kg (203 lb) SpO2 97% BMI 33.78 kg/m Mid-sternal intermittent chest pain and intermittent unproductive cough per RN this morning. Per chart review hx of CAD s/p PCI to LAD in 09/08 and also acute PE on Lovenox, presenting primarily withchest pain, seen by cards and recs ---chronic pain specialist for management of noncardiac chest pain ---Aspirin and high intensity statin ---Dual antiplatelet therapy with Ticagrelor for at least 12 months. EKG repeated and seems at baseline when compared to previous EKG. Appear clinical stable on encounter, HDS, saturation is great on RA, chest pain not reproducible on palpation. For completeness, get CXR and draw cardiac enzymes. Highly doubt this is a new event but rather a culmination of known CAD and PE. Andrae Moreno PA-C [employer] Work Phone: [phone]) 307-848108-02-2023 Plan of care note* Care Plan Note - Raman Durham RN - 02/15/2023 1:22 AM EDT Problem: Routine Care: Goal: Patient care will be managed and maintained throughout hospital stay per unit specific routine care procedure Outcome: Progressing Problem: Safety: Goal: Patient will remain free of falls during hospital stay Outcome: Progressing Goal: Free from injury during hospitalization Outcome: Progressing Problem: Acute Pain: Goal: Ability to identify pain intensity on a pain scale and rate it consistently will be achieved and maintained Outcome: Progressing Goal: Understanding of proper administration and use of medicines will be achieved Outcome: Progressing Goal: Acceptable level of pain which allows the patient to achieve functional outcome goals Outcome: Progressing Problem: VTE Prophylaxis: Goal: Will be free of DVT Outcome: Progressing Problem: Discharge Planning: Goal: Discharge needs of the adult patient will be met Outcome: Not Progressing Patient will meet goal once medically stable and ready for discharge. [id number] Consult note* Moira Lanza MD - 02/14/2023 8:53 AM EDT Associated Order(s): IP CARDIOLOGY CONSULT Images from the original note were not included. CONSULT NOTE Cardiology Consult Service Patient name: Fran Means Date,time, and place of consultation: 02/14/2023 8:54 AM Room: [place] [id number] PCP contact: No primary care provider on file. 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 Cardiology has been consulted for evaluation. Patient states that he awoke Monday morning with sudden right sided abdominal pain and right sided chest pain. Patient denies any recent history of falls.Patient states his chest pain is pressure-like in nature and similar to his chronic chest pain thathas occurred since his angioplasty in August. Patient states his chest pain is not associated with exertions and is able to walk 15-20minutes at a time without stopping or becoming short of breath at work. He denies recent fevers, chills, melena, hematochezia, dysuria, syncope, and hematuria. Per chart review, Patient was reportedly transferred from [facility] due to CT Abd/pelvis showing1 cm band decreased attenuation posterior upper pole right kidney concerning for right upper pole perirenal hematoma. Imaging was not sent with him. Repeated CT ab/pelvis reported short segment dissection of the proximal SMA and extending up to the mid SMA in a span of 1.[address] evidence of retroperitoneal or perirenal hematoma. CTA reported Acute subocclusive pulmonary emboli in the bilateral lower lobe segmental pulmonary arteries and focal areas of patchy consolidative opacities are seen in the inferior lingular segment, right lower lobe. TTE reported Focal LV systolic dysfunction consists of dyskinesia (aneurysm) of the distal apex and LVEF 65%. Troponin <4. Dry weight: Unknown Admission weight: 203Ibs Home meds: ASA 81mg daily, Lipitor 80mg daily, Plavix 75mg daily, Imdur 30mg daily, protonix 40mg BID, metoprolol succinate 25mg daily, ranexa 500mg BID, flexeril 10mg TID PRN, Gabapentin 300mg TID. Past Medical History As above Past Surgical History Carotid endarterectomy Family History No family history of premature coronary artery disease Social History Social History Tobacco Use Smoking status: Every Day Packs/day: 0.50 Years: 40.00 Pack years: 20.00 Types: Cigarettes Smokeless tobacco: Never Vaping Use Vaping Use: Never used Allergies Allergies Allergen Reactions Bee Venom Swelling Pregabalin Other reaction(s): Tongue swelling Zonisamide Other reaction(s): Tongue swelling Vital signs and I/Os Patient Vitals for the past 24 hrs: BP Temp Temp src Pulse Resp SpO2 O2 Device 02/14/23 0543 132/69 97.4 F (36.3 C) Oral 63 18 96 % -- 02/14/23 0442 -- -- -- -- -- -- Room air 02/13/23 2157 121/71 97.5 F (36.4 C) Oral 70 18 96 % Room air 02/13/23 2136 -- -- -- -- -- -- Room air 02/13/23 1854 120/63 97.7 F (36.5 C) Oral 70 18 96 % Room air 02/13/23 1400 118/78 98.2 F (36.8 C) Oral 56 17 97 % Room air 02/13/23 1000 126/62 97.9 F (36.6 C) Oral 72 19 97 % Room air From prior to hospitalization no prior weight on file During hospitalization Change in Weight: Current value is 203.0 lb (92.079 kg) on 02/12/2023 at 1305 No other value found for comparison Intake/Output Summary (Last 24 hours) at 02/14/2023 0854 Last data filed at 02/14/2023 0800 Gross per 24 hour Intake 1320 ml Output -- Net 1320 ml Hospital Medications enoxaparin 1 mg/kg 2x Daily cefTRIAXone orderable 1,000 mg Q24H Antibiotic And azithromycin orderable 500 mg Q24H Antibiotic nicotine 21 mg Daily acetaminophen 1,000 mg 3x Daily lidocaine 1 Patch Every 24 hours gabapentin 300 mg 2x Daily isosorbide mononitrate 30 mg Daily metoprolol 25 mg Daily esomeprazole 40 mg 2x Daily 30 min AC ranolazine 500 mg 2x Daily atorvastatin 80 mg Daily simethicone 80 mg Q6H PRN ondansetron 4 mg Q4H PRN oxyCODONE 5 mg Q4H PRN oxyCODONE 10 mg Q4H PRN HYDROmorphone HCl PF 1 mg Q3H PRN cyclobenzaprine 10 mg 3x Daily PRN Home Medications Prior to Admission medications Medication Sig Start Date End Date Taking? Authorizing Provider aspirin EC 81 MG tablet Take 81 mg by mouth daily. Yes NON-EPICCARE, PROVIDER atorvastatin (LIPITOR) 80 mg tablet Take 80 mg by mouth daily. Yes NON-EPICCARE, PROVIDER clopidogrel (PLAVIX) 75 MG tablet Take 75 mg by mouth daily. Yes NON-EPICCARE, PROVIDER isosorbide mononitrate (IMDUR) 30 MG CR tablet Take 30 mg by mouth daily. Yes NON-EPICCARE, PROVIDER pantoprazole (PROTONIX) 40 MG tablet Take 40 mg by mouth 2 times daily. Yes NON- EPICCARE, PROVIDER Metoprolol Succinate 25 MG CS24 Take by mouth daily. Yes NON-EPICCARE, PROVIDER ranolazine (Ranexa) 500 MG 12 hour tablet Take 500 mg by mouth 2 times daily. Yes NON-EPICCARE, PROVIDER cyclobenzaprine (FLEXERIL) 10 MG tablet Take 10 mg by mouth 3 times daily as needed for Muscle spasms. Yes NON-EPICCARE, PROVIDER gabapentin (NEURONTIN) 300 MG capsule Take 300 mg by mouth 3 times daily. Yes NON-EPICCARE, PROVIDER Physical Examination Appearance: Not in acute distress. Skin: Skin color, texture, turgor normal. No rashes or lesions. Eyes: Pupils reactive to light and accomodation. ENMT: Unremarkable. Neck: Neck supple; normal JVP Lungs: Decreased breath sounds bilaterally, expiratory wheezing, No bibasilar crackles Cardiac: S1, S2 heard; regular rate and rhythm, nomurmurs, rubs, or gallops Abdomen: Soft, non-tender, no organomegaly, bowel sounds + Extremities: No pitting edema Neurologic: Alert & oriented, no gross motor deficit. Laboratory Tests Basic Metabolic Panel Na K Cl CO2 Gap Glu BUN Cr Ca 02/14/23 0543 136 4.3 104 25 11 111 12 0.90 8.5 02/13/23 0232 135 4.0 104 24 11 164 16 0.83 8.4 02/12/23 1519 134 5.8 Comment: Hemolysis present 104 21 15 139 15 0.91 8.3 CBC (last 3 years, up to 5 values) WBC RBC Hgb Hct MCV RDW Plt 02/14/23 0543 10.6 4.45 12.9 37.8 85 13.8 274 02/13/23 0232 13.6 4.52 13.1 39.0 86 13.6 239 02/12/23 1821 12.5 4.51 12.9 38.6 86 13.4 233 LFT's (last 3 years, up to 5 values) T Prot Albumin D Bili T Bili Alk Phos ALT AST 02/12/23 1519 6.2 3.9 0.10 0.9 117 21 36 Comment: Hemolysis present Cardiac None Lipids (last 3 years, up to 5 values) None No results found for: TSH Creatinine clearance from Cockroft-Gault: 75 ml/min based on creatinine of 0.90 on 02/14/2023 usingIBW 61.5 kg (actual weight 92.1 kg ignored) Estimated GFR: 97 on 02/14/2023 PT/INR None No results found for: BNP Chest X-ray: Most recent 06/02/2020 Cardiomediastinal contours are within normal limits. Loop recorder device is present. No pulmonary edema, focal consolidative process, pleural effusion, or pneumothorax. Chronic nonunited left rib fracture. Additional multiple healed rib fractures. No acute rib fracture identified. Cardiac Tests ECst degree AV block, No ST abnormalities or T wave inversions Telemetry findings reviewed: 1st degree AV block, Tests discussed with performing clinician: echocardiogram Tests personally reviewed: echocardiogram Left Ventricular Ejection Fraction Date Value Ref Range Status 02/13/2023 65 % Final Echo (Last Echocardiogram: 02/13/2023): Chambers LV Left ventricular systolic function is focally abnormal. The left ventricular ejection fraction (LVEF) is 65% +/- 5%by the biplane summation of discs (Mitchell's rule) method. Left ventricular size is normal. Concentric LV remodeling is present (excessive wall thickness disproportionate to cavity dimensions without increased LV mass indexed to BSA). Focal LV systolic dysfunction consists of dyskinesia (aneurysm) of the distal apex. LA Normal left atrium. The left atrial volume index is 21 mL/m2 (normal: <35 mL/m2, mild: 35-41 mL/m2, moderate: 42-48 mL/m2, severe: >48 mL/m2). RV Normal right ventricular size and function. The tricuspid annular plane systolic excursion (TAPSE, a marker of RV systolic function) is normal at 27 mm (normal >16 mm). RA Normal right atrium. Valves AV Aortic fibrocalcific (non-stenotic) changes are present and are mild. MV Normal mitral valve. TV There is mild tricuspid regurgitation. PV Normal pulmonic valve. Great Vessels Normal sinus of Valsalva. Pericardium/Pleura No evidence of a pericardial effusion. Hemodynamics Evidence suggests that left ventricular end diastolic pressure/preload is probably normal (from Doppler assessment of the mitral filling and annular velocities or E/e'). Estimated pulmonary artery systolic pressure is 35 mmHg +/- 5 mmHg. (Upper normal is <40 mmHg). Estimated RA pressure is <5 mmHg. Evidence suggests that left ventricular end diastolic pressure/preload is probably normal (from Doppler assessment of the mitral filling and annular velocities or E/e'). Summary Focally abnormal LV systolic function. Focal LV systolic dysfunction consists of dyskinesia (aneurysm) of the distal apex. Normal RV systolic function. Diastolic LV function assessed by resting Doppler is normal. Concentric LV remodeling is present. Fibrocalcific changes are seen in the aortic valve. Mild tricuspid valve regurgitation. Noninvasive hemodynamic assessment is consistent with normal pulmonary artery systolic pressure, a low CVP. See above for further details. Stress test (04/22/2010): RESTING ECG: SINUS BRADYCARDIA, NONSPECIFIC ST-T WAVE CHANGES, INCOMPLETE RBBB. OBSERVATION: 1. THE TEST WAS TERMINATED DUE TO GENERAL FATIGUE. 2. INADEQUATE HEART RATE RESPONSE OF 81% PREDICTED MAXIMAL HEART RATE, ABNORMAL CHRONOTROPIC RESPONSE INDEX (RISK, NORMAL HEART RATE RECOVERY @ 1 MINUTE POST EXERCISE. 3. FUNCTIONAL CAPACITY IS ESTIMATED AT 5.7 METS, STAGE 2 TAI PROTOCOL[place] [address], POOR FUNCTIONAL CAPACITY FOR AGE AND GENDER. HIGH RISK. 4. NORMAL BLOOD PRESSURE RESPONSE TO STRESS. 5. NORMAL ST SEGMENT RESPONSE TO STRESS. 6. ABNORMAL ROBLES TREADMILL SCORE (<5 BUT >/= -10). INTERMEDIATE RISK. 7. ANGINA WAS NOT PROVOKED BY STRESS. 8. PAC'S DURING THE TEST. 9. NO PRIOR TEST FOR COMPARISON AT [facility]. * PLEASE SEE ECHO REPORT TO DETERMINE IF THERE WAS EXERCISE-INDUCED ABNORMALITY. CONCLUSION: VERY-ABNORMAL DUE TO: ABNORMAL ROBLES TDML SCORE, LOW CHRONOTROPIC RESPONSE INDEX, POOR FUNCTIONAL CAPACITY. ADDITIONAL COMMENTS: CRI = 0.71 NOT ON BB DTS = 4 DUE TO FUNCTIONAL CAPACITY. Cardiac catheterization (08/23/22): Left Heart Cardiac catheterization showed single-vessel coronary artery disease underwent PCI to the proximal LAD Pulm Testing Sleep study None Impression Fran Means is a 62 year old male with past medical history of HTN, HLD, hc of TIA and carotid disease s/p right carotid endarterectomy, CAD s/p unstable angina with 1xPCI LAD on 08/2022, tobacco use disorder, and chronic chest pain on ranexa consulted for evaluation of management of possibleleft ventricular aneurysm. 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 Unlikely to be apical aneurysm. No further evaluation/workup needed. #Noncardiac Chest pain. Recurrent chest pain likely noncardiac in nature, Most recent stress test 09/2022 showed no ischemic changes. Patient is off beta maría elena due to hypotension and bradycardia. #CAD with hx of unstable angina. S/p drug eluting stent in the proximal LAD in 08/2022. #Essential Hypertension #Peripheral Artery Disease. Hx of TIAs. S/p right carotid endarterectomy 2016 #Incidental short segment dissection of SMA #Diabetes Mellitus Type II, not on insulin Plan/Recommendations -- Recommended that patient seek a consultation with chronic pain specialist for management of noncardiac chest pain. -- Agree with continuation of Aspirin and high intensity statin -- Continue Dual antiplatelet therapy with Ticagrelor for at least 12 months. -- Encouraged smoking cessation and discussed risks of tobacco use and benefits of cessation. 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 Rocio Anders MD Internal Medicine, PGY1 Teaching Physician Note: I saw and evaluated the patient. I personally obtained the stevens and critical portions of the historyand physical exam. I reviewed the resident's documentation and discussed the patient with the resident. I agree with the resident's medical decision making as documented in the resident's note. Please refer to my other note filed today Moira Lanza MD Non-Invasive Cardiology Pager [phone] [phone] Consult note* Moira Lanza MD - 02/14/2023 8:53 AM EDT Associated Order(s): IP CARDIOLOGY CONSULT Images from the original note were not included. CONSULT NOTE Cardiology Consult Service Patient name: Fran Means Date,time, and place of consultation: 02/14/2023 8:54 AM Room: [place] [id number] PCP contact: No primary care provider on file. 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 Cardiology has been consulted for evaluation. Patient states that he awoke Monday morning with sudden right sided abdominal pain and right sided chest pain. Patient denies any recent history of falls.Patient states his chest pain is pressure-like in nature and similar to his chronic chest pain thathas occurred since his angioplasty in August. Patient states his chest pain is not associated with exertions and is able to walk 15-20minutes at a time without stopping or becoming short of breath at work. He denies recent fevers, chills, melena, hematochezia, dysuria, syncope, and hematuria. Per chart review, Patient was reportedly transferred from [facility] due to CT Abd/pelvis showing1 cm band decreased attenuation posterior upper pole right kidney concerning for right upper pole perirenal hematoma. Imaging was not sent with him. Repeated CT ab/pelvis reported short segment dissection of the proximal SMA and extending up to the mid SMA in a span of 1.[address] evidence of retroperitoneal or perirenal hematoma. CTA reported Acute subocclusive pulmonary emboli in the bilateral lower lobe segmental pulmonary arteries and focal areas of patchy consolidative opacities are seen in the inferior lingular segment, right lower lobe. TTE reported Focal LV systolic dysfunction consists of dyskinesia (aneurysm) of the distal apex and LVEF 65%. Troponin <4. Dry weight: Unknown Admission weight: 203Ibs Home meds: ASA 81mg daily, Lipitor 80mg daily, Plavix 75mg daily, Imdur 30mg daily, protonix 40mg BID, metoprolol succinate 25mg daily, ranexa 500mg BID, flexeril 10mg TID PRN, Gabapentin 300mg TID. Past Medical History As above Past Surgical History Carotid endarterectomy Family History No family history of premature coronary artery disease Social History Social History Tobacco Use Smoking status: Every Day Packs/day: 0.50 Years: 40.00 Pack years: 20.00 Types: Cigarettes Smokeless tobacco: Never Vaping Use Vaping Use: Never used Allergies Allergies Allergen Reactions Bee Venom Swelling Pregabalin Other reaction(s): Tongue swelling Zonisamide Other reaction(s): Tongue swelling Vital signs and I/Os Patient Vitals for the past 24 hrs: BP Temp Temp src Pulse Resp SpO2 O2 Device 02/14/23 0543 132/69 97.4 F (36.3 C) Oral 63 18 96 % -- 02/14/232 -- -- -- -- -- -- Room air 02/13/23 2157 121/71 97.5 F (36.4 C) Oral 70 18 96 % Room air 02/13/236 -- -- -- -- -- -- Room air 02/13/23 1854 120/63 97.7 F (36.5 C) Oral 70 18 96 % Room air 02/13/23 1400 118/78 98.2 F (36.8 C) Oral 56 17 97 % Room air 02/13/23 1000 126/62 97.9 F (36.6 C) Oral 72 19 97 % Room air From prior to hospitalization no prior weight on file During hospitalization Change in Weight: Current value is 203.0 lb (92.079 kg) on 02/12/2023 at 1305 No other value found for comparison Intake/Output Summary (Last 24 hours) at 02/14/2023 0854 Last data filed at 02/14/2023 0800 Gross per 24 hour Intake 1320 ml Output -- Net 1320 ml Hospital Medications enoxaparin 1 mg/kg 2x Daily cefTRIAXone orderable 1,000 mg Q24H Antibiotic And azithromycin orderable 500 mg Q24H Antibiotic nicotine 21 mg Daily acetaminophen 1,000 mg 3x Daily lidocaine 1 Patch Every 24 hours gabapentin 300 mg 2x Daily isosorbide mononitrate 30 mg Daily metoprolol 25 mg Daily esomeprazole 40 mg 2x Daily 30 min AC ranolazine 500 mg 2x Daily atorvastatin 80 mg Daily simethicone 80 mg Q6H PRN ondansetron 4 mg Q4H PRN oxyCODONE 5 mg Q4H PRN oxyCODONE 10 mg Q4H PRN HYDROmorphone HCl PF 1 mg Q3H PRN cyclobenzaprine 10 mg 3x Daily PRN Home Medications Prior to Admission medications Medication Sig Start Date End Date Taking? Authorizing Provider aspirin EC 81 MG tablet Take 81 mg by mouth daily. Yes NON-EPICCARE, PROVIDER atorvastatin (LIPITOR) 80 mg tablet Take 80 mg by mouth daily. Yes NON-EPICCARE, PROVIDER clopidogrel (PLAVIX) 75 MG tablet Take 75 mg by mouth daily. Yes NON-EPICCARE, PROVIDER isosorbide mononitrate (IMDUR) 30 MG CR tablet Take 30 mg by mouth daily. Yes NON-EPICCARE, PROVIDER pantoprazole (PROTONIX) 40 MG tablet Take 40 mg by mouth 2 times daily. Yes NON- EPICCARE, PROVIDER Metoprolol Succinate 25 MG CS24 Take by mouth daily. Yes NON-EPICCARE, PROVIDER ranolazine (Ranexa) 500 MG 12 hour tablet Take 500 mg by mouth 2 times daily. Yes NON-EPICCARE, PROVIDER cyclobenzaprine (FLEXERIL) 10 MG tablet Take 10 mg by mouth 3 times daily as needed for Muscle spasms. Yes NON-EPICCARE, PROVIDER gabapentin (NEURONTIN) 300 MG capsule Take 300 mg by mouth 3 times daily. Yes NON-EPICCARE, PROVIDER Physical Examination Appearance: Not in acute distress. Skin: Skin color, texture, turgor normal. No rashes or lesions. Eyes: Pupils reactive to light and accomodation. ENMT: Unremarkable. Neck: Neck supple; normal JVP Lungs: Decreased breath sounds bilaterally, expiratory wheezing, No bibasilar crackles Cardiac: S1, S2 heard; regular rate and rhythm, nomurmurs, rubs, or gallops Abdomen: Soft, non-tender, no organomegaly, bowel sounds + Extremities: No pitting edema Neurologic: Alert & oriented, no gross motor deficit. Laboratory Tests Basic Metabolic Panel Na K Cl CO2 Gap Glu BUN Cr Ca 02/14/23 0543 136 4.3 104 25 11 111 12 0.90 8.5 02/13/23 0232 135 4.0 104 24 11 164 16 0.83 8.4 02/12/23 1519 134 5.8 Comment: Hemolysis present 104 21 15 139 15 0.91 8.3 CBC (last 3 years, up to 5 values) WBC RBC Hgb Hct MCV RDW Plt 02/14/23 0543 10.6 4.45 12.9 37.8 85 13.8 274 02/13/23 0232 13.6 4.52 13.1 39.0 86 13.6 239 02/12/23 1821 12.5 4.51 12.9 38.6 86 13.4 233 LFT's (last 3 years, up to 5 values) T Prot Albumin D Bili T Bili Alk Phos ALT AST 02/12/23 1519 6.2 3.9 0.10 0.9 117 21 36 Comment: Hemolysis present Cardiac None Lipids (last 3 years, up to 5 values) None No results found for: TSH Creatinine clearance from Cockroft-Gault: 75 ml/min based on creatinine of 0.90 on 02/14/2023 usingIBW 61.5 kg (actual weight 92.1 kg ignored) Estimated GFR: 97 on 02/14/2023 PT/INR None No results found for: BNP Chest X-ray: Most recent 06/02/2020 Cardiomediastinal contours are within normal limits. Loop recorder device is present. No pulmonary edema, focal consolidative process, pleural effusion, or pneumothorax. Chronic nonunited left rib fracture. Additional multiple healed rib fractures. No acute rib fracture identified. Cardiac Tests ECst degree AV block, No ST abnormalities or T wave inversions Telemetry findings reviewed: 1st degree AV block, Tests discussed with performing clinician: echocardiogram Tests personally reviewed: echocardiogram Left Ventricular Ejection Fraction Date Value Ref Range Status 02/13/2023 65 % Final Echo (Last Echocardiogram: 02/13/2023): Chambers LV Left ventricular systolic function is focally abnormal. The left ventricular ejection fraction (LVEF) is 65% +/- 5%by the biplane summation of discs (Mitchell's rule) method. Left ventricular size is normal. Concentric LV remodeling is present (excessive wall thickness disproportionate to cavity dimensions without increased LV mass indexed to BSA). Focal LV systolic dysfunction consists of dyskinesia (aneurysm) of the distal apex. LA Normal left atrium. The left atrial volume index is 21 mL/m2 (normal: <35 mL/m2, mild: 35-41 mL/m2, moderate: 42-48 mL/m2, severe: >48 mL/m2). RV Normal right ventricular size and function. The tricuspid annular plane systolic excursion (TAPSE, a marker of RV systolic function) is normal at 27 mm (normal >16 mm). RA Normal right atrium. Valves AV Aortic fibrocalcific (non-stenotic) changes are present and are mild. MV Normal mitral valve. TV There is mild tricuspid regurgitation. PV Normal pulmonic valve. Great Vessels Normal sinus of Valsalva. Pericardium/Pleura No evidence of a pericardial effusion. Hemodynamics Evidence suggests that left ventricular end diastolic pressure/preload is probably normal (from Doppler assessment of the mitral filling and annular velocities or E/e'). Estimated pulmonary artery systolic pressure is 35 mmHg +/- 5 mmHg. (Upper normal is <40 mmHg). Estimated RA pressure is <5 mmHg. Evidence suggests that left ventricular end diastolic pressure/preload is probably normal (from Doppler assessment of the mitral filling and annular velocities or E/e'). Summary Focally abnormal LV systolic function. Focal LV systolic dysfunction consists of dyskinesia (aneurysm) of the distal apex. Normal RV systolic function. Diastolic LV function assessed by resting Doppler is normal. Concentric LV remodeling is present. Fibrocalcific changes are seen in the aortic valve. Mild tricuspid valve regurgitation. Noninvasive hemodynamic assessment is consistent with normal pulmonary artery systolic pressure, a low CVP. See above for further details. Stress test (04/22/2010): RESTING ECG: SINUS BRADYCARDIA, NONSPECIFIC ST-T WAVE CHANGES, INCOMPLETE RBBB. OBSERVATION: 1. THE TEST WAS TERMINATED DUE TO GENERAL FATIGUE. 2. INADEQUATE HEART RATE RESPONSE OF 81% PREDICTED MAXIMAL HEART RATE, ABNORMAL CHRONOTROPIC RESPONSE INDEX (</= 0.8 NOT ON BETA-MARÍA ELENA). INCREASED RISK, NORMAL HEART RATE RECOVERY @ 1 MINUTE POST EXERCISE. 3. FUNCTIONAL CAPACITY IS ESTIMATED AT 5.7 METS, STAGE 2 TAI PROTOCOL[place] [address], POOR FUNCTIONAL CAPACITY FOR AGE AND GENDER. HIGH RISK. 4. NORMAL BLOOD PRESSURE RESPONSE TO STRESS. 5. NORMAL ST SEGMENT RESPONSE TO STRESS. 6. ABNORMAL ROBLES TREADMILL SCORE (<5 BUT >/= -10). INTERMEDIATE RISK. 7. ANGINA WAS NOT PROVOKED BY STRESS. 8. PAC'S DURING THE TEST. 9. NO PRIOR TEST FOR COMPARISON AT [facility]. * PLEASE SEE ECHO REPORT TO DETERMINE IF THERE WAS EXERCISE-INDUCED ABNORMALITY. CONCLUSION: VERY-ABNORMAL DUE TO: ABNORMAL ROBLES TDML SCORE, LOW CHRONOTROPIC RESPONSE INDEX, POOR FUNCTIONAL CAPACITY. ADDITIONAL COMMENTS: CRI = 0.71 NOT ON BB DTS = 4 DUE TO FUNCTIONAL CAPACITY. Cardiac catheterization (08/23/22): Left Heart Cardiac catheterization showed single-vessel coronary artery disease underwent PCI to the proximal LAD Pulm Testing Sleep study None Impression Fran Means is a 62 year old male with past medical history of HTN, HLD, hc of TIA and carotid disease s/p right carotid endarterectomy, CAD s/p unstable angina with 1xPCI LAD on 08/2022, tobacco use disorder, and chronic chest pain on ranexa consulted for evaluation of management of possibleleft ventricular aneurysm. 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 Unlikely to be apical aneurysm. No further evaluation/workup needed. #Noncardiac Chest pain. Recurrent chest pain likely noncardiac in nature, Most recent stress test 09/2022 showed no ischemic changes. Patient is off beta maría elena due to hypotension and bradycardia. #CAD with hx of unstable angina. S/p drug eluting stent in the proximal LAD in 08/2022. #Essential Hypertension #Peripheral Artery Disease. Hx of TIAs. S/p right carotid endarterectomy 2016 #Incidental short segment dissection of SMA #Diabetes Mellitus Type II, not on insulin Plan/Recommendations -- Recommended that patient seek a consultation with chronic pain specialist for management of noncardiac chest pain. -- Agree with continuation of Aspirin and high intensity statin -- Continue Dual antiplatelet therapy with Ticagrelor for at least 12 months. -- Encouraged smoking cessation and discussed risks of tobacco use and benefits of cessation. 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 Rocio Anders MD Internal Medicine, PGY1 Teaching Physician Note: I saw and evaluated the patient. I personally obtained the stevens and critical portions of the historyand physical exam. I reviewed the resident's documentation and discussed the patient with the resident. I agree with the resident's medical decision making as documented in the resident's note. Please refer to my other note filed today Moira Lanza MD Non-Invasive Cardiology Pager [phone] * Bisi Davis MD - 02/13/2023 5:35 PM EDTAssociated Order(s): IP SURGERY VASCULAR CONSULT Images from the original note were not included. 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 Patient was in usual state of health until he had a bout of nausea and nonbloody nonbilious vomiting last week Monday. This episode resolved, and on Monday morning patient had an unrelated maren his R leaving him with R sided chest and abdominal pain. The pain continued to worsen until Monday where he also began having generalized abdominal pain as well. At this time he was having no other symptoms of nausea/vomiting, still moving his bowels normally with no melena/hematochezia. He presented to [facility] where imaging was concerning for renal hematoma and was transferred here. Repeat imaging revealed no renal hematoma but did show bilateral PE as well as the SMA dissection for which the consult was placed. Patient denies history of hematemesis, melena, hematochezia, or abdominal pain with eating. He states that he is currently in no pain at rest. Past Medical History Per HPI Past Surgical History LAD stent placement 08/2022 Carotid procedure the details of which the patient was unclear on Current Medications Current Facility-Administered Medications Medication Dose Route Frequency Last Rate Last Admin enoxaparin (LOVENOX) 100 MG/ML injection 90 mg 1 mg/kg Subcutaneous 2x Daily 90 mg at 02/13/23 1333 cefTRIAXone (ROCEPHIN) 1,000 mg in dextrose 50 mL ivpb 1,000 mg Intravenous Q24H Antibiotic 1,000 mg at 02/13/23 1425 And azithromycin (ZITHROMAX) 500 mg in NS 250 mL ivpb 500 mg Intravenous Q24H Antibiotic 250 mL/hr at 02/13/23 1427 500 mg at 02/13/23 1427 simethicone (GAS-X) 80 MG chewable tablet 80 mg Oral Q6H PRN 80 mg at 02/12/23 1508 ondansetron (ZOFRAN) 4 MG/2ML injection 4 mg Intravenous Push Q4H PRN 4 mg at 02/12/23 1508 nicotine (NICODERM CQ) 21 mg/24HR patch 21 mg Transdermal Daily 21 mg at 02/13/23 0928 oxyCODONE immediate release tablet 5 mg Oral Q4H PRN oxyCODONE immediate release tablet 10 mg Oral Q4H PRN 10 mg at 02/13/23 1334 HYDROmorphone HCl PF (DILAUDID) 1 MG/ML injection 1 mg Intravenous Push Q3H PRN 1 mg at 02/12/23 1437 acetaminophen (TYLENOL) tablet 1,000 mg Oral 3x Daily 1,000 mg at 02/13/23 1334 lidocaine (LIDODERM) 5 % patch 1 Patch Transdermal Every 24 hours 1 Patch at 02/13/23 1335 gabapentin (NEURONTIN) capsule 300 mg Oral 2x Daily 300 mg at 02/13/23 09 isosorbide mononitrate (IMDUR) 24 hour CR tablet 30 mg Oral Daily 30 mg at 02/13/231334 metoprolol (TOPROL-XL) 24 hour tablet 25 mg Oral Daily 25 mg at 02/13/23927 esomeprazole (NEXIUM) capsule 40 mg Oral 2x Daily 30 min AC 40 mg at 02/13/23927 ranolazine (RANEXA) 500 MG 12 hour tablet 500 mg Oral 2x Daily 500 mg at 02/13/231334 cyclobenzaprine (FLEXERIL) tablet 10 mg Oral 3x Daily PRN 10 mg at 02/13/23932 atorvastatin (LIPITOR) tablet 80 mg Oral Daily 80 mg at 02/13/23927 Allergies Allergies Allergen Reactions Bee Venom Swelling Pregabalin Other reaction(s): Tongue swelling Zonisamide Other reaction(s): Tongue swelling Family History No family history on file. Social History Social History Socioeconomic History Marital status: Tobacco Use Smoking status: Every Day Packs/day: 0.50 Years: 40.00 Pack years: 20.00 Types: Cigarettes Smokeless tobacco: Never Vaping Use Vaping Use: Never used Review Of Systems Constitutional: Negative Eyes: Negative Ears/ Nose/ Mouth/ Throat: Negative Respiratory: Per HPI Cardiovascular: Negative Gastrointestinal: Per HPI Genitourinary: Negative Musculoskeletal: Negative Neurologic: Negative Psychiatric: Negative Integumentary (skin/breast): Negative Endocrine: Negative Rheumatologic: Negative Allergic/ Immunologic: Negative Significant positives: Physical Exam Vitals Recorded in This Encounter 02/13/2023 1000 02/13/2023 1028 02/13/2023 1334 02/13/2023 1400 02/13/2023 1433 BP: 126/62 -- -- 118/78 -- Pulse: 72 -- -- 56 -- Resp: 19 -- -- 17 -- Temp: 97.9 F (36.6 C) -- -- 98.2 F (36.8 C) -- Temp src: Oral -- -- Oral -- SpO2: 97 % -- -- 97 % -- Pain Score: -- 6 8 -- 6 Gen: NAD HEENT: EOMI, PERRLA Pulm: Breathing comfortably, equal chest rise CV: No chest pain Abd: Soft, mildly distended, some tenderness to palpation on the R posterior thoracoabdomen Ext: RLE- Femoral- Palpable, DP-palpable, PT- palpable, motor and sensory intact, no ulcer/wounds LLE- Femoral- Palpable, DP-palpable, PT- palpable, motor and sensory intact, no ulcer/wounds Skin: warm and dry, see ext exam Neuro: AAOx3 Psych: Normal mood and affect Labs CBC/PT/INR WBC RBC Hgb Hct MCV RDW Plt PT aPTT INR 02/13/23 0232 13.6 4.52 13.1 39.0 86 13.6 239 02/12/23 1821 12.5 4.51 12.9 38.6 86 13.4 233 WBC/Diff None Basic Metabolic Panel Na K Cl CO2 Gap Glu BUN Cr Ca Mg PO4 02/13/23 0232 135 4.0 104 24 11 164 16 0.83 8.4 02/12/23 1519 134 5.8 Comment: Hemolysis present 104 21 15 139 15 0.91 8.3 Hepatic/Biliary/Pancreas T Prot Albumin D Bili T Bili Alk Phos ALT AST Amylase Lipase 02/12/23 1519 6.2 3.9 0.10 0.9 117 21 36 Comment: Hemolysis present Imaging CT ABDOMEN/PELVIS W/ CONTRAST Result Date: 02/13/2023 IMPRESSION: 1. 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 This is better evaluated on the axial imaging. 2. No CT evidence of abdominal aortic aneurysm or dissection. 3. Wispy stranding along the superolateral aspect of the right kidney and posterior inferior aspect of the left kidney. These are probably related to perinephric stranding, probably represents chronic medical renal disease. Superimposed acute infectious/inflammatory process isdifficult to evaluate in this study. If indicated, this can be further evaluated with lab values and urine analysis. 4. Mild left hemicolonic diverticula. Nonobstructive right nephrolithiasis. MACRO: None CTA CHEST PULMONARY EMBOLISM W/ CTA Result Date: 02/13/2023 IMPRESSION: 1. Acute subocclusive pulmonary emboli in the bilateral lower lobe segmental pulmonary arteries. No associated right heart strain. 2. Small right, trace left-sided pleural effusion. 3. Multifocal areas of patchy consolidative opacities superimposed with subpleural groundglass opacities.Differential diagnoses include atelectasis versus multifocal pneumonia and less likely to be pulmonary infarct. 4. Shotty mediastinal and hilar lymph nodes, likely reactive in nature. MACRO: Notification of the critical finding of acute pulmonary embolism was initiated at 12:40 PM EDT on 02/13/2023.Naomi Villa successfully contacted SEN JOHNS at 12:40 PM EDT on 02/13/2023, via telephone, who a cknowledged the critical finding with read back verification. (-CF-) Assessment and Plan Patient is a 62 year old year old male who presents with an incidental SMA dissection on imaging. Patient seems to be completely asymptomatic with pain stemming from PE as well as fall. Patient is also on plavix and therapeutic lovenox - adequate for medical management of this finding. - No acute surgical intervention indicated at this time - Medical management with plavix and therapeutic lovenox - Repeat CTA of abdomen in 1 month - Vascular surgery will sign off, please reach out again for any concerns or if there is an acute change in abdominal exam Patient discussed with chief resident Dr. Agustin and attending Dr. Susan Lance MD, PGY1 Vascular Surgery Pager [phone] 5:36 PM Vascular Surgery Attending Note Patient seen and examined. CTA reviewed. Thrombosed SMA dissection noted on the imaging. I have no additional recommendations to make. Follow clinically, plan to see outpatient in clinic after 1 month CTA Agree with plan as outlined Teaching Physician Note: I saw and evaluated the patient. I personally obtained the stevens and critical portions of the historyand physical exam. I reviewed the resident's documentation and discussed the patient with the resident. I agree with the resident's medical decision making as documented in the resident's note. Electronically signed by: Bisi Davis MD, FACS, [facility] Vascular Surgery PAGER: [phone] 02/14/23 7:51 AM documented in this [id number] Consult note* Bisi Davis MD - 02/13/2023 5:35 PM EDTAssociated Order(s): IP SURGERY VASCULAR CONSULT Images from the original note were not included. 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 Patient was in usual state of health until he had a bout of nausea and nonbloody nonbilious vomiting last week Monday. This episode resolved, and on Monday morning patient had an unrelated maren his R leaving him with R sided chest and abdominal pain. The pain continued to worsen until Monday where he also began having generalized abdominal pain as well. At this time he was having no other symptoms of nausea/vomiting, still moving his bowels normally with no melena/hematochezia. He presented to [facility] where imaging was concerning for renal hematoma and was transferred here. Repeat imaging revealed no renal hematoma but did show bilateral PE as well as the SMA dissection for which the consult was placed. Patient denies history of hematemesis, melena, hematochezia, or abdominal pain with eating. He states that he is currently in no pain at rest. Past Medical History Per HPI Past Surgical History LAD stent placement 08/2022 Carotid procedure the details of which the patient was unclear on Current Medications Current Facility-Administered Medications Medication Dose Route Frequency Last Rate Last Admin enoxaparin (LOVENOX) 100 MG/ML injection 90 mg 1 mg/kg Subcutaneous 2x Daily 90 mg at 02/13/23 1333 cefTRIAXone (ROCEPHIN) 1,000 mg in dextrose 50 mL ivpb 1,000 mg Intravenous Q24H Antibiotic 1,000 mg at 02/13/23 1425 And azithromycin (ZITHROMAX) 500 mg in NS 250 mL ivpb 500 mg Intravenous Q24H Antibiotic 250 mL/hr at 02/13/23 1427 500 mg at 02/13/23 1427 simethicone (GAS-X) 80 MG chewable tablet 80 mg Oral Q6H PRN 80 mg at 02/12/23 1508 ondansetron (ZOFRAN) 4 MG/2ML injection 4 mg Intravenous Push Q4H PRN 4 mg at 02/12/23 1508 nicotine (NICODERM CQ) 21 mg/24HR patch 21 mg Transdermal Daily 21 mg at 02/13/23 0928 oxyCODONE immediate release tablet 5 mg Oral Q4H PRN oxyCODONE immediate release tablet 10 mg Oral Q4H PRN 10 mg at 02/13/23 1334 HYDROmorphone HCl PF (DILAUDID) 1 MG/ML injection 1 mg Intravenous Push Q3H PRN 1 mg at 02/12/23 1437 acetaminophen (TYLENOL) tablet 1,000 mg Oral 3x Daily 1,000 mg at 02/13/23 1334 lidocaine (LIDODERM) 5 % patch 1 Patch Transdermal Every 24 hours 1 Patch at 02/13/23 1335 gabapentin (NEURONTIN) capsule 300 mg Oral 2x Daily 300 mg at 02/13/23 0929 isosorbide mononitrate (IMDUR) 24 hour CR tablet 30 mg Oral Daily 30 mg at 02/13/23 1335 metoprolol (TOPROL-XL) 24 hour tablet 25 mg Oral Daily 25 mg at 02/13/23 0928 esomeprazole (NEXIUM) capsule 40 mg Oral 2x Daily 30 min AC 40 mg at 02/13/23 0928 ranolazine (RANEXA) 500 MG 12 hour tablet 500 mg Oral 2x Daily 500 mg at 02/13/23 1335 cyclobenzaprine (FLEXERIL) tablet 10 mg Oral 3x Daily PRN 10 mg at 02/13/23 0933 atorvastatin (LIPITOR) tablet 80 mg Oral Daily 80 mg at 02/13/23 0928 Allergies Allergies Allergen Reactions Bee Venom Swelling Pregabalin Other reaction(s): Tongue swelling Zonisamide Other reaction(s): Tongue swelling Family History No family history on file. Social History Social History Socioeconomic History Marital status: Tobacco Use Smoking status: Every Day Packs/day: 0.50 Years: 40.00 Pack years: 20.00 Types: Cigarettes Smokeless tobacco: Never Vaping Use Vaping Use: Never used Review Of Systems Constitutional: Negative Eyes: Negative Ears/ Nose/ Mouth/ Throat: Negative Respiratory: Per HPI Cardiovascular: Negative Gastrointestinal: Per HPI Genitourinary: Negative Musculoskeletal: Negative Neurologic: Negative Psychiatric: Negative Integumentary (skin/breast): Negative Endocrine: Negative Rheumatologic: Negative Allergic/ Immunologic: Negative Significant positives: Physical Exam Vitals Recorded in This Encounter 02/13/2023 1000 02/13/2023 1028 02/13/2023 1334 02/13/2023 1400 02/13/2023 1433 BP: 126/62 -- -- 118/78 -- Pulse: 72 -- -- 56 -- Resp: 19 -- -- 17 -- Temp: 97.9 F (36.6 C) -- -- 98.2 F (36.8 C) -- Temp src: Oral -- -- Oral -- SpO2: 97 % -- -- 97 % -- Pain Score: -- 6 8 -- 6 Gen: NAD HEENT: EOMI, PERRLA Pulm: Breathing comfortably, equal chest rise CV: No chest pain Abd: Soft, mildly distended, some tenderness to palpation on the R posterior thoracoabdomen Ext: RLE- Femoral- Palpable, DP-palpable, PT- palpable, motor and sensory intact, no ulcer/wounds LLE- Femoral- Palpable, DP-palpable, PT- palpable, motor and sensory intact, no ulcer/wounds Skin: warm and dry, see ext exam Neuro: AAOx3 Psych: Normal mood and affect Labs CBC/PT/INR WBC RBC Hgb Hct MCV RDW Plt PT aPTT INR 02/13/23 0232 13.6 4.52 13.1 39.0 86 13.6 239 02/12/23 1821 12.5 4.51 12.9 38.6 86 13.4 233 WBC/Diff None Basic Metabolic Panel Na K Cl CO2 Gap Glu BUN Cr Ca Mg PO4 02/13/23 0232 135 4.0 104 24 11 164 16 0.83 8.4 02/12/23 1519 134 5.8 Comment: Hemolysis present 104 21 15 139 15 0.91 8.3 Hepatic/Biliary/Pancreas T Prot Albumin D Bili T Bili Alk Phos ALT AST Amylase Lipase 02/12/23 1519 6.2 3.9 0.10 0.9 117 21 36 Comment: Hemolysis present Imaging CT ABDOMEN/PELVIS W/ CONTRAST Result Date: 02/13/2023 IMPRESSION: 1. 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 This is better evaluated on the axial imaging. 2. No CT evidence of abdominal aortic aneurysm or dissection. 3. Wispy stranding along the superolateral aspect of the right kidney and posterior inferior aspect of the left kidney. These are probably related to perinephric stranding, probably represents chronic medical renal disease. Superimposed acute infectious/inflammatory process isdifficult to evaluate in this study. If indicated, this can be further evaluated with lab values and urine analysis. 4. Mild left hemicolonic diverticula. Nonobstructive right nephrolithiasis. MACRO: None CTA CHEST PULMONARY EMBOLISM W/ CTA Result Date: 02/13/2023 IMPRESSION: 1. Acute subocclusive pulmonary emboli in the bilateral lower lobe segmental pulmonary arteries. No associated right heart strain. 2. Small right, trace left-sided pleural effusion. 3. Multifocal areas of patchy consolidative opacities superimposed with subpleural groundglass opacities.Differential diagnoses include atelectasis versus multifocal pneumonia and less likely to be pulmonary infarct. 4. Shotty mediastinal and hilar lymph nodes, likely reactive in nature. MACRO: Notification of the critical finding of acute pulmonary embolism was initiated at 12:40 PM EDT on 02/13/2023.Naomi Villa successfully contacted SEN JOHNS at 12:40 PM EDT on 02/13/2023, via telephone, who a cknowledged the critical finding with read back verification. (-CF-) Assessment and Plan Patient is a 62 year old year old male who presents with an incidental SMA dissection on imaging. Patient seems to be completely asymptomatic with pain stemming from PE as well as fall. Patient is also on plavix and therapeutic lovenox - adequate for medical management of this finding. - No acute surgical intervention indicated at this time - Medical management with plavix and therapeutic lovenox - Repeat CTA of abdomen in 1 month - Vascular surgery will sign off, please reach out again for any concerns or if there is an acute change in abdominal exam Patient discussed with chief resident Dr. Agustin and attending Dr. Susan Lance MD, PGY1 Vascular Surgery Pager [phone] 5:36 PM Vascular Surgery Attending Note Patient seen and examined. CTA reviewed. Thrombosed SMA dissection noted on the imaging. I have no additional recommendations to make. Follow clinically, plan to see outpatient in clinic after 1 month CTA Agree with plan as outlined Teaching Physician Note: I saw and evaluated the patient. I personally obtained the stevens and critical portions of the historyand physical exam. I reviewed the resident's documentation and discussed the patient with the resident. I agree with the resident's medical decision making as documented in the resident's note. Electronically signed by: Bisi Davis MD, [facility], [facility] Vascular Surgery PAGER: [phone] 02/14/23 7:51 AM [facility] [employer] Work Phone: [phone]) 951-446907-31-2023 Plan of care note* Care Plan Note - Key Hood RN - 02/13/2023 12:28 PM EDT Problem: Routine Care: Goal: Patient care will be managed and maintained throughout hospital stay per unit specific routine care procedure Outcome: Progressing Problem: Safety: Goal: Patient will remain free of falls during hospital stay Outcome: Progressing Goal: Free from injury during hospitalization Outcome: Progressing Problem: Acute Pain: Goal: Ability to identify pain intensity on a pain scale and rate it consistently will be achieved and maintained Outcome: Progressing Goal: Understanding of proper administration and use of medicines will be achieved Outcome: Progressing Goal: Acceptable level of pain which allows the patient to achieve functional outcome goals Outcome: Progressing Problem: VTE Prophylaxis: Goal: Will be free of DVT Outcome: Progressing Problem: Discharge Planning: Goal: Discharge needs of the adult patient will be met Outcome: Progressing [id number] Plan of care note* Care Plan Note - Rajan Macdonald RN - 02/12/2023 6:03 PM EDT Problem: Routine Care: Goal: Patient care will be managed and maintained throughout hospital stay per unit specific routine care procedure Outcome: Progressing Problem: Safety: Goal: Patient will remain free of falls during hospital stay Outcome: Progressing Goal: Free from injury during hospitalization Outcome: Progressing Problem: Acute Pain: Goal: Ability to identify pain intensity on a pain scale and rate it consistently will be achieved and maintained Outcome: Progressing Goal: Understanding of proper administration and use of medicines will be achieved Outcome: Progressing Goal: Acceptable level of pain which allows the patient to achieve functional outcome goals Outcome: Progressing Problem: VTE Prophylaxis: Goal: Will be free of DVT Outcome: Progressing Problem: Discharge Planning: Goal: Discharge needs of the adult patient will be met Outcome: Progressing [id number] History and physical note* Smita Orta, [facility] - 02/12/2023 1:49 PM EDT History and Physical Chief Complaint: right sided abdominal pain History of Present Illness: 62 year old male with past medical history of tobacco use, CAD s/p OR and Stent placement in LAD 08/2022, frequent admissions for chronic chest pain on ranexa, GERD. HLD, HTN, and CVD with HX multiplestrokes with no residual. Transferred from [facility] for further evaluation of right sided abdominal pain, CT ABD/PEL showing 1 cm band decreased attenuation posterior upper pole right kidney concerning for right upper pole perirenal hematoma. Transferred to [facility] since IR not available at [facility]. They did not send imaging with patient. At the time of evaluation patient in right sided abdominal pain and right flank pain which started 7/29 AM, IV morphine was not helpful for this pain, denies any recent infections, trauma or procedures, infectious work up at OSH was negative, creatinine WNL at 0.9 No past medical history on file. No past surgical history on file. No current facility-administered medications on file prior to encounter. Current Outpatient Medications on File Prior to Encounter Medication Sig Dispense Refill aspirin EC 81 MG tablet Take 81 mg by mouth daily. atorvastatin (LIPITOR) 80 mg tablet Take 80 mg by mouth daily. clopidogrel (PLAVIX) 75 MG tablet Take 75 mg by mouth daily. isosorbide mononitrate (IMDUR) 30 MG CR tablet Take 30 mg by mouth daily. pantoprazole (PROTONIX) 40 MG tablet Take 40 mg by mouth 2 times daily. Metoprolol Succinate 25 MG CS24 Take by mouth daily. ranolazine (Ranexa) 500 MG 12 hour tablet Take 500 mg by mouth 2 times daily. cyclobenzaprine (FLEXERIL) 10 MG tablet Take 10 mg by mouth 3 times daily as needed for Muscle spasms. gabapentin (NEURONTIN) 300 MG capsule Take 300 mg by mouth 3 times daily. Allergies: Bee venom, Pregabalin, and Zonisamide Family History:No family history on file. Social History: reports that he has been smoking cigarettes. He has a 20.00 pack-year smoking history. He has never used smokeless tobacco. 12 systems reviewed, negative unless stated otherwise on HPI PHYSICAL EXAMINATION: Most recent vital signs: Blood pressure 151/87, pulse 86, temperature 98.6 F (37 C), temperature source Oral, resp. rate 18,height 5' 5 (1.651 m), weight 203 lb (92.1 kg), SpO2 97 %. Physical Exam Constitutional: Appearance: He is obese. HENT: Mouth/Throat: Mouth: Mucous membranes are moist. Eyes: Pupils: Pupils are equal, round, and reactive to light. Cardiovascular: Rate and Rhythm: Normal rate and regular rhythm. Pulses: Normal pulses. Pulmonary: Effort: Pulmonary effort is normal. Breath sounds: Normal breath sounds. Abdominal: General: Bowel sounds are normal. Comments: Large round abdomen, + BS RUQ/RLQ abdominal pain Right flank pain Musculoskeletal: General: Normal range of motion. Cervical back: Normal range of motion. Comments: Trace edema BLE Skin: General: Skin is warm. Capillary Refill: Capillary refill takes less than 2 seconds. Neurological: General: No focal deficit present. Mental Status: He is alert and oriented to person, place, and time. Psychiatric: Mood and Affect: Mood normal. Laboratory Values and Test Results: Awaiting labs to be collected Additional Studies (Personally reviewed) Assessment/Plan: 62 year old male with past medical history of tobacco use, CAD s/p OR and Stent placement in LAD 08/2022, frequent admissions for chronic chest pain on ranexa, GERD. HLD, HTN, and CVD with HX multiplestrokes with no residual. Transferred from [facility] for further evaluation of right sided abdominal pain, CT ABD/PEL showing 1 cm band decreased attenuation posterior upper pole right kidney concerning for right upper pole perirenal hematoma. Right posterior upper pole perirenal hematoma No trauma, no recent procedures H&H so far stable at OSH [facility] did not send imaging - will reach out - cbc q12h - check bmp - check ekg - asking for zofran - repeat CT abd/pel tomorrow to assess for stability and call urology for additional guidance - if cbc remains stable - restart asa and plavix in the morning given recent cardiac stent and highstroke risk. - prn pain control - npo after midnight pending repeat CT scan - monitor CAD s/p OR and LAD stenting, chronic chest pain, HTN, HLD Also has retained loop recorder - continue imdur - continue metoprolol - statin - restart asa and plavix tomorrow if cbc remains stable - check ekg - continue ranexa - monitor HX Multiple previous CVA Previous MRI redemonstrates evidence of remote ischemia in a watershed/borderzone distribution MCA JARRETT on the right and a small amount in the left frontal lobe cortically. No residual deficits - statin - asa and plavix tomorrow GERD - PPI Tobacco use 1 PPD x 40+ years - agreeable to nicotine patch DVT proph - SCDs given concern of hematoma Advance Directive/Code Status: full code Dispo To home when medically cleared JOHN Treviño [phone] [id number] History and physical note* Smita Orta APRN-CNP - 02/12/2023 1:49 PM EDT History and Physical Chief Complaint: right sided abdominal pain History of Present Illness: 62 year old male with past medical history of tobacco use, CAD s/p OR and Stent placement in LAD 08/2022, frequent admissions for chronic chest pain on ranexa, GERD. HLD, HTN, and CVD with HX multiplestrokes with no residual. Transferred from [facility] for further evaluation of right sided abdominal pain, CT ABD/PEL showing 1 cm band decreased attenuation posterior upper pole right kidney concerning for right upper pole perirenal hematoma. Transferred to [facility] since IR not available at [facility]. They did not send imaging with patient. At the time of evaluation patient in right sided abdominal pain and right flank pain which started 7/29 AM, IV morphine was not helpful for this pain, denies any recent infections, trauma or procedures, infectious work up at OSH was negative, creatinine WNL at 0.9 No past medical history on file. No past surgical history on file. No current facility-administered medications on file prior to encounter. Current Outpatient Medications on File Prior to Encounter Medication Sig Dispense Refill aspirin EC 81 MG tablet Take 81 mg by mouth daily. atorvastatin (LIPITOR) 80 mg tablet Take 80 mg by mouth daily. clopidogrel (PLAVIX) 75 MG tablet Take 75 mg by mouth daily. isosorbide mononitrate (IMDUR) 30 MG CR tablet Take 30 mg by mouth daily. pantoprazole (PROTONIX) 40 MG tablet Take 40 mg by mouth 2 times daily. Metoprolol Succinate 25 MG CS24 Take by mouth daily. ranolazine (Ranexa) 500 MG 12 hour tablet Take 500 mg by mouth 2 times daily. cyclobenzaprine (FLEXERIL) 10 MG tablet Take 10 mg by mouth 3 times daily as needed for Muscle spasms. gabapentin (NEURONTIN) 300 MG capsule Take 300 mg by mouth 3 times daily. Allergies: Bee venom, Pregabalin, and Zonisamide Family History:No family history on file. Social History: reports that he has been smoking cigarettes. He has a 20.00 pack-year smoking history. He has never used smokeless tobacco. 12 systems reviewed, negative unless stated otherwise on HPI PHYSICAL EXAMINATION: Most recent vital signs: Blood pressure 151/87, pulse 86, temperature 98.6 F (37 C), temperature source Oral, resp. rate 18,height 5' 5 (1.651 m), weight 203 lb (92.1 kg), SpO2 97 %. Physical Exam Constitutional: Appearance: He is obese. HENT: Mouth/Throat: Mouth: Mucous membranes are moist. Eyes: Pupils: Pupils are equal, round, and reactive to light. Cardiovascular: Rate and Rhythm: Normal rate and regular rhythm. Pulses: Normal pulses. Pulmonary: Effort: Pulmonary effort is normal. Breath sounds: Normal breath sounds. Abdominal: General: Bowel sounds are normal. Comments: Large round abdomen, + BS RUQ/RLQ abdominal pain Right flank pain Musculoskeletal: General: Normal range of motion. Cervical back: Normal range of motion. Comments: Trace edema BLE Skin: General: Skin is warm. Capillary Refill: Capillary refill takes less than 2 seconds. Neurological: General: No focal deficit present. Mental Status: He is alert and oriented to person, place, and time. Psychiatric: Mood and Affect: Mood normal. Laboratory Values and Test Results: Awaiting labs to be collected Additional Studies (Personally reviewed) Assessment/Plan: 62 year old male with past medical history of tobacco use, CAD s/p OR and Stent placement in LAD 08/2022, frequent admissions for chronic chest pain on ranexa, GERD. HLD, HTN, and CVD with HX multiplestrokes with no residual. Transferred from [facility] for further evaluation of right sided abdominal pain, CT ABD/PEL showing 1 cm band decreased attenuation posterior upper pole right kidney concerning for right upper pole perirenal hematoma. Right posterior upper pole perirenal hematoma No trauma, no recent procedures H&H so far stable at OSH [facility] did not send imaging - will reach out - cbc q12h - check bmp - check ekg - asking for zofran - repeat CT abd/pel tomorrow to assess for stability and call urology for additional guidance - if cbc remains stable - restart asa and plavix in the morning given recent cardiac stent and highstroke risk. - prn pain control - npo after midnight pending repeat CT scan - monitor CAD s/p OR and LAD stenting, chronic chest pain, HTN, HLD Also has retained loop recorder - continue imdur - continue metoprolol - statin - restart asa and plavix tomorrow if cbc remains stable - check ekg - continue ranexa - monitor HX Multiple previous CVA Previous MRI redemonstrates evidence of remote ischemia in a watershed/borderzone distribution MCA JARRETT on the right and a small amount in the left frontal lobe cortically. No residual deficits - statin - asa and plavix tomorrow GERD - PPI Tobacco use 1 PPD x 40+ years - agreeable to nicotine patch DVT proph - SCDs given concern of hematoma Advance Directive/Code Status: full code Dispo To home when medically cleared JOHN Treviño [phone] documented in this [id number] Note* AdmissionCare - Smita Orta APRN-CNP - 02/12/2023 11:56 AM EDT AdmissionCare Guideline: General Observation, Observation Based on the indications selected for the patient, the bed status of Admit to Observation was determined to be MET The following indications were selected as present at the time of evaluation of the patient: - Clinical care (eg, testing, monitoring, or treatment) needed beyond the usual emergency department time frame (eg, 3 to 4 hours) - Clinical care needed is not appropriate for a lower level of care (ie, discharge to outpatient setting not appropriate). Patient has clinical condition for which observation care is needed, as indicated by 1 or more of the following: - - Urologic condition or finding (eg, obstruction, urinary retention, difficulty urinating, suspected acute kidney injury, priapism, hematuria, prostatitis, scrotal, testicular, or epididymal pain or disorder) Other condition or finding (eg, laboratory test, imaging study, sign, symptom) that suggests a needfor continued care, as indicated by 1 or more of the following: - - Acute need to establish diagnosis (eg, repeat or continued testing or clinical assessments are needed) AdmissionCare documentation entered by: Smita Orta [facility], 27th edition, Copyright 2022 [employer] [facility] [facility] All Rights Reserved. [id number]:56:30-04:00 [id number] Telephone encounter Note* Telephone Encounter - Miguel Morales DO - 02/11/2023 6:16 PM EDT Images from the original note were not included. I was called by [facility] regarding a transfer from [facility]. That facility isrequesting transfer for ongoing moitoring of Hgb and possible need for IR intervention (not available at OSH). The clinical history is 62 year old with PMH CAD (on ASA/Plavix) with R sided flank pain found to have perinephric hematoma. No trauma or injury. The pertinent labs, vitals signs and imaging are notable for. Afebrile, HDS in ED with BP: 155/87 HR: 87 RR 18; 96% BMP: no electrolyte abnormalities. No JAMAR (Cr of 0.9) Hgb 14.4; CT with perinephric hematoma ~1 cm in diameter located in upper pole of kidney. The patient was accepted for transfer pending bed availability with the caveat that patient will continue in clinical stability. The patient was accepted 6:16 PM 02/11/23. The receiving team is responsible for calling the sending facility for provider to provider report if there has been significant delay between the time the patient was accepted and the time the bed was assigned. If there is concern for clinical stability by the receiving team they will call the PIC(physician in charge) to discuss the case. Miguel Morales DO [facility] Pager#: [phone] [id number] Miscellaneous Notes* Telephone Encounter - Miguel Morales DO - 02/11/2023 6:16 PM EDT Images from the original note were not included. I was called by [facility] regarding a transfer from [facility]. That facility isrequesting transfer for ongoing moitoring of Hgb and possible need for IR intervention (not available at OSH). The clinical history is 62 year old with PMH CAD (on ASA/Plavix) with R sided flank pain found to have perinephric hematoma. No trauma or injury. The pertinent labs, vitals signs and imaging are notable for. Afebrile, HDS in ED with BP: 155/87 HR: 87 RR 18; 96% BMP: no electrolyte abnormalities. No JAMAR (Cr of 0.9) Hgb 14.4; CT with perinephric hematoma ~1 cm in diameter located in upper pole of kidney. The patient was accepted for transfer pending bed availability with the caveat that patient will continue in clinical stability. The patient was accepted 6:16 PM 02/11/23. The receiving team is responsible for calling the sending facility for provider to provider report if there has been significant delay between the time the patient was accepted and the time the bed was assigned. If there is concern for clinical stability by the receiving team they will call the PIC(physician in charge) to discuss the case. Miguel Morales DO [facility] Pager#: [phone] documented in this [id number] Evaluation + Plan note Extracted from: Title:ED Note Author:Elmer CAMPBELL, Andi Sloan Sinan e:02/11/23 Hematoma of kidney, right, c losed (S37.011A: Minor contusion of right kidney, initial encounter) Orders: ketorolac, 30 mg = 1 mL, Injection, IV Push, Once, Stop date 02/11/23 14:15:00 EDT, STAT, Start date 02/11/23 14:15:00 EDT, 02/11/23 14:15:00 EDT morphine, 4 mg = 2 mL, Injection, IV Push, Once, Stop date 02/11/23 14:15:00 EDT, STAT, Start date 02/11/23 14:15:00 EDT, 02/11/23 14:15:00 EDT ondansetron, 4 mg = 2 mL, Injection, IV Push, Once, Stop date 02/11/23 14:15:00 EDT, STAT, Start date 02/11/23 14:15:00 EDT, 02/11/23 14:15:00 EDT Sodium Chloride 0.9% intravenous solution 1,000 mL, 1,000 mL, IV, 20 mL/hr, STAT, Start date 02/11/23 14:15:00 EDT, 50 hour(s), Total volume (mL): 1,000, 92.1 kg, 2.05, m2 Automated Diff Basic Metabolic Panel CBC w/ Auto Diff CT Abdomen/Pelvis w/o Contrast eGFR Hepatic Function Panel Lipase Level UA With Cult Reflex Addendum by Derian Rider DO on February 11, 2023 19:18:48 EDT Case discussed with Dr. Ramos at [facility]. He is excepted to [facility] [place] for further care. Patient updated. As needed morphine and nicotine patch ordered. Care was signed out to Dr. Espinoza awaiting bed assignment and physical transfer to [facility]. Derian Rider DO, BERTO Addendum by Lesa Espinoza DO on February 12, 2023 05:52:37 EDT Patient signed out pending transfer to [facility] [place]. Patient required several doses of pain medications throughout the night otherwise remained hemodynamically stable. Repeat hemoglobin was stable. Patient signed out to Dr. Christain pending transfer. Addendum by Gino Sanchez, As vic Steve on February 12, 2023 12:02:42 EDT The care of the patient was transitioned to az upon shift change awaiting bed placement at [facility]. His hemoglobin has been stable during the night. We contacted [facility] transfer center and the patient has bed. He is transferred to [facility] via [facility] at stable condition. [facility]06-06-2023 Hospital Discharge instructions Patient Education 12/20/2022 09:14:35 Tobacco Use Disorder Tobacco Use Disorder Tobacco use disorder (TUD) occurs when a person craves, seeks, and uses tobacco, regardless of the consequences. This disorder can cause problems with mental and physical health. It can affect your ability to have healthy relationships. It can also keep you from meeting your responsibilities at work, home, or school. Tobacco products contain a dangerous chemical called nicotine. Nicotine triggers hormones that makethe body feel stimulated and works on areas of the brain that make a person feel good. These effects can make the person depend on nicotine, which makes it hard to quit tobacco. Tobacco may be: Smoked as a cigarette or cigar. Inhaled using vaping devices, such as e-cigarettes. Smoked in a pipe or hookah. Chewed as smokeless tobacco. Inhaled into the nostrils as snuff. What are the causes? This condition is caused by using nicotine. Nicotine causes changes in your brain that make you want more and more. This is called addiction. This can make it hard to stop using tobacco once you start. What are the signs or symptoms? Symptoms of TUD may include: Being unable to stop your tobacco use even after planned quit attempts. Spending an abnormal amount of time getting or using tobacco. Craving tobacco. Tobacco use that: ?Interferes with your work, school, or home life. ?Interferes with your personal and social relationships. ?Makes you give up activities that you once enjoyed or found important. Using tobacco even though you know that it is: ?Dangerous or bad for your health or someone else's health. ?Causing problems in your life. Needing more and more of the substance to get the same effect (developing tolerance). Using the substance to avoid unpleasant symptoms if you do not use the substance (withdrawal). How is this diagnosed? This condition may be diagnosed based on: Your current and past tobacco use. Your health care provider may ask questions about how your tobacco use affects your life. A physical exam. You may be diagnosed with TUD if you have at least two symptoms within a 12- month period. How is this treated? This condition is treated by stopping tobacco use. Many people are unable to quit on their own and need help. Treatment may include: Nicotine replacement therapy (NRT). NRT provides nicotine without the other harmful chemicals in tobacco. NRT gradually lowers the dosage of nicotine in the body and reduces withdrawal symptoms. NRT is available as: ?Ntqh-snx-jvbycwh gums, lozenges, and skin patches. ?Prescription mouth inhalers and nasal sprays. Medicine that acts on the brain to reduce cravings and withdrawal symptoms. A type of talk therapy that examines your triggers for tobacco use, how to avoid them, and how to cope with cravings (behavioral therapy). Hypnosis. This may help with withdrawal symptoms. Joining a support group for people coping with TUD. The best treatment for TUD is usually a combination of medicine, talk therapy, and support groups. Recovery can be a long process. Many people start using tobacco again after stopping (relapse). If you relapse, it does not mean that treatment will not work. Follow these instructions at home: Lifestyle Do not use any products that contain nicotine or tobacco. These products include cigarettes, chewing tobacco, and vaping devices, such as e-cigarettes. If you need help quitting, ask your health careprovider. Avoid things that trigger tobacco use as much as you can. Triggers include people and situations that usually cause you to use tobacco. Avoid drinks that contain caffeine, including coffee. These may worsen some withdrawal symptoms. Find ways to manage stress. Wanting to smoke may cause stress, and stress can make you want to smoke. Relaxation techniques such as deep breathing, meditation, and yoga may help. Attend support groups as needed. These groups are an important part of long-term recovery for many people. General instructions Take psgq-dhl-wmehyea and prescription medicines only as told by your health care provider. Check with your health care provider before taking any new prescription or vasa-ywf-uhpxcon medicines. Decide on a friend, family member, or smoking quit-line (such as 6-959-ZRUT-NOW in the [place] that you can call or text when you feel the urge to smoke or when you need help coping with cravings. Keep all follow-up visits. This is important. Contact a health care provider if: You are not able to take your medicines as told by your health care provider. Your symptoms get worse, even with treatment. Summary Tobacco use disorder (TUD) occurs when a person craves, seeks, and uses tobacco regardless of the consequences. This condition may be diagnosed based on your current and past tobacco use and a physical exam. Many people are unable to quit on their own and need help. Recovery can be a long process. The most effective treatment for TUD is usually a combination of medicine, talk therapy, and support groups. This information is not intended to replace advice given to you by your health care provider. Make sure you discuss any questions you have with your health care provider. Document Revised: 06/28/2022 Document Reviewed: 06/28/2022 [employer] Patient Education 2022 [employer]. 12/20/2022 09:14:29 Cardiac Rehabilitation Cardiac Rehabilitation What is cardiac rehabilitation? Cardiac rehabilitation is a treatment program that helps improve the health and well-being of people who have heart problems. Cardiac rehabilitation includes exercise training, education, and counseling to help you get stronger and return to an active lifestyle. This program can help you get betterfaster and reduce any future hospital stays. Why might I need cardiac rehabilitation? Cardiac rehabilitation programs can help when you have or have had: A heart attack. Heart failure. Peripheral artery disease. Coronary artery disease. Angina. Lung or breathing problems. Cardiac rehabilitation programs are also used when you have had: Coronary artery bypass graft surgery. Heart valve replacement. Heart stent placement. Heart transplant. Aneurysm repair. What are the benefits of cardiac rehabilitation? Cardiac rehabilitation can help you: Reduce problems like chest pain and trouble breathing. Change risk factors that contribute to heart disease, such as: ?Smoking. ?High blood pressure. ?High cholesterol. ?Diabetes. ?Being inactive. ?Weighing over 30% more than your ideal weight. ?Diet. Improve your emotional outlook so you feel: ?More hopeful. ?Better about yourself. ?More confident about taking care of yourself. Get support from health experts as well as other people with similar problems. Learn healthy ways to manage stress. Learn how to manage and understand your medicines. Teach your family about your condition and how to participate in your recovery. What happens in cardiac rehabilitation? You will be assessed by a cardiac rehabilitation team. They will check your health history and do aphysical exam. You may need blood tests, exercise stress tests, and other evaluations to make sure that you are ready to start cardiac rehabilitation. The cardiac rehabilitation team works with you to make a plan based on your health and goals. Your program will be tailored to fit you and your needs and may change as you progress. You may work witha health care team that includes: Doctors. Nurses. Dietitians. Psychologists. Exercise specialists. Physical and occupational therapists. What are the phases of cardiac rehabilitation? A cardiac rehabilitation program is often divided into phases. You advance from one phase to the next. Phase 1 This phase starts while you are still in the hospital. You may: Start by walking in your room and then in the [place]. Do some simple exercises with a therapist. Phase 2 This phase begins when you go home or to another facility. You will travel to a cardiac rehabilitation center or another place where rehabilitation is offered. This phase may last 8 12 weeks. During this phase: You will slowly increase your activity level while being closely watched by a nurse or therapist. You will have medical tests and exams to monitor your progress. Your exercises may include strength or resistance training along with activities that cause your heart to beat faster (aerobic exercises), such as walking on a treadmill. Your condition will determine how often and how long these sessions last. You may learn how to: ?Cook heart-healthy meals. ?Control your blood sugar, if this applies. ?Stop smoking. ?Manage your medicines. You may need help with scheduling or planning how and when to take your medicines. If you have questions about your medicines, it is very important that you talk with your health care provider. Phase 3 This phase continues for the rest of your life. In this phase: There will be less supervision. You may continue to participate in cardiac rehabilitation activities or become part of a group in your community. You may benefit from talking about your experience with other people who are facing similar challenges. Follow these instructions at home: Take rzdj-mxz-kkfoucs and prescription medicines only as told by your health care provider. Keep all follow-up visits as told by your health care provider. This is important. Get help right away if: You have severe chest discomfort, especially if the pain is crushing or pressure-like and spreads to your arms, back, neck, or jaw. Do not wait to see if the pain will go away. You have weakness or numbness in your face, arms, or legs, especially on one side of the body. Your speech is slurred. You are confused. You have a sudden, severe headache or loss of vision. You have shortness of breath. You are sweating and have nausea. You feel dizzy or faint. You are fatigued. These symptoms may represent a serious problem that is an emergency. Do not wait to see if the symptoms will go away. Get medical help right away. Call your local emergency services (911 in the [place] Do not drive yourself to the hospital. Summary Cardiac rehabilitation is a treatment program that helps improve the health and well-being of people who have heart problems. A cardiac rehabilitation program is often divided into phases. You advance from one phase to the next. The cardiac rehabilitation team works with you to make a plan based on your health and goals. Cardiac rehabilitation includes exercise training, education, and counseling to help you get stronger and return to an active lifestyle. This information is not intended to replace advice given to you by your health care provider. Make sure you discuss any questions you have with your health care provider. Document Revised: 11/02/2021 Document Reviewed: 11/02/2021 [employer] Patient Education 2022 [employer]. Follow Up Care 11/15/2022 10:13:28 With:Omid REBOLLEDO, Marc Fowler Address: [address] [place], [place] [address] [address]- When:6 weeks [facility]05-09-2023 Hospital Discharge instructions Patient Education 11/22/2022 21:56:52 Radial Site Care Radial Site Care The following information offers guidance on how to care for yourself after your procedure. Your health care provider may also give you more specific instructions. If you have problems or questions, contact your health care provider. What can I expect after the procedure? After the procedure, it is common to have bruising and tenderness in the incision area. Follow these instructions at home: Incision site care Follow instructions from your health care provider about how to take care of your incision site. Make sure you: ?Wash your hands with soap and water for at least 20 seconds before and after you change your bandage (dressing). If soap and water are not available, use hand cell installer. ?Change or remove your dressing as told by your health care provider. ?Leave stitches (sutures), skin glue, or adhesive strips in place. These skin closures may need to stay in place for 2 weeks or longer. If adhesive strip edges start to loosen and curl up, you may trim the loose edges. Do not remove adhesive strips completely unless your health care provider tells you to do that. Do not take baths, swim, or use a hot tub until your health care provider approves. You may shower 24 48 hours after the procedure or as told by your health care provider. ?Remove the dressing and gently wash the incision area with plain soap and water. ?Pat the area dry with a clean towel. ?Do not rub the site. That could cause bleeding. Do not apply powder or lotion to the site. Check your incision site every day for signs of infection. Check for: ?Redness, swelling, or pain. ?Fluid or blood. ?Warmth. ?Pus or a bad smell. Activity For 24 hours after the procedure, or as directed by your health care provider: ?Do not flex or bend the affected arm. ?Do not push or pull heavy objects with the affected arm. ?Do not operate machinery or power tools. ?Do not drive. You should not drive yourself home from the hospital or clinic if you go home duringthat time period. You may drive 24 hours after the procedure unless your health care provider tellsyou not to. Do not lift anything that is heavier than 10 lb (4.5 kg), or the limit that you are told, until your health care provider says that it is safe. Return to your normal activities as told by your health care provider. Ask your health care provider what activities are safe for you and when you can return to work. If you were given a sedative during the procedure, it can affect you for several hours. Do not drive or operate machinery until your health care provider says that it is safe. General instructions Take rbdo-tqp-voejnhc and prescription medicines only as told by your health care provider. If you will be going home right after the procedure, plan to have a responsible adult care for you for the time you are told. This is important. Keep all follow-up visits. This is important. Contact a health care provider if: You have a fever or chills. You have any of these signs of infection at your incision site: ?Redness, swelling, or pain. ?Fluid or blood. ?Warmth. ?Pus or a bad smell. Get help right away if: The incision area swells very fast. The incision area is bleeding, and the bleeding does not stop when you hold steady pressure on the area. Your arm or hand becomes pale, cool, tingly, or numb. These symptoms may represent a serious problem that is an emergency. Do not wait to see if the symptoms will go away. Get medical help right away. Call your local emergency services (911 in the [place] Do not drive yourself to the hospital. Summary After the procedure, it is common to have bruising and tenderness at the incision site. Follow instructions from your health care provider about how to take care of your radial site incision. Check the incision every day for signs of infection. Do not lift anything that is heavier than 10 lb (4.5 kg), or the limit that you are told, until your health care provider says that it is safe. Get help right away if the incision area swells very fast, you have bleeding at the incision site that will not stop, or your arm or hand becomes pale, cool, or numb. This information is not intended to replace advice given to you by your health care provider. Make sure you discuss any questions you have with your health care provider. Document Revised: 08/22/2021 Document Reviewed: 08/22/2021 [employer] Patient Education 2022 [employer]. 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, other extremity) Ordered: acetaminophen-oxycodone, 1 tab(s), Oral, q8hr as needed for pain, 8 tab(s), Refill(s) 0, [id number], 165, cm, 11/22/22 19:07:00 EDT, Height/Length Dosing, 89, kg, 11/22/22 19:07:00 EDT, Weight Dosing Orders: acetaminophen-oxycodone, 1 tab(s), Tab, Oral, Once, Stop date 11/22/22 21:43:00 EDT, STAT, Start date 11/22/22 21:43:00 EDT Future Appointments Appointment Date:12/08/2022 01:45:00 PM Scheduled Provider:Juanita SINGH MD Location:[facility] Appointment Type:[facility] Follow Up Appointment Date:12/20/2022 09:30:00 AM Scheduled Provider:Christine RANGEL CNP [facility] Type:Cardiology Follow Up (FT) [facility]05-05-2023 NoteChart reviewed, evaluation prepped. Pt. did not show for PT evaluation on 11/17/22.[facility] 11-16-2022 [id number]:127[facility]05-02-2023 Evaluation + Plan noteExtracted from: Title:Procedure Note Heart & Vascular Author:Jayesh summers MD, Marc Fowler Date:11/15/22 Ordered: fentanyl, 50 microgram = 1 mL, Injection, IV Push, q2min PRN Other (see comment) for 4 dose(s), Stop date Limited # of times, Routine, Start date 11/15/22 6:00:00 EDT, 11/15/22 6:00:00 EDT heparin, 5,000 unit(s) = 5 mL, Injection, IV Push, q2min PRN Other (see comment) for 4 dose(s), Stop date Limited # of times, Routine, Start date 11/15/22 6:00:00 EDT, 11/15/22 6:00:00 EDT heparin, 1,000 unit(s) = 500 mL, Soln-IV, Misc, Once PRN Other (see comment), Routine, Start date 11/15/22 6:00:00 EDT, 11/15/22 6:00:00 EDT heparin, 1,000 unit(s) = 500 mL, Soln-IV, Misc, Once PRN Other (see comment), Routine, Start date 11/15/22 6:00:00 EDT, 11/15/22 6:00:00 EDT heparin, 1,000 unit(s) = 500 mL, Soln-IV, Misc, Once PRN Other (see comment), Routine, Start date 11/15/22 6:00:00 EDT, 11/15/22 6:00:00 EDT iopamidol, = 50 mL, Injection, IV Push, q5min PRN Other (see comment) for 4 dose(s), Stop date Limited # of times, Routine, Start date 11/15/22 6:00:00 EDT iopamidol, = 200 mL, Injection, IV Push, q5min PRN Other (see comment) for 4 dose(s), Stop date Limited # of times, Routine, Start date 11/15/22 6:00:00 EDT, 11/15/22 6:00:00 EDT lidocaine, 100 mg, 10 mL, Injection, SubCutaneous, q5min PRN Other (see comment) for 3 dose(s), Stop date Limited # of times, Routine, Start date 11/15/22 6:00:00 EDT midazolam, 1 mg = 1 mL, Injection, IV Push, q2min PRN Other (see comment) for 4 dose(s), Stop date Limited # of times, Routine, Start date 11/15/22 6:00:00 EDT, 11/15/22 6:00:00 EDT niCARdipine 20 mg + Sodium Chloride 0.9% intravenous solution 200 mL, 200 mL, IV, titrate per protocol, Routine, Start date 11/15/22 6:00:00 EDT, Total volume (mL): 200, 89.1 kg, Use as directed for radial cocktail, 2.02, m2 nitroglycerin 50 mg [10 mcg/min] + Dextrose 5% in Water intravenous solution 250 mL, 250 mL, IV, 3 mL/hr, Routine, Start date 11/15/22 6:00:00 EDT, 83.3 hour(s), Total volume (mL): 250, 89.1 kg, 2.02, m2 Sodium Chloride 0.9% intravenous solution 1,000 mL, 1,000 mL, IV, 75 mL/hr, Routine, Start date 11/15/22 6:00:00 EDT, 13.3 hour(s), Total volume (mL): 1,000, 89.1 kg, 2.02, m2 verapamil, 2.5 mg = 1 mL, Soln-IV, IV Push, q2min PRN Other (see comment), Routine, Start date 11/15/22 6:00:00 EDT, as directed for radial cocktail Communication Order Communication Order Communication Order Communication Order Communication Order Communication Order Communication Order Communication Order Communication Order CV Coronary IVUS FFR Initial CV Coronary IVUS Initial NPO Diet Oxygen Protocol Patient Education Routine Capillary Glucose POC Saline Lock Insert Future Appointments Appointment Date:11/17/2022 01:30:00 PM Scheduled Provider: [facility] Type:PT Eval () Appointment Date:12/08/2022 01:45:00 PM Scheduled Provider:Juanita SINGH MD Location:[facility] Digestive Health Appointment Type:[facility] Follow Up Appointment Date:12/20/2022 09:30:00 AM Scheduled Provider:Christine RANGEL CNP [facility] Type:Cardiology Follow Up () [facility]05-02-2023 Hospital Discharge instructions Patient Education 11/15/2022 10:17:28 Cardiovascular Discharge Instructions - Revised 07/08/15 (CUSTOM) [place], [place] DISCHARGE INSTRUCTIONS Diet: Resume pre-procedure diet. Increase water intake the next 2 days to flush dye out of the body. Activity: Limit activity today. Do not operate a vehicle, machinery or power tools. NO LIFTING OVER 10 POUNDS (a gallon of milk weighs 8 pounds) for 3 days. Limit climbing stairs, bending, squatting and stooping for 3 days. May resume driving in 24 hours. Let pain/discomfort guide your activity. If you are having pain, stop. Medications: Resume pre-procedure medication, unless otherwise directed. *Minimal pain, soreness and/or discomfort is expected. *You may take OTC non-steroidal anti-inflammatory to manage discomfort, unless contraindicated. If pain is not controlled with the above medications, contact your physician. Wound Care: Do not remove dressing for 24 hours unless it becomes saturated, then replace. Keep site clean and dry; inspect site daily. May shower 24 hours after the procedure. Clean site with soap and water. Pat dry and apply band aid. No tub baths, swimming or hot tubs for 3 days. Notify Physician if excessive bleeding, signs/symptoms of infection (warmth at site, fever, redness) or excessive pain at site. Post Procedure: Soreness and tenderness to the site can last up to one week. Bruising may occur to groin. Keep follow-up appointment. No smoking for 24 hours as it increases the risk of developing blood clots. If you are interested in smoking cessation, contact [facility] at [phone], ext. [phone]. In the event you are unable to reach your physician, please call [facility] at [phone] and the boarding kennel or cattery operator will assist you. Discharging Nurse Physician Date/Time Patient or Responsible Republican Revised 02-21, 10-23, 07-29, 06-30 Follow Up Care 11/11/2022 13:34:12 With:Christine RANGEL Address: [address] [place] [phone] Business (1) When:12/20/2022 09:30:00 [facility]04-08-2023 Hospital Discharge instructions Patient Education 10/22/2022 03:00:45 Nonspecific Chest Pain, Adult Nonspecific Chest Pain, Adult Chest pain can be caused by many different conditions. It can be caused by a condition that is life-threatening and requires treatment right away. It can also be caused by something that is not life-threatening. If you have chest pain, it can be hard to know the difference, so it is important to get help right away to make sure that you do not have a serious condition. Some life-threatening causes of chest pain include: Heart attack. A tear in the body's main blood vessel (aortic dissection). Inflammation around your heart (pericarditis). A problem in the lungs, such as a blood clot (pulmonary embolism) or a collapsed lung (pneumothorax). Some non life-threatening causes of chest pain include: Heartburn. Anxiety or stress. Damage to the bones, muscles, and cartilage that make up your chest wall. Pneumonia or bronchitis. Shingles infection (varicella-zoster virus). Chest pain can feel like: Pain or discomfort on the surface of your chest or deep in your chest. Crushing, pressure, aching, or squeezing pain. Burning or tingling. Dull or sharp pain that is worse when you move, cough, or take a deep breath. Pain or discomfort that is also felt in your back, neck, jaw, shoulder, or arm, or pain that spreads to any of these areas. Your chest pain may come and go. It may also be constant. Your health care provider will do lab tests and other studies to find the cause of your pain. Treatment will depend on the cause of your chest pain. Follow these instructions at home: Medicines Take jlgt-dzv-daogfbd and prescription medicines only as told by your health care provider. If you were prescribed an antibiotic, take it as told by your health care provider. Do not stop taking the antibiotic even if you start to feel better. Lifestyle Rest as directed by your health care provider. Do not use any products that contain nicotine or tobacco, such as cigarettes and e-cigarettes. If you need help quitting, ask your health care provider. Do not drink alcohol. Make healthy lifestyle choices as recommended. These may include: ?Getting regular exercise. Ask your health care provider to suggest some activities that are safe for you. ?Eating a heart-healthy diet. This includes plenty of fresh fruits and vegetables, whole grains, low-fat (lean) protein, and low-fat dairy products. A dietitian can help you find healthy eating options. ?Maintaining a healthy weight. ?Managing any other health conditions you have, such as high blood pressure (hypertension) or diabetes. ?Reducing stress, such as with yoga or relaxation techniques. General instructions Pay attention to any changes in your symptoms. Tell your health care provider about them or any newsymptoms. Avoid any activities that cause chest pain. Keep all follow-up visits as told by your health care provider. This is important. This includes visits for any further testing if your chest pain does not go away. Contact a health care provider if: Your chest pain does not go away. You feel depressed. You have a fever. Get help right away if: Your chest pain gets worse. You have a cough that gets worse, or you cough up blood. You have severe pain in your abdomen. You faint. You have sudden, unexplained chest discomfort. You have sudden, unexplained discomfort in your arms, back, neck, or jaw. You have shortness of breath at any time. You suddenly start to sweat, or your skin gets clammy. You feel nausea or you vomit. You suddenly feel lightheaded or dizzy. You have severe weakness, or unexplained weakness or fatigue. Your heart begins to beat quickly, or it feels like it is skipping beats. These symptoms may represent a serious problem that is an emergency. Do not wait to see if the symptoms will go away. Get medical help right away. Call your local emergency services (911 in the [place] Do not drive yourself to the hospital. Summary Chest pain can be caused by a condition that is serious and requires urgent treatment. It may also be caused by something that is not life-threatening. If you have chest pain, it is very important to see your health care provider. Your health care provider may do lab tests and other studies to find the cause of your pain. Follow your health care provider's instructions on taking medicines, making lifestyle changes, and getting emergency treatment if symptoms become worse. Keep all follow-up visits as told by your health care provider. This includes visits for any further testing if your chest pain does not go away. This information is not intended to replace advice given to you by your health care provider. Make sure you discuss any questions you have with your health care provider. Document Released: 04/12/2006 Document Revised: 01/03/2019 Document Reviewed: 01/03/2019 [employer] Patient Education 2020 [employer] Follow Up Care 10/21/2022 21:38:17 With:Cyn Shearer Address: [address] [place] [address], [address] Business (1) When:Within 3 Day(s) [facility]04-07-2023 Evaluation + Plan noteExtracted from: Title:ED Note Author:Elvis Watson DOJesus Date :10/21/22 Chest pain (R07.9: Chest frederic n, unspecified) Orders: Automated Diff Basic Metabolic Panel CBC w/ Auto Diff ED Cardiac Monitoring eGFR Oxygen Saturation Oxygen Therapy PT & PTT Saline Lock Insert Troponin 0 Hr. Troponin 3 Hr. Troponin 6 Hr. Troponin 9 Hr. XR Chest Single View Future Appointments Appointment Date:12/08/2022 01:45:00 PM Scheduled Provider:Juanita SINGH MD Location:[facility] Digestive Health Appointment Type:[facility] Follow Up [facility]03-24-[address] [facility] Medical CenterComment on above:Result Comment: Electronically Signed By: Mckayla WOODALL\.br\Date and Time Signed: 10/06/22 15:55 EDT\.br\Electronically Co-Signed By: KAE REBOLLEDO, Berta\.br\Date and Time Co-Signed: 10/07/22 10:44 [id number] Hospital Discharge instructions Patient Education 10/06/2022 15:44:51 Nonspecific Chest Pain, Adult, Iefg-za-Skbl Nonspecific Chest Pain Chest pain can be caused by many different conditions. Some causes of chest pain can be life-threatening. These will require treatment right away. Serious causes of chest pain include: Heart attack. A tear in the body's main blood vessel. Redness and swelling (inflammation) around your heart. Blood clot in your lungs. Other causes of chest pain may not be so serious. These include: Heartburn. Anxiety or stress. Damage to bones or muscles in your chest. Lung infections. Chest pain can feel like: Pain or discomfort in your chest. Crushing, pressure, aching, or squeezing pain. Burning or tingling. Dull or sharp pain that is worse when you move, cough, or take a deep breath. Pain or discomfort that is also felt in your back, neck, jaw, shoulder, or arm, or pain that spreads to any of these areas. It is hard to know whether your pain is caused by something that is serious or something that is not so serious. So it is important to see your doctor right away if you have chest pain. Follow these instructions at home: Medicines Take ikba-xgr-uknwmwc and prescription medicines only as told by your doctor. If you were prescribed an antibiotic medicine, take it as told by your doctor. Do not stop taking the antibiotic even if you start to feel better. Lifestyle Rest as told by your doctor. Do not use any products that contain nicotine or tobacco, such as cigarettes, e- cigarettes, and chewing tobacco. If you need help quitting, ask your doctor. Do not drink alcohol. Make lifestyle changes as told by your doctor. These may include: ?Getting regular exercise. Ask your doctor what activities are safe for you. ?Eating a heart-healthy diet. A diet and security specialist (dietitian) can help you to learn healthy eating options. ?Staying at a healthy weight. ?Treating diabetes or high blood pressure, if needed. ?Lowering your stress. Activities such as yoga and relaxation techniques can help. General instructions Pay attention to any changes in your symptoms. Tell your doctor about them or any new symptoms. Avoid any activities that cause chest pain. Keep all follow-up visits as told by your doctor. This is important. You may need more testing if your chest pain does not go away. Contact a doctor if: Your chest pain does not go away. You feel depressed. You have a fever. Get help right away if: Your chest pain is worse. You have a cough that gets worse, or you cough up blood. You have very bad (severe) pain in your belly (abdomen). You pass out (faint). You have either of these for no clear reason: ?Sudden chest discomfort. ?Sudden discomfort in your arms, back, neck, or jaw. You have shortness of breath at any time. You suddenly start to sweat, or your skin gets clammy. You feel sick to your stomach (nauseous). You throw up (vomit). You suddenly feel lightheaded or dizzy. You feel very weak or tired. Your heart starts to beat fast, or it feels like it is skipping beats. These symptoms may be an emergency. Do not wait to see if the symptoms will go away. Get medical help right away. Call your local emergency services (911 in the [place] Do not drive yourself to the hospital. Summary Chest pain can be caused by many different conditions. The cause may be serious and need treatment right away. If you have chest pain, see your doctor right away. Follow your doctor's instructions for taking medicines and making lifestyle changes. Keep all follow-up visits as told by your doctor. This includes visits for any further testing if your chest pain does not go away. Be sure to know the signs that show that your condition has become worse. Get help right away if you have these symptoms. This information is not intended to replace advice given to you by your health care provider. Make sure you discuss any questions you have with your health care provider. Document Released: 12/19/2008 Document Revised: 01/03/2019 Document Reviewed: 01/03/2019 [employer] Patient Education 2020 [employer]. Follow Up Care 10/04/2022 05:30:46 With:Wily Diza Address: [facility] [address], [address] [place] [address]- Business (1) When:1 to 2 weeks Comments:Call for followup appointment. Office closed. With:Anup Rinaldi Address: [address] [facility] [place] [address] Business (1) When: Unknown Comments:Possible pulm fibrosis. Call for followup appointment With:Juanita SINGH Address: [address] [facility] [place] [address] Business (1) When:12/08/2022 13:45:00 Comments:Reflux possible hiatal hernia With:Keyon Washington MD, [facility] Address: [address] [place] [address] When:11/15/2022 09:00:00 With:Cyn Shearer Address: [address] [facility], [address] [place] [address]- Business (1) When:10/18/2022 13:30:00 [facility]03-23-2023 Evaluation + Plan noteExtracted from: Title:Progress Note * Author:iWly Diaz MD Date:10/06/22 Impression and Plan 1 CAD status post PCI of the LAD early August 2022 on dual antiplatelet therapy and other standard treatment for chronic CAD. He keep coming back to the emergency department and now being admitted for ongoing chest pain despite normal EKGs, cardiac enzymes, physical examination and imaging studies including echocardiogram and nuclear stress test are normal. Patient can be discharged home on current medications and follow-up with me in the office as scheduled 2 hyperlipidemia on statin therapy 3 CVD with previous stroke with no residual deficit. Extracted from: Title:Progress Note * Author:Wily Diaz MD Date:10/05/22 Impression and Plan 1 CAD status post PCI of the LAD early August 2022 on dual antiplatelet therapy and other standard treatment for chronic CAD. He keep coming back to the emergency department and now being admitted for ongoing chest pain despite normal EKGs, cardiac enzymes, physical examination and imaging studies including echocardiogram. At this point in time I do not have a choice but to pursue further investigations, Lexiscan MPI is scheduled. If negative there will be no further cardiac work-up. This was made very clear to the patient. Staying away from tobacco products was strongly recommended and emphasized 2 hyperlipidemia on statin therapy 3 CVD with previous stroke with no residual deficit. Extracted from: Title:APSO Note Author:Dasia HILLMAN Date:10/05/22 PLAN 1. Chest pain (R07.9: Chest pain, unspecified) Still having chest pain >24 hr. Cardiology consult [facility] pt to undergo stress test in AM. -Troponin neg x 4. -telemetry -Echo-normal LV with 60-65% EF. -Defer any additional work up to cardiology -Resume DAPT 2. CAD (coronary artery disease) (I25.10: Atherosclerotic heart disease of [place] coronary artery without angina pectoris) -Recent CAD 08/23/22 3. Dizziness (R42: Dizziness and giddiness) -CT at [facility]: per radiology report: no evidence of acute intracranial hemorrhage. Encephalomalacia in the front lobes bilaterally, right parietal lobe and right occipital lobe. A small chronic lacunar infarct in right basal ganglia MRI brain shows chronic findings. Consult neurology appreciated. Continue ASA and Plavix for hx TIA Pt stopped Statin as he feels it makes him dizzy. Out patient follow up w/Neurology 4. Paresthesias (R20.2: Paresthesia of skin) Likely neuropathy. DVT: Lovenox Orders: aspirin, 81 mg = 1 tab(s), Tab-EC, Oral, Daily, NOW, Start date 10/04/22 15:44:00 EDT, 10/04/22 15:44:00 EDT clopidogrel, 75 mg = 1 tab(s), Tab, Oral, Daily, NOW, Start date 10/04/22 15:44:00 EDT, 10/04/22 15:44:00 EDT enoxaparin, 90 mg = 0.9 mL, Injection, SubCutaneous, BID for 30 day(s), Stop date 11/03/22 16:39:00 EDT, NOW, Start date 10/04/22 16:40:00 EDT pantoprazole, 40 mg = 1 tab(s), Tab-DR, Oral, Daily, Routine, Start date 10/05/22 9:00:00 EDT, 10/04/22 15:44:00 EDT Extracted from: Title:Consult Note- Neurology Author:Nataliya Batista RN Date:10/05/22 ASSESSMENT: 1. Room spinning vertigo happening simultaneously with his chest pain, now resolved. Assuming his work-up is not revealing acute coronary syndrome, I suspect the vertigo could have been peripheral in nature. Nothing on MRI to suggest a central cause of vertigo. 2. Intermittent right or left C6 dermatomal paresthesias, sometimes noxious. Previously on the left, and this time presenting with them on the right. MRI from back in July showed severe stenosis at C5-6 with significant bilateral neuroforaminal stenosis. He probably suffers from intermittent C6 radiculopathy bilaterally. 3. Chronic strokes. MRI redemonstrates evidence of remote ischemia in a watershed/borderzone distribution MCA JARRETT on the right and a small amount in the left frontal lobe cortically. PLAN: 1. Continue aspirin 81 mg daily and clopidogrel 75 mg daily 2. Chart documentation says he stopped taking his atorvastatin because he feels it makes him dizzy 3. He has an upcoming EMG study with neurology in the outpatient setting 4. No other recommendations at this time and okay for discharge from my standpoint 1. Chest pain (R07.9: Chest pain, unspecified) 2. CAD (coronary artery disease) (I25.10: Atherosclerotic heart disease of [place] coronary artery without angina pectoris) 3. Dizziness (R42: Dizziness and giddiness) 4. Paresthesias (R20.2: Paresthesia of skin) 5. History of CVA in adulthood, (Z86.73: Personal history of transient ischemic attack (TIA), and cerebral infarction without residual deficits)History of TIA (transient ischemic attack) Extracted from: Title:Admission H & P Author:Phan REBOLLEDO, [facility] Date:10/04/22 Chest pain Coronary artery disease -Recent CAD 08/23/22 -Trend troponin, telemetry -Echo -Defer any additional work up to cardiology -Resume DAPT consult cardiology Dizziness Paresthesias History of CVA History of TIA -R/o Central causes in pt w/self reported history of TIA -Possible radiculopathy? 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 Encephalomalacia in the front lobes bilaterally, right parietal lobe and right occipital lobe. A small chronic lacunar infarct in right basal ganglia -MRI brain -DAPT will help -Neurology Chronic Medical Conditions -Med rec and resume appropriate home meds Code: Full Diet: Cardiac DVT prophylaxis: Lovenox Admit: Observation, likely <2 midnight stay Time: 55 minutes Plan: Plan was discussed with patient and family (if applicable) at bedside Orders: Ambulate with Assistance Cardiac Diet Cardiac Monitoring Communication Order Physician to Nursing Communication Order Physician to Nursing Communication Order Physician to Nursing Consult to Cardiology Consult to Neurology Echo Transthoracic Complete MRI Brain w/o Contrast Place in Status Resuscitation Status - Full Vital Signs Weight Extracted from: Title:ED Note Author:Elvis Watson DO Date :10/04/22 Chest pain (R07.9: Chest freedric n, unspecified) Orders: aspirin, 162 mg = 2 tab(s), Tab-Chew, Oral, Once, Stop date 10/04/22 5:32:00 EDT, STAT, Start date 10/04/22 5:32:00 EDT, 10/04/22 5:32:00 EDT Automated Diff Basic Metabolic Panel CBC w/ Auto Diff ECG 12 Lead Adult ED Cardiac Monitoring eGFR Extra SST Tube Oxygen Saturation Oxygen Therapy PT & PTT Saline Lock Insert Troponin 0 Hr. Troponin 3 Hr. Troponin 6 Hr. Troponin 9 Hr. XR Chest Single View Addendum by Jocelyn Garza DO on October 04, 2022 10:25:52 EDT Patient was signed out to me by the prior physician I did review full work-up here in the emergency department. Patient did have a delay as he had to go to [facility] in order to get CT scan CT read by the radiologist as chronic infarcts no new infarct. Patient did have recurrent episode of chest pain therefore EKG was repeated which showed no ST elevation. Patient was given nitro morphine for pain also given Zofran for nausea with meclizine for dizziness. Case discussed with hospitalist patient is admitted for additional evaluation and treatment. Critical care time 35 minutes exclusive from separate billable procedures Additional diagnoses: Nausea, dizziness Future Appointments Appointment Date:12/08/2022 01:45:00 PM Scheduled Provider:Juanita SINGH MD Location:[facility] Dig[facility]ive Health Appointment Type:[facility] Follow Up [facility]03-23-2023 NoteCRM entered the room to discuss dc planning. PCP, DME and insurance discussed. Patient is alert andinvolved in plan of care. Contact information and whiteboard updated. Pt will have stress test today. No further needs. Ant dc TBD. CRM to follow.[facility] Comment on above:Result Comment: Electronically Signed By: Yesy Masters\.br\Date and Time Signed: 10/06/22 10:19 [id number] [facility]:Result Comment: Electronically Signed By: Phan REBOLLEDO, Roddy\.br\Date and Time Signed: 10/04/22 11:14 [id number] Hospital Discharge instructions Patient Education 09/28/2022 18:16:04 Nonspecific Chest Pain, Adult Nonspecific Chest Pain, Adult Chest pain can be caused by many different conditions. It can be caused by a condition that is life-threatening and requires treatment right away. It can also be caused by something that is not life-threatening. If you have chest pain, it can be hard to know the difference, so it is important to get help right away to make sure that you do not have a serious condition. Some life-threatening causes of chest pain include: Heart attack. A tear in the body's main blood vessel (aortic dissection). Inflammation around your heart (pericarditis). A problem in the lungs, such as a blood clot (pulmonary embolism) or a collapsed lung (pneumothorax). Some non life-threatening causes of chest pain include: Heartburn. Anxiety or stress. Damage to the bones, muscles, and cartilage that make up your chest wall. Pneumonia or bronchitis. Shingles infection (varicella-zoster virus). Chest pain can feel like: Pain or discomfort on the surface of your chest or deep in your chest. Crushing, pressure, aching, or squeezing pain. Burning or tingling. Dull or sharp pain that is worse when you move, cough, or take a deep breath. Pain or discomfort that is also felt in your back, neck, jaw, shoulder, or arm, or pain that spreads to any of these areas. Your chest pain may come and go. It may also be constant. Your health care provider will do lab tests and other studies to find the cause of your pain. Treatment will depend on the cause of your chest pain. Follow these instructions at home: Medicines Take tgcl-mci-vdiuygy and prescription medicines only as told by your health care provider. If you were prescribed an antibiotic, take it as told by your health care provider. Do not stop taking the antibiotic even if you start to feel better. Lifestyle Rest as directed by your health care provider. Do not use any products that contain nicotine or tobacco, such as cigarettes and e-cigarettes. If you need help quitting, ask your health care provider. Do not drink alcohol. Make healthy lifestyle choices as recommended. These may include: ?Getting regular exercise. Ask your health care provider to suggest some activities that are safe for you. ?Eating a heart-healthy diet. This includes plenty of fresh fruits and vegetables, whole grains, low-fat (lean) protein, and low-fat dairy products. A dietitian can help you find healthy eating options. ?Maintaining a healthy weight. ?Managing any other health conditions you have, such as high blood pressure (hypertension) or diabetes. ?Reducing stress, such as with yoga or relaxation techniques. General instructions Pay attention to any changes in your symptoms. Tell your health care provider about them or any newsymptoms. Avoid any activities that cause chest pain. Keep all follow-up visits as told by your health care provider. This is important. This includes visits for any further testing if your chest pain does not go away. Contact a health care provider if: Your chest pain does not go away. You feel depressed. You have a fever. Get help right away if: Your chest pain gets worse. You have a cough that gets worse, or you cough up blood. You have severe pain in your abdomen. You faint. You have sudden, unexplained chest discomfort. You have sudden, unexplained discomfort in your arms, back, neck, or jaw. You have shortness of breath at any time. You suddenly start to sweat, or your skin gets clammy. You feel nausea or you vomit. You suddenly feel lightheaded or dizzy. You have severe weakness, or unexplained weakness or fatigue. Your heart begins to beat quickly, or it feels like it is skipping beats. These symptoms may represent a serious problem that is an emergency. Do not wait to see if the symptoms will go away. Get medical help right away. Call your local emergency services (911 in the [place] Do not drive yourself to the hospital. Summary Chest pain can be caused by a condition that is serious and requires urgent treatment. It may also be caused by something that is not life-threatening. If you have chest pain, it is very important to see your health care provider. Your health care provider may do lab tests and other studies to find the cause of your pain. Follow your health care provider's instructions on taking medicines, making lifestyle changes, and getting emergency treatment if symptoms become worse. Keep all follow-up visits as told by your health care provider. This includes visits for any further testing if your chest pain does not go away. This information is not intended to replace advice given to you by your health care provider. Make sure you discuss any questions you have with your health care provider. Document Released: 04/12/2006 Document Revised: 01/03/2019 Document Reviewed: 01/03/2019 [employer] Patient Education 2020 [employer]. Follow Up Care 09/28/2022 16:32:50 With:Yeni Lux Address: [facility], [address] [place] [id number]- Business (1) When:10/01/2022 18:13:43 Comments:Seek immediate medical attention if you develop: worsening chest pain, new chest pain, nausea, vomiting, weakness, numbness, tingling, excessive sweating, shortness of breath, difficulty breathing, loss of motion in your arms or legs, or any new or worsening symptoms.Discontinue IsosorbideStart Ranexa With:Cyn Shearer Address: [address] [place] [address], [address] [place] [address]- Business (1) When:10/01/2022 18:13:36 Comments:Call the office of your primary care doctor to arrange for follow-up within the above-stated timeframe. Follow-up with your primary care doctor about this ED visit. You should review your labs, imaging, and diagnoses from this ED visit with your primary care physician. If you were prescribed medications you should discuss possible side-effects and drug interactions with your pharmacist. Call 911 or go to the nearest Emergency Department if you develop any new or worsening symptoms. [facility]03-15-2023 Evaluation + Plan noteExtracted from: Title:ED Note Author:Derian Rider DO Date: Chest pain (R07.9: Chest frederic n, unspecified) Orders: ranolazine, 1,000 mg = 1 tab(s), Oral, BID, # 60 tab(s), Refills(s) 0, Pharmacy: [id number], 165.1, cm, 09/28/22 16:41:00 EDT, Height/Length Dosing, 87, kg, 09/28/22 16:41:00 EDT, Weight Dosing Automated Diff Basic Metabolic Panel CBC w/ Auto Diff ED Cardiac Monitoring eGFR Extra SST Tube Oxygen Saturation Oxygen Therapy PT & PTT Saline Lock Insert Troponin 0 Hr. XR Chest Single View Future Appointments Appointment Date:10/04/2022 04:15:00 PM Scheduled Provider:Omid REBOLLEDO, Marc Fowler Location:[facility]iology [facility] Appointment Type:Cardiology ED Follow Up ([facility]) [facility]03-12-2023 Evaluation + Plan noteExtracted from: Title:Discharge Note Author:KAE REBOLLEDO, Berta Sinan e:09/25/22 good Home Discharge Diet(s): Regular (09/25/22 09:40:00) Prescriptions atorvastatin 20 mg Tab, 20 mg= 1 tab(s), Oral, Daily isosorbide mononitrate 30 mg ER Tab, 30 mg= 1 tab(s), Oral, Daily, 2 refills metoprolol 25 mg ER Tab, 25 mg= 1 tab(s), Oral, Daily nicotine 14 mg/24 hr Transderm ER Film, 1 patch(es), TransDermal, Daily nitroglycerin 0.4 mg sublingual Tab, 0.4 mg= 1 tab(s), SubLingual, q5min, PRN Home aspirin, 81 mg, Oral, Daily clopidogrel 75 mg Tab, 75 mg= 1 tab(s), Oral, Daily cyclobenzaprine 10 mg Tab, 10 mg= 1 tab(s), Oral, Bedtime, PRN omeprazole, 40 mg, Oral, Daily With When Contact Information [address] [place] [address]- Business (1) Additional Instructions: Cyn Shearer In 0 days [address] [facility], [address] [place] [address]- Business (1) Additional Instructions: Coronary Artery Disease, Male discharge time >30 Extracted from: Title:Cardiovascular Admission H&P * Author:Arnulfo yuen MD, Mourhaf Date:09/24/22 Impression and Plan 1. Brief episode of atypical chest pain. Patient underwent recent invasive evaluation with PCI to the LAD. I doubt changes in his coronary status 2. Symptoms of lightheadedness dizziness and presyncope due to transient hypotension and bradycardia due to beta-maría elena 3. Hypertension 4. Hyperlipidemia 5. History of TIA 6. Back pain Plan 1. Continue dual antiplatelet therapy 2. Discontinue metoprolol 3. Add long-acting nitrate 4. no need to repeat ischemic evaluation 5. Observe for the next 12 hours if symptoms improve patient can be discharged in a.m. Extracted from: Title:Admission H & P Author:HARJIT REBOLLEDO, Braxton Hernandez ate:09/24/22 61-year-old male with past m edical history of CAD status post PCI most recently on 08/23/2022 with ostial/proximal LAD 95% stenosis with drug-eluting stent placement, hyperlipidemia, GERD, TIAs, fibromyalgia, rheumatoid arthritis, nicotine dependence smoking 4 cigarettes/day and cutting down presented to emergency department due to chest pain. 1. Chest pain (R07.9: Chest pain, unspecified) Chest pain-free at this point Woke him from pain with most recent PCI last month Admit under observation level of care as I do not anticipate that patient will require greater than 2 midnight stay Continue with aspirin, Plavix, metoprolol, statin Cardiology consultation Continue to trend cardiac enzymes 2. Dyspnea (R06.00: Dyspnea, unspecified) Resolved Recommended smoking cessation Patient is cutting down and down to 4 cigarettes a day 3. GERD (gastroesophageal reflux disease) (K21.9: Gastro-esophageal reflux disease without esophagitis) PPI daily 4. Rheumatoid arthritis (M06.9: Rheumatoid arthritis, unspecified) Supportive care 5. Smoker (F17.200: Nicotine dependence, unspecified, uncomplicated) Recommended smoking cessation We will order nicotine patch as needed 6. Fibromyalgia (M79.7: Fibromyalgia) Flexeril as needed 7. Hypercholesterolemia (E78.00: Pure hypercholesterolemia, unspecified) Atorvastatin Orders: acetaminophen, 650 mg = 2 tab(s), Tab, Oral, q6hr PRN Pain, Routine, Start date 09/24/22 6:12:00 EST, 09/24/22 6:12:00 EST Al hydroxide/Mg hydroxide/simethicone, 30 mL, Susp-Oral, Oral, q6hr PRN Indigestion, STAT, Start date 09/24/22 6:12:00 EST aspirin, 81 mg = 1 tab(s), Tab-EC, Oral, Daily, Routine, Start date 09/24/22 9:00:00 EST, 09/24/22 6:12:00 EST atorvastatin, 20 mg = 1 tab(s), Tab, Oral, Daily, Routine, Start date 09/24/22 9:00:00 EST, 09/24/22 6:18:00 EST clopidogrel, 75 mg = 1 tab(s), Tab, Oral, Daily, Routine, Start date 09/24/22 9:00:00 EST, 09/24/22 6:18:00 EST cyclobenzaprine, 10 mg = 1 tab(s), Tab, Oral, Bedtime PRN Spasm, Routine, Start date 09/24/22 6:18:00 EST, 09/24/22 6:18:00 EST heparin, 5,000 unit(s) = 1 mL, Injection, SubCutaneous, BID, Routine, Start date 09/24/22 9:00:00 EST, 09/24/22 6:12:00 EST metoprolol, 25 mg = 1 tab(s), Tab-ER, Oral, Daily, Routine, Start date 09/24/22 9:00:00 EST, 09/24/22 6:18:00 EST morphine, 2 mg = 1 mL, Injection, IV Push, q4hr PRN Pain for 5 day(s), Stop date 09/29/22 6:11:00 EDT, Routine, Start date 09/24/22 6:12:00 EST, 09/24/22 6:12:00 EST nicotine, 7 mg, 1 patch(es), Patch-ER, TransDermal, Daily PRN Smoking cessation, Routine, Start date 09/24/22 6:18:00 EST nitroglycerin, 0.4 mg = 1 tab(s), Tab, SubLingual, q5min PRN Chest pain for 3 dose(s), Stop date Limited # of times, Routine, Start date 09/24/22 6:12:00 EST, 09/24/22 6:12:00 EST ondansetron, 4 mg = 2 mL, Injection, IV Push, q6hr PRN Nausea, Routine, Start date 09/24/22 6:12:00 EST, 09/24/22 6:12:00 EST pantoprazole, 40 mg = 1 tab(s), Tab-DR, Oral, Daily, Routine, Start date 09/24/22 9:00:00 EST, 09/24/22 6:18:00 EST Ambulate with Assistance Below the Knee Intermittent Pneumatic Compression Device Cardiac Diet Cardiac Monitoring Chest Pain, AMI Quality Measures Communication Order Consult to Cardiology Evaluate Need For Continued Telemetry Intake and Output Lipid Panel Notify Provider Vital Signs Notify Provider Vital Signs Place in Status Precautions Pulse Oximetry Resuscitation Status - Full Vital Signs Weight Plan discussed with patient at bedside in ER bed #6 Full code as per patient Moderate level of MDM based on addressing above issues This report was transcribed using voice recognition software. Every effort was made to ensure accuracy, however, inadvertently computerized forest fire prevention manager mistakes may be present. Braxton Lombardi Hospitalist Extracted from: Title:ED Note Author:Clarice Espinoza DO Date :09/24/22 Chest pain (R07.9: Chest frederic n, unspecified) Dyspnea (R06.00: Dyspnea, unspecified) Orders: Sodium Chloride 0.9% intravenous solution, 500 mL, IV, Once, Stop date 09/24/22 5:25:00 EST, STAT, Start date 09/24/22 5:25:00 EST, 500 mL/hr, Infuse over 1, hour(s) Sodium Chloride 0.9% intravenous solution 500 mL, 500 mL, IV, 983.61 mL/hr, for 30 day(s), Stop date 10/24/22 7:02:00 EDT, STAT, Start date 09/24/22 6:03:00 EST, 0.5 hour(s), Total volume (mL): 500, 92.8 kg, 2.06, m2 Automated Diff Basic Metabolic Panel Capillary Glucose POC CBC w/ Auto Diff ECG 12 Lead Adult ED Cardiac Monitoring ED Physician consult Hospitalist for continued care eGFR Extra SST Tube Hepatic Function Panel Magnesium Level Oxygen Saturation Oxygen Therapy PT & PTT Saline Lock Insert Troponin 0 Hr. Troponin 3 Hr. Troponin 6 Hr. Troponin 9 Hr. XR Chest Single View [facility]03-12-[address] [facility] CenterComment on above:Result Comment: Electronically Signed By: KAE REBOLLEDO, Berta\.br\Date and Time Signed: 09/25/22 09:[id number] Hospital Discharge instructions Patient Education 09/25/2022 09:40:59 Coronary Artery Disease, Male Coronary Artery Disease, Male Coronary artery disease (CAD) is a condition in which the arteries that lead to the heart (coronaryarteries) become narrow or blocked. The narrowing or blockage can lead to decreased blood flow to the heart. Prolonged reduced blood flow can cause a heart attack (myocardial infarction or OR). This condition may also be called coronary heart disease. Because CAD is the leading cause of in men, it is important to understand what causes this condition and how it is treated. What are the causes? CAD is most often caused by atherosclerosis. This is the buildup of fat and cholesterol (plaque) onthe inside of the arteries. Over time, the plaque may narrow or block the artery, reducing blood flow to the heart. Plaque can also become weak and break off within a coronary artery and cause a sudden blockage. Other less common causes of CAD include: A blood clot or a piece of a blood clot or other substance that blocks the flow of blood in a coronary artery (embolism). A tearing of the artery (spontaneous coronary artery dissection). An enlargement of an artery (aneurysm). Inflammation (vasculitis) in the artery wall. What increases the risk? The following factors may make you more likely to develop this condition: Age. Men over age 45 are at a greater risk of CAD. Family history of CAD. Gender. Men often develop CAD earlier in life than women. High blood pressure (hypertension). Diabetes. High cholesterol levels. Tobacco use. Excessive alcohol use. Lack of exercise. A diet high in saturated and trans fats, such as fried food and processed meat. Other possible risk factors include: High stress levels. Depression. Obesity. Sleep apnea. What are the signs or symptoms? Many people do not have any symptoms during the early stages of CAD. As the condition progresses, symptoms may include: Chest pain (angina). The pain can: ?Feel like crushing or squeezing, or like a tightness, pressure, fullness, or heaviness in the chest. ?Last more than a few minutes or can stop and recur. The pain tends to get worse with exercise or stress and to fade with rest. Pain in the arms, neck, jaw, ear, or back. Unexplained heartburn or indigestion. Shortness of breath. Nausea or vomiting. Sudden light-headedness. Sudden cold sweats. Fluttering or fast heartbeat (palpitations). How is this diagnosed? This condition is diagnosed based on: Your family and medical history. A physical exam. Tests, including: ?A test to check the electrical signals in your heart (electrocardiogram). ?Exercise stress test. This looks for signs of blockage when the heart is stressed with exercise, such as running on a treadmill. ?Pharmacologic stress test. This test looks for signs of blockage when the heart is being stressed with a medicine. ?Blood tests. ?Coronary angiogram. This is a procedure to look at the coronary arteries to see if there is any blockage. During this test, a dye is injected into your arteries so they appear on an X-ray. ?Coronary artery CT scan. This CT scan helps detect calcium deposits in your coronary arteries. Calcium deposits are an indicator of CAD. ?A test that uses sound waves to take a picture of your heart (echocardiogram). ?Chest X-ray. How is this treated? This condition may be treated by: Healthy lifestyle changes to reduce risk factors. Medicines such as: ?Antiplatelet medicines and blood-thinning medicines, such as aspirin. These help to prevent blood clots. ?Nitroglycerin. ?Blood pressure medicines. ?Cholesterol-lowering medicine. Coronary angioplasty and stenting. During this procedure, a thin, flexible tube is inserted througha blood vessel and into a blocked artery. A balloon or similar device on the end of the tube is inflated to open up the artery. In some cases, a small, mesh tube (stent) is inserted into the artery to keep it open. Coronary artery bypass surgery. During this surgery, veins or arteries from other parts of the bodyare used to create a bypass around the blockage and allow blood to reach your heart. Follow these instructions at home: Medicines Take ssdd-itc-yrbjeue and prescription medicines only as told by your health care provider. Do not take the following medicines unless your health care provider approves: ?NSAIDs, such as ibuprofen, naproxen, or celecoxib. ?Vitamin supplements that contain vitamin A, vitamin E, or both. Lifestyle Follow an exercise program approved by your health care provider. Aim for 150 minutes of moderate exercise or 75 minutes of vigorous exercise each week. Maintain a healthy weight or lose weight as approved by your health care provider. Learn to manage stress or try to limit your stress. Ask your health care provider for suggestions if you need help. Get screened for depression and seek treatment, if needed. Do not use any products that contain nicotine or tobacco, such as cigarettes, e- cigarettes, and chewing tobacco. If you need help quitting, ask your health care provider. Do not use illegal drugs. Eating and drinking Follow a heart-healthy diet. A dietitian can help educate you about healthy food options and changes. In general, eat plenty of fruits and vegetables, lean meats, and whole grains. Avoid foods high in: ?Sugar. ?Salt (sodium). ?Saturated fat, such as processed or fatty meat. ?Trans fat, such as fried foods. Use healthy cooking methods such as roasting, grilling, broiling, baking, poaching, steaming, or stir-frying. Do not drink alcohol if your health care provider tells you not to drink. If you drink alcohol: ?Limit how much you have to 0 2 drinks per day. ?Be aware of how much alcohol is in your drink. In the [place] one drink equals one 12 oz bottle of beer (355 mL), one 5 oz glass of wine (148 mL), or one 1 oz glass of hard liquor (44 mL). General instructions Manage any other health conditions, such as hypertension and diabetes. These conditions affect yourheart. Your health care provider may ask you to monitor your blood pressure. Ideally, your blood pressure should be below 130/80. Keep all follow-up visits as told by your health care provider. This is important. Get help right away if: You have pain in your chest, neck, ear, arm, jaw, stomach, or back that: ?Lasts more than a few minutes. ?Is recurring. ?Is not relieved by taking medicine under your tongue (sublingual nitroglycerin). You have profuse sweating without cause. You have unexplained: ?Heartburn or indigestion. ?Shortness of breath or difficulty breathing. ?Fluttering or fast heartbeat (palpitations). ?Nausea or vomiting. ?Fatigue. ?Feelings of nervousness or anxiety. ?Weakness. ?Diarrhea. You have sudden light-headedness or dizziness. You faint. You feel like hurting yourself or think about taking your own life. These symptoms may represent a serious problem that is an emergency. Do not wait to see if the symptoms will go away. Get medical help right away. Call your local emergency services (911 in the [place] Do not drive yourself to the hospital. Summary Coronary artery disease (CAD) is a condition in which the arteries that lead to the heart (coronaryarteries) become narrow or blocked. The narrowing or blockage can lead to a heart attack. Many people do not have any symptoms during the early stages of CAD. CAD can be treated with lifestyle changes, medicines, surgery, or a combination of these treatments. This information is not intended to replace advice given to you by your health care provider. Make sure you discuss any questions you have with your health care provider. Document Released: 01/28/2015 Document Revised: 03/22/2019 Document Reviewed: 03/12/2019 [employer] Patient Education 2020 [employer]. Follow Up Care 09/24/2022 05:24:09 With:Marc Anne Address: [address] [place] [address] [place] [address] Business (1) When: Unknown With:Cyn Shearer Address: [address] [place] [address], [address] [place] [address]- Business (1) When: Unknown [facility] Center[facility]:Result Comment: Electronically Signed By: Braxton LOMBARDI MD\.br\Date and Time Signed: 09/24/22 06:19 [id number] Hospital Discharge instructions Patient Education 08/29/2022 00:43:16 Nonspecific Chest Pain, Adult, Cwca-nl-Wzud Nonspecific Chest Pain Chest pain can be caused by many different conditions. Some causes of chest pain can be life-threatening. These will require treatment right away. Serious causes of chest pain include: Heart attack. A tear in the body's main blood vessel. Redness and swelling (inflammation) around your heart. Blood clot in your lungs. Other causes of chest pain may not be so serious. These include: Heartburn. Anxiety or stress. Damage to bones or muscles in your chest. Lung infections. Chest pain can feel like: Pain or discomfort in your chest. Crushing, pressure, aching, or squeezing pain. Burning or tingling. Dull or sharp pain that is worse when you move, cough, or take a deep breath. Pain or discomfort that is also felt in your back, neck, jaw, shoulder, or arm, or pain that spreads to any of these areas. It is hard to know whether your pain is caused by something that is serious or something that is not so serious. So it is important to see your doctor right away if you have chest pain. Follow these instructions at home: Medicines Take hgcl-yom-vglwexs and prescription medicines only as told by your doctor. If you were prescribed an antibiotic medicine, take it as told by your doctor. Do not stop taking the antibiotic even if you start to feel better. Lifestyle Rest as told by your doctor. Do not use any products that contain nicotine or tobacco, such as cigarettes, e- cigarettes, and chewing tobacco. If you need help quitting, ask your doctor. Do not drink alcohol. Make lifestyle changes as told by your doctor. These may include: ?Getting regular exercise. Ask your doctor what activities are safe for you. ?Eating a heart-healthy diet. A diet and security specialist (dietitian) can help you to learn healthy eating options. ?Staying at a healthy weight. ?Treating diabetes or high blood pressure, if needed. ?Lowering your stress. Activities such as yoga and relaxation techniques can help. General instructions Pay attention to any changes in your symptoms. Tell your doctor about them or any new symptoms. Avoid any activities that cause chest pain. Keep all follow-up visits as told by your doctor. This is important. You may need more testing if your chest pain does not go away. Contact a doctor if: Your chest pain does not go away. You feel depressed. You have a fever. Get help right away if: Your chest pain is worse. You have a cough that gets worse, or you cough up blood. You have very bad (severe) pain in your belly (abdomen). You pass out (faint). You have either of these for no clear reason: ?Sudden chest discomfort. ?Sudden discomfort in your arms, back, neck, or jaw. You have shortness of breath at any time. You suddenly start to sweat, or your skin gets clammy. You feel sick to your stomach (nauseous). You throw up (vomit). You suddenly feel lightheaded or dizzy. You feel very weak or tired. Your heart starts to beat fast, or it feels like it is skipping beats. These symptoms may be an emergency. Do not wait to see if the symptoms will go away. Get medical help right away. Call your local emergency services (911 in the [place] Do not drive yourself to the hospital. Summary Chest pain can be caused by many different conditions. The cause may be serious and need treatment right away. If you have chest pain, see your doctor right away. Follow your doctor's instructions for taking medicines and making lifestyle changes. Keep all follow-up visits as told by your doctor. This includes visits for any further testing if your chest pain does not go away. Be sure to know the signs that show that your condition has become worse. Get help right away if you have these symptoms. This information is not intended to replace advice given to you by your health care provider. Make sure you discuss any questions you have with your health care provider. Document Released: 12/19/2008 Document Revised: 01/03/2019 Document Reviewed: 01/03/2019 Elsevier Patient Education 2020 [employer]. 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 If you chest pain again take a nitroglycerin to help with the pain. Please return to the ED for any new or worsening symptoms. With:Cyn Shearer Address: [address] [place] [address], [address] [place] [address]- Business (1) When:09/01/2022 [facility]02-12-2023 Evaluation + Plan noteExtracted from: Title:ED Note Author:Clarice Espinoza DO Date :08/28/22 Chest pain (R07.9: Chest frederic n, unspecified) Orders: nitroglycerin, 0.4 mg = 1 tab(s), Tab, SubLingual, q5min PRN Chest pain for 3 dose(s), Stop date Limited # of times, STAT, Start date 08/28/22 20:58:00 EST, 08/28/22 20:58:00 EST Automated Diff B-Type Natriuretic Peptide Basic Metabolic Panel CBC w/ Auto Diff ECG 12 Lead Adult ED Cardiac Monitoring eGFR Hepatic Function Panel Oxygen Saturation Oxygen Therapy PT & PTT Saline Lock Insert Troponin 0 Hr. Troponin 3 Hr. XR Chest Single View Future Appointments Appointment Date:09/02/2022 03:45:00 PM Scheduled Provider: Location:[facility] [place] Appointment Type:PT Re-Eval 45 (FT) Appointment Date:09/06/2022 02:15:00 PM Scheduled Provider: Location:[facility] [place] Appointment Type:PT 45 (FT) Appointment Date:09/08/2022 02:15:00 PM Scheduled Provider: Location:[facility] [place] Appointment Type:PT 45 (FT) Appointment Date:09/12/2022 02:15:00 PM Scheduled Provider: Location:[facility] [place] Appointment Type:PT 45 (FT) Appointment Date:09/13/2022 02:15:00 PM Scheduled Provider: Location:[facility] [place] Appointment Type:PT 45 (FT) Appointment Date:09/14/2022 02:45:00 PM Scheduled Provider: Location:[facility] [place] Appointment Type:PT 45 (FT) Appointment Date:09/16/2022 02:00:00 PM Scheduled Provider: Location:[facility] [place] Appointment Type:PT 45 (FT) Appointment Date:09/19/2022 02:15:00 PM Scheduled Provider: Location:[facility] [place] Appointment Type:PT 45 (FT) Appointment Date:09/21/2022 02:45:00 PM Scheduled Provider: Location:[facility] [place] Appointment Type:PT 45 (FT) Appointment Date:09/27/2022 02:30:00 PM Scheduled Provider: Location:[facility] [place] Appointment Type:PT Re-Eval 45 (FT) [facility]02-08-2023 Evaluation + Plan noteExtracted from: Title:Discharge Note Author:Jae HILLMAN Date:08/24/22 Discharge Diet(s): Fat Modif ied- Low cholesterol (08/24/22 09:41:00) Prescriptions atorvastatin 20 mg Tab, 20 mg= 1 tab(s), Oral, Daily metoprolol 25 mg ER Tab, 25 mg= 1 tab(s), Oral, Daily nicotine 14 mg/24 hr Transderm ER Film, 1 patch(es), TransDermal, Daily nitroglycerin 0.4 mg sublingual Tab, 0.4 mg= 1 tab(s), SubLingual, q5min, PRN Home aspirin, 81 mg, Oral, Daily clopidogrel 75 mg Tab, 75 mg= 1 tab(s), Oral, Daily cyclobenzaprine 10 mg Tab, 10 mg= 1 tab(s), Oral, Bedtime, PRN omeprazole, 40 mg, Oral, Daily With When Contact Information [facility] Additional Instructions: Call for followup appointment 3 weeks Cyn Shearer [address] [place] [address], [address] [place] [phone] [facility] (1) Additional Instructions: Call for followup appointment 7-10 days Coronary Angiogram With Stent, Care After Extracted from: Title:Progress Note * Author:Jose J REBOLLEDO, Barbi andersen Date:08/24/22 Impression and Plan 1. Unstable angina with rest pain and recurrent presentation with anginal symptoms and recently positive stress test on background of moderate to high risk for ischemic heart disease. Cardiac catheterization showed single-vessel coronary artery disease underwent PCI to the proximal LAD 2. History of TIA and carotid disease status post right carotid endarterectomy 3. Hypertension 4. Hyperlipidemia 5. Back pain with previous pain a procedure to address that 6. Tobacco use Plan 1. I patient stable. He can be discharged home on aspirin, Plavix, beta- blockers, nitroglycerin as needed and atorvastatin 2. Aggressive approach to secondary prevention including smoking cessation and optimal risk management including maximum dose of a potent statin 3. We will arrange for outpatient follow-up Extracted from: Title:Cardiovascular Admission H&P * Author:Yeni Durant MD Date:08/23/22 Impression and Plan 1. Unstable angina with rest pain and recurrent presentation with anginal symptoms and recently positive stress test on background of moderate to high risk for ischemic heart disease 2. History of TIA and carotid disease status post right carotid endarterectomy 3. Hypertension 4. Hyperlipidemia 5. Back pain with previous pain a procedure to address that 6. Tobacco use Plan 1. In view of patient's repeated presentation with anginal symptoms now at rest and the recurrent and in view of his risk factors and the result of stress test I would recommend cardiac catheterization. Risk, benefit and alternative reviewed with patient at length he understood and agreed and arrangement was made 2. Aggressive approach to secondary prevention including smoking cessation and optimal risk management including maximum dose of a potent statin Extracted from: Title:Admission H & P Author:Luther HILLMAN Date:08/23/22 PLAN: 1. Chest pain (R07.9: Chest pain, unspecified) ACS vs Unstable Angina pt w/recent hospitalization 08/12/22 in which pt underwent a NM Stress perfusion study which was abnormal revealing inferoapical perfusion defect; resting images showed no ischemic EKG changes. Consult [facility] cardiology pending Telemetry Trend troponin levels neg x 2 Chest xray and 12 lead ECG on admission shows no acute findings. 2. History of TIA (transient ischemic attack) (Z86.73: Personal history of transient ischemic attack (TIA), and cerebral infarction without residual deficits) w/hx of carotid disease status post right carotid endarterectomy surgery ASA, Plavix 3. Hypercholesterolemia (E78.00: Pure hypercholesterolemia, unspecified) Lipitor 4. Fibromyalgia (M79.7: Fibromyalgia) Stable. 5. GERD (gastroesophageal reflux disease) (K21.9: Gastro-esophageal reflux disease without esophagitis) PPI 6. Rheumatoid arthritis (M06.9: Rheumatoid arthritis, unspecified) Stable. Flexeril 7. Smoker (F17.200: Nicotine dependence, unspecified, uncomplicated) 40 pack years. Nicotine patch. Counseled on cessation DVT Prophylaxis: Heparin Sq Disposition: observation status will likely require <2 midnight stays for further work up and treatment of above. Orders: acetaminophen, 650 mg = 2 tab(s), Tab, Oral, q6hr PRN Pain, Routine, Start date 08/23/22 14:13:00 EST, 08/23/22 14:13:00 EST Al hydroxide/Mg hydroxide/simethicone, 30 mL, Susp-Oral, Oral, q6hr PRN Indigestion, Routine, Start date 08/23/22 14:13:00 EST heparin, 5,000 unit(s) = 1 mL, Injection, SubCutaneous, BID, Routine, Start date 08/23/22 21:00:00 EST, 08/23/22 14:13:00 EST hydrALAZINE, 10 mg = 0.5 mL, Injection, IV Push, q6hr PRN Other (see comment), Routine, Start date 08/23/22 14:13:00 EST, 08/23/22 14:13:00 EST ondansetron, 4 mg = 2 mL, Injection, IV Push, q6hr PRN Nausea, Routine, Start date 08/23/22 14:13:00 EST, 08/23/22 14:13:00 EST Cardiac Diet Cardiac Monitoring Chest Pain, AMI Quality Measures Communication Order Consult to Cardiology Evaluate Need For Continued Telemetry Intake and Output Notify Provider Vital Signs Notify Provider Vital Signs Pulse Oximetry Resuscitation Status - Full OTIS Risk Score Up ad Avani Vital Signs Weight Extracted from: Title:ED Note Author:Jocelyn Garza DO Date:08/23 Unstable angina (I20.0: Unst able angina) Orders: Automated Diff Basic Metabolic Panel CBC w/ Auto Diff ECG 12 Lead Adult ED Cardiac Monitoring eGFR Extra SST Tube Oxygen Saturation Oxygen Therapy PT & PTT Saline Lock Insert Troponin 0 Hr. Troponin 3 Hr. Troponin 6 Hr. Troponin 9 Hr. XR Chest Single View Future Appointments Appointment Date:09/02/2022 03:45:00 PM Scheduled Provider: Location[place] [place] Appointment Type:PT Re-Eval 45 (FT) Appointment Date:09/06/2022 02:15:00 PM Scheduled Provider: Location:[facility] [place] Appointment Type:PT 45 (FT) Appointment Date:09/08/2022 02:15:00 PM Scheduled Provider: Location:[facility] [place] Appointment Type:PT 45 (FT) Appointment Date:09/12/2022 02:15:00 PM Scheduled Provider: Location:[facility] [place] Appointment Type:PT 45 (FT) Appointment Date:09/13/2022 02:15:00 PM Scheduled Provider: Location:[facility] [place] Appointment Type:PT 45 (FT) Appointment Date:09/14/2022 02:45:00 PM Scheduled Provider: Location:[facility] [place] Appointment Type:PT 45 (FT) Appointment Date:09/16/2022 02:00:00 PM Scheduled Provider: Location:[facility] [place] Appointment Type:PT 45 (FT) Appointment Date:09/19/2022 02:15:00 PM Scheduled Provider: Location:[facility] [place] Appointment Type:PT 45 (FT) Appointment Date:09/21/2022 02:45:00 PM Scheduled Provider: Location:[facility] [place] Appointment Type:PT 45 (FT) Appointment Date:09/27/2022 02:30:00 PM Scheduled Provider: Location:[facility] [place] Appointment Type:PT Re-Eval 45 (FT) [facility]02-08-[address] [facility] CenterComment on above:Result Comment: Electronically Signed By: Arielle HILLMAN\.br\Date and Time Signed: 08/24/22 09:51 EST\.br\Electronically Co- Signed By: Woodrow Murdock MD\.br\Date and Time Co-Signed: 08/24/22 10:32 EST 08-24-2022 Hospital Discharge instructions Patient Education 08/24/2022 09:49:12 Coronary Angiogram With Stent, Care After Coronary Angiogram With Stent, Care After This sheet gives you information about how to care for yourself after your procedure. Your health care provider may also give you more specific instructions. If you have problems or questions, contact your health care provider. What can I expect after the procedure? After your procedure, it is common to have: Bruising in the area where a small, thin tube (catheter) was inserted. This usually fades within 1 2 weeks. Blood collecting in the tissue (hematoma) that may be painful to the touch. It should usually decrease in size and tenderness within 1 2 weeks. Follow these instructions at home: Insertion area care Do not take baths, swim, or use a hot tub until your health care provider approves. You may shower 24 48 hours after the procedure or as directed by your health care provider. Follow instructions from your health care provider about how to take care of your incision. Make sure you: ?Wash your hands with soap and water before you change your bandage (dressing). If soap and water are not available, use hand cell installer. ?Change your dressing as told by your health care provider. ?Leave stitches (sutures), skin glue, or adhesive strips in place. These skin closures may need to stay in place for 2 weeks or longer. If adhesive strip edges start to loosen and curl up, you may trim the loose edges. Do not remove adhesive strips completely unless your health care provider tells you to do that. Remove the bandage (dressing) and gently wash the catheter insertion site with plain soap and water. Pat the area dry with a clean towel. Do not rub the area, because that may cause bleeding. Do not apply powder or lotion to the incision area. Check your incision area every day for signs of infection. Check for: ?More redness, swelling, or pain. ?More fluid or blood. ?Warmth. ?Pus or a bad smell. Activity Do not drive for 24 hours if you were given a medicine to help you relax (sedative). Do not lift anything that is heavier than 10 lb (4.5 kg) for 5 days after your procedure or as directed by your health care provider. Ask your health care provider when it is okay for you: ?To return to work or school. ?To resume usual physical activities or sports. ?To resume sexual activity. Eating and drinking Eat a heart-healthy diet. This should include plenty of fresh fruits and vegetables. Avoid the following types of food: ?Food that is high in salt. ?Canned or highly processed food. ?Food that is high in saturated fat or sugar. ?Fried food. Limit alcohol intake to no more than 1 drink a day for non- women and 2 drinks a day for men. One drink equals 12 oz of beer, 5 oz of wine, or 1 oz of hard liquor. Lifestyle Do not use any products that contain nicotine or tobacco, such as cigarettes and e-cigarettes. If you need help quitting, ask your health care provider. Take steps to manage and control your weight. Get regular exercise. Manage your blood pressure. Manage other health problems, such as diabetes. General instructions Take ntbu-[id number]-werrogu and prescription medicines only as told by your health care provider. Blood thinners may be prescribed after your procedure to improve blood flow through the stent. If you need an MRI after your heart stent has been placed, be sure to tell the health care providerwho orders the MRI that you have a heart stent. Keep all follow-up visits as directed by your health care provider. This is important. Contact a health care provider if: You have a fever. You have chills. You have increased bleeding from the catheter insertion area. Hold pressure on the area. Get help right away if: You develop chest pain or shortness of breath. You feel faint or you pass out. You have unusual pain at the catheter insertion area. You have redness, warmth, or swelling at the catheter insertion area. You have drainage (other than a small amount of blood on the dressing) from the catheter insertion area. The catheter insertion area is bleeding, and the bleeding does not stop after 30 minutes of holdingsteady pressure on the area. You develop bleeding from any other place, such as from your rectum. There may be bright red blood in your urine or stool, or it may appear as black, tarry stool. This information is not intended to replace advice given to you by your health care provider. Make sure you discuss any questions you have with your health care provider. Document Released: 01/20/2006 Document Revised: 06/15/2018 Document Reviewed: 03/30/2017 [employer] Patient Education 2020 [employer] Follow Up Care 08/23/2022 10:12:49 With:Yeni Lux Address: [facility] [address], [address] [place] [address]- Business (1) When: Unknown With:Cyn Shearer Address: [address] [place] [address], [address] [place] [address]- Business (1) When:08/30/2022 10:45:00 With:XXXX [facility] Address:Unknown When: Unknown Comments:Call for followup appointment 3 weeks [facility]02-07-2023 [facility] CenterComment [facility]:Result Comment: Electronically Signed By: Arielle HILLMAN\.br\Date and Time Signed: 08/23/22 14:35 EST\.br\Electronically Co- Signed By: Arielle HILLMAN\.br\Date and Time Co-Signed: 08/23/22 14:36 EST\.br\Electronically Co-Signed By: Woodrow Murdock MD\.br\Date and Time Co-Signed: 08/23/22 14:49 [id number] [facility] Comment on above:Result Comment: Electronically Signed By: Berta PAL MD\.br\Date and Time Signed: 08/14/22 17:[id number] Evaluation + Plan noteExtracted from: Title:Progress Note * Author:Wily Diaz MD Date:08/12/22 Impression and Plan 1 symptoms of chest pain suggestive of angina pectoris. Stress images on his perfusion study was abnormal revealing inferoapical perfusion defect, resting images need to be performed to determine if this is a fixed defect or reversible defect. This could be done as an inpatient or as an outpatient. Present medical therapy is adequate and should continue 2 history of carotid disease status post right carotid endarterectomy surgery. Patient is on statin and on aspirin. Neurology has placed the patient on dual antiplatelet therapy with aspirin and Plavix. It would be worthwhile adding the Plavix. 3 active tobacco abuse. Patient was encouraged to stop smoking as soon as possible. 4 hypertension. Continue HA inhibitor. Extracted from: Title:APSO Note-neurology Author:Enrique Dowell RN Date:08/12/22 Reason for consult: Left arm symptoms and chest pain during physical activity ASSESSMENT: 1. Radiating symptoms down left upper extremity during therapy (arm bike and pull downs) - pain, numbness, heaviness of the limb. I suspect these were due to cervical radiculopathy. Current MRI cervical spine shows severe stenosis at C5-6 with significant bilateral neuroforaminal stenosis, and I suspect he suffers from a C6 radiculopathy on the left. 2. Chronic strokes. MRI redemonstrates evidence of remote ischemia in a watershed/borderzone distribution MCA JARRETT on the right and a small amount in the left frontal lobe cortically. PLAN: 1. Outpatient neurology follow-up; will likely warrant left upper extremity EMG testing 2. No signs on exam or on imaging suggestive of cord compression and no acute need for neurosurgical consultation at this time 3. No other recommendations from my standpoint and okay for discharge 1. Chest pain (R07.9: Chest pain, unspecified) 2. Brain TIA (G45.9: Transient cerebral ischemic attack, unspecified) 3. Hypercholesterolemia (E78.00: Pure hypercholesterolemia, unspecified) 4. Fibromyalgia (M79.7: Fibromyalgia) 5. GERD (gastroesophageal reflux disease) (K21.9: Gastro-esophageal reflux disease without esophagitis) 6. Rheumatoid arthritis (M06.9: Rheumatoid arthritis, unspecified) 7. Nicotine abuse (Z72.0: Tobacco use) Extracted from: Title:Progress Note * Author:Wily Diaz MD Date:08/11/22 Impression and Plan 1 symptoms of chest pain suggestive of angina pectoris. Patient has already vascular disease involving the carotid arteries and is actively smoking. His blood pressure is slightly elevated as well. Patient has recurrent neurological deficits. Ischemic heart disease has to be suspected and therefore noninvasive cardiac investigation will be carried out. A Lexiscan MPI nuclear study is scheduled for tomorrow. Meanwhile continue high intensity statin and antiplatelet therapy. Based on the results of the nuclear stress test further advice to be provided. 2 history of carotid disease status post right carotid endarterectomy surgery. Patient is on statin and on aspirin. Neurology has placed the patient on dual antiplatelet therapy with aspirin and Plavix. It would be worthwhile adding the Plavix. 3 active tobacco abuse. Patient was encouraged to stop smoking as soon as possible. 4 episodic hypertension. The patient would benefit from HA inhibitor for vascular protection and for blood pressure control. Extracted from: Title:Discharge Note Author:Berta PAL MD Sinan e:08/11/22 Discharged to - Home independently Discharge Diet(s): Fat Modified- Low cholesterol (08/11/22 07:30:00) Prescriptions atorvastatin 80 mg Tab, 80 mg= 1 tab(s), Oral, Bedtime, Not taking nicotine 14 mg/24 hr Transderm ER Film, 1 patch(es), TransDermal, Daily, Not taking Home aspirin, 81 mg, Oral, Daily clopidogrel 75 mg Tab, 75 mg= 1 tab(s), Oral, Daily cyclobenzaprine 10 mg Tab, 10 mg= 1 tab(s), Oral, Bedtime, PRN omeprazole, 40 mg, Oral, Daily pravastatin 20 mg Tab, 20 mg= 1 tab(s), Oral, Daily With When Contact Information Cyn Manfred In 0 days [address] [facility], [address] [place] [address]- Business (1) Additional Instructions: Chest Wall Pain, [id number] Extracted from: Title:Consult Note- Neurology Author:Nataliya Batista RN Date:08/11/22 Reason for consult: Left arm symptoms and chest pain during physical activity ASSESSMENT: 1. Radiating symptoms down left upper extremity during therapy (arm bike and pull downs) - pain, numbness, heaviness of the limb. I suspect these were due to cervical radiculopathy. He has an MRI from January 2021 that shows significant central canal stenosis at C5-6 and C6 neuroforaminal narrowing which could potentially explain the symptoms he had with upper extremity exercises at physical therapy. I am less concerned that this would represent any cerebrovascular cause of limb symptoms. 2. Chronic strokes. MRI shows evidence of remote ischemia in a watershed/borderzone distribution MCA JARRETT on the right which makes sense given that the carotid endarterectomy was subsequently performed on that side. Also with some remote ischemia in the left frontal lobe and also the right head of the caudate. PLAN: 1. MRI brain is pending 2. MRI cervical spine without contrast 3. Outpatient neurology follow-up; would recommend EMG studies of the left upper extremity 4. If the MRI brain is without acute findings and the MRI cervical spine is without any compressive myelopathy then he can be discharged from my standpoint 1. Chest pain (R07.9: Chest pain, unspecified) 2. Brain TIA (G45.9: Transient cerebral ischemic attack, unspecified) 3. Hypercholesterolemia (E78.00: Pure hypercholesterolemia, unspecified) 4. Fibromyalgia (M79.7: Fibromyalgia) 5. GERD (gastroesophageal reflux disease) (K21.9: Gastro-esophageal reflux disease without esophagitis) 6. Rheumatoid arthritis (M06.9: Rheumatoid arthritis, unspecified) 7. Nicotine abuse (Z72.0: Tobacco use) Extracted from: Title:Admission H & P Author:KAE REBOLLEDO, Berta Oden te:08/10/22 1. Chest pain (R07.9: Chest pain, unspecified) 23-hour observation Patient will not require more than 1 night in the hospital Cardiac telemetry Troponin x3 EKG: Reviewed by myself showed normal sinus rhythm no ST changes Troponin x3 CTA chest no PE and no dissection Echocardiogram Cardiology consult 2. Brain TIA (G45.9: Transient cerebral ischemic attack, unspecified) CT brain showed no acute bleed or infarct Aspirin and Plavix daily Lipitor daily MRI of the brain PT OT evaluation 3. Hypercholesterolemia (E78.00: Pure hypercholesterolemia, unspecified) Continue Lipitor 4. Fibromyalgia (M79.7: Fibromyalgia) Continue with home medication 5. GERD (gastroesophageal reflux disease) (K21.9: Gastro-esophageal reflux disease without esophagitis) PPI 6. Rheumatoid arthritis (M06.9: Rheumatoid arthritis, unspecified) Continue with home medication 7. Nicotine abuse (Z72.0: Tobacco use) Nicotine patch DVT prophylaxis Lovenox daily Extracted from: Title:ED Note Author:Andi Payne PA-C e:08/10/22 1. Chest pain (R07.9: Chest pain, unspecified) 2. Brain TIA (G45.9: Transient cerebral ischemic attack, unspecified) 3. Hypercholesterolemia (E78.00: Pure hypercholesterolemia, unspecified) 4. Fibromyalgia (M79.7: Fibromyalgia) 5. GERD (gastroesophageal reflux disease) (K21.9: Gastro-esophageal reflux disease without esophagitis) 6. Rheumatoid arthritis (M06.9: Rheumatoid arthritis, unspecified) 7. Nicotine abuse (Z72.0: Tobacco use) Orders: nitroglycerin, 0.4 mg = 1 tab(s), Tab, SubLingual, q5min PRN Chest pain for 3 dose(s), Stop date Limited # of times, STAT, Start date 08/10/22 17:11:00 EST, Hold for SBP < 110, 08/10/22 17:11:00 EST Automated Diff Basic Metabolic Panel CBC w/ Auto Diff Romance Stroke Scale Communication Order Physician to Nursing Continuous Pulse Oximetry CT Head or Brain w/o Contrast CTA Chest CVA/TIA Inclusion/Exclusion Criteria ECG 12 Lead Adult ED Cardiac Monitoring ED Physician consult Hospitalist for continued care eGFR Extra SST Tube NIH Stroke Scale Oxygen Therapy PT & PTT Routine Capillary Glucose POC Saline Lock Insert Stroke Quality Measures Troponin 0 Hr. Troponin 3 Hr. Troponin 6 Hr. Troponin 9 Hr. UA With Cult Reflex Vital Signs Future Appointments Appointment Date:08/16/2022 02:15:00 PM Scheduled Provider: Location[facility] Appointment Type:PT 45 (FT) Appointment Date:08/19/2022 02:15:00 PM Scheduled Provider: Location[facility] Appointment Type:PT 45 (FT) Appointment Date:08/22/2022 02:15:00 PM Scheduled Provider: Location[facility] Appointment Type:PT 45 (FT) Appointment Date:08/25/2022 02:15:00 PM Scheduled Provider: Location[place] Appointment Type:PT 45 (FT) Appointment Date:08/30/2022 02:15:00 PM Scheduled Provider: Location[place] Appointment Type:PT 45 (FT) Appointment Date:09/02/2022 03:45:00 PM Scheduled Provider: Location[place] Appointment Type:PT Re-Eval 45 (FT) Appointment Date:09/06/2022 02:15:00 PM Scheduled Provider: Location[place] Appointment Type:PT 45 (FT) Appointment Date:09/08/2022 02:15:00 PM Scheduled Provider: Location[place] Appointment Type:PT 45 (FT) Appointment Date:09/12/2022 02:15:00 PM Scheduled Provider: Location[place] Appointment Type:PT 45 (FT) Appointment Date:09/13/2022 02:15:00 PM Scheduled Provider: Location[place] Appointment Type:PT 45 (FT) Appointment Date:09/14/2022 02:45:00 PM Scheduled Provider: Location[place] Appointment Type:PT 45 (FT) Appointment Date:09/16/2022 02:00:00 PM Scheduled Provider: Location[place] Appointment Type:PT 45 (FT) Appointment Date:09/19/2022 02:15:00 PM Scheduled Provider: Location:[place] Appointment Type:PT 45 (FT) Appointment Date:09/21/2022 02:45:00 PM Scheduled Provider: Location:[place] Appointment Type:PT 45 (FT) Appointment Date:09/27/2022 02:30:00 PM Scheduled Provider: Location:[place] Appointment Type:PT Re-Eval 45 (FT) [facility]01-26-2023 NoteFisher [facility] Hospital CenterComment on above:Result Comment: Electronically Signed By: KAE REBOLLEDO, Berta\.br\Date and Time Signed: 08/11/22 11:[id number] NotePT Evaluation done this date. Pt. with on AM-PAC this date. He is safe and independent with all functional activity. He is current with outpatient PT and safe to return when d/c'd. No further acute PT needs.[facility]01-26-2023 Hospital Discharge instructions Patient Education 08/11/2022 08:58:47 Core Measures: Stroke (Cerebrovascular Accident) [facility], (Custom) Stroke (Cerebrovascular Accident) A stroke is acute of brain tissue, and it is a neurologic emergency. A stroke can cause permanent loss of function of the central nervous system (brain). If the symptoms of a stroke end withoutcomplications in 24 hours, it is diagnosed as a transient ischemic attack (TIA). If the symptoms are not resolved within 24 hours, it is defined as a stroke. CAUSES A stroke is caused by a decrease of oxygen supply to an area of your brain. It is usually the result of a small blood clot or hardening of the arteries. Blockages in, or damage to, the carotid arteries leading to the brain can also cause a stroke. Bleeding in the brain can cause, or accompany, a stroke. SYMPTOMS These symptoms usually develop suddenly (or may be newly present upon awakening from sleep): Loss of vision. Double vision. Confusion. Numbness or weakness on one side of the face or body. Inability to speak (aphasia). DIAGNOSIS Your caregiver can often determine the presence or absence of a stroke based on your symptoms, history, and examination. A CT scan of the brain is usually performed to confirm the stroke, look for causes, and determine the severity. Other tests may be done to find the cause of the stroke, including: An EKG and heart monitoring. An echocardiogram (ultrasound evaluation of the heart). An ultrasound evaluation of your carotid arteries. Determination of blood oxygen level and blood tests. PREVENTION The likelihood of a stroke can be decreased by appropriate treatment of high blood pressure, high cholesterol, diabetes, and by stopping smoking. RISK FACTORS: If you have been told by your doctor or nurse practitioner that you have any of the following risk factors for stroke, work with your health career development consultant to control them. High Blood Pressure: High blood pressure is one of the main causes of stroke. It is the most important risk factor to control. Take your blood pressure medication, lose weight, increase your activity, and limit your salt intake to help control your blood pressure.Take your your blood pressure and write it down and then take them to your next doctor's appointment. Smoking: If you smoke: QUIT! We can help. Please call [facility] at [phone] ([facility]), or [phone], ext. [phone] Diabetes: Work with your healthcare professional to keep your blood sugar under control. Check yourblood sugar and take the results to your next doctor's visit. Take your medications as directed. Eating a healthy diet and exercising will also help keep your diabetes under control. For information on [facility] please call, . Carotid or other Artery Diseases: The carotid arteries in your neck carry blood to the brain. A stroke can be caused by a blood clot blocking an artery that has been damaged by a fatty buildup insidethe artery wall. Discuss ways to manage this with your health care provider. Atrial Fibrillation (A Fib): In A fib, your heart does not have a normal beat. This may allow clotsto form and puts you at a greater risk for having a stroke. Work with your health care provider to control your A fib. Your doctor may order special medication that helps prevent clots from forming. High blood cholesterol or high blood fats: High cholesterol increases your risk of stroke. Exerciseregularly, but talk to your health care provider first. A diet low in fat and cholesterol can help.If you have any questions about a low fat, low cholesterol diet, you can call our [facility] government sales manager at [phone] Ext. [phone]. The goal for total cholesterol is less than 200, and for LDL or thebad cholesterol is less than 100. Lifestyle Management: You increase your risk of stroke if you are overweight or obese, are not veryactive, or drink too much alcohol. Enjoy a diet rich in fruits and vegetables. Exercise regularly and drink alcohol in moderation or no more than two drinks a day for men and no more than one drink aday for non- women, or don't drink at all. This will help decrease your risk of stroke. Oral Contraceptives: Taking control pills or the pill can be a risk factor for stroke especially if you smoke. Discuss using the oral contraceptives and your risk of stroke with your health career development consultant. TREATMENT TIME IS OF THE ESSENCE! Medications to dissolve a blood clot can only be used within four and a half hours of the onset of symptoms. After that time, treatment of stroke depends on duration of symptoms, severity, and cause. Medications and diet measures may be used to address diabetes, high blood pr essure, and other risk factors. Physical therapy, speech therapy, and occupational therapy specialists will assess you and work to improve any functions impaired by the stroke. Measures will be takento prevent short and roasterman complications, including aspiration pneumonia, blood clots in the leg s, bedsores, and falls. HOME CARE INSTRUCTIONS Care at home after a stroke can be complicated. Medications Blood thinners may be used to prevent another stroke. Blood thinners need to be used exactly as instructed. Medicines may also be used to control risk factors for a stroke. Be sure you understand all your medication instructions. It is very important to not run out of your medicine. Getmore while you still have a one-week supply. Do not stop taking your medicine without speaking to your healthcare professional. Take all of your medications or an updated list of your medications to all of your doctor's appointments. Physical, occupational, and speech therapy Ongoing therapy is often necessary to maximize recovery after a stroke. If you have been advised to use a walker or a cane, use it at all times. Be sure youkeep your therapy appointments. Diet Certain diets may be prescribed to address high blood pressure, high cholesterol, or diabetes.Foods may need to be a special consistency (soft, pureed, small bites) to avoid food going into your lungs or choking. Home safety A safe home environment is important to reduce the risk of falls. Your caregiver may arrange for specialists to evaluate your home. Grab bars in the bedroom and bathroom are often important. Your caregiver may arrange for special equipment to be used at home, such as raised toilets and a seat for the shower. It s important to know and control your risk factors, but it is also important to recognize the signs and symptoms of stroke/TIA and know what to do: Call 911 if any of these things happen: Sudden numbness or weakness of the face, arm, or leg especially on one side of the body. Sudden confusion, trouble speaking, or understanding. Sudden trouble seeing in one or both eyes. Sudden trouble walking, dizziness, loss of balance or coordination Sudden severe headache with no known cause * It is very important for you to follow-up with your Primary Care Doctor and your Neurologist after you go home. Make sure that you keep your doctor visits. Remember: TIME LOST is BRAIN LOST Resources: for more information on strokes, log onto www.[employer].Parchment or www.strokeassociation.org or call the [employer] at . Revised 07/201808/11/2022 07:30:09 Chest Wall Pain, Tmqz-ht-Wver Chest Wall Pain Chest wall pain is pain in or around the bones and muscles of your chest. Chest wall pain may be caused by: An injury. Coughing a lot. Using your chest and arm muscles too much. Sometimes, the cause may not be known. This pain may take a few weeks or longer to get better. Follow these instructions at home: Managing pain, stiffness, and swelling If told, put ice on the painful area: Put ice in a plastic bag. Place a towel between your skin and the bag. Leave the ice on for 20 minutes, 2 3 times a day. Activity Rest as told by your doctor. Avoid doing things that cause pain. This includes lifting heavy items. Ask your doctor what activities are safe for you. General instructions Take oyfm-buu-jxwqnlw and prescription medicines only as told by your doctor. Do not use any products that contain nicotine or tobacco, such as cigarettes, e- cigarettes, and chewing tobacco. If you need help quitting, ask your doctor. Keep all follow-up visits as told by your doctor. This is important. Contact a doctor if: You have a fever. Your chest pain gets worse. You have new symptoms. Get help right away if: You feel sick to your stomach (nauseous) or you throw up (vomit). You feel sweaty or light-headed. You have a cough with mucus from your lungs (sputum) or you cough up blood. You are short of breath. These symptoms may be an emergency. Do not wait to see if the symptoms will go away. Get medical help right away. Call your local emergency services (911 in the [place] Do not drive yourself to the hospital. Summary Chest wall pain is pain in or around the bones and muscles of your chest. It may be treated with ice, rest, and medicines. Your condition may also get better if you avoid doing things that cause pain. Contact a doctor if you have a fever, chest pain that gets worse, or new symptoms. Get help right away if you feel light-headed or you get short of breath. These symptoms may be an emergency. This information is not intended to replace advice given to you by your health care provider. Make sure you discuss any questions you have with your health care provider. Document Released: 12/19/2008 Document Revised: 01/03/2019 Document Reviewed: 01/03/2019 [employer] Patient Education 2020 [employer]. Follow Up Care 08/10/2022 15:03:04 With:Keyon Washington MD, [facility] Address: [address] [place] [phone] When:2 to 4 weeks With:Cyn Shearer Address: [address] [place] [address], [address] [place] [phone] Business () When: Unknown [facility]01-25-[address] John Medical CenterComment on above:Result Comment: Electronically Signed By: KAE REBOLLEDO, Berta\.br\Date and Time Signed: 08/10/22 17:[id number] Evaluation + Plan noteExtracted from: Title:Discharge Note Author:Braxton LOMBARDI MD te:07/07/22 Discharged to - Home with family care Discharge Status: Improved Discharge Instructions Given: To patient Discharge disposition: Home Prescriptions reviewed with Patient 25 Minute in discharge time Discharge Diet(s): Low Sodium- 2000 mg (07/07/22 07:37:00) Prescriptions nicotine 14 mg/24 hr Transderm ER Film, 1 patch(es), TransDermal, Daily Home aspirin, 81 mg, Oral, Daily clopidogrel 75 mg Tab, 75 mg= 1 tab(s), Oral, Daily cyclobenzaprine 10 mg Tab, 10 mg= 1 tab(s), Oral, Bedtime, PRN omeprazole, 40 mg, Oral, Daily pravastatin 20 mg Tab, 20 mg= 1 tab(s), Oral, Daily With When Contact Information Keyon Washington Within 1 to 2 weeks [address] [place] [address]- Business (1) Additional Instructions: Call for followup appointment Call physician if symptoms worsen Cyn Manfred Within 1 to 2 weeks [address] [facility], [address] [place] [address]- Business (1) Additional Instructions: Call for followup appointment Call physician if symptoms worsen Core Measures: Stroke (Cerebrovascular Accident) [facility], (Custom) Core Measures Transient Ischemic Attack (TIA) [facility] (Custom) Addendum by Braxton LOMBARDI MD on July 07, 2022 09:40:51 EST Neurology recommended limited echocardiogram and stopping pravastatin and switching him to atorvastatin 80 mg. Limited echocardiogram has been ordered. Patient will be discharged after the echo is done on atorvastatin 80 mg daily at bedtime Extracted from: Title:Consult Note-neurology Author:Gopal Dowell RN Date:07/07/22 ASSESSMENT: 1. Presumed TIA - transient dizziness and facial weakness and speech changes. MRI is without any acute findings. 2. Chronic strokes. MRI shows evidence of remote ischemia in a watershed/borderzone distribution MCA JARRETT on the right which makes sense given that the carotid endarterectomy was subsequently performed on that side. Also with some remote ischemia in the left frontal lobe and also the right head of the caudate. PLAN: 1. Continue home clopidogrel and aspirin doses 2. We are changing his pravastatin to atorvastatin 80 mg daily (LDL 113) 3. Awaiting carotid ultrasound results 4. Awaiting limited echocardiogram results 5. If #3 and #4 are without concerning findings, okay for discharge from my standpoint 1. Weakness (R53.1: Weakness) 2. Speech disturbance (R47.9: Unspecified speech disturbances) 3. Smoker (F17.200: Nicotine dependence, unspecified, uncomplicated) 4. Rheumatoid arthritis (M06.9: Rheumatoid arthritis, unspecified) 5. Hypercholesterolemia (E78.00: Pure hypercholesterolemia, unspecified) 6. Fibromyalgia (M79.7: Fibromyalgia) 7. GERD (gastroesophageal reflux disease) (K21.9: Gastro-esophageal reflux disease without esophagitis) Extracted from: Title:Admission H & P Author:Braxton LOMBARDI MD ate:07/06/22 61-year-old male with past m edical history of nicotine dependence smoking half pack per day, history of CVA x9 as per patient, right carotid endarterectomy, fibromyalgia, GERD, rheumatoid arthritis, hyperlipidemia presented for pain in the chest region along with left upper extremity numbness and some speech difficulty. 1. Weakness (R53.1: Weakness) TIA /concern for acute stroke. Observation admission as patient does not require more than 2 midnight stay Consult neurology MRI brain, MRA head, ultrasound carotid Will echocardiogram with bubble study if MRI positive for CVA Spoke to ER nurse regarding doing a bedside dysphagia screen and if patient clears it we will get patient started on cardiac diet If patient clears dysphagia screen patient will be n.p.o. until seeing speech therapy Aspirin 81 mg daily Telemetry to rule out cardiac arrhythmia- watch for A.fib PT/OT evaluation Permissive hypertension for next 24 hours Goal is to get patient normotensive by discharge 2. Speech disturbance (R47.9: Unspecified speech disturbances) His speech has resolved and he has no difficulty swallowing Will do bedside dysphagia screen and order diet 3. Smoker (F17.200: Nicotine dependence, unspecified, uncomplicated) Smoking cessation and nicotine patch Ordered: nicotine, 14 mg, 1 patch(es), Patch-ER, TransDermal, Daily, STAT, Start date 07/06/22 10:11:00 EST Smoking Cessation Instruction 4. Rheumatoid arthritis (M06.9: Rheumatoid arthritis, unspecified) 5. Hypercholesterolemia (E78.00: Pure hypercholesterolemia, unspecified) Check lipid panel Pravastatin 6. Fibromyalgia (M79.7: Fibromyalgia) Flexeril as needed 7. GERD (gastroesophageal reflux disease) (K21.9: Gastro-esophageal reflux disease without esophagitis) PPI Orders: acetaminophen, 650 mg = 2 tab(s), Tab, Oral, q6hr PRN Pain, Routine, Start date 07/06/22 9:18:00 EST, 07/06/22 9:18:00 EST Al hydroxide/Mg hydroxide/simethicone, 30 mL, Susp-Oral, Oral, q6hr PRN Indigestion, STAT, Start date 07/06/22 9:18:00 EST aspirin, 81 mg = 1 tab(s), Tab-EC, Oral, Daily, Routine, Start date 07/07/22 9:00:00 EST, 07/06/22 9:18:00 EST clopidogrel, 75 mg = 1 tab(s), Tab, Oral, Daily, Routine, Start date 07/07/22 9:00:00 EST, 07/06/22 10:11:00 EST cyclobenzaprine, 10 mg = 1 tab(s), Tab, Oral, Bedtime PRN Spasm, Routine, Start date 07/06/22 10:11:00 EST, 07/06/22 10:11:00 EST heparin, 5,000 unit(s) = 1 mL, Injection, SubCutaneous, q12hr, Routine, Start date 07/06/22 10:00:00 EST, 07/06/22 9:18:00 EST hydrALAZINE, 10 mg = 0.5 mL, Injection, IV Push, q6hr PRN Other (see comment), Routine, Start date 07/06/22 9:18:00 EST, 07/06/22 9:18:00 EST ondansetron, 4 mg = 2 mL, Injection, IV Push, q6hr PRN Nausea, Routine, Start date 07/06/22 9:18:00 EST, 07/06/22 9:18:00 EST pantoprazole, 40 mg = 1 tab(s), Tab-DR, Oral, Daily, Routine, Start date 07/07/22 9:00:00 EST, 07/06/22 10:12:00 EST pravastatin, 20 mg = 1 tab(s), Tab, Oral, Daily, Routine, Start date 07/07/22 9:00:00 EST, 07/06/22 10:11:00 EST Ambulate with Assistance Below the Knee Intermittent Pneumatic Compression Device Cardiac Diet Cardiac Monitoring Communication Order Communication Order Physician to Nursing Consult to Neurology Dysphagia Screen Evaluate Need For Continued Telemetry Intake and Output Lipid Panel MRA Head w/o Contrast MRI Brain w/o Contrast Notify Provider Vital Signs Notify Provider Vital Signs Occupational Therapy Evaluate Patient, Develop a Plan of Care and Implement Plan Oxygen Protocol Physical Therapy Evaluate Patient, Develop a Plan of Care and Implement Plan Place in Status Precautions Pulse Oximetry Speech Language Pathology Evaluate Patient, Develop a Plan of Care and Implement Plan Stroke Education Stroke Quality Measures US Carotid Duplex Bilateral Vital Signs Weight Plan discussed with patient at bedside in ER bed #7 This report was transcribed using voice recognition software. Every effort was made to ensure accuracy, however, inadvertently computerized forest fire prevention manager mistakes may be present. Dr. Braxton Lombardi Hospitalist at [facility] Extracted from: Title:ED Note Author:Tereso Derian Date:1 09/06/21 Speech disturbance (R47.9: U nspecified speech disturbances) Weakness (R53.1: Weakness) Orders: Automated Diff Basic Metabolic Panel BB Draw & Hold CBC w/ Auto Diff Romance Stroke Scale Communication Order Physician to Nursing Continuous Pulse Oximetry CT Head or Brain w/o Contrast ECG 12 Lead Adult ED Cardiac Monitoring ED Physician consult Hospitalist for continued care eGFR Extra [place] Tube Extra SST Tube NPO Diet Oxygen Therapy PT & PTT Routine Capillary Glucose POC Saline Lock Insert Stroke Quality Measures Troponin 0 Hr. UA With Cult Reflex Vital Signs XR Chest Single View [facility]12-22-2022 NotePT Evaluation done this date. Pt. with on AM-PAC this date. He is safe and steady with all functional activities with no PT needs.[facility]12-22-2022 NoteFishMercy Medical CenterComment on above:Result Comment: Electronically Signed By: Braxton LOMBARDI MD P\.br\Date and Time Signed: 07/07/22 09:41 [id number] Hospital Discharge instructions Patient Education 07/06/2022 22:40:43 Core Measures: Stroke (Cerebrovascular Accident) [facility], (Custom) Stroke (Cerebrovascular Accident) A stroke is acute of brain tissue, and it is a neurologic emergency. A stroke can cause permanent loss of function of the central nervous system (brain). If the symptoms of a stroke end withoutcomplications in 24 hours, it is diagnosed as a transient ischemic attack (TIA). If the symptoms are not resolved within 24 hours, it is defined as a stroke. CAUSES A stroke is caused by a decrease of oxygen supply to an area of your brain. It is usually the result of a small blood clot or hardening of the arteries. Blockages in, or damage to, the carotid arteries leading to the brain can also cause a stroke. Bleeding in the brain can cause, or accompany, a stroke. SYMPTOMS These symptoms usually develop suddenly (or may be newly present upon awakening from sleep): Loss of vision. Double vision. Confusion. Numbness or weakness on one side of the face or body. Inability to speak (aphasia). DIAGNOSIS Your caregiver can often determine the presence or absence of a stroke based on your symptoms, history, and examination. A CT scan of the brain is usually performed to confirm the stroke, look for causes, and determine the severity. Other tests may be done to find the cause of the stroke, including: An EKG and heart monitoring. An echocardiogram (ultrasound evaluation of the heart). An ultrasound evaluation of your carotid arteries. Determination of blood oxygen level and blood tests. PREVENTION The likelihood of a stroke can be decreased by appropriate treatment of high blood pressure, high cholesterol, diabetes, and by stopping smoking. RISK FACTORS: If you have been told by your doctor or nurse practitioner that you have any of the following risk factors for stroke, work with your health career development consultant to control them. High Blood Pressure: High blood pressure is one of the main causes of stroke. It is the most important risk factor to control. Take your blood pressure medication, lose weight, increase your activity, and limit your salt intake to help control your blood pressure.Take your your blood pressure and write it down and then take them to your next doctor's appointment. Smoking: If you smoke: QUIT! We can help. Please call [facility] at [phone] ([facility]), or [phone], ext. [phone] Diabetes: Work with your healthcare professional to keep your blood sugar under control. Check yourblood sugar and take the results to your next doctor's visit. Take your medications as directed. Eating a healthy diet and exercising will also help keep your diabetes under control. For information on [facility] please call, . Carotid or other Artery Diseases: The carotid arteries in your neck carry blood to the brain. A stroke can be caused by a blood clot blocking an artery that has been damaged by a fatty buildup insidethe artery wall. Discuss ways to manage this with your health care provider. Atrial Fibrillation (A Fib): In A fib, your heart does not have a normal beat. This may allow clotsto form and puts you at a greater risk for having a stroke. Work with your health care provider to control your A fib. Your doctor may order special medication that helps prevent clots from forming. High blood cholesterol or high blood fats: High cholesterol increases your risk of stroke. Exerciseregularly, but talk to your health care provider first. A diet low in fat and cholesterol can help.If you have any questions about a low fat, low cholesterol diet, you can call our [employer] government sales manager at [phone] Ext. [phone]. The goal for total cholesterol is less than 200, and for LDL or thebad cholesterol is less than 100. Lifestyle Management: You increase your risk of stroke if you are overweight or obese, are not veryactive, or drink too much alcohol. Enjoy a diet rich in fruits and vegetables. Exercise regularly and drink alcohol in moderation or no more than two drinks a day for men and no more than one drink aday for non- women, or don't drink at all. This will help decrease your risk of stroke. Oral Contraceptives: Taking control pills or the pill can be a risk factor for stroke especially if you smoke. Discuss using the oral contraceptives and your risk of stroke with your health career development consultant. TREATMENT TIME IS OF THE ESSENCE! Medications to dissolve a blood clot can only be used within four and a half hours of the onset of symptoms. After that time, treatment of stroke depends on duration of symptoms, severity, and cause. Medications and diet measures may be used to address diabetes, high blood pr essure, and other risk factors. Physical therapy, speech therapy, and occupational therapy specialists will assess you and work to improve any functions impaired by the stroke. Measures will be takento prevent short and assisted complications, including aspiration pneumonia, blood clots in the leg s, bedsores, and falls. HOME CARE INSTRUCTIONS Care at home after a stroke can be complicated. Medications Blood thinners may be used to prevent another stroke. Blood thinners need to be used exactly as instructed. Medicines may also be used to control risk factors for a stroke. Be sure you understand all your medication instructions. It is very important to not run out of your medicine. Getmore while you still have a one-week supply. Do not stop taking your medicine without speaking to your healthcare professional. Take all of your medications or an updated list of your medications to all of your doctor's appointments. Physical, occupational, and speech therapy Ongoing therapy is often necessary to maximize recovery after a stroke. If you have been advised to use a walker or a cane, use it at all times. Be sure youkeep your therapy appointments. Diet Certain diets may be prescribed to address high blood pressure, high cholesterol, or diabetes.Foods may need to be a special consistency (soft, pureed, small bites) to avoid food going into your lungs or choking. Home safety A safe home environment is important to reduce the risk of falls. Your caregiver may arrange for specialists to evaluate your home. Grab bars in the bedroom and bathroom are often important. Your caregiver may arrange for special equipment to be used at home, such as raised toilets and a seat for the shower. It s important to know and control your risk factors, but it is also important to recognize the signs and symptoms of stroke/TIA and know what to do: Call 911 if any of these things happen: Sudden numbness or weakness of the face, arm, or leg especially on one side of the body. Sudden confusion, trouble speaking, or understanding. Sudden trouble seeing in one or both eyes. Sudden trouble walking, dizziness, loss of balance or coordination Sudden severe headache with no known cause * It is very important for you to follow-up with your Primary Care Doctor and your Neurologist after you go home. Make sure that you keep your doctor visits. Remember: TIME LOST is BRAIN LOST Resources: for more information on strokes, log onto www.[email or web address] or www.strokeassociation.org or call the [employer] at . Revised 07/201807/06/2022 22:40:43 Core Measures Transient Ischemic Attack (TIA) [facility] ([employer]) Transient Ischemic Attack You have had a transient ischemic attack (TIA). This means that the nervous system did not work properly for a short time. It is caused by a low oxygen supply to an area of your brain. It may be caused by a small blood clot or hardening of the arteries. This is a temporary neurologic condition. It usually gets better within thirty minutes, but always within twenty-four hours. If this does not resolve within that time period, it is defined as a stroke. TIA's are warning signs that you are at risk for having a stroke. A small percentage of patients who have had a TIA will have a stroke within acouple days, and up to 20% will have a stroke within 3 months. PREVENTION The likelihood of a stroke can be decreased by appropriate treatment of high blood pressure, high cholesterol, diabetes, and by stopping smoking. RISK FACTORS: If you have been told by your doctor or nurse practitioner that you have any of the following risk factors for stroke, work with your health career development consultant to control them. Risk Factors: High Blood Pressure: High blood pressure is one of the main causes of stroke. It is the most important risk factor to control. Take your blood pressure medication, lose weight, increase your activity, and limit your salt intake to help control your blood pressure.Take your your blood pressure and write it down and then take them to your next doctor's appointment. Smoking: If you smoke: QUIT! We can help. Please call [facility] at [phone] ([facility]), or [phone], ext. [phone] Diabetes: Work with your healthcare professional to keep your blood sugar under control. Check yourblood sugar and take the results to your next doctor's visit. Take your medications as directed. Eating a healthy diet and exercising will also help keep your diabetes under control. For information on [facility] please call, . Carotid or other Artery Diseases: The carotid arteries in your neck carry blood to the brain. A stroke can be caused by a blood clot blocking an artery that has been damaged by a fatty buildup insidethe artery wall. Discuss ways to manage this with your health care provider. Atrial Fibrillation (A Fib): In A fib, your heart does not have a normal beat. This may allow clotsto form and puts you at a greater risk for having a stroke. Work with your health care provider to control your A fib. Your doctor may order special medication that helps prevent clots from forming. High blood cholesterol or high blood fats: High cholesterol increases your risk of stroke. Exerciseregularly, but talk to your health care provider first. A diet low in fat and cholesterol can help.If you have any questions about a low fat, low cholesterol diet, you can call our [facility] government sales manager at [phone] [place] [address]. The goal for total cholesterol is less than 200, and for LDL or the bad cholesterol is less than 100. Lifestyle Management: You increase your risk of stroke if you are overweight or obese, are not veryactive, or drink too much alcohol. Enjoy a diet rich in fruits and vegetables. Exercise regularly and drink alcohol in moderation or no more than two drinks a day for men and no more than one drink aday for non- women, or don't drink at all. This will help decrease your risk of stroke. Oral Contraceptives: Taking control pills or the pill can be a risk factor for stroke especially if you smoke. Discuss using the oral contraceptives and your risk of stroke with your health career development consultant. If this is your first ischemic attack, you will need further evaluation by your caregiver. You may need appropriate treatment and lifestyle changes as recommended. A certain number of patients with TIA go on to develop a stroke. It is very important that you follow up, as instructed, with your caregiver or a specialist in order to continue your evaluation and decide on a course of treatment. The failure to follow up in the time frame indicated by your caregiver may lead to worsening of your condition and permanent disability and possible .If you develop signs and symptoms of a stroke, TIME IS OF THE ESSENCE! Call 911. Medications to dissolve a blood clot can only be used within four and a half hours of the onset of symptoms.After that time, treatment of stroke depends on duration of symptoms, severity, and cause. It s important to know and control your risk factors, but it is also important to recognize the signs and symptoms of stroke/TIA and know what to do: Call 911 if any of these things happen: Sudden numbness or weakness of the face, arm, or leg especially on one side of the body. Sudden confusion, trouble speaking, or understanding. Sudden trouble seeing in one or both eyes. Sudden trouble walking, dizziness, loss of balance or coordination Sudden severe headache with no known cause * It is very important for you to follow-up with your Primary Care Doctor and your Neurologist after you go home. Make sure that you keep your doctor visits. Remember: TIME LOST is BRAIN LOST Resources: for more information on strokes, log onto www.[employer].com or www.strokeassociation.org or call the [place] [employer] at (450) 140- 1762. Revised 07/2018 Follow Up Care 07/06/2022 08:02:40 With:Keyon Washington Address: [address] [place] [address]- Business (1) When:08/01/2022 08:20:00 With:Cyn Shearer Address: [address] [place] [address], [address] [place] [address]- Business (1) When:07/21/2022 11:00:00 [facility]12[facility]21[facility] [facility] CenterComment on above:Result Comment: Electronically Signed By: HARJIT REBOLLEDO, Braxton Morgan\.br\Date and Time Signed: 07/06/22 10:13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 been specified. Discontinued Medications Disp Refills Start End buPROPion (WELLBUTRIN SR) 150 MG 12 hr tablet 180 tablet 5 01/07/2019 02/05/2019 Sig: Take 1 (one) tablet (150 mg total) by mouth 2 (two) times a day . 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 GROUND WAS UNEVEN AND HE SLIPPED, HURTING HIS LEFT ANKLE THIS MORNING. HE CONTINUED TO WORK AND AN HOUR LATER HE TWISTED HIS ANKLE AGAIN. DID NOT HIT HIS HEAD documented in this encounter ED PROVIDER NOTE [facility] EMERGENCY DEPARTMENT NAME: Fran Means AGE: 59 y.o. : 1960 VISIT DATE: 06/02/2020 CSN: [id number] PCP: Evans Olson CNP Chief Complaint Patient presents with Fall Is a 59-year-old male who takes aspirin and Plavix who presents to the emergency department after mechanical fall. Patient states that about 6 or 7 hours ago he was walking and tripped over something. He states he fell directly onto his left side. He needs he struck his head and he thinks he may have passed out for a moment or 2. He notes that he has been having pain in the left ribs as well as the left femur since then. He has not taken anything at home for pain. No numbness no tingling. No neck pain or back pain. Past Medical History: Diagnosis Date Arrhythmia Carotid artery stenosis Essential hypertension 05/03/2017 Hyperlipidemia Peptic ulceration Stroke (HCC) x4 Past Surgical History: Procedure Laterality Date EYE SURGERY MOUTH SURGERY MT THROMBOENDARTECTMY NECK,NECK INCIS Right 2016 Family History Family history unknown: Yes Social History Socioeconomic History Marital status: Spouse name: Not on file Number of children: Not on file Years of education: Not on file Highest education level: Not on file Occupational History Not on file Social Needs Financial resource strain: Not on file Food insecurity Worry: Not on file Inability: Not on file Transportation needs Medical: Not on file Non-medical: Not on file Tobacco Use Smoking status: Current Every Day Smoker Packs/day: 0.00 Years: 35.00 Pack years: 0.00 Last attempt to quit: 01/15/2016 Years since quittin.3 Smokeless tobacco: Never Used Substance and Sexual Activity Alcohol use: Yes Comment: OCCATIONAL Drug use: Yes Types: Marijuana Comment: PRESCRIBED Sexual activity: Not on file Lifestyle Physical activity Days per week: Not on file Minutes per session: Not on file Stress: Not on file Relationships Social connections Talks on phone: Not on file Gets together: Not on file Attends voodoo service: Not on file Active member of club or organization: Not on file Attends meetings of clubs or organizations: Not on file Relationship status: Not on file Other Topics Concern Not on file Social History Narrative Not on file Previous Medications Medication Sig aspirin 81 mg chewable tablet CHEW AND SWALLOW 1 TABLET BY MOUTH EVERY DAY clopidogreL (PLAVIX) 75 mg tablet TAKE (1) TABLET BY MOUTH DAILY fenofibrate (TRICOR) 54 MG tablet TAKE (1) TABLET BY MOUTH DAILY WITH FOOD omeprazole (PRILOSEC) 40 MG capsule TAKE 1 (ONE) CAPSULE (40 MG TOTAL) BY MOUTH 2 (TWO) TIMES A DAY BEFORE MEALS . pravastatin (PRAVACHOL) 40 MG tablet TAKE ONE (1) TABLET BY MOUTH EVERY DAY Allergies Allergen Reactions Other Bee stings Review of Systems Constitutional: Negative for chills and fever. Respiratory: Negative for cough and shortness of breath. Musculoskeletal: Negative for back pain and neck pain. Neurological: Negative for numbness and headaches. Patient Vitals for the past 24 hrs: BP Temp src Pulse Resp SpO2 Height Weight 06/02/20 2141 (!) 154/99 Oral 83 16 97 % 5' 5 81.6 kg (180 lb) Physical Exam Constitutional: Appearance: Normal appearance. HENT: Head: Normocephalic and atraumatic. Neck: Musculoskeletal: No neck rigidity or muscular tenderness. Cardiovascular: Rate and Rhythm: Normal rate and regular rhythm. Pulses: Normal pulses. Pulmonary: Effort: Pulmonary effort is normal. No respiratory distress. Breath sounds: Normal breath sounds. No stridor. No wheezing or rhonchi. Chest: Chest wall: Tenderness (Left anterior lateral tenderness to palpation) present. Abdominal: General: There is no distension. Palpations: Abdomen is soft. Tenderness: There is no abdominal tenderness. Musculoskeletal: General: No swelling or deformity. Comments: Mild diffuse mid femur tenderness to palpation. Skin: General: Skin is warm and dry. Neurological: Mental Status: He is alert and oriented to person, place, and time. Mental status is at baseline. Sensory: No sensory deficit. Motor: No weakness. Psychiatric: Mood and Affect: Mood normal. Behavior: Behavior normal. Laboratory & Radiographic Imaging (if done): No results found for this visit on 06/02/20. XR Femur Left 2+ Views (Standard) Final Result 1. No displaced fracture of the left femur. 2. Indeterminate globular calcification of the left femoral neck on single view. Workstation ID: [id number] XR Ribs Left With Chest 3+ Views Non-public Result 1. Old healed left rib fractures included a nonunited left 3rd rib fracture. No acute rib abnormality identified. No acute cardiopulmonary process. Workstation ID: [id number] CT Head Or Brain Without Contrast Final Result 1. Multiple scattered old infarcts, without acute infarct, hemorrhage or acute intracranial injury. 2. No skull fractures. [facility]/dbg Workstation ID: [id number] Procedures MDM Number of Diagnoses or Management Options Pain of left lower extremity Rib pain Diagnosis management comments: Chronic left rib fractures noted on x-rays. Head CT shows old CVA but nothing acute. X-ray of femur without acute process. Will discharge with lidocaine patches. Patient requests that the prescriptions be printed. . Clinical Impression: 1. Rib pain 2. Pain of left lower extremity ED Disposition ED Disposition Condition Comment Discharge Stable Fran Means discharged to home/self care in stable condition. Follow-up Information 1. Evans Olson CNP. Specialties: Family Medicine, Nurse Practitioner [address] [facility] [address] Contact information for after-discharge care Follow-up information has not been specified. New Prescriptions lidocaine (LIDODERM) 5 % patch Place 1 (one) patch on the skin daily Remove & Discard patch within 12 hours or as directed by MD . Cece Alarcon MD 06/02/20 2316 Patient reports falling on left side from standing position this afternoon. Denies any loss of consciousness. Finished work day. Pain progressing throughout the evening. Current pain 10/10 to left arm, ribs, and leg. Able to ambulate on arrival. documented in this encounter Care Team (unrecognized sect ion and content) Personnel Name: Cyn Shearer CNP Address: [address] [place] [address] Personnel Name: Cyn Shearer CNP Address: Address: [address] [place] [address] Personnel Name: Omar Shearer CNPca Darren Address: Address: [address] [place] [address] Personnel Name: Omar Shearer CNPca Darren Address: Address: [address] [place] [address] Personnel Name: Omar Shearer CNPca Darren Address: Address: [address] [place] [address] Personnel Name: Omar Shearer CNPca Darren Address: Address: [address] [place] [address] Personnel Name: Omar Shearer CNPca Darren Address: Address: [address] [place] [address] Personnel Name: Omar Shearer CNPca Darren Address: Address: [address] [place] [address] Personnel Name: Marlena Shearer CNPecca Darren Address: Address: [address] [place] [address] Personnel Name: Omar Shearer CNPca Darren Address: Address: [address] [place] [address] Personnel Name: Omar Shearer CNPca Darren Address: Address: [address] [place] [address] Personnel Name: Omar Shearer CNPjanak Banks Address: Address: [address] [place] [address], [address] Personnel Name: Cyn Shearer CNP Address: Address: [address] [place] [address], [address] Personnel Name: Cyn Shearer CNP Address: Address: [address] [place] [address], [address] Personnel Name: Shearer Cyn REID Address: Address: [address] [place] [address], [address] Personnel Name: Cyn Shearer CNP Address: Address: [address] [place] [address], [address] Personnel Name: Shearer Cyn REID Address: Address: [address] [place] [address], [address] Personnel Name: Cyn Shearer CNP Address: Address: [address] [place] [address], [address] Personnel Name: Cyn Shearer CNP Address: Address: [address] [place] [address] Personnel Name: Cyn Shearer CNP Address: Address: [address] [place] [address], [address] Scheduled Active and Recently Administ ered Medications (unrecognized section and content) Medication Order 02/15/2023 02/16/2023 02/17/2023 acetaminophen (TYLENOL) tablet 1,000 mg, Oral, 3 TIMES DAILY, First dose on 02/12/23 at 1400, Until Discontinued 06 (Given - Provider: Raman Durham RN)1400 (Hold/Not Given - Provider: Christine Flowers RN - Reason: Patient refused)2120 (Given - Provider: Raman Durham, EMILY) 0608 (Given - Provider: Raman Durham RN)1400 (Hold/Not Given - Provider: Nidia Alejo RN - Reason: Patient refused)212 (Given - Provider: Leandra Herrmann, EMILY) 0600 (Hold/Not Given - Provider: Leandra Herrmann RN - Reason: Patient sleeping)1400 (Hold/Not Given - Provider: Nidia Alejo RN - Reason: Patient refused)2200 (Due) aspirin EC tablet 81 mg, Oral, DAILY, First dose (after last reorder) on Mon02/16/23 at 0900, Until Discontinued 925 (Given - Provider: Nidia Alejo RN) 817 (Given - Provider: Nidia Alejo RN) atorvastatin (LIPITOR) tablet 80 mg, Oral, DAILY, First dose on Mon02/12/23 at 1400, Until Discontinued 913 (Given - Provider: Christine Flowers RN) 925 (Given - Provider: Nidia Alejo RN) 08 (Given - Provider: Nidia Alejo RN) azithromycin (ZITHROMAX) 500 mg in NS 250 mL ivpb (CANCELED) 500 mg, Intravenous, EVERY 24 HOURS ANTIBIOTIC, First dose on Mon02/13/23 at 1330, Until Discontinued 912 (IV New Bag - Provider: Christine Flowers RN) 1054 (IV New Bag - Provider: Nidia Alejo RN) 1000 (IV New Bag - Provider: Nidia Alejo RN - Comment: MD cha last dose) cefTRIAXone (ROCEPHIN) 1,000 mg in dextrose 50 mL ivpb (CANCELED) 1,000 mg, Intravenous, EVERY 24 HOURS ANTIBIOTIC, First dose on Mon02/13/23 at 1330, Until Discontinued 913 (IV New Bag - Provider: Christine Flowers RN) 09 (IV New Bag - Provider: Nidia Alejo RN) 1019 (IV New Bag - Provider: Nidia Alejo RN) clopidogrel (PLAVIX) 75 MG tablet 75 mg, Oral, DAILY, First dose (after last reorder) on Mon02/16/23 at 0900, Until Discontinued 926 (Given - Provider: Nidia Alejo RN) 817 (Given - Provider: Nidia Alejo RN) enoxaparin (LOVENOX) 100 MG/ML injection 90 mg 90 mg (rounded from 92.1 mg = 1 mg/kg 92.1 kg), Subcutaneous, 2 TIMES DAILY, First dose on Mon02/13/23 at 1330, Until Discontinued 913 (Given - Provider: Christine Flowers RN)2121 (Given - Provider: Raman Durham RN) 926 (Given - Provider: Nidia Alejo RN)2125 (Given - Provider: Leandra Herrmann RN) 0818 (Given - Provider: Nidia Alejo RN)2100 (Due) esomeprazole (NEXIUM) capsule 40 mg, Oral, 2 TIMES DAILY 30 MIN BEFORE MEALS, First dose on 02/12/23 at 1630, Until Discontinued 0914 (Given - Provider: Christine Flowers RN)1633 (Given - Provider: Christine Flowers RN) 0927 (Given - Provider: Nidia Alejo RN)1532 (Given - Provider: Nidia Alejo RN) 0818 (Given - Provider: Nidia Alejo RN)1630 (Due) gabapentin (NEURONTIN) capsule 300 mg, Oral, 2 TIMES DAILY, First dose on 02/12/23 at 1400, Until Discontinued 09 (Given - Provider: Christine Flowers RN)2120 (Given - Provider: Raman Durham RN) 0926 (Given - Provider: Nidia Alejo RN)212 (Given - Provider: Leandra Herrmann RN) 08 (Given - Provider: Nidia Alejo RN)2100 (Due) isosorbide mononitrate (IMDUR) 24 hour CR tablet 30 mg, Oral, DAILY, First dose on 02/12/23 at 1400, Until Discontinued 09 (Given - Provider: Christine Flowers RN) 09 (Given - Provider: Nidia Alejo RN) 0818 (Given - Provider: Nidia Alejo RN) lidocaine (LIDODERM) 5 % patch 1 Patch, Transdermal, EVERY 24 HOURS, First dose on 02/12/23 at 1400, Until Discontinued 1400 (Hold/Not Given - Provider: Christine Flowers RN - Reason: Patient refused) 1400 (Hold/Not Given - Provider: Nidia Alejo RN - Reason: Patient refused) 1400 (Hold/Not Given - Provider: Nidia Alejo RN - Reason: Patient refused) metoprolol (TOPROL-XL) 24 hour tablet 25 mg, Oral, DAILY, First dose on 02/12/23 at 1400, Until Discontinued 0914 (Given - Provider: Christine Flowers RN) 0955 (Given - Provider: Nidia Alejo RN) 0818 (Given - Provider: Nidia Alejo RN) nicotine (NICODERM CQ) 21 mg/24HR patch 21 mg, Transdermal, DAILY, First dose on 02/12/23 at 1400, Until Discontinued 0844 (Patch Removal - Provider: Christine Flowers RN)0914 (Patch Applied - Provider: Christine Flowers RN) 0859 (Patch Removal - Provider: Nidia Alejo RN)09 (Patch Applied - Provider: Nidia Alejo RN) 0818 (Patch Applied - Provider: Nidia Alejo RN) ranolazine (RANEXA) 500 MG 12 hour tablet 500 mg, Oral, 2 TIMES DAILY, First dose on 02/12/23 at 2100, Until Discontinued 09 (Given - Provider: Christine Flowers RN)2121 (Given - Provider: Raman Durham RN) 925 (Given - Provider: Nidia Alejo RN)2125 (Given - Provider: Leandra Herrmann, EMILY) 08 (Given - Provider: Nidia Alejo RN)2100 (Due) PRN Medication Order 02/15/2023 02/16/2023 02/17/2023 cyclobenzaprine (FLEXERIL) tablet 10 mg, Oral, 3 TIMES DAILY PRN, Starting on 02/12/23 at 1303, Until Discontinued, Muscle spasms 2122 (Given - Provider: Raman Durham RN) 607 (Given - Provider: Raman Durham RN)2125 (Given - Provider: Leandra Herrmann, EMILY) melatonin tablet 3 mg, Oral, AT BEDTIME PRN, Starting on Emely 02/16/23 at 2138, Until Discontinued, Sleep 2142 (Given - Provider: Leandra Herrmann, EMILY) ondansetron (ZOFRAN) 4 MG/2ML injection 4 mg, Intravenous Push, EVERY 4 HOURS PRN, Starting on 02/12/23 at 1304, Until Discontinued, Nausea oxyCODONE immediate release tablet 5 mg, Oral, EVERY 4 HOURS PRN, Starting on 02/12/23 at 1306, Until Discontinued, Moderate Pain (pain score 4,5,6) oxyCODONE immediate release tablet 10 mg, Oral, EVERY 4 HOURS PRN, Starting on 02/12/23 at 1307, Until Discontinued, Severe Pain (pain score 7,8,9,10) 0627 (Given - Provider: Ramna Durham RN) simethicone (GAS-X) 80 MG chewable tablet 80 mg, Oral, EVERY 6 HOURS PRN, Starting on 02/12/23 at 1440, Until Discontinued, Flatulence FOR RECORDS PERTAINING TO PATIENTS WHO ARE OR HAVE BEEN ENROLLED IN A CHEMICAL DEPENDENCY/SUBSTANCEABUSE PROGRAM, SOME INFORMATION MAY BE OMITTED. This clinical summary was aggregated from multiple sources. Caution should be exercised in using it in the provision of clinical care. This summary normalizes information from multiple sources, and as a consequence, information in this document may materially change the coding, format and clinical context of patient data. In addition, data may be omitted in some cases. CLINICAL DECISIONS SHOULD BE BASED ON THE PRIMARY CLINICAL RECORDS. [employer] provides no warranty or guarantee of the accuracy or completeness of information in this document.
--- NOTE | 2023-08-08 23:57 | ECG_ITS ---
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
--- NOTE | 2023-08-08 23:57 | XR_ITS ---
The [address] [address] Patient Name: FRAN MATA MRN: [id number] date: 1960 Sex: M Assigned Patient Location: ER Current Patient Location: ER Accession/Order Number: [id number] Exam Date: 08/08/2023 23:59 Report Date: 08/09/2023 00:33 At the request of: NÉSTOR GUTIÉRREZ Procedure: XR chest 1V EXAM: XR chest 1V HISTORY: CP COMPARISON: 06/05/2023 TECHNIQUE: Single view of the chest. FINDINGS: Heart size normal. No focal consolidation, pleural effusion, pulmonary congestion or pneumothorax. Loop recorder. External leads. XR/XR chest 1V IMPRESSION: No acute findings. Electronically authenticated by: BRAULIO CORTEZ Date: 08/09/2023 00:33
--- NOTE | 2023-08-08 23:58 | ED.CHESTPAI1 ---
HPI - Chest Pain General Chief Complaint: Chest Pain Stated Complaint: CHEST PAIN Time Seen by Provider: 08/08/23 23:44 Source: patient Mode of arrival: walk-in Limitations: no limitations History of Present Illness HPI narrative: 62-year-old male presents for chest pain. It's in the left upper chest and he's had it continuously since yesterday. He gives no history of any fall or injury. It hurts more when he pushes on it or moves in certain positions. He has a history of coronary artery disease and has two stents, placed about a year ago. The pain is moderate and aching. Related Data Home Medications Medication Instructions Recorded Confirmed clopidogrel 75 mg tablet 75 mg PO DAILY 01/03/23 08/08/23 cyclobenzaprine 10 mg tablet 10 mg PO TID PRN muscle spasm 01/03/23 08/08/23 nitroglycerin 0.4 mg sublingual 0.4 mg sublingual .Q5MIN PRN chest 01/03/23 08/08/23 tablet pain albuterol sulfate 90 mcg/actuation 2 puff inhalation Q6H PRN 06/06/23 08/08/23 aerosol inhaler shortness of breath or wheezing atorvastatin 80 mg tablet 80 mg PO QPM 06/06/23 08/08/23 ezetimibe 10 mg tablet 10 mg PO DAILY 06/06/23 08/08/23 gabapentin 300 mg capsule 300 mg PO BID 06/06/23 08/08/23 metoprolol tartrate 25 mg tablet 25 mg PO BID 06/06/23 08/08/23 pantoprazole 40 mg tablet,delayed 40 mg PO DAILY 06/06/23 08/08/23 release apixaban 5 mg tablet (Eliquis) 5 mg PO DAILY 08/08/23 08/08/23 Previous Rx's Medication Instructions Recorded prednisone 10 mg tablet See Rx Instructions .Route 06/06/23 .COMPLEX #30 tabs Allergies Allergy/AdvReac Type Severity Reaction Status Date / Time bee venom protein (honey bee) Allergy Intermediate Verified 08/08/23 23:51 Review of Systems ROS Narrative A ten point review of systems is negative except as noted above. [facility] Medical History (Updated 08/09/23 @ 00:47 by Enrique Pablo MD) Chronic low back pain ?M54.50 - Low back pain, unspecified (ICD-10) ?G89.29 - Other chronic pain (ICD-10) Tobacco abuse ?Z72.0 - Tobacco use (ICD-10) GERD (gastroesophageal reflux disease) ?K21.9 - Gastro-esophageal reflux disease without esophagitis (ICD-10) Hypertension ?I10 - Essential (primary) hypertension (ICD-10) CAD (coronary atherosclerotic disease) ?I25.10 - Atherosclerotic heart disease of [place] coronary artery without angina pectoris (ICD-10) Surgical History (Updated 01/07/23 @ 00:00 by ) Stented coronary artery ?Z95.5 - Presence of coronary angioplasty implant and graft (ICD-10) Social History Smoking status: Current every day smoker Do you think of yourself as: straight/heterosexual Gender Identity: male Exam Narrative Exam Narrative: Nurses note and vital signs reviewed and patient is not hypoxic. General: The patient appears well and in no apparent distress. Patient is resting comfortably on cart. Skin: Warm, dry, no pallor noted. There is no rash noted. Head: Normocephalic, atraumatic Eye: Normal conjunctiva, no drainage Ears, Nose, Mouth, and Throat: oral mucosa is moist. Nares patent. Cardiovascular: Regular Rate and Rhythm; left upper chest wall has no bruise or abrasion but has reproducible tenderness Respiratory: Patient is in no distress, no accessory muscle use, lungs are clear to auscultation, no wheezing, rales or rhonchi Back: non-tender GI: no tenderness to palpation, no masses appreciated. No rebound, guarding, or rigidity noted. he has to purple colored bruises, one on the right lateral aspect of the abdomen and the other on the left lower quadrant area laterally. These areas do not seem to be tender. He also has a bruise on his left lower arm. Musculoskeletal: The patient has no evidence of calf tenderness, no pitting edema, symmetrical pulses noted bilaterally Neurological: A&O, normal speech Psychiatric: Cooperative Constitutional Vital Signs, click to edit/add: Last Vital Signs Temp 97.9 F 08/08/23 23:44 Pulse 63 08/09/23 00:30 Resp 18 08/09/23 00:30 BP 148/95 H 08/09/23 00:30 Pulse Ox 98 08/09/23 00:30 O2 Del Method Room Air 08/08/23 23:44 Course Vital Signs Vital signs: Vital Signs Temperature 97.9 F 08/08/23 23:44 Pulse Rate 63 08/08/23 23:44 Respiratory Rate 22 08/08/23 23:44 Blood Pressure 160/89 H 08/08/23 23:44 Pulse Oximetry 98 08/08/23 23:44 Oxygen Delivery Method Room Air 08/08/23 23:44 Temperature 97.9 F 08/08/23 23:44 Pulse Rate 63 08/09/23 00:30 Respiratory Rate 18 08/09/23 00:30 Blood Pressure 148/95 H 08/09/23 00:30 Pulse Oximetry 98 08/09/23 00:30 Oxygen Delivery Method Room Air 08/08/23 23:44 MDM - Chest Pain MDM Narrative Medical decision making narrative: he's had the pain for almost 48 hours. His workup including troponin is negative. He has no understanding of how he got these bruises on his abdomen and left arm. The chest pain is reproducible. Palpation reproduces his symptoms. At this point I do not suspect cardiac or pulmonary etiology and he'll be discharged home. Treatment diagnosis and follow-up were discussed with the patient. Differential Diagnosis Differential diagnosis: Likely fracture of rib, pneumothorax, unstable angina pectoris, atypical chest pain, st elevation myocardial infarction, costochondritis and chest pain Lab Data Attestation: I reviewed the patient's lab results. Labs: Lab Results 08/09/23 Range/Units 00:00 WBC 10.9 (4.0-11.0) 10^3/uL RBC 4.87 (4.70-6.10) 10^6/uL Hgb 14.2 (14.0-18.0) g/dL Hct 41.7 L (42.0-54.0) % MCV 85.6 (80.0-94.0) fL MCH 29.2 (25.9-34.0) pg MCHC 34.1 (29.9-35.2) g/dL RDW 12.8 (11.0-15.0) % Plt Count 275 (150-450) 10^3/uL MPV 9.6 (9.5-13.5) fL Neut % (Auto) 49.9 (43.0-75.0) % Lymph % (Auto) 36.6 (20.5-60.0) % [place] % (Auto) 10.9 (1.7-12.0) % Eos % (Auto) 1.9 (0.9-7.0) % Baso % (Auto) 0.5 (0.2-2.0) % Neut # (Auto) 5.4 (1.4-6.5) 10^3/uL Lymph # (Auto) 4.0 H (1.2-3.8) 10^3/uL [place] # (Auto) 1.2 H (0.3-0.8) 10^3/uL Eos # (Auto) 0.2 (0.0-0.7) 10^3/uL Baso # (Auto) 0.1 (0.0-0.1) 10^3/uL Abs Immat Gran (auto) 0.02 (0.00-0.03) 10^3/uL Imm/Tot Granulo (auto) 0.2 (0.0-0.5) % Sodium 138 (136-145) mmol/L Potassium 4.2 (3.5-5.1) mmol/L Chloride 104 (98-107) mmol/L Carbon Dioxide 30.4 (21.0-32.0) mmol/L Anion Gap 7.8 BUN 15.0 (7.0-18.0) mg/dL Creatinine 1.16 (0.70-1.30) mg/dL Est GFR ( Amer) >60 (>=60) Est GFR (Non-Af Amer) >60 (>=60) BUN/Creatinine Ratio 12.9 Glucose 105 (74-106) mg/dL Calcium 8.9 (8.5-10.1) mg/dL Troponin I High Sens 6.2 (4.0-76.1) pg/mL Imaging Data Chest x-ray: Radiologist's impression: ITS Impressions Chest X-Ray 08/08/23 23:57 IMPRESSION: No acute findings. Electronically authenticated by: BRAULIO CORTEZ Date: 08/09/2023 00:33 ECG Data Attestation: I personally reviewed and interpreted this ECG as follows: (EKG on my interpretation shows normal sinus rhythm without acute change.) Heart Score History: Slightly/Non-Suspicious ECG: Normal Age: >45-<65 years Risk Factors: >3 Risk Factors/ HX of CAD:2 Troponin: <Normal Limit Total Heart Score Recommendations & Risks:: 3 Discharge Plan Discharge Chief Complaint: Chest Pain Clinical Impression: Chest wall pain Patient Disposition: Home, Self-Care Time of Disposition Decision: 00:46 Condition: Good Mode of Transportation: Private Vehicle Prescriptions / Home Meds: No Action clopidogrel 75 mg tablet 75 mg PO DAILY cyclobenzaprine 10 mg tablet 10 mg PO TID PRN (Reason: muscle spasm) nitroglycerin 0.4 mg tablet, sublingual 0.4 mg sublingual .Q5MIN PRN (Reason: chest pain) albuterol sulfate 90 mcg/actuation HFA aerosol inhaler 2 puff INHALATION Q6H PRN (Reason: shortness of breath or wheezing) ezetimibe 10 mg tablet 10 mg PO DAILY gabapentin 300 mg capsule 300 mg PO BID metoprolol tartrate 25 mg tablet 25 mg PO BID pantoprazole 40 mg tablet,delayed release (DR/EC) 40 mg PO DAILY atorvastatin 80 mg tablet 80 mg PO QPM prednisone 10 mg tablet See Rx Instructions .ROUTE .COMPLEX Qty: 30 0RF Rx Instructions: 4 by mouth daily for three days then 3 by mouth daily for three days then 2 by mouth daily for three days then 1 by mouth daily for three days Eliquis 5 mg tablet 5 mg PO DAILY Instructions: Chest Wall Pain (ED) Stand Alone Forms: Portal Instructions Referrals: Physician,Non-Staff, MD [Primary Care Provider] - 1 week
[2023-08-09] VITALS: PULSE 59; RESP 16
[2023-08-09 00:09] VITALS: PULSE 69
[2023-08-09 00:10] VITALS: PULSE 61; RESP 16; O2SAT 100
[2023-08-09 00:13] LABS: Basophils Absolute Auto 0.1 10^3/uL (0.0-0.1); Basophils Percent Auto 0.5 % (0.2-2.0); Eosinophils Absolute Auto 0.2 10^3/uL (0.0-0.7); Eosinophils Percent Auto 1.9 % (0.9-7.0); Hematocrit 41.7 % (42.0-54.0); Hemoglobin 14.2 g/dL (14.0-18.0); Immature Granulocytes Abs Auto 0.02 10^3/uL (0.00-0.03); Immature Granulocytes Pct Auto 0.2 % (0.0-0.5); Lymphocytes Percent Auto 36.6 % (20.5-60.0); Mean Corpuscular HGB Conc 34.1 g/dL (29.9-35.2); Mean Corpuscular Hemoglobin 29.2 pg (25.9-34.0); Mean Corpuscular Volume 85.6 fL (80.0-94.0); Mean Platelet Volume 9.6 fL (9.5-13.5); Monocytes Absolute Auto 1.2 10^3/uL (0.3-0.8); Monocytes Percent Auto 10.9 % (1.7-12.0); Neutrophils Absolute Auto 5.4 10^3/uL (1.4-6.5); Neutrophils Percent Auto 49.9 % (43.0-75.0); Platelet Count 275 10^3/uL (150-450); Red Blood Count 4.87 10^6/uL (4.70-6.10); Red Cell Distribution Width 12.8 % (11.0-15.0); White Blood Count 10.9 10^3/uL (4.0-11.0)
--- NOTE | 2023-08-09 00:15 | PC.NURSE ---
pt presents to ER for chest pain which radiates down his right arm Pt states the pain goes across the entirety of his chest and is worse on the left, but the pain radiates down the right arm Pt experiences pain on palpation to the left chest and with movement of the right arm Pt states he has a history of an AL with 2 stent placements Pt just started a new job but denies strenuous labor or muscle strain Noted when pt was changing into a gown were 2 large dark purple abdominal bruises one present to the right flank area and one to the left lower quadrant Pt states he does not remember any injuries, and denies drinking or drug abuse Pt also noted to have large bruise with hematoma to right forearm pt states 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
[2023-08-09 00:20] VITALS: PULSE 61; RESP 15; O2SAT 96
[2023-08-09 00:26] LABS: Anion Gap 7.8; BUN Creatinine Ratio 12.9; Calcium 8.9 mg/dL (8.5-10.1); Carbon Dioxide 30.4 mmol/L (21.0-32.0); Chloride 104 mmol/L (98-107); Estimated GFR (African America >60 (>=60); Estimated GFR (Non-African Ame >60 (>=60); Glucose 105 mg/dL (74-106); Potassium 4.2 mmol/L (3.5-5.1); Sodium 138 mmol/L (136-145)
[2023-08-09 00:29] LABS: Troponin I High Sensitivity 6.2 pg/mL (4.0-76.1)
[2023-08-09 00:30] VITALS: BP 148/95; PULSE 63; RESP 18; O2SAT 98
== END 2023-08-09 01:00 | disposition home or self-care (01) ==
PROVIDERS: Emergency Provider Emergency Medicine
DX: R07.89 Other chest pain (principal); I25.10 Atherosclerotic heart disease of native coronary artery without angina pectoris; Z95.5 Presence of coronary angioplasty implant and graft; Z79.899 Other long term (current) drug therapy; Z79.01 Long term (current) use of anticoagulants; K21.9 Gastro-esophageal reflux disease without esophagitis; I10 Essential (primary) hypertension; F17.210 Nicotine dependence, cigarettes, uncomplicated
CPT/HCPCS: 36415; 71045; 80048; 84484; 85025; 93005; 99285

== ENCOUNTER 2023-08-29 17:56 | Emergency (ER) | payer OTHER, SELFPAY ==
[2023-08-29 18:01] VITALS: BP 129/73; PULSE 66; RESP 18; TEMP 36.6; O2SAT 97; BMI 31.5
--- NOTE | 2023-08-29 18:04 | XR_ITS ---
The [address] [address] Patient Name: FRAN MATA MRN: [id number] date: 1960 Sex: M Assigned Patient Location: ER Current Patient Location: ER Accession/Order Number: [id number] Exam Date: 08/29/2023 18:16 Report Date: 08/29/2023 19:00 At the request of: MARK ANTHONY CULP Procedure: XR ankle LT min 3V EXAM: XR ankle LT min 3V HISTORY: fall COMPARISON: None. TECHNIQUE: 3 views of left ankle FINDINGS: There is no acute fracture or dislocation. Ankle mortise is normal. Talar dome is congruent. There is soft tissue swelling about the ankle. XR/XR ankle LT min 3V IMPRESSION: No acute fracture. Electronically authenticated by: AUBREY HANSEN Date: 08/29/2023 19:00
--- NOTE | 2023-08-29 18:12 | ED_ITS ---
HPI - Extremity Injury (Lower) General Chief Complaint: Extremity Injury, Lower Stated Complaint: Lower Extremity Injury Time Seen by Provider: 08/29/23 18:04 Source: patient Mode of arrival: walk-in Limitations: no limitations History of Present Illness HPI Narrative: Patient is a 62-year-old male who presents to the emergency department for the evaluation of left ankle pain after twisting the ankle yesterday. He denies any other associated injuries. He states that the left ankle feels tight . No medications taken prior to arrival Related Data Home Medications Medication Instructions Recorded Confirmed clopidogrel 75 mg tablet 75 mg PO DAILY 01/03/23 08/08/23 cyclobenzaprine 10 mg tablet 10 mg PO TID PRN muscle spasm 01/03/23 08/08/23 nitroglycerin 0.4 mg sublingual 0.4 mg sublingual .Q5MIN PRN chest 01/03/23 08/08/23 tablet pain albuterol sulfate 90 mcg/actuation 2 puff inhalation Q6H PRN 06/06/23 08/08/23 aerosol inhaler shortness of breath or wheezing atorvastatin 80 mg tablet 80 mg PO QPM 06/06/23 08/08/23 ezetimibe 10 mg tablet 10 mg PO DAILY 06/06/23 08/08/23 gabapentin 300 mg capsule 300 mg PO BID 06/06/23 08/08/23 metoprolol tartrate 25 mg tablet 25 mg PO BID 06/06/23 08/08/23 pantoprazole 40 mg tablet,delayed 40 mg PO DAILY 06/06/23 08/08/23 release apixaban 5 mg tablet (Eliquis) 5 mg PO DAILY 08/08/23 08/08/23 Previous Rx's Medication Instructions Recorded prednisone 10 mg tablet See Rx Instructions .Route 06/06/23 .COMPLEX #30 tabs hydrocodone 5 mg-acetaminophen 325 1 tab PO Q6H PRN pain #8 tabs 08/29/23 mg tablet Allergies Allergy/AdvReac Type Severity Reaction Status Date / Time bee venom protein (honey bee) Allergy Intermediate Verified 08/08/23 23:51 Review of Systems ROS Constitutional Denies: fever or chills Eyes Denies: change in vision Ears, nose, mouth, and throat Denies: throat pain Cardiovascular Denies: chest pain Respiratory Denies: shortness of breath Gastrointestinal Denies: nausea or vomiting Musculoskeletal Reports: extremity pain, extremity swelling, joint pain, limited range of motion and joint swelling; Denies: back pain or neck pain Integumentary/Breast Denies: rash Neurological Denies: headache Hematologic/Lymphatic Denies: easy bruising [facility] Medical History (Updated 08/29/23 @ 19:07 by ANABELL Carlin) Chronic low back pain ?M54.50 - Low back pain, unspecified (ICD-10) ?G89.29 - Other chronic pain (ICD-10) Tobacco abuse ?Z72.0 - Tobacco use (ICD-10) GERD (gastroesophageal reflux disease) ?K21.9 - Gastro-esophageal reflux disease without esophagitis (ICD-10) Hypertension ?I10 - Essential (primary) hypertension (ICD-10) CAD (coronary atherosclerotic disease) ?I25.10 - Atherosclerotic heart disease of [place] coronary artery without angina pectoris (ICD-10) Surgical History (Updated 01/07/23 @ 00:00 by ) Stented coronary artery ?Z95.5 - Presence of coronary angioplasty implant and graft (ICD-10) Social History Smoking status: Current every day smoker Do you think of yourself as: straight/heterosexual Gender Identity: male Exam Narrative Exam Narrative: Gen.: Awake, alert, in no distress Head: Normocephalic, atraumatic ENT: Moist mucous membranes Respiratory: No respiratory distress Extremities: Moves extremities equally; Diffuse swelling of the left ankle with mild tenderness over the left lateral malleolus. No obvious deformity, no ecchymosis or erythema of the joint. No bony tenderness of the left fifth metatarsal. 2+ left DP pulse. Normal flexion and extension of the toes of the left foot Psych: Normal mood and affect Neuro: No focal neuro deficit Skin: Warm, dry, intact Constitutional Vital Signs, click to edit/add: Last Vital Signs Temp 97.9 F 08/29/23 18:01 Pulse 66 08/29/23 18:01 Resp 18 08/29/23 18:01 BP 129/73 08/29/23 18:01 Pulse Ox 97 08/29/23 18:01 O2 Del Method Room Air 08/29/23 18:01 Course Vital Signs Vital signs: Vital Signs Temperature 97.9 F 08/29/23 18:01 Pulse Rate 66 08/29/23 18:01 Respiratory Rate 18 08/29/23 18:01 Blood Pressure 129/73 08/29/23 18:01 Pulse Oximetry 97 08/29/23 18:01 Oxygen Delivery Method Room Air 08/29/23 18:01 Temperature 97.9 F 08/29/23 18:01 Pulse Rate 66 08/29/23 18:01 Respiratory Rate 18 08/29/23 18:01 Blood Pressure 129/73 08/29/23 18:01 Pulse Oximetry 97 08/29/23 18:01 Oxygen Delivery Method Room Air 08/29/23 18:01 MDM - Extremity Injury (Lower) MDM Narrative Medical decision making narrative: X-rays with no evidence of fracture or dislocation. Patient placed in an Barrett wrap, Aircast and given a short course of analgesics for home. He remains neurovascularly intact. Rest, ice, elevate. Follow-up with PCP and return to the ER if symptoms change or worsen Medical Records Attestation: I reviewed the patient's medical records. Imaging Data XR ankle: Attestation: I have reviewed the pertinent imaging results. Radiologist's impression: ITS Impressions Ankle X-Ray 08/29/23 18:04 IMPRESSION: No acute fracture. Electronically authenticated by: AUBREY HANSEN Date: 08/29/2023 19:00 Discharge Plan Discharge Chief Complaint: Extremity Injury, Lower Clinical Impression: Left ankle sprain Patient Disposition: Home, Self-Care Time of Disposition Decision: 19:08 Condition: Good Prescriptions / Home Meds: New hydrocodone-acetaminophen 5-325 mg tablet 1 tab PO Q6H PRN (Reason: pain) Qty: 8 0RF Rx Instructions: DX: M25.572 No Action clopidogrel 75 mg tablet 75 mg PO DAILY cyclobenzaprine 10 mg tablet 10 mg PO TID PRN (Reason: muscle spasm) nitroglycerin 0.4 mg tablet, sublingual 0.4 mg sublingual .Q5MIN PRN (Reason: chest pain) albuterol sulfate 90 mcg/actuation HFA aerosol inhaler 2 puff INHALATION Q6H PRN (Reason: shortness of breath or wheezing) ezetimibe 10 mg tablet 10 mg PO DAILY gabapentin 300 mg capsule 300 mg PO BID metoprolol tartrate 25 mg tablet 25 mg PO BID pantoprazole 40 mg tablet,delayed release (DR/EC) 40 mg PO DAILY atorvastatin 80 mg tablet 80 mg PO QPM prednisone 10 mg tablet See Rx Instructions .ROUTE .COMPLEX Qty: 30 0RF Rx Instructions: 4 by mouth daily for three days then 3 by mouth daily for three days then 2 by mouth daily for three days then 1 by mouth daily for three days Eliquis 5 mg tablet 5 mg PO DAILY Instructions: Ankle Sprain (ED), P.R.I.C.E. Treatment (ED) Stand Alone Forms: Portal Instructions Referrals: Physician,Non-Staff, MD [Primary Care Provider] - 1 week
[2023-08-29 19:24] VITALS: BP 126/88; PULSE 55; RESP 18; O2SAT 98
== END 2023-08-29 19:25 | disposition home or self-care (01) ==
PROVIDERS: Emergency Provider Emergency Medicine
DX: S93.402A Sprain of unspecified ligament of left ankle, initial encounter (principal); X50.1XXA Overexertion from prolonged static or awkward postures, initial encounter; Z79.899 Other long term (current) drug therapy; Z79.01 Long term (current) use of anticoagulants; K21.9 Gastro-esophageal reflux disease without esophagitis; I10 Essential (primary) hypertension; I25.10 Atherosclerotic heart disease of native coronary artery without angina pectoris; Z95.5 Presence of coronary angioplasty implant and graft; F17.210 Nicotine dependence, cigarettes, uncomplicated
CPT/HCPCS: 73610; 99283